=== PATIENT | male | born 1980 ===

== ENCOUNTER 2016-06-03 15:52 | Emergency (ER) | payer OTHER ==
[2016-06-03 15:52] VITALS: BMI 33.8
[2016-06-03 16:05] VITALS: BP 156/101; PULSE 103; RESP 20; TEMP 98.4; O2SAT 98
[2016-06-03] MEDS ORDERED: Sodium Chloride 0.9% 1,000 ML IV ONE (16:19)
[2016-06-03] MEDS ORDERED: Sodium Chloride 0.9% 1,000 ML ONE (16:35)
[2016-06-03 16:57] LABS: BASO % 0.5 % (0.0-2.0); HEMATOCRIT 41.3 % (35.0-51.0); LYMPH # 1.8 K/uL (1.0-4.3); LYMPH % 38.8 % (20.0-40.0); MEAN CELL VOLUME 86.9 fL (80.0-94.0); MEAN CORPUSCULAR HEMOGLOBIN 29.9 pg (27.0-31.0); MEAN CORPUSCULAR HGB CONC 34.4 g/dL (33.0-37.0); MEAN PLATELET VOLUME 7.7 fL (7.2-11.7); MONO # 0.3 K/uL (0.0-0.8); MONO % 6.4 % (0.0-10.0); NRBC % 0.2 % (0.0-2.0); RED CELL DISTRIBUTION WIDTH 15.3 % (11.5-14.5); WHITE BLOOD COUNT 4.6 K/uL (4.8-10.8)
[2016-06-03 17:02] LABS: CHLORIDE 96 mmol/L (98-107); POTASSIUM 3.9 mmol/L (3.6-5.2); SODIUM 143 mmol/L (132-148)
--- NOTE | 2016-06-03 17:03 | RAD ---
HISTORY: cough, pain COMPARISON: Chest x-ray performed 04/04/16 TECHNIQUE: Chest, one view. FINDINGS: Examination limited by habitus and hypoinflation. LUNGS: Linear atelectasis, medial right midlung zone. Please note that chest x-ray has limited sensitivity for the detection of pulmonary masses. PLEURA: No significant pleural effusion identified. No definite pneumothorax . CARDIOVASCULAR: The cardiomediastinal silhouette appears within normal limits of size. OSSEOUS STRUCTURES: No acute osseous abnormality identified. VISUALIZED UPPER ABDOMEN: Unremarkable. OTHER FINDINGS: None. IMPRESSION: Linear atelectasis, medial right midlung zone.
[2016-06-03 17:04] LABS: GFR AFRICAN-AMERICAN > 60
[2016-06-03 17:05] LABS: ALKALINE PHOSPHATASE 125 U/L (38-126); ALT/SGPT 66 U/L (21-72); AST/SGOT 116 U/L (17-59); BLOOD UREA NITROGEN 10 mg/dL (9-20); CALCIUM 7.4 mg/dl (8.6-10.4); CARBON DIOXIDE 26 mmol/L (22-30); GLUCOSE,RANDOM 102 mg/dL (75-110); MAGNESIUM 2.2 mg/dL (1.6-2.3); TOTAL PROTEIN 8.5 g/dL (6.3-8.3)
[2016-06-03 17:06] LABS: ALCOHOL SERUM 269 mg/dl (0-10)
[2016-06-03 17:09] LABS: ALB/GLOB RATIO 0.9 (1.0-2.1)
--- NOTE | 2016-06-03 17:42 | C.PDOC ---
History Of Present Illness Pt c/o multiple symptoms, including abdominal pain and vomiting. Time Seen by Provider: 06/03/16 16:11 Chief Complaint (Nursing): Medical Clearance History Per: Patient History/Exam Limitations: intoxication Onset/Duration Of Symptoms: Days (1) Current Symptoms Are (Timing): Still Present Severity: Moderate Context: Alcohol abuse Additional History Per: Prior Records Past Medical History Reviewed: Historical Data, Nursing Documentation, Vital Signs Vital Signs: Last Vital Signs Temp 98.4 F 06/03/16 16:02 Pulse 103 H 06/03/16 16:02 Resp 20 06/03/16 16:02 BP 156/101 H 06/03/16 16:02 Pulse Ox 98 06/03/16 17:41 - Medical History PMH: Gastritis, HTN Surgical History: No Surg Hx - [facility] Procedures CLOSURE SKIN & SUBCUTANEOUS NEC (11/10/14) DETOXIFICATION SERVICES FOR SUBSTANCE ABUSE TREATMENT (02/16/16) GROUP CHECKER PRODUCT DESIGN FOR SUBSTANCE ABUSE TREATMENT, PSYCHOEDUCATION (02/16/16) TETANUS TOXOID ADMINIST (11/10/14) Family History: States: Unknown Family Hx - Social History Hx Tobacco Use: No Hx Alcohol Use: Yes Hx Substance Use: No - Immunization History Hx Tetanus Toxoid Vaccination: Yes (2014) Hx Influenza Vaccination: No Hx Pneumococcal Vaccination: No Review Of Systems Except As Marked, All Systems Reviewed And Found Negative. Constitutional: Negative for: Fever ENT: Positive for: Throat Pain Respiratory: Positive for: Cough. Negative for: Hemoptysis Gastrointestinal: Positive for: Nausea, Vomiting, Abdominal Pain Musculoskeletal: Negative for: Neck Pain, Back Pain Skin: Negative for: Rash Neurological: Negative for: Weakness, Numbness, Seizures, Altered Mental Status Psych: Negative for: Suicidal ideation Physical Exam - Physical Exam Appears: No Acute Distress, Chronically Ill Skin: Normal Color, Warm, Dry, No Rash Head: Atraumatic, Normacephalic Eye(s): bilateral: PERRL, EOMI Neck: Normal ROM, Supple Cardiovascular: Rhythm Regular Respiratory: Normal Breath Sounds, No Accessory Muscle Use Gastrointestinal/Abdominal: Soft, Tenderness (nonspecific) Back: No CVA Tenderness Extremity: Normal ROM Neurological/Psych: Oriented x3, Normal Motor, Normal Sensation ED Course And Treatment - Laboratory Results Result Diagrams: 06/03/16 16:53 06/03/16 16:53 Lab Interpretation: No Changes Compared To Prior Results ECG: Interpreted By Me, Viewed By Me ECG Rhythm: Sinus Rhythm ECG Interpretation: No Acute Changes Rate From EC O2 Sat by Pulse Oximetry: 98 Pulse Ox Interpretation: Normal - Radiology CXR: Viewed By Me, Read By Radiologist CXR Interpretation: Yes: Other (Linear atelectasis, medial right midlung zone.) Progress Note: I was informed by the nurse that the pt had walked out during evaluation. Progress - Interventions Interventions:: Observation, Intravenous fluid - Medications Administered Intravenous: Antiemetic, H-2 argelia - Data Reviewed Data Reviewed: Lab, Diagnostic imaging, EKG, Old records Disposition - Disposition Disposition: ELOPEMENT - ER ONLY Disposition Time: 18:00 Condition: UNKNOWN - Clinical Impression Clinical Impression: Alcohol abuse, Abdominal pain, Patient left before treatment completed
--- NOTE | 2016-06-04 12:51 | CARD ---
APPROVED REPORT EKG Measurement Heart [id number] <Conclusion> Normal sinus rhythm Normal ECG
== END 2016-06-03 17:41 | disposition left against medical advice (07) ==
LOC: C.ER 15:52
DX: R10.9 Unspecified abdominal pain (principal); F10.10 Alcohol abuse, uncomplicated; Y90.8 Blood alcohol level of 240 mg/100 ml or more

== ENCOUNTER 2016-06-15 02:28 | Observation (INO) | payer OTHER ==
[2016-06-15 02:28] VITALS: BMI 33.8
[2016-06-15 02:36] VITALS: TEMP 98.4; O2SAT 96
[2016-06-15 02:58] LABS: BASO % 1.2 % (0.0-2.0); EOS # 0.1 K/uL (0.0-0.7); EOS % 1.6 % (0.0-4.0); LYMPH # 1.6 K/uL (1.0-4.3); LYMPH % 44.2 % (20.0-40.0); MEAN CELL VOLUME 90.5 fL (80.0-94.0); MEAN CORPUSCULAR HEMOGLOBIN 29.9 pg (27.0-31.0); MEAN PLATELET VOLUME 7.6 fL (7.2-11.7); MONO # 0.6 K/uL (0.0-0.8); MONO % 17.4 % (0.0-10.0); NRBC % 0.1 % (0.0-2.0); RED CELL DISTRIBUTION WIDTH 16.3 % (11.5-14.5); WHITE BLOOD COUNT 3.7 K/uL (4.8-10.8)
--- NOTE | 2016-06-15 02:59 | C.PDOC ---
History Of Present Illness Patient drank yesterday and now c/o mid epigstric pain, burning , non radiating. Speaking in complete sentences., No f/c/n/v Time Seen by Provider: 06/15/16 02:59 Chief Complaint (Nursing): Abdominal Pain History Per: Patient History/Exam Limitations: no limitations Onset/Duration Of Symptoms: Hrs Current Symptoms Are (Timing): Still Present Context: Other (etoh) Severity: Moderate Pain Scale Rating Of: 4 Location Of Pain/Discomfort: Epigastric Radiation Of Pain To:: None Quality Of Discomfort: Dull, Aching Associated Symptoms: Nausea. denies: Fever, Chills, Constipation Exacerbating Factors: None Alleviating Factors: None Last Bowel Movement: Yesterday Recent travel outside of the [place]: No Additional History Per: Patient Past Medical History Reviewed: Historical Data, Nursing Documentation, Vital Signs Vital Signs: Last Vital Signs Temp 98.4 F 06/15/16 06:08 Pulse 95 H 06/15/16 06:08 Resp 18 06/15/16 06:08 BP 127/84 06/15/16 06:08 Pulse Ox 96 06/15/16 06:08 - Medical History PMH: Gastritis, HTN - [facility] Procedures CLOSURE SKIN & SUBCUTANEOUS NEC (11/10/14) DETOXIFICATION SERVICES FOR SUBSTANCE ABUSE TREATMENT (02/16/16) GROUP THEATRE PROFESSOR FOR SUBSTANCE ABUSE TREATMENT, PSYCHOEDUCATION (02/16/16) TETANUS TOXOID ADMINIST (11/10/14) Family History: States: No Known Family Hx - Social History Hx Tobacco Use: No Hx Alcohol Use: Yes Hx Substance Use: No - Immunization History Hx Tetanus Toxoid Vaccination: Yes (2014) Hx Influenza Vaccination: No Hx Pneumococcal Vaccination: No Review Of Systems Constitutional: Negative for: Fever, Chills Cardiovascular: Negative for: Chest Pain, Palpitations Respiratory: Negative for: Shortness of Breath Gastrointestinal: Positive for: Nausea, Abdominal Pain. Negative for: Vomiting Musculoskeletal: Negative for: Back Pain Skin: Negative for: Rash, Lesions, Jaundice, Bruising Neurological: Negative for: Weakness Psych: Negative for: Anxiety Physical Exam - Physical Exam Appears: Non-toxic, No Acute Distress Skin: Warm, Dry Head: Normacephalic Neck: Supple Chest: Symmetrical Cardiovascular: Rhythm Regular Respiratory: No Rales, No Rhonchi, No Wheezing Gastrointestinal/Abdominal: Soft, Tenderness (midepigastric), No Distention, No Rebound Back: Normal Inspection Extremity: Normal ROM Extremity: Bilateral: Atraumatic, Normal Color And Temperature Neurological/Psych: Oriented x3, Normal Speech, Normal Cognition Gait: Steady ED Course And Treatment - Laboratory Results Result Diagrams: 06/15/16 02:55 06/15/16 02:55 O2 Sat by Pulse Oximetry: 96 Pulse Ox Interpretation: Normal Progress Note: blood work, ivf, protonix Reevaluation Time: 05:42 Reassessment Condition: Improved ED OBSERVATION Discharge: Yes Date of observation admission: 06/15/16 Time of observation admission: 03:39 - Observation admission statement Patient is being placed in observation because:: alcohol intoxication - Goals of Observation Goals of observation are:: sobriety - Progress Note Progress Note: 06/15/16 03:40 vitals stable, no complaints 06/15/16 05:43 Disposition Counseled Patient/Family Regarding: Studies Performed, Diagnosis, Need For Followup - Disposition Referrals: [facility] [Outside] Disposition: HOME/ ROUTINE Disposition Time: 02:59 Condition: FAIR Instructions: Abdominal Pain (ED), Alcohol Intoxication (DC) - Clinical Impression Clinical Impression: Alcohol abuse with intoxication, Abdominal pain
[2016-06-15] MEDS ORDERED: Sodium Chloride 0.9% 1,000 ML IV ONE (03:01)
[2016-06-15] MEDS ORDERED: Sodium Chloride 0.9% 1,000 ML ONE (03:03)
[2016-06-15 03:09] LABS: CHLORIDE 101 mmol/L (98-107); POTASSIUM 3.6 mmol/L (3.6-5.2); SODIUM 147 mmol/L (132-148)
[2016-06-15 03:11] LABS: AST/SGOT 95 U/L (17-59); BILIRUBIN,TOTAL 0.4 mg/dL (0.2-1.3); CARBON DIOXIDE 25 mmol/L (22-30); GFR AFRICAN-AMERICAN > 60; TOTAL PROTEIN 8.4 g/dL (6.3-8.3)
[2016-06-15 03:12] LABS: ALKALINE PHOSPHATASE 99 U/L (38-126); ALT/SGPT 91 U/L (21-72); BLOOD UREA NITROGEN 4 mg/dL (9-20); CALCIUM 8.1 mg/dl (8.6-10.4); GLUCOSE,RANDOM 112 mg/dL (75-110)
[2016-06-15 03:24] LABS: RBC URINE < 1 /hpf (0-3); URINE BILIRUBIN NEGATIVE (NEGATIVE); URINE BLOOD NEGATIVE (NEGATIVE); URINE COLOR Yellow (YELLOW); URINE GLUCOSE (UA) NORMAL (Normal); URINE KETONE NEGATIVE (NEGATIVE); URINE LEUKOCYTE ESTERASE NEG Leu/uL (Negative); URINE PROTEIN NEGATIVE (NEGATIVE); URINE UROBILINOGEN NORMAL mg/dL (0.2-1.0); WBC URINE 1 /hpf (0-5)
[2016-06-15 06:08] VITALS: BP 127/84; PULSE 95; RESP 18
== END 2016-06-16 12:30 | disposition home or self-care (01) ==
LOC: C.ER 02:28 → C.9OBSV 03:39
PROVIDERS: ADMIT Emergency Medicine; ATTEND Emergency Medicine
DX: F10.129 Alcohol abuse with intoxication, unspecified (principal); Y90.8 Blood alcohol level of 240 mg/100 ml or more; R10.9 Unspecified abdominal pain; I10 Essential (primary) hypertension

== ENCOUNTER 2016-06-16 03:28 | Emergency (ER) | payer OTHER ==
[2016-06-16 03:29] VITALS: BMI 33.8
[2016-06-16 03:37] VITALS: RESP 18
--- NOTE | 2016-06-16 06:00 | C.PDOC ---
History Of Present Illness Patient presents to the emergency room with complaints of epigastric abdominal pain for a few days. Patient was discharged form the ED yesterday with a prescription for Pepcid. Patient admits to drinking ETOH today. Patient says that he did not fill the prescription. Patient denies any fever, chills, nausea , vomiting, diarrhea, or any other complaints. Time Seen by Provider: 06/16/16 03:48 Chief Complaint (Nursing): Abdominal Pain History Per: Patient History/Exam Limitations: no limitations Onset/Duration Of Symptoms: Hrs Current Symptoms Are (Timing): Still Present Severity: Mild Location Of Pain/Discomfort: Epigastric Radiation Of Pain To:: None Quality Of Discomfort: "Pain" Associated Symptoms: denies: Fever, Chills, Nausea, Vomiting, Diarrhea Exacerbating Factors: None Alleviating Factors: None Recent travel outside of the [place]: No Past Medical History Reviewed: Historical Data, Nursing Documentation, Vital Signs Vital Signs: Last Vital Signs Temp 98.5 F 06/16/16 06:11 Pulse 94 H 06/16/16 06:11 Resp 18 06/16/16 06:11 BP 104/63 06/16/16 06:11 Pulse Ox 96 06/16/16 06:11 - Medical History PMH: Gastritis, HTN Surgical History: No Surg Hx - [facility] Procedures CLOSURE SKIN & SUBCUTANEOUS NEC (11/10/14) DETOXIFICATION SERVICES FOR SUBSTANCE ABUSE TREATMENT (02/16/16) GROUP ZOO KEEPER FOR SUBSTANCE ABUSE TREATMENT, PSYCHOEDUCATION (02/16/16) TETANUS TOXOID ADMINIST (11/10/14) Family History: States: Unknown Family Hx - Social History Hx Tobacco Use: No Hx Alcohol Use: Yes Hx Substance Use: No - Immunization History Hx Tetanus Toxoid Vaccination: Yes (2014) Review Of Systems Constitutional: Negative for: Fever, Chills Gastrointestinal: Positive for: Abdominal Pain. Negative for: Nausea, Vomiting , Diarrhea Physical Exam - Physical Exam Appears: Well, Non-toxic, No Acute Distress Skin: Normal Color, Warm, Dry Head: Atraumatic, Normacephalic Cardiovascular: Rhythm Regular, No Murmur Respiratory: No Rales, No Rhonchi Gastrointestinal/Abdominal: Soft, No Tenderness, No Guarding, No Rebound Extremity: Normal ROM, No Tenderness Neurological/Psych: Oriented x3, Normal Speech ED Course And Treatment O2 Sat by Pulse Oximetry: 95 Medical Decision Making Medical Decision Making: Plan: -- Pepcid & Zofran PO abd remained soft tolerated PO Plan dc Disposition Counseled Patient/Family Regarding: Need For Followup - Disposition Referrals: [facility] [Outside] Disposition: HOME/ ROUTINE Disposition Time: 00:00 Condition: FAIR Additional Instructions: Fill Rx from yesterday and taken the medicine - Clinical Impression Clinical Impression: Gastritis, Alcohol abuse with intoxication - Scribe Statement The provider has reviewed the documentation as recorded by the Scribjuanita Aguilar All medical record entries made by the Deeptiibe were at my direction and personally dictated by me. I have reviewed the chart and agree that the record accurately reflects my personal performance of the history, physical exam, medical decision making, and the department course for this patient. I have also personally directed, reviewed, and agree with the discharge instructions and disposition.
[2016-06-16 06:11] VITALS: BP 104/63; PULSE 94; TEMP 98.5
[2016-06-18 11:40] VITALS: O2SAT 95
== END 2016-06-16 06:12 | disposition home or self-care (01) ==
LOC: C.ER 03:28
DX: K29.70 Gastritis, unspecified, without bleeding (principal); F10.120 Alcohol abuse with intoxication, uncomplicated; Y90.9 Presence of alcohol in blood, level not specified

== ENCOUNTER 2016-06-16 07:38 | Inpatient (IN) | payer OTHER ==
[2016-06-16 07:38] VITALS: BMI 33.8
[2016-06-16] MEDS ORDERED: Sodium Chloride 0.9% 1,000 ML IV ONE ×2 (07:56→09:38)
--- NOTE | 2016-06-16 08:04 | C.PDOC ---
History Of Present Illness Patient is a 35 y/o male that presents to the ED for evaluation of epigastric abdominal pain associated with nausea, and vomiting for the past few days. Patient states that his abdominal pain radiates up to his chest. Patient states that he has been drinking heavily for the past few days, and notes last drink was this morning. Otherwise, denies any fever, chills, diarrhea, urinary symptoms, or any other associated symptoms at this time. Time Seen by Provider: 06/16/16 07:51 Chief Complaint (Nursing): Abdominal Pain History Per: Patient History/Exam Limitations: no limitations Onset/Duration Of Symptoms: Days Current Symptoms Are (Timing): Still Present Location Of Pain/Discomfort: Epigastric Radiation Of Pain To:: Chest Quality Of Discomfort: "Pain" Associated Symptoms: Nausea, Vomiting. denies: Fever, Chills, Diarrhea, Loss Of Appetite, Back Pain, Constipation, Urinary Symptoms Exacerbating Factors: None Alleviating Factors: None Recent travel outside of the [place]: No Additional History Per: Patient Past Medical History Reviewed: Historical Data, Nursing Documentation, Vital Signs Vital Signs: Last Vital Signs Temp 98.5 F 06/16/16 07:42 Pulse 105 H 06/16/16 07:42 Resp 18 06/16/16 07:42 BP 138/91 H 06/16/16 07:42 Pulse Ox 96 06/16/16 08:16 - Medical History PMH: Gastritis, HTN - [facility] Procedures CLOSURE SKIN & SUBCUTANEOUS NEC (11/10/14) DETOXIFICATION SERVICES FOR SUBSTANCE ABUSE TREATMENT (02/16/16) GROUP LEGISLATIVE CORRESPONDENT FOR SUBSTANCE ABUSE TREATMENT, PSYCHOEDUCATION (02/16/16) TETANUS TOXOID ADMINIST (11/10/14) Family History: States: Unknown Family Hx - Social History Hx Tobacco Use: No Hx Alcohol Use: Yes Hx Substance Use: No - Immunization History Hx Tetanus Toxoid Vaccination: Yes (2014) Hx Influenza Vaccination: No Hx Pneumococcal Vaccination: No Review Of Systems Except As Marked, All Systems Reviewed And Found Negative. Constitutional: Negative for: Fever, Chills Gastrointestinal: Positive for: Nausea, Vomiting, Abdominal Pain. Negative for : Diarrhea, Constipation, Hematemesis Genitourinary: Negative for: Dysuria, Hematuria Physical Exam - Physical Exam Appears: Non-toxic, No Acute Distress, Other (EtOH on breath) Skin: Normal Color, Warm, Dry, Diaphoretic Head: Atraumatic, Normacephalic Eye(s): bilateral: Normal Inspection, EOMI ED Course And Treatment - Laboratory Results Result Diagrams: 06/16/16 08:09 O2 Sat by Pulse Oximetry: 96 - PA / CANAL LOCK TENDER CHIEF OPERATOR / Resident Statement MD/ has reviewed & agrees with the documentation as recorded. - Scribe Statement The provider has reviewed the documentation as recorded by the Scribe Prisca Fernando All medical record entries made by the Deeptiibjuanita were at my direction and personally dictated by me. I have reviewed the chart and agree that the record accurately reflects my personal performance of the history, physical exam, medical decision making, and the department course for this patient. I have also personally directed, reviewed, and agree with the discharge instructions and disposition.
[2016-06-16 08:16] LABS: EOS % 0.4 % (0.0-4.0); HEMATOCRIT 39.7 % (35.0-51.0); LYMPH % 20.4 % (20.0-40.0); MEAN CELL VOLUME 90.1 fL (80.0-94.0); MEAN CORPUSCULAR HEMOGLOBIN 31.2 pg (27.0-31.0); MEAN CORPUSCULAR HGB CONC 34.6 g/dL (33.0-37.0); MEAN PLATELET VOLUME 7.3 fL (7.2-11.7); MONO # 0.6 K/uL (0.0-0.8); MONO % 12.9 % (0.0-10.0); NRBC % 0.1 % (0.0-2.0); RED CELL DISTRIBUTION WIDTH 16.1 % (11.5-14.5); WHITE BLOOD COUNT 4.8 K/uL (4.8-10.8)
[2016-06-16 08:23] LABS: RBC URINE 1 /hpf (0-3); URINE BILIRUBIN NEGATIVE (NEGATIVE); URINE BLOOD 1+ (NEGATIVE); URINE COLOR Yellow (YELLOW); URINE GLUCOSE (UA) NORMAL (Normal); URINE KETONE NEGATIVE (NEGATIVE); URINE LEUKOCYTE ESTERASE NEG Leu/uL (Negative); URINE PROTEIN NEGATIVE (NEGATIVE); URINE UROBILINOGEN NORMAL mg/dL (0.2-1.0); WBC URINE 1 /hpf (0-5)
[2016-06-16 08:26] LABS: CHLORIDE 103 mmol/L (98-107)
[2016-06-16 08:27] LABS: POTASSIUM 3.6 mmol/L (3.6-5.2); SODIUM 144 mmol/L (132-148)
--- NOTE | 2016-06-16 08:28 | C.PDOC ---
History Of Present Illness Patient is a 35 y/o male with history of ETOH abuse that presents to the ED for evaluation of epigastric abdominal pain associated with nausea and vomiting for the past few days. Patient states that his abdominal pain radiates up to his chest. Patient states that he has been drinking heavily for the past few days, and notes last drink was yesterday morning. Patient reports feeling tremors and not well this morning. Otherwise, denies any fever, chills, diarrhea, urinary symptoms, or any other associated symptoms at this time. Time Seen by Provider: 06/16/16 07:51 Chief Complaint (Nursing): Abdominal Pain History Per: Patient History/Exam Limitations: no limitations Onset/Duration Of Symptoms: Days (1) Current Symptoms Are (Timing): Still Present Location Of Pain/Discomfort: Epigastric Radiation Of Pain To:: Chest Quality Of Discomfort: "Pain" Associated Symptoms: Nausea, Vomiting. denies: Fever, Chills, Diarrhea, Loss Of Appetite, Back Pain, Constipation, Urinary Symptoms Exacerbating Factors: None Alleviating Factors: None Recent travel outside of the [place]: No Additional History Per: Patient Past Medical History Reviewed: Historical Data, Nursing Documentation, Vital Signs Vital Signs: Last Vital Signs Temp 98.5 F 06/16/16 07:42 Pulse 91 H 06/16/16 10:36 Resp 17 06/16/16 10:36 BP 126/87 06/16/16 10:36 Pulse Ox 96 06/16/16 11:26 - Medical History PMH: Gastritis, HTN - [facility] Procedures CLOSURE SKIN & SUBCUTANEOUS NEC (11/10/14) DETOXIFICATION SERVICES FOR SUBSTANCE ABUSE TREATMENT (02/16/16) GROUP PATTERN WEAVER FOR SUBSTANCE ABUSE TREATMENT, PSYCHOEDUCATION (02/16/16) TETANUS TOXOID ADMINIST (11/10/14) Family History: States: Unknown Family Hx - Social History Hx Tobacco Use: No Hx Alcohol Use: Yes Hx Substance Use: No - Immunization History Hx Tetanus Toxoid Vaccination: Yes (2014) Hx Influenza Vaccination: No Hx Pneumococcal Vaccination: No Review Of Systems Constitutional: Negative for: Fever, Chills Cardiovascular: Negative for: Chest Pain Respiratory: Negative for: Cough, Shortness of Breath Gastrointestinal: Positive for: Nausea, Vomiting, Abdominal Pain. Negative for : Diarrhea, Constipation, Hematemesis Genitourinary: Negative for: Dysuria, Hematuria Psych: Positive for: Withdrawal Physical Exam - Physical Exam Appears: Non-toxic, No Acute Distress, Other (alcohol on breath) Skin: Normal Color, Warm, Diaphoretic Head: Atraumatic, Normacephalic Eye(s): bilateral: Normal Inspection, EOMI Nose: Normal Throat: Normal, No Erythema, No Exudate Neck: Normal ROM, Supple Chest: Symmetrical Cardiovascular: Rhythm Regular (tachycardic) Respiratory: Normal Breath Sounds, No Rales, No Rhonchi, No Wheezing Gastrointestinal/Abdominal: Soft, Tenderness (mild epigastric), No Mass, No Distention, No Guarding, No Rebound Extremity: Bilateral: Atraumatic, Normal Color And Temperature Neurological/Psych: Oriented x3, Normal Speech, Other (mild tremors) ED Course And Treatment - Laboratory Results Result Diagrams: 06/16/16 08:09 06/16/16 08:09 Lab Interpretation: No Acute Changes ECG: Interpreted By Me, Viewed By Me ECG Rhythm: Sinus Rhythm ECG Interpretation: Normal Rate From EC (bpm) O2 Sat by Pulse Oximetry: 96 (on RA) Pulse Ox Interpretation: Normal Progress Note: Labs, EKG ordered and reviewed. Patient was treated with Librium PO, IV fluids, and Zofran inj. ED OBSERVATION Date of observation admission: 06/16/16 Time of observation admission: 07:57 - Observation admission statement Patient is being placed in observation because:: Alcohol intoxication/withdrawal - Goals of Observation Goals of observation are:: Labs and IV hydration, Librium - Progress Note Progress Note: 06/16/16 08:49 Labs reviewed and ETOH is 233. Will continue with fluids and observe 06/16/16 09:07 Patient is asking for Detox. Call machine operator hop worker who informs me there are no detox beds. 06/16/16 09:41 Patient continues to not feel well and complains of epigastric pain. Pepcid and additional IV NS ordered 06/16/16 11:25 Patient continues to complain of not feeling well and tremors and discomfort. Spoke with DR Bueno who also examined patient at bedside and recommends admission to hospitalist. Page hospitalist 06/16/16 11:56 Dr Yin comes to ED to evaluate patient and accepts patient to service obs- tele Disposition - Disposition Disposition: HOSPITALIZED Disposition Time: 11:56 Condition: FAIR - POA Present On Arrival: None - Clinical Impression Clinical Impression: Alcohol dependence with withdrawal - PA / PROFESSOR OF COMMUNICATION AND WRITING / Resident Statement MD/DO has reviewed & agrees with the documentation as recorded. - Scribe Statement The provider has reviewed the documentation as recorded by the Deeptiibjuanita Feranndo All medical record entries made by the Deeptiibjuaniat were at my direction and personally dictated by me. I have reviewed the chart and agree that the record accurately reflects my personal performance of the history, physical exam, medical decision making, and the department course for this patient. I have also personally directed, reviewed, and agree with the discharge instructions and disposition. Decision To Admit - Pt Status Changed To: Hospital Disposition Of: Observation - . Bed Request Type: Telemetry Admitting Physician: Erika Yin Patient Diagnosis: Alcohol dependence with withdrawal
[2016-06-16 08:29] LABS: ALKALINE PHOSPHATASE 84 U/L (38-126); ALT/SGPT 86 U/L (21-72); AST/SGOT 84 U/L (17-59); BILIRUBIN,TOTAL 0.4 mg/dL (0.2-1.3); BLOOD UREA NITROGEN 3 mg/dL (9-20); CARBON DIOXIDE 26 mmol/L (22-30); GFR AFRICAN-AMERICAN > 60; TOTAL PROTEIN 8.2 g/dL (6.3-8.3)
[2016-06-16 08:30] LABS: ALCOHOL SERUM 233 mg/dl (0-10); CALCIUM 7.9 mg/dl (8.6-10.4); GLUCOSE,RANDOM 121 mg/dL (75-110)
[2016-06-16] MEDS ORDERED: Sodium Chloride 0.9% 1,000 ML ONE ×2 (08:34→09:41)
[2016-06-16 11:58] LABS: MAGNESIUM 1.9 mg/dL (1.6-2.3)
--- NOTE | 2016-06-16 13:10 | CP.PCM.HP ---
<Pieter Davies - Last Filed: 06/16/16 18:13> History of Present Illness - History of Present Illness History of Present Illness: cc: "i stopped drinking" HPI: Patient is a 35 year old male with PMHx of alcohol abuse, gastritis presenting to the ED complaining of tremors and abdominal pain. He says that he has been drinking 60 ounces of beer everyday for about 10 days. He said he decided to quit 2 days ago, and since then, he has developed abdominal pain, chest pain, nausea, vomiting. He says his appetite has lessened and he has not eaten since yesterday night. He has also reported intermittent fevers and chills , as well as feeling tremorous . He denies any diarrhea, constipation, bloody/ dark stool, no blood in the vomit. Per records, patient has been admitted to the hospital numerous times for detox and alcohol withdrawal. PMD: None PMHx: as stated above PSHx: Carolyn in scalp after fall Fam hx: Noncontributory Social hx: denies smoking or drug hx. Drinking as described in HPI. Present on Admission - Present on Admission Any Indicators Present on Admission: No Review of Systems - Constitutional Constitutional: Chills, Fever. absent: Weakness - Cardiovascular Cardiovascular: Chest Pain. absent: Claudication, Irregular Heart Rhythm, Leg Edema, Palpitations, Pedal Edema - Gastrointestinal Gastrointestinal: Abdominal Pain, Nausea. absent: Constipation, Diarrhea, Melena, Temesmus - Genitourinary Genitourinary: absent: Difficulty Urinating, Dysuria - Musculoskeletal Musculoskeletal: absent: Back Pain, Myalgias, Numbness - Integumentary Integumentary: absent: Skin Ulcer, Sores, Striae, Wounds - Neurological Neurological: Tremor. absent: Abnormal Movements, Weakness - Psychiatric Psychiatric: absent: Suicidal Ideation - Endocrine Endocrine: absent: Fatigue, Palpitations Past Patient History - Infectious Disease Hx of Infectious Diseases: None - Past Medical History & Family History Past Medical History?: Yes - Past Social History Smoking Status: Never Smoked Chewing Tobacco Use: No Cigar Use: No Alcohol: > 2 Drinks/Day Drugs: Denies - CARDIAC Hx Hypertension: Yes - PULMONARY Hx Respiratory Disorders: No Hx Tuberculosis: No - NEUROLOGICAL Hx Neurological Disorder: No HX Cerebrovascular Accident: No - HEENT Hx HEENT Problems: No - ENDOCRINE/METABOLIC Hx Endocrine Disorders: No - HEMATOLOGICAL/ONCOLOGICAL Hx Blood Disorders: No Hx Cancer: No - INTEGUMENTARY Hx Dermatological Problems: No - MUSCULOSKELETAL/RHEUMATOLOGICAL Hx Musculoskeletal Disorders: No Hx Falls: No - GASTROINTESTINAL Hx Gastritis: Yes - GENITOURINARY/GYNECOLOGICAL Hx Genitourinary Disorders: No - PSYCHIATRIC Hx Substance Use: No - SURGICAL HISTORY Hx Surgeries: No - ANESTHESIA Hx Anesthesia: No Hx Anesthesia Reactions: No Meds Allergies/Adverse Reactions: Allergies Allergy/AdvReac Type Severity Reaction Status Date / Time No Known Allergies Allergy Verified 06/16/16 07:42 Physical Exam - Constitutional Appears: Non-toxic, No Acute Distress - Head Exam Head Exam: ATRAUMATIC, NORMAL INSPECTION, NORMOCEPHALIC - Eye Exam Pupil Exam: NORMAL ACCOMODATION - ENT Exam ENT Exam: Mucous Membranes Moist, Normal Oropharynx - Respiratory Exam Respiratory Exam: Clear to Auscultation Bilateral, NORMAL BREATHING PATTERN. absent: Prolonged Expiratory Phase, Rales, Rhonchi, Wheezes - Cardiovascular Exam Cardiovascular Exam: REGULAR RHYTHM, +S1, +S2 - GI/Abdominal Exam GI & Abdominal Exam: Normal Bowel Sounds, Soft, Tenderness (diffusely tender). absent: Distended, Firm - Extremities Exam Extremities exam: Positive for: normal capillary refill, pedal pulses present - Neurological Exam Neurological exam: Alert, CN II-XII Intact, Oriented x3 Additional comments: tremors present Results - Vital Signs Recent Vital Signs: Last Vital Signs Temp 98.5 F 06/16/16 07:42 Pulse 91 H 06/16/16 10:36 Resp 17 06/16/16 10:36 BP 126/87 06/16/16 10:36 Pulse Ox 96 06/16/16 11:59 - Labs Result Diagrams: 06/16/16 08:09 06/16/16 08:09 Labs: Laboratory Results - last 24 hr 06/16/16 08:09 WBC 4.8 RBC 4.41 Hgb 13.8 Hct 39.7 MCV 90.1 MCH 31.2 H MCHC 34.6 RDW 16.1 H Plt Count 192 MPV 7.3 Neut % (Auto) 65.3 Lymph % (Auto) 20.4 Republic % (Auto) 12.9 H Eos % (Auto) 0.4 Baso % (Auto) 1.0 Neut # 3.1 Lymph # 1.0 Republic # 0.6 Eos # 0.0 Baso # 0.0 Sodium 144 Potassium 3.6 Chloride 103 Carbon Dioxide 26 Anion Gap 20 BUN 3 L Creatinine 0.6 L Est GFR ( Amer) > 60 Est GFR (Non-Af Amer) > 60 Random Glucose 121 H Calcium 7.9 L Magnesium 1.9 Total Bilirubin 0.4 AST 84 H ALT 86 H Alkaline Phosphatase 84 Total Protein 8.2 Albumin 4.0 Globulin 4.1 H Albumin/Globulin Ratio 1.0 Lipase 210 Urine Color Yellow Urine Clarity Clear Urine pH 5.0 Ur Specific Chap[place] 1.016 Urine Protein Negative Urine Glucose (UA) Normal Urine Ketones Negative Urine Blood 1+ H Urine Nitrate Negative Urine Bilirubin Negative Urine Urobilinogen Normal Ur Leukocyte Esterase Neg Urine WBC (Auto) 1 Urine RBC (Auto) 1 Ur Squamous Epith Cells < 1 Urine Opiates Screen Negative Urine Methadone Screen Negative Ur Barbiturates Screen Negative Ur Phencyclidine Scrn Negative Ur Amphetamines Screen Negative U Benzodiazepines Scrn Positive U Oth Cocaine Metabols Negative U Cannabinoids Screen Negative Alcohol, Quantitative 233 H Assessment & Plan (1) Alcohol dependence with withdrawal Status: Acute Comment: Alcohol, quant: 233. consult psych: Dr. Rod. Started on Librium Taper. Started on Banana bag x1 day. Ativan 2mg IVP Q2h PRN for withdrawal. Liquid diet. AST/ALT: 84/86 (2) Microscopic hematuria Status: Acute Comment: UA: +1 blood. F/u Renal/Bladder ultrasound. f/u urine culture (3) Prophylactic measure Status: Inactive Comment: SCDs. Pepcid 20mg IVP Q12h <Erika Yin V - Last Filed: 06/16/16 23:07> Results - Vital Signs Recent Vital Signs: Last Vital Signs Temp 99.4 F 06/16/16 22:10 Pulse 78 06/16/16 22:10 Resp 18 06/16/16 22:10 BP 127/76 06/16/16 22:10 Pulse Ox 97 06/16/16 22:10 - Labs Result Diagrams: 06/16/16 08:09 06/16/16 08:09 Labs: Laboratory Results - last 24 hr 06/16/16 08:09 WBC 4.8 RBC 4.41 Hgb 13.8 Hct 39.7 MCV 90.1 MCH 31.2 H MCHC 34.6 RDW 16.1 H Plt Count 192 MPV 7.3 Neut % (Auto) 65.3 Lymph % (Auto) 20.4 Republic % (Auto) 12.9 H Eos % (Auto) 0.4 Baso % (Auto) 1.0 Neut # 3.1 Lymph # 1.0 Republic # 0.6 Eos # 0.0 Baso # 0.0 Sodium 144 Potassium 3.6 Chloride 103 Carbon Dioxide 26 Anion Gap 20 BUN 3 L Creatinine 0.6 L Est GFR ( Amer) > 60 Est GFR (Non-Af Amer) > 60 Random Glucose 121 H Calcium 7.9 L Magnesium 1.9 Total Bilirubin 0.4 AST 84 H ALT 86 H Alkaline Phosphatase 84 Total Protein 8.2 Albumin 4.0 Globulin 4.1 H Albumin/Globulin Ratio 1.0 Lipase 210 Urine Color Yellow Urine Clarity Clear Urine pH 5.0 Ur Specific [place] 1.016 Urine Protein Negative Urine Glucose (UA) Normal Urine Ketones Negative Urine Blood 1+ H Urine Nitrate Negative Urine Bilirubin Negative Urine Urobilinogen Normal Ur Leukocyte Esterase Neg Urine WBC (Auto) 1 Urine RBC (Auto) 1 Ur Squamous Epith Cells < 1 Urine Opiates Screen Negative Urine Methadone Screen Negative Ur Barbiturates Screen Negative Ur Phencyclidine Scrn Negative Ur Amphetamines Screen Negative U Benzodiazepines Scrn Positive U Oth Cocaine Metabols Negative U Cannabinoids Screen Negative Alcohol, Quantitative 233 H Assessment & Plan (1) Alcohol dependence with withdrawal Status: Acute Comment: monitor on telemetry. on Librium taper. on IV fluids supplement with multivitamin. Ativan PRN for seizure acitivity. Seizure precautions. Aspiration precautions. NPO. Liquid diet tomorrow. Lipase: within normal limits (2) Microscopic hematuria Status: Acute Comment: order for repeat UA, urine culture, and renal/bladder US r/o mass (3) Transaminitis Status: Chronic Comment: order for hepatitis serology. AB US (06/06/16): mild hepatomegaly. diffused increased echogencity in the liver may reflect hepatc steatosis however parenchymal infectious/inflammatory etiologies cannot be entirely excluded. Clinical and laboratory correlation is advised. Patient placed on libirum taper; monitor LFTs while on taper (4) Alcoholic gastritis Status: Chronic Comment: denies abdominal pain at bedside. lipase: within normal limits (5) Prophylactic measure Status: Acute Comment: pepcid 20mg Iv Q 12hours. Patient is ambulatory; seen ambulating in the ED. While lying down: placed SCDs on patient. seizure and aspiration precautions Attending/Attestation - Attestation I have personally seen and examined this patient.: Yes I have fully participated in the care of the patient.: Yes I have reviewed all pertinent clinical information: Yes Notes (Text): patient seen, examined, and case discussed with day-time resident. Patient seen in [facility] bed 8B in [facility] Emergency Room. patient comes for alcohol withdrawal symptoms with mild tremors on exam following heavy alcohol use about two days ago. Patient denies auditory/visual hallucinations. Patient given Librium 100mg PO total prior to my arrival. Patient has mild tremors on exam. Patient given prior fluid boluses per discussion with ED PA. Patient started on Librium taper for alcohol withdrawal and has Ativan PRN for seizure activity. Patient has mild transaminitis which are downtrending compared to last hospitalization with me. Patient started on IV fluids supplement with multivitamin. Patient to be started on liquid diet in the morning. patient has hx of gastritis and last hospitalization alcohol induced pancreatitis; lipase normal. patient has microscopic hematuria; ordered for repeat UA, urine culture, and renal/bladder US r/o mass. Discussed admitting orders with day time resident. Patient undergoing alcohol withdrawal, monitor for DTs. Last drink about 2 days ago.
[2016-06-16] MEDS ORDERED: Folic Acid 1 MG, Multivitamin (MVI) 10 ML, Thiamine 100 MG in Sodium Chloride 0.9% 1,00... IV SCH (13:45)
[2016-06-16] MEDS: Folic Acid 1 MG, Multivitamin (MVI) 10 ML, Thiamine 100 MG in Sodium Chloride 0.9% 1,00... IV SCH (15:58)
[2016-06-17] MEDS: Folic Acid 1 MG, Multivitamin (MVI) 10 ML, Thiamine 100 MG in Sodium Chloride 0.9% 1,00... IV SCH (01:00)
[2016-06-17] MEDS: Sodium Chloride 0.9% 1,000 ML IV SCH ×3 (01:25→21:50)
[2016-06-17 08:22] LABS: BASO % 0.7 % (0.0-2.0); EOS % 0.6 % (0.0-4.0); HEMATOCRIT 39.5 % (35.0-51.0); LYMPH # 0.9 K/uL (1.0-4.3); LYMPH % 17.2 % (20.0-40.0); MEAN CELL VOLUME 91.4 fL (80.0-94.0); MEAN CORPUSCULAR HEMOGLOBIN 30.5 pg (27.0-31.0); MEAN CORPUSCULAR HGB CONC 33.3 g/dL (33.0-37.0); MEAN PLATELET VOLUME 8.9 fL (7.2-11.7); MONO # 0.5 K/uL (0.0-0.8); NRBC % 0.5 % (0.0-2.0); RED CELL DISTRIBUTION WIDTH 15.7 % (11.5-14.5); WHITE BLOOD COUNT 5.1 K/uL (4.8-10.8)
[2016-06-17 08:25] LABS: CHLORIDE 97 mmol/L (98-107)
[2016-06-17 08:26] LABS: POTASSIUM 3.6 mmol/L (3.6-5.2); SODIUM 138 mmol/L (132-148)
[2016-06-17 08:27] LABS: GFR AFRICAN-AMERICAN > 60
[2016-06-17 08:28] LABS: AST/SGOT 68 U/L (17-59); BILIRUBIN,TOTAL 1.2 mg/dL (0.2-1.3); CARBON DIOXIDE 25 mmol/L (22-30); TOTAL PROTEIN 7.6 g/dL (6.3-8.3)
[2016-06-17 08:30] LABS: ALKALINE PHOSPHATASE 104 U/L (38-126); ALT/SGPT 65 U/L (21-72); BLOOD UREA NITROGEN 5 mg/dL (9-20); GLUCOSE,RANDOM 82 mg/dL (75-110); MAGNESIUM 1.7 mg/dL (1.6-2.3)
--- NOTE | 2016-06-17 09:33 | CP.PCM.PN ---
<Beulah Rodriguez - Last Filed: 06/17/16 12:19> Subjective - Date & Time of Evaluation Date of Evaluation: 06/17/16 Time of Evaluation: 08:40 - Subjective Subjective: Internal medicine progress note for Dr. Lira-Beulah Rodriguez, PGY-1 Pt S & E at bedside. Pt reports LLQ and RUQ abdominal pain, RUQ>LLQ. Also reports nausea, headache, diaphoresis. Reports BM's ok, sleeping ok. Objective - Vital Signs/Intake and Output Vital Signs (last 24 hours): Temp Pulse Resp BP Pulse Ox 98.5 F 78 20 121/77 95 06/17/16 07:30 06/17/16 07:30 06/17/16 07:30 06/17/16 07:30 06/17/16 07:30 Intake and Output: 06/17/16 06/17/16 06:59 18:59 Intake Total 950 Balance 950 - Medications Medications: Current Medications Chlordiazepoxide (Librium) 25 mg PO TID SOFI PRN Reason: Taper Stop: 06/19/16 13:59 Last Admin: 06/16/16 20:01 Dose: 25 mg Famotidine (Pepcid) 20 mg IVP Q12 [facility] Last Admin: 06/16/16 22:24 Dose: 20 mg Sodium Chloride (Sodium Chloride 0.9%) 1,000 mls @ 100 mls/hr IV .Q10H [facility] Last Admin: 06/17/16 01:25 Dose: 100 mls/hr Folic Acid 1 mg/ Thiamine HCl 100 mg/ Multivitamins/Vitamin C 10 ml/ Dextrose 1 ,011.2 mls @ 100 mls/hr IV .Q10H7M ONE Stop: 06/18/16 00:06 Influenza Virus Vaccine (Afluria) 45 mcg IM .ONCE ONE Stop: 06/18/16 10:01 Lorazepam (Ativan) 2 mg IVP Q2H PRN PRN Reason: Seizure activity Last Admin: 06/16/16 22:24 Dose: 2 mg - Labs Labs: 06/17/16 07:52 06/17/16 07:52 - Constitutional Appears: Non-toxic, No Acute Distress - Head Exam Head Exam: ATRAUMATIC, NORMAL INSPECTION, NORMOCEPHALIC - Eye Exam Eye Exam: EOMI, Normal appearance, PERRL Pupil Exam: NORMAL ACCOMODATION, PERRL - ENT Exam ENT Exam: Mucous Membranes Moist, Normal Exam - Neck Exam Neck Exam: Full ROM, Normal Inspection - Respiratory Exam Respiratory Exam: Clear to Ausculation Bilateral, NORMAL BREATHING PATTERN. absent: Rales, Rhonchi, Wheezes, Respiratory Distress - Cardiovascular Exam Cardiovascular Exam: REGULAR RHYTHM, +S1, +S2 - GI/Abdominal Exam GI & Abdominal Exam: Soft, Tenderness (RUQ>LLQ), Normal Bowel Sounds. absent: Distended, Firm, Guarding, Rigid, Mass - Extremities Exam Extremities Exam: Normal Inspection. absent: Pedal Edema - Neurological Exam Neurological Exam: Alert, Awake, CN II-XII Intact, Oriented x3 - Psychiatric Exam Psychiatric exam: Normal Affect, Normal Mood - Skin Skin Exam: Diaphoretic, Intact, Normal Color, Warm Assessment and Plan - Assessment and Plan (Free Text) Assessment: (1) Alcohol dependence with withdrawal Cont Librium taper Cont IVF Cont MV Cont Ativan PRN seizures Seizure precautions Aspiration precautions Will advance to clear liquid diet if CT abdomen negative Abdominal pain FU CT ab/pelvis Lipase 210 Microscopic hematuria FU repeat UA FU urine culture Renal/bladder US- No nephrolithiasis, renal masses, or hydronephrosis, small PVR Transaminitis Hep panel neg AB US (06/06/16): mild hepatomegaly. diffused increased echogencity in the liver may reflect hepatc steatosis however parenchymal infectious/inflammatory etiologies cannot be entirely excluded. Clinical and laboratory correlation is advised. Monitor LFTs while on Librium taper Alcoholic gastritis Cont pepcid Prophylactic measure Pepcid 20mg Iv Q 12hours. Ambulate SCDs when lying down Dispo Cont current mgmt seizure and aspiration precautions DW attending <Socrates Lira - Last Filed: 06/17/16 17:29> Objective - Vital Signs/Intake and Output Vital Signs (last 24 hours): Temp Pulse Resp BP Pulse Ox 98.3 F 72 20 124/82 96 06/17/16 16:17 06/17/16 16:17 06/17/16 16:17 06/17/16 16:17 06/17/16 16:17 Intake and Output: 06/17/16 06/17/16 06:59 18:59 Intake Total 950 420 Balance 950 420 - Medications Medications: Current Medications Chlordiazepoxide (Librium) 25 mg PO BID SOFI PRN Reason: Taper Stop: 06/19/16 13:59 Last Admin: 06/17/16 17:01 Dose: 25 mg Famotidine (Pepcid) 20 mg IVP Q12 SOFI Last Admin: 06/17/16 10:13 Dose: 20 mg Sodium Chloride (Sodium Chloride 0.9%) 1,000 mls @ 100 mls/hr IV .Q10H SOFI Last Admin: 06/17/16 10:30 Dose: Not Given Folic Acid 1 mg/ Thiamine HCl 100 mg/ Multivitamins/Vitamin C 10 ml/ Sodium Chloride 1,011.2 mls @ 100 mls/hr IV .Q10H7M ONE Stop: 06/18/16 00:06 Last Admin: 06/17/16 11:04 Dose: 100 mls/hr Influenza Virus Vaccine (Afluria) 45 mcg IM .ONCE ONE Stop: 06/18/16 10:01 Lorazepam (Ativan) 2 mg IVP Q2H PRN PRN Reason: Seizure activity Last Admin: 06/16/16 22:24 Dose: 2 mg - Labs Labs: 06/17/16 07:52 06/17/16 07:52 Attending/Attestation - Attestation I have personally seen and examined this patient.: Yes I have fully participated in the care of the patient.: Yes I have reviewed all pertinent clinical information, including history, physical exam and plan: Yes Notes (Text): 06/17/16 17:28 Medical Attending: Patient was seen and examined by me. Agree with the above note by the resident. The patient currently is on a Librium taper and will watch the LFTs, also because of the abdominal pain will check a CT of the abdomen and pelvis. If this is ok, then will consider advancing the patient onto a diet thank you Socrates Lira
--- NOTE | 2016-06-17 10:41 | US ---
PROCEDURE: Ultrasound of the Kidneys HISTORY: Hematuria COMPARISON: None available. TECHNIQUE: Sonogram of the kidneys. FINDINGS: RIGHT KIDNEY: Measures: 11.1 cm. Normal in size, contour and echogenicity. No stone, solid mass lesion or hydronephrosis visualized. LEFT KIDNEY: Measures: 10.7 cm. Normal in size, contour and echogenicity. No stone, solid mass lesion or hydronephrosis visualized. OTHER FINDINGS: The urinary bladder is partially distended however grossly normal in appearance without wall thickening or mass. The prevoid urinary volume is 380.0 mL. The postvoid urinary volume is 21.3 mL. Bilateral ureteral jets are visualized on color flow imaging. IMPRESSION: 1. No nephrolithiasis or hydronephrosis. 2. Small postvoid residual.
[2016-06-17] MEDS: Folic Acid 1 MG, Thiamine 100 MG, Multivitamin (MVI) 10 ML in Sodium Chloride 0.9% 1,00... IV ONE ×2 (11:04)
--- NOTE | 2016-06-17 14:09 | PCM.PSYCH ---
Initial Psychiatric Evaluation - Initial Psychiatric Evaluation Type of Admission: Voluntary Legal Status: Capacity Chief Complaint (in patient's own words): "I couldn't stop shaking all over" History of Present Illness and Precipitating Events: Pt seen, chart reviewed, case discussed with nurse. 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 Pt has an extensive history of etoh us and has been to for detox 4 months ago in 01/2016. Psychiatry was called for consult for management of etoh withdrawal and detox. The pt reports that he has not drank in the last two days in an effort to stop drinking as much and acknowledges that he has a problem with etoh. The pt reports that he was hearing voices talking to each other about him and saw snakes and ants on the ceiling immediately upon cessation of etoh use. the patient also reported that sometimes after stopping etoh he feels something is crawling on his skin as well. the pt has never had a seizure from the drinking but does experience tremors. The pt has been to detox in the past but upon discharge only went to AA meetings, pt subsequently relapsed. The pt this time agrees to try to attend [facility] or some other type of therapy to treat his problem. He currently denies suicidal ideation, auditory or visual hallucinations, tactile hallucinations, homicidal ideation, irritability. PMH: gastritis PSH: denies Hospitalizations: multiple for etoh intoxication and for detox Meds: Pepcid allergies: denies, NKDA. Social: admits to 60oz of etoh daily, denies nicotine use, denies illicit drug use. Current Medications: Active Medications Generic Name Dose Route Start Last Admin Trade Name Drake PRN Reason Stop Dose Admin Chlordiazepoxide 25 mg 06/16/16 14:00 06/17/16 10:12 Librium PO 06/19/16 13:59 25 mg BID SOFI Administration Taper Famotidine 20 mg 06/16/16 22:00 06/17/16 10:13 Pepcid IVP 20 mg Q12 SOFI Administration Sodium Chloride 1,000 mls @ 100 mls/hr 06/17/16 00:30 06/17/16 01:25 Sodium Chloride 0.9% IV 100 mls/hr .Q10H SOFI Administration Folic Acid 1 mg/ Thiamine HCl 1,011.2 mls @ 100 mls/hr 06/17/16 14:00 06/17/16 11:04 100 mg/ Multivitamins/Vitamin IV 06/18/16 00:06 100 mls/hr C 10 ml/ Sodium Chloride .Q10H7M ONE Administration Influenza Virus Vaccine 45 mcg 06/18/16 10:00 Afluria IM 06/18/16 10:01 .ONCE ONE Lorazepam 2 mg 06/16/16 13:42 06/16/16 22:24 Ativan IVP 2 mg Q2H PRN Administration Seizure activity Past Psychiatric History - Past Psychiatric History Previous Treatment History: Inpatient Pertinent Medical Hx (Current Medical&Sleep Prob, Allergies): Allergies Allergy/AdvReac Type Severity Reaction Status Date / Time No Known Allergies Allergy Verified 06/16/16 07:42 Famotidine [Pepcid] 20 mg PO BID #30 tab 06/06/16 Review of Systems - Neurological Neurological: Tremor - Psychiatric Psychiatric: Depression. absent: Auditory Hallucinations, Hallucinations, Irritability, Panic Attacks, Suicidal Ideation, Visual Hallucinations, Tactile Hallucinations Mental Status Examination - Personal Presentation Personal Presentation: Looks stated age - Affect Affect: Blunted - Motor Activity Motor Activity: Calm - Reliability in Providing Information Reliability in Providing Information: Good - Speech Speech: Organized - Mood Mood: Depressed - Formal Thought Process Formal Thought Process: No Impairment - Obsessions/Compulsions Obsessions: No Compulsions: No - Cognitive Functions Orientation: Person, Place, Situation, Time Sensorium: Alert Attention/Concentration: Attentive Abstract Thinking: [place]ou Estimate of Intelligence: Average Judgement: Intact, as evidence by: Insight regarding need for hospitalization Memory: Recent intact, as evidence by: Ability to recall events of the day, Remote intact, as evidenced by: Ability to recall historical events - Risk Risk: Seizure, Withdrawal - Strength & Assets Inventory Strength & Assets Inventory: Cooperative - Limitations Limitations: Living alone DSM 5 DX - DSM 5 DSM 5 Diagnosis: Primary: Alcohol use d/o - severe alcohol withdrawal uncomplicated depressive disorder - Recommended/Plan of Treatment Treatment Recommendations and Plan of Treatment: Alcohol use d/o - severe alcohol withdrawal uncomplicated depressive disorder Start librium taper prn meds as needed MA for abstinence supportive therapy Prognosis: good with treatment
--- NOTE | 2016-06-17 16:27 | CT ---
PROCEDURE: CT Abdomen and Pelvis dated 06/17/2016. . HISTORY: ab pain COMPARISON: . Comparison made with CT scan of the abdomen pelvis 06/06/2016 TECHNIQUE: Contiguous axial images of the abdomen and pelvis pelvis performed without oral or intravenous contrast material. . Coronal and Sagittal reformats generated. Radiation dose: Total exam DLP = 727.44 mGy-cm. FINDINGS: LOWER THORAX: Mild linear subsegmental atelectasis and or scarring changes, both lung bases right greater than left. No evidence of basilar pneumothorax. LIVER: The liver exhibits normal size. Moderate to significant diffuse fatty hepatic infiltration. No obvious hepatic mass or collection seen on this noncontrast study. GALLBLADDER AND BILE DUCTS: Gallbladder is physiologically distended. No evidence of intraluminal gallbladder calculi PANCREAS: The pancreas appears grossly unremarkable without mass collection or calcification. No significant pancreatic ductal dilatation. SPLEEN: The spleen exhibits normal size and attenuation pattern without mass collection or calcification. Re- demonstrated is a small splenule inferior to the main body of the spleen. ADRENALS: There are no adrenal lesions. KIDNEYS AND URETERS: Kidneys exhibit nephrograms relatively symmetric size. No evidence of nephrolithiasis or hydronephrosis. BLADDER: Urinary bladder is incompletely distended which may account for slight thick-walled appearance. Muscular hypertrophy may contribute. REPRODUCTIVE: Unremarkable. APPENDIX: Appendix is unremarkable BOWEL: Evaluation of the bowel is limited due to the lack of oral contrast material. Stomach is underdistended which presumably accounts for slight thick-walled appearance. Gastritis not excluded. Visualized loops of small bowel exhibit normal contour and caliber. No evidence of acute mechanical small bowel obstruction. Multiple colonic diverticula again seen along the descending and sigmoid colon. . There also appears to be mild wall thickening of the most of the transverse colon which could be in part due to underdistention, peristalsis and adherent non opacified bowel. There may also be some mild submucosal fat deposition which could be related to chronic inflammation. The possibility of an acute inflammatory process cannot be completely excluded. PERITONEUM: No gross free intraperitoneal air. There are no free or loculated fluid collections are identified. Small fat containing umbilical hernia. LYMPH NODES: No significant lymphadenopathy. VASCULATURE: Unremarkable. No aortic aneurysm. BONES: Minor multilevel degenerative spondylosis of the lower thoracic and lumbar spine. OTHER FINDINGS: None. IMPRESSION: Mild subsegmental atelectasis and or scarring changes both lung bases right greater than left. Moderate to significant diffuse fatty hepatic infiltration. Diverticulosis the bulk of which involve the descending and proximal sigmoid colon however no definitive radiographic evidence of acute diverticulitis. There is also mild wall thickening of the transverse colon which may in part be due to underdistention, peristalsis and non-opacified stool. There may also be some mild submucosal fat deposition the which could be due to chronic inflammation. The possibility of an acute inflammatory process cannot be completely excluded. Clinical correlation recommended. No evidence acute appendicitis. See above discussion for additional findings and details.
[2016-06-18 07:59] LABS: BASO % 0.3 % (0.0-2.0); EOS # 0.1 K/uL (0.0-0.7); EOS % 1.3 % (0.0-4.0); HEMATOCRIT 40.4 % (35.0-51.0); LYMPH % 20.8 % (20.0-40.0); MEAN CELL VOLUME 91.8 fL (80.0-94.0); MEAN CORPUSCULAR HEMOGLOBIN 29.6 pg (27.0-31.0); MEAN CORPUSCULAR HGB CONC 32.3 g/dL (33.0-37.0); MEAN PLATELET VOLUME 8.7 fL (7.2-11.7); MONO # 0.4 K/uL (0.0-0.8); MONO % 8.1 % (0.0-10.0); NRBC % 0.1 % (0.0-2.0); RED CELL DISTRIBUTION WIDTH 16.2 % (11.5-14.5)
[2016-06-18 08:13] LABS: CHLORIDE 99 mmol/L (98-107); SODIUM 138 mmol/L (132-148)
[2016-06-18 08:14] LABS: POTASSIUM 3.5 mmol/L (3.6-5.2)
[2016-06-18 08:16] LABS: ALKALINE PHOSPHATASE 96 U/L (38-126); AST/SGOT 59 U/L (17-59); CARBON DIOXIDE 23 mmol/L (22-30); GFR AFRICAN-AMERICAN > 60; TOTAL PROTEIN 7.6 g/dL (6.3-8.3)
[2016-06-18 08:17] LABS: ALT/SGPT 54 U/L (21-72); BLOOD UREA NITROGEN 3 mg/dL (9-20); CALCIUM 8.2 mg/dl (8.6-10.4); GLUCOSE,RANDOM 77 mg/dL (75-110); MAGNESIUM 1.9 mg/dL (1.6-2.3)
[2016-06-18] MEDS: Sodium Chloride 0.9% 1,000 ML IV SCH ×2 (09:58→19:22)
[2016-06-18] MEDS ORDERED: Influenza Virus Vaccine 45 mcg/0.5 ml Syr IM ONE (10:00)
[2016-06-18] MEDS ORDERED: Potassium Chloride 20 mEq ER Tab PO ONE (10:00)
--- NOTE | 2016-06-18 11:46 | CP.PCM.PN ---
Addendum entered and electronically signed by Beulah Rodriguez DO 06/18/16 11:53: Ok to d/c tele Original Note: <Beulah Rodriguez - Last Filed: 06/18/16 11:39> Subjective - Date & Time of Evaluation Date of Evaluation: 06/18/16 Time of Evaluation: 07:30 - Subjective Subjective: Internal medicine progress note for Dr. Lira- Beulah Rodriguez, PGY-1 Pt S & E at bedside. Pt c/o of N, KEITH, but reports abdominal pain is improved. Pt did not sleep much , had subjective fevers overnight. Denies emesis, is tolerating liquid diet, is ambulating. Objective - Vital Signs/Intake and Output Vital Signs (last 24 hours): Temp Pulse Resp BP Pulse Ox 98.1 F 68 20 126/82 95 06/18/16 07:07 06/18/16 08:00 06/18/16 07:07 06/18/16 07:07 06/18/16 07:07 Intake and Output: 06/18/16 06/18/16 06:59 18:59 Intake Total 1500 Balance 1500 - Medications Medications: Current Medications Chlordiazepoxide (Librium) 25 mg PO BID SOFI PRN Reason: Taper Stop: 06/19/16 13:59 Last Admin: 06/18/16 10:01 Dose: 25 mg Famotidine (Pepcid) 20 mg IVP Q12 SOFI Last Admin: 06/18/16 10:04 Dose: 20 mg Sodium Chloride (Sodium Chloride 0.9%) 1,000 mls @ 100 mls/hr IV .Q10H [facility] Last Admin: 06/18/16 09:58 Dose: 100 mls/hr Lorazepam (Ativan) 2 mg IVP Q2H PRN PRN Reason: Seizure activity Last Admin: 06/16/16 22:24 Dose: 2 mg - Labs Labs: 06/18/16 07:49 06/18/16 07:49 - Constitutional Appears: Non-toxic, No Acute Distress - Head Exam Head Exam: ATRAUMATIC, NORMAL INSPECTION, NORMOCEPHALIC - Eye Exam Eye Exam: EOMI, Normal appearance, PERRL Pupil Exam: NORMAL ACCOMODATION, PERRL - ENT Exam ENT Exam: Mucous Membranes Moist, Normal Exam - Neck Exam Neck Exam: Full ROM, Normal Inspection - Respiratory Exam Respiratory Exam: Clear to Ausculation Bilateral, NORMAL BREATHING PATTERN. absent: Rales, Rhonchi, Wheezes, Respiratory Distress, Stridor - Cardiovascular Exam Cardiovascular Exam: REGULAR RHYTHM, +S1, +S2 - GI/Abdominal Exam GI & Abdominal Exam: Soft, Tenderness (RUQ, LLQ, both mild), Normal Bowel Sounds - Extremities Exam Extremities Exam: Normal Inspection - Neurological Exam Neurological Exam: Alert, Awake, Oriented x3 - Psychiatric Exam Psychiatric exam: Normal Affect, Normal Mood - Skin Skin Exam: Diaphoretic, Intact, Normal Color, Warm Assessment and Plan - Assessment and Plan (Free Text) Assessment: Alcohol dependence with withdrawal Cont Librium taper Cont IVF Cont MV Cont Ativan PRN seizures Seizure precautions Aspiration precautions On CLD -tolerating Psych following Hypokalemia K 3.5 Replaced 20mEq KCL Monitor Abdominal pain CT ab/pelvis w/findings of mod-sig diffuse fatty hepatic infiltration, diverticulosis of descending/prox sigmoid colon, mild wall thickening of transverse colon, mild submucosal fat deposition - likely 2/2 chronic inflammation, no acute appendicitis. Lipase 210 Zofran PRN Cont CLD Microscopic hematuria FU repeat UA Urine cxr- neg Renal/bladder US- No nephrolithiasis, renal masses, or hydronephrosis, small PVR Headache Tylenol PRN Monitor Alcoholic gastritis Cont pepcid Transaminitis -resolved Hep panel neg AST/ALT WNL AB US (06/06/16): mild hepatomegaly. diffused increased echogencity in the liver may reflect hepatc steatosis however parenchymal infectious/inflammatory etiologies cannot be entirely excluded. Clinical and laboratory correlation is advised. Monitor LFTs while on Librium taper Prophylactic measure Pepcid 20mg Iv Q 12hours. Ambulate SCDs when lying down Dispo Cont current mgmt seizure and aspiration precautions Tele re-newed Possible d/c home 06/19 DW attending <Socrates Lira - Last Filed: 06/18/16 14:38> Objective - Vital Signs/Intake and Output Vital Signs (last 24 hours): Temp Pulse Resp BP Pulse Ox 98.1 F 68 20 126/82 95 06/18/16 07:07 06/18/16 08:00 06/18/16 07:07 06/18/16 07:07 06/18/16 07:07 - Medications Medications: Current Medications Acetaminophen (Tylenol 325mg Tab) 650 mg PO Q6 PRN PRN Reason: Headache Chlordiazepoxide (Librium) 25 mg PO DAILY [facility] PRN Reason: Taper Stop: 06/19/16 13:59 Last Admin: 06/18/16 10:01 Dose: 25 mg Clonidine HCl (Catapres) 0.1 mg PO Q4H PRN PRN Reason: Symptoms of alcohol withdrawl Famotidine (Pepcid) 20 mg IVP Q12 [facility] Last Admin: 06/18/16 10:04 Dose: 20 mg Folic Acid (Folic Acid) 1 mg PO DAILY [facility] Last Admin: 06/18/16 12:33 Dose: 1 mg Sodium Chloride (Sodium Chloride 0.9%) 1,000 mls @ 100 mls/hr IV .Q10H [facility] Last Admin: 06/18/16 09:58 Dose: 100 mls/hr Lorazepam (Ativan) 2 mg IVP Q2H PRN PRN Reason: Seizure activity Last Admin: 06/16/16 22:24 Dose: 2 mg Multivitamins (Hexavitamin) 1 tab PO DAILY [facility] Last Admin: 06/18/16 12:33 Dose: 1 tab Ondansetron HCl (Zofran Odt) 4 mg PO Q6H PRN PRN Reason: Nausea/Vomiting Thiamine HCl (Vitamin B1 Tab) 100 mg PO DAILY [facility] Last Admin: 06/18/16 12:33 Dose: 100 mg Trazodone HCl (Desyrel) 50 mg PO HS PRN PRN Reason: Insomnia Attending/Attestation - Attestation I have personally seen and examined this patient.: Yes I have fully participated in the care of the patient.: Yes I have reviewed all pertinent clinical information, including history, physical exam and plan: Yes Notes (Text): Medical Attending: Patient was seen and examined by me. Agree with the above note by the resident. The patient continues to be on Librium taper and also ativan for breath through withdrawl. He still has some minimal stomach pain however improving. I explained to the patient that very kristiley will be discharged tommorow. thank you Socrates Lira
[2016-06-18] MEDS: Multiple Vitamins Tab PO SCH (12:33)
[2016-06-18 14:12] LABS: URINE BILIRUBIN NEGATIVE (NEGATIVE); URINE BLOOD NEGATIVE (NEGATIVE); URINE COLOR Straw (YELLOW); URINE GLUCOSE (UA) NORMAL (Normal); URINE KETONE NEGATIVE (NEGATIVE); URINE LEUKOCYTE ESTERASE NEG Leu/uL (Negative); URINE PROTEIN NEGATIVE (NEGATIVE); URINE UROBILINOGEN NORMAL mg/dL (0.2-1.0); WBC URINE < 1 /hpf (0-5)
[2016-06-19 00:28] VITALS: O2SAT 97
[2016-06-19] MEDS: Sodium Chloride 0.9% 1,000 ML IV SCH ×2 (02:30→05:24)
[2016-06-19 07:38] LABS: CHLORIDE 102 mmol/L (98-107)
[2016-06-19 07:39] LABS: POTASSIUM 3.8 mmol/L (3.6-5.2); SODIUM 140 mmol/L (132-148)
[2016-06-19 07:40] VITALS: BP 111/69; PULSE 60; RESP 18; TEMP 97.7
[2016-06-19 07:41] LABS: ALKALINE PHOSPHATASE 89 U/L (38-126); ALT/SGPT 52 U/L (21-72); AST/SGOT 60 U/L (17-59); BASO % 0.5 % (0.0-2.0); BILIRUBIN,TOTAL 0.7 mg/dL (0.2-1.3); CARBON DIOXIDE 25 mmol/L (22-30); EOS # 0.1 K/uL (0.0-0.7); EOS % 2.2 % (0.0-4.0); GFR AFRICAN-AMERICAN > 60; HEMATOCRIT 40.3 % (35.0-51.0); LYMPH # 1.1 K/uL (1.0-4.3); LYMPH % 21.1 % (20.0-40.0); MEAN CELL VOLUME 92.1 fL (80.0-94.0); MEAN CORPUSCULAR HEMOGLOBIN 29.7 pg (27.0-31.0); MEAN CORPUSCULAR HGB CONC 32.2 g/dL (33.0-37.0); MEAN PLATELET VOLUME 8.9 fL (7.2-11.7); MONO # 0.4 K/uL (0.0-0.8); MONO % 7.3 % (0.0-10.0); RED CELL DISTRIBUTION WIDTH 15.5 % (11.5-14.5); TOTAL PROTEIN 7.2 g/dL (6.3-8.3); WHITE BLOOD COUNT 5.3 K/uL (4.8-10.8)
[2016-06-19 07:42] LABS: CALCIUM 8.3 mg/dl (8.6-10.4); GLUCOSE,RANDOM 87 mg/dL (75-110); MAGNESIUM 1.8 mg/dL (1.6-2.3)
[2016-06-19 07:44] LABS: BLOOD UREA NITROGEN 2 mg/dL (9-20)
--- NOTE | 2016-06-19 08:06 | CARD ---
APPROVED REPORT EKG Measurement Heart [id number] <Conclusion> Normal sinus rhythm Normal ECG
[2016-06-19] MEDS: Multiple Vitamins Tab PO SCH (09:09)
--- NOTE | 2016-06-19 13:37 | CP.PCM.DIS ---
<Beulah Rodriguez - Last Filed: 06/19/16 13:34> Provider - Provider Date of Admission: 06/18/16 10:55 Attending physician: Erika Yin DO Primary care physician: None Consults: Psych-Edgardo Time Spent in preparation of Discharge (in minutes): 60 Hospital Course - Lab Results Lab Results: Most Recent Lab Values WBC 5.3 K/uL (4.8-10.8) 06/19/16 07:09 RBC 4.37 Mil/uL (4.40-5.90) L 06/19/16 07:09 Hgb 13.0 g/dL (12.0-18.0) 06/19/16 07:09 Hct 40.3 % (35.0-51.0) 06/19/16 07:09 MCV 92.1 fL (80.0-94.0) 06/19/16 07:09 MCH 29.7 pg (27.0-31.0) 06/19/16 07:09 MCHC 32.2 g/dL (33.0-37.0) L 06/19/16 07:09 RDW 15.5 % (11.5-14.5) H 06/19/16 07:09 Plt Count 206 K/uL (130-400) 06/19/16 07:09 MPV 8.9 fL (7.2-11.7) 06/19/16 07:09 Neut % (Auto) 68.9 % (50.0-75.0) 06/19/16 07:09 Lymph % (Auto) 21.1 % (20.0-40.0) 06/19/16 07:09 Larue % (Auto) 7.3 % (0.0-10.0) 06/19/16 07:09 Eos % (Auto) 2.2 % (0.0-4.0) 06/19/16 07:09 Baso % (Auto) 0.5 % (0.0-2.0) 06/19/16 07:09 Neut # 3.7 K/uL (1.8-7.0) 06/19/16 07:09 Lymph # 1.1 K/uL (1.0-4.3) 06/19/16 07:09 Larue # 0.4 K/uL (0.0-0.8) 06/19/16 07:09 Eos # 0.1 K/uL (0.0-0.7) 06/19/16 07:09 Baso # 0.0 K/uL (0.0-0.2) 06/19/16 07:09 Sodium 140 mmol/L (132-148) 06/19/16 07:09 Potassium 3.8 mmol/L (3.6-5.2) 06/19/16 07:09 Chloride 102 mmol/L (98-107) 06/19/16 07:09 Carbon Dioxide 25 mmol/L (22-30) 06/19/16 07:09 Anion Gap 17 (10-20) 06/19/16 07:09 BUN 2 mg/dL (9-20) L 06/19/16 07:09 Creatinine 0.6 MG/DL (0.8-1.5) L 06/19/16 07:09 Est GFR ( Amer) > 60 06/19/16 07:09 Est GFR (Non-Af Amer) > 60 06/19/16 07:09 Random Glucose 87 mg/dL (75-110) 06/19/16 07:09 Calcium 8.3 mg/dl (8.6-10.4) L 06/19/16 07:09 Phosphorus 3.0 mg/dL (2.5-4.5) 06/19/16 07:09 Magnesium 1.8 mg/dL (1.6-2.3) 06/19/16 07:09 Total Bilirubin 0.7 mg/dL (0.2-1.3) 06/19/16 07:09 AST 60 U/L (17-59) H 06/19/16 07:09 ALT 52 U/L (21-72) 06/19/16 07:09 Alkaline Phosphatase 89 U/L (38-126) 06/19/16 07:09 Total Protein 7.2 g/dL (6.3-8.3) 06/19/16 07:09 Albumin 3.6 g/dL (3.5-5.0) 06/19/16 07:09 Globulin 3.6 gm/dL (2.2-3.9) 06/19/16 07:09 Albumin/Globulin Ratio 1.0 (1.0-2.1) 06/19/16 07:09 Lipase 210 U/L (23-300) 06/16/16 08:09 Urine Color Straw (YELLOW) 06/18/16 13:57 Urine Clarity Clear (Clear) 06/18/16 13:57 Urine pH 7.0 (5.0-8.0) 06/18/16 13:57 Ur Specific [place] 1.002 (1.003-1.030) L 06/18/16 13:57 Urine Protein Negative mg/dL (NEGATIVE) 06/18/16 13:57 Urine Glucose (UA) Normal mg/dL (Normal) 06/18/16 13:57 Urine Ketones Negative mg/dL (NEGATIVE) 06/18/16 13:57 Urine Blood Negative (NEGATIVE) 06/18/16 13:57 Urine Nitrate Negative (NEGATIVE) 06/18/16 13:57 Urine Bilirubin Negative (NEGATIVE) 06/18/16 13:57 Urine Urobilinogen Normal mg/dL (0.2-1.0) 06/18/16 13:57 Ur Leukocyte Esterase Neg Brent/uL (Negative) 06/18/16 13:57 Urine WBC (Auto) < 1 /hpf (0-5) 06/18/16 13:57 Urine RBC (Auto) 1 /hpf (0-3) 06/16/16 08:09 Ur Squamous Epith Cells < 1 /hpf (0-5) 06/18/16 13:57 Urine Opiates Screen Negative (NEGATIVE) 06/16/16 08:09 Urine Methadone Screen Negative (NEGATIVE) 06/16/16 08:09 Ur Barbiturates Screen Negative (NEGATIVE) 06/16/16 08:09 Ur Phencyclidine Scrn Negative (NEGATIVE) 06/16/16 08:09 Ur Amphetamines Screen Negative (NEGATIVE) 06/16/16 08:09 U Benzodiazepines Scrn Positive (NEGATIVE) 06/16/16 08:09 U Oth Cocaine Metabols Negative (NEGATIVE) 06/16/16 08:09 U Cannabinoids Screen Negative (NEGATIVE) 06/16/16 08:09 Alcohol, Quantitative 233 mg/dl (0-10) H 06/16/16 08:09 Hepatitis A IgM Ab Negative (NEGATIVE) 06/17/16 07:52 Hep Bs Antigen Negative (NEGATIVE) 06/17/16 07:52 Hep B Core IgM Ab Negative (NEGATIVE) 06/17/16 07:52 Hepatitis C Antibody Negative (NEGATIVE) 06/17/16 07:52 - Hospital Course Hospital Course: Patient is a 35 year old male with PMHx of alcohol abuse, gastritis presenting to the ED complaining of tremors and abdominal pain. He says that he has been drinking 60 ounces of beer everyday for about 10 days. He said he decided to quit 2 days ago, and since then, he has developed abdominal pain, chest pain, nausea, vomiting. He says his appetite has lessened and he has not eaten since yesterday night. He has also reported intermittent fevers and chills, as well as feeling tremorous . He denies any diarrhea, constipation, bloody/dark stool, no blood in the vomit. Per records, patient has been admitted to the hospital numerous times for detox and alcohol withdrawal. Patient admitted to hospital, placed on CIWA protocol and approporiately resuscitated, treated for ETOH withdrawal. Pt seen/evaluated by psych for alcohol abuse. Patient had RUQ abdominal pain - likely due to liver disease secondary to ETOH abuse. Pt w/transaminitis - hepatitis panel neg, likely elevated due to alcoholic liver disease. Pt had transient microhematuria- resolved over hospital course. Treated for transient hypokalemia. Patient instructed on the importance of discontinuing ETOH abuse- Patient voiced understanding. Patient stable, ready for discharge home. Diagnoses: ETOH abuse/withdrawal, Alcoholic liver disease, transaminitis, transient hypokalemia, transient micro hematuria. Please see EMR for complete details of hospital course. - Date & Time of H&P Date of H&P: 06/16/16 Time of H&P: 13:03 Discharge Exam - Head Exam Head Exam: ATRAUMATIC, NORMAL INSPECTION, NORMOCEPHALIC - Eye Exam Eye Exam: EOMI, Normal appearance, PERRL Pupil Exam: NORMAL ACCOMODATION, PERRL - ENT Exam ENT Exam: Mucous Membranes Moist, Normal Exam - Neck Exam Neck exam: Full Rom - Respiratory Exam Respiratory Exam: Clear to PA & Lateral, NORMAL BREATHING PATTERN, UNREMARKABLE. absent: Accessory Muscle Use, Chest Wall Tenderness, Rales, Rhonchi, Wheezes, Respiratory Distress, Stridor - Cardiovascular Exam Cardiovascular Exam: REGULAR RHYTHM, +S1, +S2 - GI/Abdominal Exam GI & Abdominal Exam: Normal Bowel Sounds, Soft, Tenderness (RUQ), Unremarkable. absent: Diminished Bowel Sounds, Distended, Firm, Guarding, Rebound, Rigid - Extremities Exam Extremities exam: normal inspection - Back Exam Back exam: NORMAL INSPECTION - Neurological Exam Neurological exam: Alert, CN II-XII Intact, Oriented x3 - Psychiatric Exam Psychiatric exam: Normal Affect, Normal Mood - Skin Skin Exam: Dry, Intact, Normal Color, Warm Discharge Plan - Follow Up Plan Condition: STABLE Disposition: HOME/ ROUTINE Instructions: Alcohol Intoxication (DC), Abuse of Alcohol (DC) Additional Instructions: Patient stable, ready for discharge as by Dr. Lira. Please follow up with your primary care physician within 1 week after hospitalization. If you do not have a primary care physician, please establish care with the [facility] in the basement of [facility]. If you have a recurrence of symptoms, please come back to the hospital. Referrals: [facility] [Outside] Clinical Quality Measures - Date & Time of Discharge Summary Date of Discharge Summary: 06/19/16 Time of Discharge Summary: 13:48 <Socrates Lira - Last Filed: 06/19/16 15:13> Provider - Provider Date of Admission: 06/18/16 10:55 Attending physician: Erika Yin, Hospital Course - Lab Results Lab Results: Most Recent Lab Values WBC 5.3 K/uL (4.8-10.8) 06/19/16 07:09 RBC 4.37 Mil/uL (4.40-5.90) L 06/19/16 07:09 Hgb 13.0 g/dL (12.0-18.0) 06/19/16 07:09 Hct 40.3 % (35.0-51.0) 06/19/16 07:09 MCV 92.1 fL (80.0-94.0) 06/19/16 07:09 MCH 29.7 pg (27.0-31.0) 06/19/16 07:09 MCHC 32.2 g/dL (33.0-37.0) L 06/19/16 07:09 RDW 15.5 % (11.5-14.5) H 06/19/16 07:09 Plt Count 206 K/uL (130-400) 06/19/16 07:09 MPV 8.9 fL (7.2-11.7) 06/19/16 07:09 Neut % (Auto) 68.9 % (50.0-75.0) 06/19/16 07:09 Lymph % (Auto) 21.1 % (20.0-40.0) 06/19/16 07:09 Larue % (Auto) 7.3 % (0.0-10.0) 06/19/16 07:09 Eos % (Auto) 2.2 % (0.0-4.0) 06/19/16 07:09 Baso % (Auto) 0.5 % (0.0-2.0) 06/19/16 07:09 Neut # 3.7 K/uL (1.8-7.0) 06/19/16 07:09 Lymph # 1.1 K/uL (1.0-4.3) 06/19/16 07:09 Larue # 0.4 K/uL (0.0-0.8) 06/19/16 07:09 Eos # 0.1 K/uL (0.0-0.7) 06/19/16 07:09 Baso # 0.0 K/uL (0.0-0.2) 06/19/16 07:09 Sodium 140 mmol/L (132-148) 06/19/16 07:09 Potassium 3.8 mmol/L (3.6-5.2) 06/19/16 07:09 Chloride 102 mmol/L (98-107) 06/19/16 07:09 Carbon Dioxide 25 mmol/L (22-30) 06/19/16 07:09 Anion Gap 17 (10-20) 06/19/16 07:09 BUN 2 mg/dL (9-20) L 06/19/16 07:09 Creatinine 0.6 MG/DL (0.8-1.5) L 06/19/16 07:09 Est GFR ( Amer) > 60 06/19/16 07:09 Est GFR (Non-Af Amer) > 60 06/19/16 07:09 Random Glucose 87 mg/dL (75-110) 06/19/16 07:09 Calcium 8.3 mg/dl (8.6-10.4) L 06/19/16 07:09 Phosphorus 3.0 mg/dL (2.5-4.5) 06/19/16 07:09 Magnesium 1.8 mg/dL (1.6-2.3) 06/19/16 07:09 Total Bilirubin 0.7 mg/dL (0.2-1.3) 06/19/16 07:09 AST 60 U/L (17-59) H 06/19/16 07:09 ALT 52 U/L (21-72) 06/19/16 07:09 Alkaline Phosphatase 89 U/L (38-126) 06/19/16 07:09 Total Protein 7.2 g/dL (6.3-8.3) 06/19/16 07:09 Albumin 3.6 g/dL (3.5-5.0) 06/19/16 07:09 Globulin 3.6 gm/dL (2.2-3.9) 06/19/16 07:09 Albumin/Globulin Ratio 1.0 (1.0-2.1) 06/19/16 07:09 Lipase 210 U/L (23-300) 06/16/16 08:09 Urine Color Straw (YELLOW) 06/18/16 13:57 Urine Clarity Clear (Clear) 06/18/16 13:57 Urine pH 7.0 (5.0-8.0) 06/18/16 13:57 Ur Specific [place] 1.002 (1.003-1.030) L 06/18/16 13:57 Urine Protein Negative mg/dL (NEGATIVE) 06/18/16 13:57 Urine Glucose (UA) Normal mg/dL (Normal) 06/18/16 13:57 Urine Ketones Negative mg/dL (NEGATIVE) 06/18/16 13:57 Urine Blood Negative (NEGATIVE) 06/18/16 13:57 Urine Nitrate Negative (NEGATIVE) 06/18/16 13:57 Urine Bilirubin Negative (NEGATIVE) 06/18/16 13:57 Urine Urobilinogen Normal mg/dL (0.2-1.0) 06/18/16 13:57 Ur Leukocyte Esterase Neg Brent/uL (Negative) 06/18/16 13:57 Urine WBC (Auto) < 1 /hpf (0-5) 06/18/16 13:57 Urine RBC (Auto) 1 /hpf (0-3) 06/16/16 08:09 Ur Squamous Epith Cells < 1 /hpf (0-5) 06/18/16 13:57 Urine Opiates Screen Negative (NEGATIVE) 06/16/16 08:09 Urine Methadone Screen Negative (NEGATIVE) 06/16/16 08:09 Ur Barbiturates Screen Negative (NEGATIVE) 06/16/16 08:09 Ur Phencyclidine Scrn Negative (NEGATIVE) 06/16/16 08:09 Ur Amphetamines Screen Negative (NEGATIVE) 06/16/16 08:09 U Benzodiazepines Scrn Positive (NEGATIVE) 06/16/16 08:09 U Oth Cocaine Metabols Negative (NEGATIVE) 06/16/16 08:09 U Cannabinoids Screen Negative (NEGATIVE) 06/16/16 08:09 Alcohol, Quantitative 233 mg/dl (0-10) H 06/16/16 08:09 Hepatitis A IgM Ab Negative (NEGATIVE) 06/17/16 07:52 Hep Bs Antigen Negative (NEGATIVE) 06/17/16 07:52 Hep B Core IgM Ab Negative (NEGATIVE) 06/17/16 07:52 Hepatitis C Antibody Negative (NEGATIVE) 06/17/16 07:52 Attending/Attestation - Attestation I have personally seen and examined this patient.: Yes I have fully participated in the care of the patient.: Yes I have reviewed all pertinent clinical information, including history, physical exam and plan: Yes Notes (Text): Medical attending: Patient was seen and examined by me. Agree with the above note by the resident. The patient was encouraged to avoid alcohol use, he needs life style modification changes. While here he had Librium taper and ativan for breakthrough. When we saw and examined the patient he was not in any acute distress. He appeared calm and not in tremors or anxiety thank you Socrates Lira
== END 2016-06-19 15:00 | disposition home or self-care (01) | DRG 750 ==
LOC: C.ER 07:38 → C.9OBSV 07:57 → C.9E 12:03 → C.6T 20:29 → OBSVTOIN 06-18 10:55
PROVIDERS: ADMIT Emergency Medicine; ATTEND Hospitalist
PROC: HZ2ZZZZ Detoxification Services for Substance Abuse Treatment (ICD-10-PCS; principal; 2016-06-18)
DX: F10.239 Alcohol dependence with withdrawal, unspecified (principal); E87.6 Hypokalemia; R56.9 Unspecified convulsions; K70.9 Alcoholic liver disease, unspecified; I10 Essential (primary) hypertension; K29.20 Alcoholic gastritis without bleeding; R31.29 Other microscopic hematuria; K57.30 Diverticulosis of large intestine without perforation or abscess without bleeding; F32.9 Major depressive disorder, single episode, unspecified; Z82.49 Family history of ischemic heart disease and other diseases of the circulatory system; R74.0 Nonspecific elevation of levels of transaminase and lactic acid dehydrogenase [LDH]

== ENCOUNTER 2016-10-31 16:19 | Observation (INO) | payer OTHER ==
[2016-10-31 16:19] VITALS: BMI 33.8
--- NOTE | 2016-10-31 17:09 | C.PDOC ---
History Of Present Illness A 36 y/o M presents to the ER c/o abdominal pain that began today. Pain onset began with ETOH use. Patient admits to ETOH use. Denies fever, chills, nausea, vomiting, chest pain, SOB, suicidal ideation, or any other complaints. Time Seen by Provider: 10/31/16 16:36 Chief Complaint (Nursing): Substance Abuse History Per: Patient History/Exam Limitations: no limitations Onset/Duration Of Symptoms: Hrs Current Symptoms Are (Timing): Still Present Suicide/Self Injury Attempted (Context): None Modifying Factor(s): Alcohol Severity: Mild Associated Symptoms: denies: Suicidal Thoughts, Suicidal Plan Involuntary Hold By: None Recent travel outside of the [place]: No Additional History Per: Patient Past Medical History Reviewed: Historical Data, Nursing Documentation, Vital Signs Vital Signs: Last Vital Signs Temp 98 F 10/31/16 16:34 Pulse 80 10/31/16 16:34 Resp 15 10/31/16 16:34 BP 122/87 10/31/16 16:34 Pulse Ox 95 10/31/16 18:31 - Medical History PMH: Gastritis, HTN - [facility] Procedures CLOSURE SKIN & SUBCUTANEOUS NEC (11/10/14) DETOXIFICATION SERVICES FOR SUBSTANCE ABUSE TREATMENT (06/18/16) GROUP TATTOOER FOR SUBSTANCE ABUSE TREATMENT, PSYCHOEDUCATION (02/16/16) TETANUS TOXOID ADMINIST (11/10/14) Family History: States: Unknown Family Hx - Social History Hx Tobacco Use: No Hx Alcohol Use: Yes Hx Substance Use: No - Immunization History Hx Tetanus Toxoid Vaccination: Yes (2014) Hx Influenza Vaccination: No Hx Pneumococcal Vaccination: No Review Of Systems Except As Marked, All Systems Reviewed And Found Negative. Constitutional: Negative for: Fever, Chills Cardiovascular: Negative for: Chest Pain, Palpitations, Orthopnea, Edema, Light Headedness Respiratory: Negative for: Cough, Shortness of Breath, SOB with Excertion, Wheezing Gastrointestinal: Positive for: Abdominal Pain. Negative for: Nausea, Vomiting , Diarrhea, Constipation Genitourinary: Negative for: Dysuria Psych: Negative for: Suicidal ideation Physical Exam - Physical Exam Appears: Non-toxic, No Acute Distress, Other (Smell of ETOH, no signs of trauma) Skin: Warm, Dry Head: Atraumatic, Normacephalic Eye(s): bilateral: Normal Inspection, PERRL, EOMI Neck: Supple Cardiovascular: Rhythm Regular Respiratory: Normal Breath Sounds, No Accessory Muscle Use, No Rales, No Rhonchi , No Wheezing Gastrointestinal/Abdominal: Soft, No Tenderness, No Distention Back: Normal Inspection, No CVA Tenderness Extremity: Normal ROM (x4) Neurological/Psych: Oriented x3 (lethargic, but arousable), Other (No focal deficit) ED Course And Treatment - Laboratory Results Result Diagrams: 10/31/16 17:32 10/31/16 17:32 O2 Sat by Pulse Oximetry: 95 (RA) Pulse Ox Interpretation: Normal Medical Decision Making Medical Decision Making: Impression: A 36 y/o M c/o abdominal pain that began today. Plans: * Blood work up * Pepcid, toradol, IVF * ED obs * UA * Reassess Patient will be monitored for sobriety 7:00PM Patient's alcohol is elevated to 355. Lipase elevated. LFTs elevated. Abdominal ultrasound ordered to further evaluate. Will sign out to Aj Baez to follow-up ultrasound and reevaluate when sober. ED OBSERVATION Date of observation admission: 10/31/16 Time of observation admission: 17:13 - Observation admission statement Patient is being placed in observation because:: Acute alcohol intoxication - Goals of Observation Goals of observation are:: Sobriety Disposition - Disposition Disposition Time: 19:00 Condition: FAIR Forms: [facility] (Faroese) - Clinical Impression Clinical Impression: Alcohol abuse, Abdominal pain - Scribe Statement The provider has reviewed the documentation as recorded by the Scribjuanita tripathi All medical record entries made by the Deeptiibjuanita were at my direction and personally dictated by me. I have reviewed the chart and agree that the record accurately reflects my personal performance of the history, physical exam, medical decision making, and the department course for this patient. I have also personally directed, reviewed, and agree with the discharge instructions and disposition.
[2016-10-31 17:36] LABS: BASO % 0.5 % (0.0-2.0); HEMATOCRIT 46.7 % (35.0-51.0); LYMPH # 1.4 K/uL (1.0-4.3); LYMPH % 25.4 % (20.0-40.0); MEAN CELL VOLUME 85.5 fL (80.0-94.0); MEAN CORPUSCULAR HEMOGLOBIN 28.8 pg (27.0-31.0); MEAN CORPUSCULAR HGB CONC 33.7 g/dL (33.0-37.0); MEAN PLATELET VOLUME 8.5 fL (7.2-11.7); MONO # 0.3 K/uL (0.0-0.8); MONO % 5.4 % (0.0-10.0); NRBC % 0.1 % (0.0-2.0); RED CELL DISTRIBUTION WIDTH 14.5 % (11.5-14.5); WHITE BLOOD COUNT 5.3 K/uL (4.8-10.8)
[2016-10-31 17:40] LABS: URINE BILIRUBIN NEGATIVE (NEGATIVE); URINE BLOOD NEGATIVE (NEGATIVE); URINE COLOR Straw (YELLOW); URINE GLUCOSE (UA) NORMAL (Normal); URINE KETONE NEGATIVE (NEGATIVE); URINE LEUKOCYTE ESTERASE NEG Leu/uL (Negative); URINE PROTEIN NEGATIVE (NEGATIVE); URINE UROBILINOGEN NORMAL mg/dL (0.2-1.0); WBC URINE < 1 /hpf (0-5)
[2016-10-31 17:45] LABS: CHLORIDE 94 mmol/L (98-107)
[2016-10-31 17:46] LABS: SODIUM 137 mmol/L (132-148)
[2016-10-31 17:48] LABS: ALKALINE PHOSPHATASE 130 U/L (38-126); ALT/SGPT 179 U/L (21-72); AST/SGOT 278 U/L (17-59); BLOOD UREA NITROGEN 14 mg/dL (9-20); CARBON DIOXIDE 22 mmol/L (22-30); GFR AFRICAN-AMERICAN > 60; GLUCOSE,RANDOM 107 mg/dL (75-110); TOTAL PROTEIN 8.3 g/dL (6.3-8.3)
[2016-10-31 17:49] LABS: CALCIUM 7.7 mg/dl (8.6-10.4)
[2016-10-31 18:01] LABS: ALCOHOL SERUM 355 mg/dl (0-10)
[2016-10-31] MEDS ORDERED: Sodium Chloride 0.9% 1,000 ML IV ONE (18:08)
[2016-10-31] MEDS ORDERED: Sodium Chloride 0.9% 1,000 ML ONE (18:51)
[2016-11-01 00:01] VITALS: BP 120/78; PULSE 97; RESP 16; TEMP 98.5; O2SAT 97
--- NOTE | 2016-11-01 08:11 | US ---
HISTORY: abdominal pain, elevated lfts COMPARISON: CT abdomen and pelvis without contrast performed 06/17/16 TECHNIQUE: Sonographic evaluation of the abdomen. FINDINGS: Examination limited by habitus and bowel gas. LIVER: Measures 15.7 cm in sagittal dimension. Echogenic liver may be seen in setting of hepatic parenchymal disease or fatty infiltration. No focal hepatic mass identified. The main portal vein appears patent with normal directional flow. No intrahepatic bile duct dilatation. GALLBLADDER: No gallstones. No gallbladder wall thickening. Negative sonographic Ocampo's sign as assessed by the toolmaker helper. COMMON BILE DUCT: Measures 5 mm. PANCREAS: Not well visualized. RIGHT KIDNEY: Measures 9.8 x 4.7 x 4.6 cm. No obstructing calculus or hydronephrosis identified. LEFT KIDNEY: Measures 11.0 x 5.4 x 4.9 cm. No obstructing calculus or hydronephrosis identified. SPLEEN: Measures approximately 9.2 cm. AORTA: Limited views appear unremarkable. IVC: Not well-visualized. OTHER FINDINGS: None. IMPRESSION: Limited study. Echogenic liver may be seen in setting of hepatic parenchymal disease or fatty infiltration. Preliminary impression was provided by virtual radiologic.
== END 2016-10-31 23:47 | disposition home or self-care (01) ==
LOC: C.ER 16:19 → C.9OBSV 21:20
PROVIDERS: ADMIT Emergency Medicine; ATTEND Emergency Medicine
DX: F10.120 Alcohol abuse with intoxication, uncomplicated (principal); I10 Essential (primary) hypertension; Y90.8 Blood alcohol level of 240 mg/100 ml or more
CPT/HCPCS: 76700; 80053; 80320; 81001; 83690; 85025; 96360; 96374; J1885; J7040

== ENCOUNTER 2016-11-01 14:48 | Inpatient (IN) | payer OTHER ==
[2016-11-01 14:49] VITALS: BMI 33.8
[2016-11-01] MEDS ORDERED: Sodium Chloride 0.9% 1,000 ML IV ONE ×2 (15:46→16:55)
[2016-11-01 16:04] LABS: BASO % 0.4 % (0.0-2.0); EOS % 0.2 % (0.0-4.0); LYMPH # 1.5 K/uL (1.0-4.3); LYMPH % 40.9 % (20.0-40.0); MEAN CELL VOLUME 84.8 fL (80.0-94.0); MEAN CORPUSCULAR HEMOGLOBIN 28.7 pg (27.0-31.0); MEAN CORPUSCULAR HGB CONC 33.8 g/dL (33.0-37.0); MEAN PLATELET VOLUME 8.2 fL (7.2-11.7); MONO # 0.3 K/uL (0.0-0.8); MONO % 7.8 % (0.0-10.0); NEUT # 1.9 K/uL (1.8-7.0); NEUT % 50.7 % (50.0-75.0); NRBC % 0.1 % (0.0-2.0); RBC 4.77 Mil/uL (4.40-5.90); WHITE BLOOD COUNT 3.7 K/uL (4.8-10.8)
[2016-11-01 16:13] LABS: ALBUMIN 3.7 g/dL (3.5-5.0)
[2016-11-01 16:16] LABS: ALT/SGPT 144 U/L (21-72); AST/SGOT 199 U/L (17-59); BLOOD UREA NITROGEN 10 mg/dL (9-20); CALCIUM 7.6 mg/dl (8.6-10.4); GFR AFRICAN-AMERICAN > 60; GFR NON-AFRICAN AMERICAN > 60; HEMOGLOBIN 13.7 g/dL (12.0-18.0)
[2016-11-01] MEDS ORDERED: Morphine 4 MG/ML VIAL ONE ×2 (16:16→17:03)
[2016-11-01 16:17] LABS: LIPASE 382 U/L (23-300)
[2016-11-01] MEDS ORDERED: Sodium Chloride 0.9% 1,000 ML ONE ×2 (16:17→17:03)
[2016-11-01 16:22] LABS: OPIATES, UR NEGATIVE (NEGATIVE)
[2016-11-01 16:23] LABS: PHENCYCLIDINE, UR NEGATIVE (NEGATIVE)
[2016-11-01 16:27] LABS: BARBITURATES, UR NEGATIVE (NEGATIVE)
[2016-11-01 16:28] LABS: BENZODIAZEPINES, UR NEGATIVE (NEGATIVE)
--- NOTE | 2016-11-01 16:28 | C.PDOC ---
History Of Present Illness 36 y/o male presents to the ED with complaints of upper abdominal pain associated with nausea/vomiting since yesterday. Patient states that he drinks alcohol daily, last drink was yesterday. Pt was seen in ED yesterday, blood work and US were done. Patient had mildly elevated lipase. He states his abdominal pain worsened since yesterday, which prompted him to visit ED again. Patient denies chest pain, shortness of breath, cough, headache, fever/chills, diarrhea, dysuria/hematuria, flank pain. Time Seen by Provider: 11/01/16 15:40 Chief Complaint (Nursing): Abdominal Pain History Per: Patient History/Exam Limitations: no limitations Onset/Duration Of Symptoms: Days (1) Current Symptoms Are (Timing): Still Present Severity: Moderate Location Of Pain/Discomfort: Epigastric, Periumbilical Radiation Of Pain To:: None Quality Of Discomfort: "Pain" Associated Symptoms: Nausea, Vomiting. 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 Constitutional: Negative for: Fever, Chills Cardiovascular: Negative for: Chest Pain, Palpitations Respiratory: Negative for: Cough, Shortness of Breath Gastrointestinal: Positive for: Nausea, Vomiting, Abdominal Pain. Negative for : Diarrhea, Constipation, Hematemesis Genitourinary: Negative for: Dysuria, Frequency, Hematuria, Penile Discharge Musculoskeletal: Negative for: Back Pain Skin: Negative for: Rash Physical Exam - Physical Exam Appears: Well, Non-toxic, Other (In mild to moderate pain) Skin: Normal Color, Warm, Dry, No Rash Head: Normacephalic Eye(s): bilateral: Normal Inspection Oral Mucosa: Moist Neck: Supple Cardiovascular: Rhythm Regular Respiratory: Normal Breath Sounds, No Rales, No Rhonchi, No Wheezing Gastrointestinal/Abdominal: Bowel Sounds, Soft, Tenderness (periumbilical/ epigastric TTP), No Guarding, No Rebound, Other ((-) Ocampo's) Back: Normal Inspection, No CVA Tenderness Neurological/Psych: Oriented x3 ED Course And Treatment - Laboratory Results Result Diagrams: 11/01/16 16:00 11/01/16 16:00 O2 Sat by Pulse Oximetry: 98 (RA) Pulse Ox Interpretation: Normal - CT Scan/US CT ABD/PELVIS Other Rad Studies (CT/US): Read By Radiologist, Radiology Report Reviewed CT/US Interpretation: Accession No. : [id number]. Patient Name / ID : PRISCILA CROWLEY / [id number]. Exam Date : 11/01/2016 17:14:27 ( Approved ). Study Comment : Sex / Age : M / 36Y. Creator : Socrates Verdin MD. Dictator : Socrates Verdin MD. Director Of Parks And Recreation : Access Control Officer : Socrates Verdin MD. Approver2 : Report Date : 11/01/2016 17:47:24. My Comment : . PROCEDURE : CT Abdomen and Pelvis with contrast. HISTORY: ELEVATED LIPASE, R/O PSEUDOCYST. COMPARISON: 06/17/2016. TECHNIQUE: Contrast dose: 100 mL Omnipaque 350. Radiation dose: Total exam DLP = 500.48 mGy-cm. This CT exam was performed using one or more of the following dose reduction techniques: Automated exposure control, adjustment of the mA and/or kV according to patient size, and/or use of iterative reconstruction technique. FINDINGS: LOWER THORAX : Unremarkable. LIVER: Diffusely diminished attenuation consistent with fatty infiltration. No mass. Smooth contour. No biliary ductal dilatation. GALLBLADDER AND BILE DUCTS: Unremarkable. PANCREAS: No mass. No pancreatic ductal dilatation. No peripancreatic fluid/ inflammatory change. SPLEEN: Unremarkable. ADRENALS: Unremarkable. No mass. KIDNEYS AND URETERS: Unremarkable. No hydronephrosis. No solid mass. VASCULATURE: Unremarkable. No aortic aneurysm. BOWEL: Diverticulosis of the transverse colon and colonic flexures. No evidence diverticulitis. No bowel obstruction. APPENDIX: Normal appendix. PERITONEUM: Unremarkable. No free fluid. No free air. LYMPH NODES: Unremarkable. No enlarged lymph nodes. BLADDER: Unremarkable. REPRODUCTIVE : Normal prostate. BONES: No acute fracture. OTHER FINDINGS: None. IMPRESSION: No evidence of acute pancreatitis. No evidence of pancreatic pseudocyst. Fatty infiltration of the liver. Diverticulosis of the transverse colon and colonic flexures without evidence of diverticulitis. No other significant abnormality. Progress Note: Blood work, urinalysis, CT abd/pelvis ordered and reviewed. Patient given IV Zofran, IV morphine, IV NS bolus. 6:20pm- Patient medically cleared. Pending crisis. Reevaluation Time: 18:20 Reassessment Condition: Improved (Patient reassessed, is currently resting comfortably, states his pain has improved. CT scan abd/pelvis (-) for acute pancreatitis. Epigastric abd pain likely due to alcolic gastritis/liver disease. Patient does not need medical admission, but is requesting detox. Will discuss with crisis.) Disposition - Disposition Disposition Time: 19:00 Condition: STABLE Forms: [facility] (Cameroonian) - Clinical Impression Clinical Impression: Alcohol dependence - Scribe Statement The provider has reviewed the documentation as recorded by the Scribe Prisca Fernando All medical record entries made by the Scribe were at my direction and personally dictated by me. I have reviewed the chart and agree that the record accurately reflects my personal performance of the history, physical exam, medical decision making, and the department course for this patient. I have also personally directed, reviewed, and agree with the discharge instructions and disposition. Physician Patient Turnover Patient Signed Over To: Yani Baez Handoff Comments: pending crisis, dispo
[2016-11-01] MEDS ORDERED: Iohexol 350mg/ml 100 ML ONE (17:12)
--- NOTE | 2016-11-01 17:49 | CT ---
PROCEDURE: CT Abdomen and Pelvis with contrast HISTORY: ELEVATED LIPASE, R/O PSEUDOCYST COMPARISON: 06/17/2016 TECHNIQUE: Contrast dose: 100 mL Omnipaque 350 Radiation dose: Total exam DLP = 500.48 mGy-cm. This CT exam was performed using one or more of the following dose reduction techniques: Automated exposure control, adjustment of the mA and/or kV according to patient size, and/or use of iterative reconstruction technique. FINDINGS: LOWER THORAX: Unremarkable. LIVER: Diffusely diminished attenuation consistent with fatty infiltration. No mass. Smooth contour. No biliary ductal dilatation. GALLBLADDER AND BILE DUCTS: Unremarkable. PANCREAS: No mass. No pancreatic ductal dilatation. No peripancreatic fluid/ inflammatory change. SPLEEN: Unremarkable. ADRENALS: Unremarkable. No mass. KIDNEYS AND URETERS: Unremarkable. No hydronephrosis. No solid mass. VASCULATURE: Unremarkable. No aortic aneurysm. BOWEL: Diverticulosis of the transverse colon and colonic flexures. No evidence diverticulitis. No bowel obstruction. APPENDIX: Normal appendix. PERITONEUM: Unremarkable. No free fluid. No free air. LYMPH NODES: Unremarkable. No enlarged lymph nodes. BLADDER: Unremarkable. REPRODUCTIVE: Normal prostate BONES: No acute fracture. OTHER FINDINGS: None. IMPRESSION: No evidence of acute pancreatitis. No evidence of pancreatic pseudocyst. Fatty infiltration of the liver. Diverticulosis of the transverse colon and colonic flexures without evidence of diverticulitis. No other significant abnormality.
[2016-11-01 20:23] LABS: URINE BILIRUBIN NEGATIVE (NEGATIVE); URINE CLARITY Clear (Clear); URINE COLOR Yellow (YELLOW); URINE GLUCOSE (UA) NORMAL (Normal); URINE LEUKOCYTE ESTERASE NEG Leu/uL (Negative); URINE NITRATE NEGATIVE (NEGATIVE); URINE PROTEIN NEGATIVE (NEGATIVE); URINE UROBILINOGEN NORMAL mg/dL (0.2-1.0)
[2016-11-01 20:25] LABS: URINE BACTERIA RARE (<OCC)
[2016-11-01 20:26] LABS: URINE BLOOD TRACE (NEGATIVE)
--- NOTE | 2016-11-01 22:46 | PCM.BM ---
<Jaki Alvarado - Last Filed: 11/01/16 22:44> Treatment Plan Problems - Problems identified on initial assessmt Potential for Alcohol Withdrawal Date Initiated: 11/01/16 Time Initiated: 22:44 Assessment reference: NA Status: Active Priority: 1 Ineffective Individual Coping Date Initiated: 11/01/16 Time Initiated: 22:45 Assessment reference: NA Status: Active Priority: 2 Treatment assets and liabiliti Patient Assests: cooperative, ADL independent, cognitively intact Patient Liabilities: poor support system (Alcoholic), substance abuse - Milieu Protocol Maintain good personal hygiene: daily Encourage regular showers, daily Remind patient to perform daily oral care Conduct patient checks and document Observation sheet: Q15 minutes Maintain personal safety: every shift Educate patient to report safety concerns to staff, every shift Monitor environment for contraband/sharps Medication safety: Monitor for expected outcome, potential side effects: every shift, Assess barriers to learning: every shift, Assess readiness for medication education: every shift <Cas Rod - Last Filed: 11/04/16 13:17> - Diagnosis (1) Alcohol dependence Status: Acute Interventions: 11/04/16 13:17 * Assess 7x/week regarding severity of withdrawal * Educate regarding risks, benefits, side effects and alternatives of medications * Use Motivational Interviewing for abstinence * Use CBT for relapse prevention * Medication management for withdrawal symptoms * Encourage medication assisted treatment *
--- NOTE | 2016-11-02 10:18 | PCM.PSYCH ---
Initial Psychiatric Evaluation - Initial Psychiatric Evaluation Type of Admission: Voluntary Legal Status: Capacity Chief Complaint (in patient's own words): "Alcohol, too much" History of Present Illness and Precipitating Events: The patient is interviewed, chart reviewed and case discussed. He is known to me from a previous admissions and consultations. 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 He is undocumented. He again admits to drinking 60 oz of beer every day for the past 10 years. He had short periods of sobriety but not more than 1-2 months and had several detoxes in the past. He admits he just cannot stand sober. He has had many medical issues due to alcohol too, ie his pancrease enzymes are still high. He has wdw sxs today. He denies drug use and cigarette smoking. Past psych history: Denies Family psych history: Father was an alcoholic. Medical history: History of gastritis and pancreatitis. Current Medications: Active Medications Generic Name Dose Route Start Last Admin Trade Name Freq PRN Reason Stop Dose Admin Clonidine HCl 0.1 mg 11/01/16 22:24 11/01/16 22:40 Catapres PO 0.1 mg Q4H PRN Administration Symptoms of alcohol withdrawl Folic Acid 1 mg 11/02/16 10:00 Folic Acid PO DAILY SOFI Hydroxyzine HCl 25 mg 11/01/16 22:26 Atarax PO Q4H PRN Anxiety Ibuprofen 400 mg 11/01/16 22:26 Motrin Tab PO Q6H PRN Pain, moderate (4-7) Lorazepam 1 mg 11/01/16 22:24 11/01/16 22:40 Ativan PO 1 mg Q4H PRN Administration Symptoms of alcohol withdrawl Lorazepam 2 mg 11/01/16 23:55 11/02/16 06:58 Ativan PO 11/05/16 23:54 2 mg Q6H SOFI Administration Taper Multivitamins 1 tab 11/02/16 10:00 Hexavitamin PO DAILY SOFI Pantoprazole Sodium 20 mg 11/02/16 10:00 Protonix Ec Tab PO DAILY SOFI Thiamine HCl 100 mg 11/02/16 10:00 Vitamin B1 Tab PO DAILY SOFI Trazodone HCl 50 mg 11/01/16 22:24 Desyrel PO HS PRN Insomnia Past Psychiatric History - Past Psychiatric History Previous Treatment History: None Pertinent Medical Hx (Current Medical&Sleep Prob, Allergies): Allergies Allergy/AdvReac Type Severity Reaction Status Date / Time No Known Allergies Allergy Verified 11/01/16 15:18 No Known Home Med 10/31/16 Review of Systems - Neurological Neurological: Tremor - Psychiatric Psychiatric: Abnormal Sleep Pattern, Anxiety, Difficulty Concentrating, Irritability. absent: Hallucinations, Homicidal Ideation, Suicidal Ideation Mental Status Examination - Personal Presentation Personal Presentation: Looks older than stated age - Affect Affect: Constricted - Motor Activity Motor Activity: Calm - Reliability in Providing Information Reliability in Providing Information: Fair - Speech Speech: Organized - Mood Mood: Anxious - Formal Thought Process Formal Thought Process: No Impairment - Cognitive Functions Orientation: Person, Place, Situation, Time Sensorium: Alert Attention/Concentration: Easily distracted Abstract Thinking: [place] Estimate of Intelligence: Below average Judgement: Intact, as evidence by: Insight regarding need for hospitalization Memory: Recent intact, as evidence by: Ability to recall events of the day, Remote intact, as evidenced by: Abilit to recall sig. life events - Risk Risk: Seizure, Withdrawal, Diminished functioning - Strength & Assets Inventory Strength & Assets Inventory: Cooperative - Limitations Limitations: Living alone DSM 5 DX - DSM 5 DSM 5 Diagnosis: Alcohol withdrawal Alcohol use d/o - severe - Recommended/Plan of Treatment Treatment Recommendations and Plan of Treatment: Ativan detox Gabapentin for augmentation As needed meds and vitamins Attend groups and activities CA for abstinence and CBT for relapse prevention Support and psychoeducation Consider and encourage MAT Refer to after care 33 min Projected ELOS: 4 days Prognosis: fair Discharge Plan and Discharge Criteria: No wdw sxs refer to rehab
[2016-11-02] MEDS: Multiple Vitamins Tab PO SCH (10:53)
[2016-11-02] MEDS: Pantoprazole 20 mg EC Tab PO SCH (10:53)
[2016-11-02] MEDS: Calcium Carbonate 500 mg Chewable Antacid Tab PO SCH ×2 (12:56→17:57)
[2016-11-02 17:09] LABS: ALBUMIN 3.5 g/dL (3.5-5.0)
[2016-11-02 17:12] LABS: ALB/GLOB RATIO 0.9 (1.0-2.1); AMYLASE 100 U/L (30-110); GFR AFRICAN-AMERICAN > 60; GFR NON-AFRICAN AMERICAN > 60
[2016-11-02 17:13] LABS: ALT/SGPT 109 U/L (21-72); AST/SGOT 136 U/L (17-59); BLOOD UREA NITROGEN 11 mg/dL (9-20); CALCIUM 8.1 mg/dl (8.6-10.4); LIPASE 320 U/L (23-300)
[2016-11-03] MEDS: Multiple Vitamins Tab PO SCH (09:34)
[2016-11-03] MEDS: Pantoprazole 20 mg EC Tab PO SCH (09:34)
[2016-11-03] MEDS: Calcium Carbonate 500 mg Chewable Antacid Tab PO SCH ×2 (09:35→17:57)
--- NOTE | 2016-11-03 09:47 | PCM.PYCHPN ---
Psychiatric Progress Note - Psychiatric Progress Note Patient seen today, length of contact: 15 min Patient Chief Complaint: "OK" Problems Identified/Issues Discussed: The pt is seen, chart reviewed, case discussed with staff. The pt is compliant with medications and reports no side-effects. Symptoms are improving but needs more time to stabilize. After care discussed, support and psychoeducation given. Medication Change: Yes (detox changes daily) Medical Record Reviewed: Yes Mental Status Examination - Cognitive Function Orientation: Person, Place, Situation, Time Memory: Impaired Attention: Poor Concentration: Poor Association: WNL Fund of Knowledge: Poor - Mood Mood: Anxious - Affect Affect: Constricted - Speech Speech: Appropriate - Formal Thought Process Formal Thought Process: No Impairment - Suicidal Ideation Suicidal Ideation: No - Homicidal Ideation Homicidal Ideation: No Goal/Treatment Plan - Goal/Treatment Plan Need for Continued Stay: Discharge may exacerbated symptoms, Severe functional impairment Progress Toward Problem(s) and Goals/Treatment Plan: Ativan detox Gabapentin for augmentation As needed meds and vitamins Attend groups and activities OK for abstinence and CBT for relapse prevention Support and psychoeducation Consider and encourage MAT Refer to after care Estimated Date of D/C: 11/05/16 - Smoking Cessation Smoking Cessation Initiated: Yes
[2016-11-03 15:26] VITALS: RESP 18
[2016-11-04] MEDS: Multiple Vitamins Tab PO SCH (09:44)
[2016-11-04] MEDS: Pantoprazole 20 mg EC Tab PO SCH (09:44)
[2016-11-04] MEDS: Calcium Carbonate 500 mg Chewable Antacid Tab PO SCH ×2 (09:53→17:06)
[2016-11-04] MEDS ORDERED: guaiFENesin 100 mg/5 ml Syrup UD PO PRN (13:14)
--- NOTE | 2016-11-04 13:17 | PCM.PYCHPN ---
Psychiatric Progress Note - Psychiatric Progress Note Patient seen today, length of contact: 16 min Patient Chief Complaint: "Poor sleep" Problems Identified/Issues Discussed: The pt is seen, chart reviewed, case discussed with staff. Support given, CBT and MA used briefly No new symptoms reported, improving slowly and needs more time Some cough - robitussin and CXR ordered No SEs from medications, risks discussed. After care discussed Medication Change: Yes (detox adjusted) Medical Record Reviewed: Yes Mental Status Examination - Cognitive Function Orientation: Person, Place, Situation, Time Memory: Impaired Attention: Poor Concentration: Poor Association: WNL Fund of Knowledge: Poor - Mood Mood: Anxious - Affect Affect: Constricted - Speech Speech: Appropriate - Formal Thought Process Formal Thought Process: No Impairment - Suicidal Ideation Suicidal Ideation: No - Homicidal Ideation Homicidal Ideation: No Goal/Treatment Plan - Goal/Treatment Plan Need for Continued Stay: Discharge may exacerbated symptoms, Severe functional impairment Progress Toward Problem(s) and Goals/Treatment Plan: Ativan detox Gabapentin for augmentation As needed meds and vitamins Attend groups and activities MA for abstinence and CBT for relapse prevention Support and psychoeducation Consider and encourage MAT Refer to after care but he never follows up - MA used about this Estimated Date of D/C: 11/05/16 - Smoking Cessation Smoking Cessation Initiated: Yes
[2016-11-05 08:58] VITALS: BP 121/77; PULSE 71; TEMP 98.5; O2SAT 100
--- NOTE | 2016-11-05 09:05 | RAD ---
Chest x-ray two views History: Cough. Alcoholic. Comparison: 06/03/2016 Findings: Mild venous congestion. Right hilar prominence. Heart size within normal limits. Impression: Mild venous congestion.
[2016-11-05] MEDS: Multiple Vitamins Tab PO SCH (09:40)
[2016-11-05] MEDS: Calcium Carbonate 500 mg Chewable Antacid Tab PO SCH (09:41)
[2016-11-05] MEDS: Pantoprazole 20 mg EC Tab PO SCH (09:41)
--- NOTE | 2016-11-05 10:16 | PCM.PYCHDC ---
Mental Status Examination - Mental Status Examination Orientation: Person, Place, Situation, Time Memory: Impaired Mood: Anxious Affect: Constricted Speech: Appropriate Attention: WNL Concentration: Poor Association: WNL Fund of Knowledge: WNL Formal Thought Process: No Impairment Suicidal Ideation: No Current Homicidal Ideation?: No Discharge Summary - Discharge Note Reason for Hospitalization: Alcohol detox Psychiatric History (includes Medical, Family, Personal Hx): Numerous admissions , DTs, hallucinations (in almost every admission) Laboratory Data: LFTs elevated again. Lip too but no acute pancreatitis. Consultations:: List each consultation separately and include: 1. Reason for request. 2. Findings. 3. Follow-up Summary of Hospital Course include:: 1. Description of specific treatment plan utilized for patients during their course of treatmen. 2. Summarize the time- course for resolution of acute symptoms and/or regressed behaviors. 3. Describe issues identified and worked on during hospitalization. 4. Describe medication utilized. 5. Describe medical problems identified and treated. 6. Reassessment of suicide risk Summary of Hospital Course: On admission: The patient is interviewed, chart reviewed and case discussed. He is known to me from a previous admissions and consultations. 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 He again admits to drinking 60 oz of beer every day for the past 10 years. He had short periods of sobriety but not more than 1-2 months and had several detoxes in the past. He admits he just cannot stand sober. He has had many medical issues due to alcohol too, ie his pancrease enzymes are still high. He has wdw sxs today. He denies drug use and cigarette smoking. Past psych history: Denies Family psych history: Father was an alcoholic. Medical history: History of gastritis and pancreatitis. Hospital course: The pt was admitted and started on treatment with psychotherapy, support, psychoeducation and medications. OR and CBT used. The pt attended groups and activities, as well as milieu therapy. All the risks and benefits of medications are discussed and the patient understood and agreed. After care discussed with the patient. He only wants to go to as she will try to find a job The patient improved with the treatment provided and discharged as planned. 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 Follow after care plan as discussed above. Use relapse prevention skills. Return to ER or call 911 if suicidal, homicidal or symptoms relapse. Stay away from stress, alcohol and drugs. Use relaxation techniques. See primary doctor once a year and get labs. Consider MAT Prescriptions/Medication Reconciliation: Pantoprazole [Protonix EC Tab] 20 mg PO DAILY #30 ect traZODone [Desyrel] 100 mg PO HS PRN #30 tab PRN Reason: Insomnia - Smoking Cessation Smoking Cessation Medication prescribed: No - Antipsychotic Medications Pt discharged on 2 or more routine antipsychotic medications: No
== END 2016-11-05 10:30 | disposition home or self-care (01) | DRG 751 ==
LOC: C.ER 14:48 → C.7D 21:44
PROVIDERS: ADMIT Psychiatry & Neurology Psychiatry; ATTEND Psychiatry & Neurology Psychiatry
PROC: HZ2ZZZZ Detoxification Services for Substance Abuse Treatment (ICD-10-PCS; principal; 2016-11-01)
PROC: HZ52ZZZ Individual Psychotherapy for Substance Abuse Treatment, Cognitive-Behavioral (ICD-10-PCS; 2016-11-01)
PROC: HZ59ZZZ Individual Psychotherapy for Substance Abuse Treatment, Supportive (ICD-10-PCS; 2016-11-01)
PROC: HZ56ZZZ Individual Psychotherapy for Substance Abuse Treatment, Psychoeducation (ICD-10-PCS; 2016-11-01)
DX: F10.239 Alcohol dependence with withdrawal, unspecified (principal); K70.9 Alcoholic liver disease, unspecified; F10.251 Alcohol dependence with alcohol-induced psychotic disorder with hallucinations; I10 Essential (primary) hypertension; K29.70 Gastritis, unspecified, without bleeding; Z81.1 Family history of alcohol abuse and dependence; T51.0X1A Toxic effect of ethanol, accidental (unintentional), initial encounter

== ENCOUNTER 2016-11-13 14:16 | Observation (INO) | payer OTHER ==
[2016-11-13 14:16] VITALS: BMI 33.8
[2016-11-13] MEDS ORDERED: Sodium Chloride 0.9% 2,500 ML IV ONE (14:46)
--- NOTE | 2016-11-13 14:46 | C.PDOC ---
History Of Present Illness <Natalia Sanders - Last Filed: 11/13/16 18:42> <Yani Baez - Last Filed: 11/13/16 23:22> VIA TRANS ABD PAIN, VOMITING, HEMETEMESIS SINCE YEST. EDSON ETOH ABUSE. LAST DRINK >24 HRS. DENIES LOWER GI BLEED, OTHER ASSOC SX EXAM MILD DIST NONTOXIC HEENT ANICTERIC ABD NEG RECTAL BROWN STOOL NO BRB PSYCH CALM COOPERATIVE NO ACUTE INTOX OR WITHDRAWAL REMAINDER NEG (Natalia Sanders) History Per: Patient History/Exam Limitations: no limitations Onset/Duration Of Symptoms: Days Quality Of Discomfort: "Pain" Associated Symptoms: Vomiting, Hematemesis. denies: Nausea, Diarrhea Recent travel outside of the [place]: No <Natalia Sanders - Last Filed: 11/13/16 18:42> <Yani Baez - Last Filed: 11/13/16 23:22> Time Seen by Provider: 11/13/16 14:32 Chief Complaint (Nursing): Abdominal Pain Past Medical History Reviewed: Historical Data, Nursing Documentation, Vital Signs - Medical History PMH: Gastritis, HTN, Seizures (pt reports having a seizure on 10/30/16) Family History: States: Unknown Family Hx - Social History Hx Tobacco Use: No Hx Alcohol Use: Yes Hx Substance Use: No - Immunization History Hx Tetanus Toxoid Vaccination: Yes (2014) Hx Influenza Vaccination: No Hx Pneumococcal Vaccination: No <Natalia Sanders - Last Filed: 11/13/16 18:42> Review Of Systems Except As Marked, All Systems Reviewed And Found Negative. Constitutional: Negative for: Fever, Chills Cardiovascular: Negative for: Chest Pain Respiratory: Negative for: Shortness of Breath, Wheezing Gastrointestinal: Positive for: Vomiting, Abdominal Pain, Hematemesis. Negative for: Diarrhea, Hematochezia Skin: Negative for: Rash Neurological: Negative for: Headache, Dizziness <Natalia Sanders - Last Filed: 11/13/16 18:42> Physical Exam - Physical Exam Appears: Non-toxic, Other (MILD DISTRESS) Skin: Warm, Dry Head: Atraumatic, Normacephalic Eye(s): bilateral: PERRL, EOMI, Other (ANICTERIC) Oral Mucosa: Moist Chest: Symmetrical Cardiovascular: Rhythm Regular Respiratory: Normal Breath Sounds, No Rales, No Rhonchi, No Wheezing Gastrointestinal/Abdominal: Soft, No Tenderness, No Distention, No Guarding, No Rebound Rectal: Other (BROWN STOOL NO BRB) Extremity: Normal ROM Neurological/Psych: Oriented x3, Other (PSYCH: CALM COOPERATIVE NO ACUTE INTOX OR WITHDRAWAL) <Natalia Sanders - Last Filed: 11/13/16 18:42> ED Course And Treatment - Laboratory Results Result Diagrams: 11/13/16 14:58 11/13/16 14:58 ECG: Interpreted By Me ECG Rhythm: Sinus Rhythm Rate From EC O2 Sat by Pulse Oximetry: 95 (RA) Pulse Ox Interpretation: Normal - Radiology CXR: Viewed By Me, Read By Radiologist CXR Interpretation: Yes: No Acute Disease <Natalia Sanders - Last Filed: 11/13/16 18:42> - Laboratory Results Result Diagrams: 11/13/16 14:58 11/13/16 14:58 Pulse Ox Interpretation: Normal - CT Scan/US CT Abd/Pel w/ contrast Other Rad Studies (CT/US): Interpreted By Me, Read By Radiologist CT/US Interpretation: EXAM: CT Abdomen and Pelvis With Intravenous Contrast. EXAM DATE/TIME: Exam ordered 11/13/2016 6:23 PM. CLINICAL HISTORY: 36 years old, male; Pain; Abdominal pain; Generalized; Additional info: Abd pain ho ETOH abuse. TECHNIQUE: Axial computed tomography images of the abdomen and pelvis with intravenous contrast. All CT. scans at this facility use one or more dose reduction techniques, viz.: automated exposure control;. ma/kV adjustment per patient size (including targeted exams where dose is matched to indication; i.e. head); or iterative reconstruction technique. Coronal and sagittal reformatted images were created and reviewed. CONTRAST: 100 mL of visipaque 320 administered intravenously. COMPARISON: CT - ABD PELVIS PO IV CONTRAST 05/29 12:41:03 PM. FINDINGS: Lower thorax: No acute findings. ABDOMEN: Liver : The liver is low in density. The liver measures 16 cm in craniocaudal span in midclavicular. line. The prostate measures 2.8 x 4 x 3.7 cm. Gallbladder and bile ducts: Unremarkable. No calcified stones. No ductal dilation. Pancreas: Unremarkable. No mass. No ductal dilation. Spleen: There is a 9 mm accessory spleen inferior to the spleen. Adrenals: Unremarkable. No mass. Kidneys and ureters: Unremarkable. No solid mass. No hydronephrosis. Stomach and bowel: Unremarkable. No obstruction. No mucosal thickening. Appendix: No findings to suggest acute appendicitis. PELVIS: Bladder: Unremarkable. No mass. Reproductive: The prostate measures 2.8 x 4 x 3.7 cm. ABDOMEN and PELVIS: Intraperitoneal space: Unremarkable. No free air. No significant fluid collection. Bones/joints: No acute fracture. No dislocation. Soft tissues: Unremarkable. Vasculature: Unremarkable. No abdominal aortic aneurysm. Lymph nodes: Unremarkable. No enlarged lymph nodes. IMPRESSION: 1. No acute findings. 2. Hepatic steatosis. pt had some tremors. 1 ativan given Reevaluation Time: 23:22 Reassessment Condition: Improved <Yani Baez - Last Filed: 11/13/16 23:22> Progress - Data Reviewed Data Reviewed: Lab, Old records - Critical Care Citical Care: Excluding Proc Time Critical Care Time: 120 minutes <Natalia Sanders - Last Filed: 11/13/16 18:42> <Yani Baez - Last Filed: 11/13/16 23:22> - Re-Evaluation Re-evaluation Note: 11/13/16 14:47 PEPCID, ATIVAN, PROTONIX, MORPHINE, IV FLUIDS. BLOOD WORK, EKG, CXR, OCCULT BLOOD ORDERED. (Natalia Sanders) Critical Care Time - Critical Care Note Total Time (in mins): 30 Documented critical care: time excludes all time spent performing seperately billable procedures. <Yani Baez - Last Filed: 11/13/16 23:22> ED OBSERVATION Date of observation admission: 11/13/16 Time of observation admission: 14:45 <Natalia Sanders - Last Filed: 11/13/16 18:42> Discharge: Yes <Yani Baez - Last Filed: 11/13/16 23:22> - Observation admission statement Patient is being placed in observation because:: ABD PAIN, GI BLEED; ETOH WITHDRAWAL (Natalia Sanders) - Goals of Observation Goals of observation are:: CLIN IMPROVE, NO SEVERE GI BLEED (Natalia Sanders) - Progress Note Progress Note: 11/13/16 17:44 APPEARS COMFORTABLE NAD. VSS. NO VOMITING SINCE INITIAL EVAL 11/13/16 18:22 CO RECUR ABD PAIN. +EPIG TEND NO R/G. WILL CT 11/13/16 19:[address]O J[address] CT, DISPO (Natalia Sanders) Disposition <Natalia Sanders - Last Filed: 11/13/16 18:42> Counseled Patient/Family Regarding: Studies Performed, Diagnosis, Smoking Cessation - Disposition Disposition Time: 23:22 <Yani Baez - Last Filed: 11/13/16 23:22> - Disposition Disposition: HOME/ ROUTINE Condition: FAIR - Clinical Impression Clinical Impression: Alcohol abuse with intoxication, Abdominal pain - Scribe Statement The provider has reviewed the documentation as recorded by the Scribe <EdsonNatalia - Last Filed: 11/13/16 18:42> <Yani Baez - Last Filed: 11/13/16 23:22> - Scribe Statement SM All medical record entries made by the Scribe were at my direction and personally dictated by me. I have reviewed the chart and agree that the record accurately reflects my personal performance of the history, physical exam, medical decision making, and the department course for this patient. I have also personally directed, reviewed, and agree with the discharge instructions and disposition. (Natalia Sanders)
[2016-11-13 15:05] LABS: BASO # 0.1 K/uL (0.0-0.2); BASO % 1.2 % (0.0-2.0); EOS % 0.4 % (0.0-4.0); HEMATOCRIT 43.3 % (35.0-51.0); LYMPH # 2.4 K/uL (1.0-4.3); LYMPH % 55.1 % (20.0-40.0); MEAN CORPUSCULAR HEMOGLOBIN 28.6 pg (27.0-31.0); MEAN CORPUSCULAR HGB CONC 32.4 g/dL (33.0-37.0); MEAN PLATELET VOLUME 7.6 fL (7.2-11.7); MONO # 0.3 K/uL (0.0-0.8); MONO % 7.4 % (0.0-10.0); NRBC % 0.2 % (0.0-2.0); RED CELL DISTRIBUTION WIDTH 15.9 % (11.5-14.5); WHITE BLOOD COUNT 4.4 K/uL (4.8-10.8)
[2016-11-13 15:12] LABS: MEAN CELL VOLUME 88.3 fL (80.0-94.0)
[2016-11-13 15:18] LABS: RBC URINE 3 /hpf (0-3); URINE BILIRUBIN NEGATIVE (NEGATIVE); URINE COLOR Yellow (YELLOW); URINE GLUCOSE (UA) NORMAL (Normal); URINE KETONE NEGATIVE (NEGATIVE); URINE LEUKOCYTE ESTERASE NEG Leu/uL (Negative); URINE PROTEIN NEGATIVE (NEGATIVE); URINE UROBILINOGEN NORMAL mg/dL (0.2-1.0); WBC URINE < 1 /hpf (0-5)
[2016-11-13 15:20] LABS: URINE BLOOD TRACE (NEGATIVE)
[2016-11-13 15:20] LABS: INR 1.1
--- NOTE | 2016-11-13 15:21 | RAD ---
HISTORY: GI Bleeding VOMITING RO FREE AIR COMPARISON: Chest x-ray performed 11/04/16 TECHNIQUE: Chest, one view. FINDINGS: Examination limited by habitus. LUNGS: No focal consolidation. Please note that chest x-ray has limited sensitivity for the detection of pulmonary masses. PLEURA: No significant pleural effusion identified. No definite pneumothorax . CARDIOVASCULAR: The cardiomediastinal silhouette appears within normal limits of size. OSSEOUS STRUCTURES: No acute osseous abnormality identified. VISUALIZED UPPER ABDOMEN: Unremarkable. OTHER FINDINGS: None. IMPRESSION: No acute findings.
[2016-11-13 15:22] LABS: CHLORIDE 97 mmol/L (98-107); POTASSIUM 3.6 mmol/L (3.6-5.2); SODIUM 141 mmol/L (132-148)
[2016-11-13 15:24] LABS: GFR AFRICAN-AMERICAN > 60
[2016-11-13 15:25] LABS: ALKALINE PHOSPHATASE 95 U/L (38-126); ALT/SGPT 47 U/L (21-72); AST/SGOT 50 U/L (17-59); BILIRUBIN,TOTAL 0.6 mg/dL (0.2-1.3); BLOOD UREA NITROGEN 6 mg/dL (9-20); CALCIUM 8.2 mg/dl (8.6-10.4); CARBON DIOXIDE 26 mmol/L (22-30); GLUCOSE,RANDOM 100 mg/dL (75-110); TOTAL PROTEIN 8.2 g/dL (6.3-8.3)
[2016-11-13] MEDS ORDERED: Sodium Chloride 0.9% 1,000 ML ONE (15:29)
[2016-11-13] MEDS ORDERED: Iodixanol 320 MG/ML 100 ML BOTTLE IV ONE (18:30)
[2016-11-13] MEDS ORDERED: Morphine 4 MG/ML VIAL ONE (18:43)
--- NOTE | 2016-11-13 19:52 | CT ---
EXAM: CT Abdomen and Pelvis With Intravenous Contrast EXAM DATE/TIME: Exam ordered 11/13/2016 6:23 PM CLINICAL HISTORY: 36 years old, male; Pain; Abdominal pain; Generalized; Additional info: Abd pain ho ETOH abuse TECHNIQUE: Axial computed tomography images of the abdomen and pelvis with intravenous contrast. All CT scans at this facility use one or more dose reduction techniques, viz.: automated exposure control; ma/kV adjustment per patient size (including targeted exams where dose is matched to indication; i.e. head); or iterative reconstruction technique. Coronal and sagittal reformatted images were created and reviewed. CONTRAST: 100 mL of visipaque 320 administered intravenously. COMPARISON: CT - ABD PELVIS PO IV CONTRAST 05/30/2015 12:41:03 PM FINDINGS: Lower thorax: No acute findings. ABDOMEN: Liver: The liver is low in density. The liver measures 16 cm in craniocaudal span in midclavicular line. The prostate measures 2.8 x 4 x 3.7 cm. Gallbladder and bile ducts: Unremarkable. No calcified stones. No ductal dilation. Pancreas: Unremarkable. No mass. No ductal dilation. Spleen: There is a 9 mm accessory spleen inferior to the spleen. Adrenals: Unremarkable. No mass. Kidneys and ureters: Unremarkable. No solid mass. No hydronephrosis. Stomach and bowel: Unremarkable. No obstruction. No mucosal thickening. Appendix: No findings to suggest acute appendicitis. PELVIS: Bladder: Unremarkable. No mass. Reproductive: The prostate measures 2.8 x 4 x 3.7 cm. ABDOMEN and PELVIS: Intraperitoneal space: Unremarkable. No free air. No significant fluid collection. Bones/joints: No acute fracture. No dislocation. Soft tissues: Unremarkable. Vasculature: Unremarkable. No abdominal aortic aneurysm. Lymph nodes: Unremarkable. No enlarged lymph nodes. IMPRESSION: 1. No acute findings. 2. Hepatic steatosis.
[2016-11-13 23:32] VITALS: BP 121/68; PULSE 82; RESP 16; TEMP 98; O2SAT 98
--- NOTE | 2016-11-16 18:10 | CARD ---
APPROVED REPORT EKG Measurement Heart [id number] <Conclusion> Normal sinus rhythm Normal ECG
== END 2016-11-13 23:22 | disposition home or self-care (01) ==
LOC: C.ER 14:16 → C.9OBSV 14:45
PROVIDERS: ADMIT Emergency Medicine; ATTEND Emergency Medicine
DX: F10.120 Alcohol abuse with intoxication, uncomplicated (principal); Y90.8 Blood alcohol level of 240 mg/100 ml or more; R10.9 Unspecified abdominal pain
CPT/HCPCS: 71010; 74177; 80053; 80320; 81001; 82948; 83690; 85025; 85610; 85730; 86850; 86900; 96360; 96374; C9113; G0328; J2060; J2270; J7040; Q9967

== ENCOUNTER 2016-11-13 23:57 | Emergency (ER) | payer OTHER ==
[2016-11-13 23:57] VITALS: BMI 33.8
--- NOTE | 2016-11-14 00:18 | C.PDOC ---
History Of Present Illness 36 y/o male presents to the ER for acute alcohol intoxication. Patient was just discharged from this ed for acute alcohol intoxication. Pt left and went drinking. Time Seen by Provider: 11/14/16 00:15 Chief Complaint (Nursing): Substance Abuse History Per: Patient History/Exam Limitations: no limitations Onset/Duration Of Symptoms: Hrs Current Symptoms Are (Timing): Still Present Suicide/Self Injury Attempted (Context): None Modifying Factor(s): Alcohol Severity: Mild Associated Symptoms: denies: Suicidal Thoughts, Suicidal Plan Involuntary Hold By: None Recent travel outside of the [place]: No Additional History Per: Patient Past Medical History Reviewed: Historical Data, Nursing Documentation, Vital Signs Vital Signs: Last Vital Signs Temp 99 F 11/14/16 03:11 Pulse 74 11/14/16 03:11 Resp 16 11/14/16 03:11 BP 128/81 11/14/16 03:11 Pulse Ox 96 11/14/16 03:11 - Medical History PMH: Gastritis, HTN, Seizures (pt reports having a seizure on 10/30/16) Denies: Diabetes, Hepatitis, HIV, Sexually Transmitted Disease - [facility] CLOSURE SKIN & SUBCUTANEOUS NEC (11/10/14) DETOXIFICATION SERVICES FOR SUBSTANCE ABUSE TREATMENT (11/01/16) GROUP SOFTWARE ARCHITECT FOR SUBSTANCE ABUSE TREATMENT, PSYCHOEDUCATION (02/16/16) INDIV PSYCHOTHERAPY FOR SUBSTANCE ABUSE TREATMENT, SUPPORT (11/01/16) INDIV PSYCHOTHERAPY FOR SUBSTANCE ABUSE, COGNITIV BEHAVIORAL (11/01/16) INDIV PSYCHOTHERAPY FOR SUBSTANCE ABUSE, PSYCHOEDUCATION (11/01/16) TETANUS TOXOID ADMINIST (11/10/14) Family History: States: Unknown Family Hx - Social History Hx Tobacco Use: No Hx Alcohol Use: Yes Hx Substance Use: No - Immunization History Hx Tetanus Toxoid Vaccination: Yes (2014) Hx Influenza Vaccination: Yes Hx Pneumococcal Vaccination: No Review Of Systems Constitutional: Positive for: Other (Alcohol intoxicated). Negative for: Fever , Chills Eyes: Negative for: Vision Change ENT: Negative for: Throat Pain Cardiovascular: Negative for: Chest Pain, Palpitations Respiratory: Negative for: Cough, Shortness of Breath Gastrointestinal: Negative for: Abdominal Pain Genitourinary: Negative for: Dysuria Musculoskeletal: Negative for: Other (Trauma) Skin: Negative for: Rash Neurological: Negative for: Headache, Dizziness Psych: Negative for: Suicidal ideation, Other (Homicidal ideation) Physical Exam - Physical Exam Appears: Non-toxic, No Acute Distress, Other (Alcohol intoxicated, (+) AOB) Skin: Warm, Dry Head: Normacephalic Neck: Supple Cardiovascular: Rhythm Regular Respiratory: No Rales, No Rhonchi, No Wheezing Gastrointestinal/Abdominal: Soft, No Tenderness Back: No CVA Tenderness Neurological/Psych: Oriented x3, No Normal Speech (Slurred speech), Other (No focal deficit) Gait: Unsteady ED Course And Treatment - Laboratory Results Result Diagrams: 11/14/16 01:51 11/14/16 01:51 O2 Sat by Pulse Oximetry: 98 (RA) Pulse Ox Interpretation: Normal Reevaluation Time: 05:04 Reassessment Condition: Improved ED OBSERVATION Discharge: Yes Date of observation admission: 11/14/16 Time of observation admission: 00:17 - Observation admission statement Patient is being placed in observation because:: acute alcohol intoxication - Goals of Observation Goals of observation are:: sobriety - Progress Note Progress Note: 11/14/16 00:17 vitals mando 11/14/16 02:04 no complaints Disposition Counseled Patient/Family Regarding: Studies Performed, Diagnosis - Disposition Referrals: [facility] [Outside] Disposition: HOME/ ROUTINE Disposition Time: 00:15 Condition: FAIR Instructions: Alcohol Intoxication (DC) Forms: [facility] (Monegasque) - Clinical Impression Clinical Impression: Alcohol abuse, Alcohol intoxication - Scribe Statement The provider has reviewed the documentation as recorded by the Scribe Talat tripathi All medical record entries made by the Scribe were at my direction and personally dictated by me. I have reviewed the chart and agree that the record accurately reflects my personal performance of the history, physical exam, medical decision making, and the department course for this patient. I have also personally directed, reviewed, and agree with the discharge instructions and disposition.
[2016-11-14 01:55] LABS: BASO # 0.1 K/uL (0.0-0.2); BASO % 0.7 % (0.0-2.0); EOS % 0.1 % (0.0-4.0); LYMPH # 0.6 K/uL (1.0-4.3); LYMPH % 7.7 % (20.0-40.0); MEAN CELL VOLUME 88.7 fL (80.0-94.0); MEAN CORPUSCULAR HEMOGLOBIN 28.7 pg (27.0-31.0); MEAN CORPUSCULAR HGB CONC 32.4 g/dL (33.0-37.0); MEAN PLATELET VOLUME 7.8 fL (7.2-11.7); MONO # 0.4 K/uL (0.0-0.8); MONO % 4.9 % (0.0-10.0); PLATELET COUNT 209 K/uL (130-400); WHITE BLOOD COUNT 8.2 K/uL (4.8-10.8)
[2016-11-14 02:04] LABS: CHLORIDE 100 mmol/L (98-107)
[2016-11-14 02:05] LABS: POTASSIUM 4.3 mmol/L (3.6-5.2); SODIUM 141 mmol/L (132-148)
[2016-11-14 02:07] LABS: ALKALINE PHOSPHATASE 109 U/L (38-126); ALT/SGPT 54 U/L (21-72); AST/SGOT 47 U/L (17-59); BILIRUBIN,TOTAL 0.9 mg/dL (0.2-1.3); BLOOD UREA NITROGEN 7 mg/dL (9-20); CALCIUM 9.1 mg/dl (8.6-10.4); CARBON DIOXIDE 24 mmol/L (22-30); GFR AFRICAN-AMERICAN > 60; GLUCOSE,RANDOM 138 mg/dL (75-110); TOTAL PROTEIN 8.6 g/dL (6.3-8.3)
[2016-11-14 02:08] LABS: ALCOHOL SERUM < 10 mg/dl (0-10)
[2016-11-14 02:32] LABS: NEUTROPHIL 85 % (50-75); TOTAL CELLS COUNTED 100
[2016-11-14 03:12] VITALS: RESP 16
[2016-11-14 03:36] LABS: RBC URINE 3 /hpf (0-3); URINE BILIRUBIN NEGATIVE (NEGATIVE); URINE BLOOD NEGATIVE (NEGATIVE); URINE COLOR Yellow (YELLOW); URINE GLUCOSE (UA) NORMAL (Normal); URINE KETONE TRACE mg/dL (NEGATIVE); URINE LEUKOCYTE ESTERASE NEG Leu/uL (Negative); URINE PROTEIN 1+ mg/dL (NEGATIVE); URINE UROBILINOGEN NORMAL mg/dL (0.2-1.0); WBC URINE < 1 /hpf (0-5)
[2016-11-14 05:50] VITALS: BP 146/85; PULSE 84; TEMP 99.3; O2SAT 97
== END 2016-11-14 06:36 | disposition home or self-care (01) ==
LOC: C.ER 23:57
DX: F10.129 Alcohol abuse with intoxication, unspecified (principal); Y90.9 Presence of alcohol in blood, level not specified
CPT/HCPCS: 80053; 80320; 80324; 80345; 80346; 80349; 80353; 80358; 80361; 81001; 83992; 85025; 96374; 96375; 99284; J2060; J2405

== ENCOUNTER 2016-11-14 17:03 | Emergency (ER) | payer OTHER ==
[2016-11-14 17:04] VITALS: BMI 33.8
[2016-11-14] MEDS ORDERED: Sodium Chloride 0.9% 1,000 ML IV ONE (17:38)
[2016-11-14] MEDS ORDERED: Sodium Chloride 0.9% 1,000 ML ONE (17:52)
[2016-11-14 18:06] LABS: BASO % 0.4 % (0.0-2.0); EOS % 0.5 % (0.0-4.0); HEMATOCRIT 38.7 % (35.0-51.0); LYMPH % 21.2 % (20.0-40.0); MEAN CELL VOLUME 88.5 fL (80.0-94.0); MEAN CORPUSCULAR HEMOGLOBIN 28.8 pg (27.0-31.0); MEAN CORPUSCULAR HGB CONC 32.6 g/dL (33.0-37.0); MEAN PLATELET VOLUME 7.8 fL (7.2-11.7); MONO # 0.3 K/uL (0.0-0.8); MONO % 7.3 % (0.0-10.0); RED CELL DISTRIBUTION WIDTH 16.1 % (11.5-14.5); WHITE BLOOD COUNT 4.5 K/uL (4.8-10.8)
[2016-11-14 18:15] LABS: CHLORIDE 96 mmol/L (98-107); POTASSIUM 3.2 mmol/L (3.6-5.2); RBC URINE 9 /hpf (0-3); SODIUM 135 mmol/L (132-148); URINE BACTERIA RARE (<OCC); URINE BILIRUBIN NEGATIVE (NEGATIVE); URINE BLOOD 1+ (NEGATIVE); URINE COLOR Yellow (YELLOW); URINE GLUCOSE (UA) NORMAL (Normal); URINE KETONE NEGATIVE (NEGATIVE); URINE LEUKOCYTE ESTERASE NEG Leu/uL (Negative); URINE PROTEIN 1+ mg/dL (NEGATIVE); URINE UROBILINOGEN NORMAL mg/dL (0.2-1.0); WBC URINE 1 /hpf (0-5)
[2016-11-14 18:18] LABS: ALKALINE PHOSPHATASE 82 U/L (38-126); ALT/SGPT 41 U/L (21-72); AST/SGOT 45 U/L (17-59); BILIRUBIN,TOTAL 0.9 mg/dL (0.2-1.3); BLOOD UREA NITROGEN 12 mg/dL (9-20); CALCIUM 8.6 mg/dl (8.6-10.4); CARBON DIOXIDE 26 mmol/L (22-30); GFR AFRICAN-AMERICAN > 60; GLUCOSE,RANDOM 119 mg/dL (75-110); TOTAL PROTEIN 7.5 g/dL (6.3-8.3)
[2016-11-14 18:19] LABS: ALCOHOL SERUM < 10 mg/dl (0-10)
--- NOTE | 2016-11-14 18:45 | C.PDOC ---
History Of Present Illness 36 yr old male presents to the ER with complaints of epigastric pain, nausea and vomiting with bloody streaks for the past 4 days. Patient states the symptoms started after he was drinking alcohol. Patient reports he is a daily drinker, currently feels mildly tremulous. He denies fever, chest pain, palpitations, SOB, diarrhea, rectal bleeding, dysuria. Time Seen by Provider: 11/14/16 17:37 Chief Complaint (Nursing): GI Problem History Per: Patient History/Exam Limitations: no limitations Onset/Duration Of Symptoms: Days (4) Severity: Mild Associated Symptoms: Nausea, Vomiting. denies: Fever, Diarrhea Past Medical History Reviewed: Historical Data, Nursing Documentation, Vital Signs Vital Signs: Last Vital Signs Temp 98.1 F 11/14/16 19:25 Pulse 82 11/14/16 19:25 Resp 16 11/14/16 19:25 BP 123/72 11/14/16 19:25 Pulse Ox 99 11/14/16 19:25 - Medical History PMH: Gastritis, HTN, Seizures (pt reports having a seizure on 10/30/16) - [facility] Procedures CLOSURE SKIN & SUBCUTANEOUS NEC (11/10/14) DETOXIFICATION SERVICES FOR SUBSTANCE ABUSE TREATMENT (11/01/16) GROUP MANAGER PULMONARY FOR SUBSTANCE ABUSE TREATMENT, PSYCHOEDUCATION (02/16/16) INDIV PSYCHOTHERAPY FOR SUBSTANCE ABUSE TREATMENT, SUPPORT (11/01/16) INDIV PSYCHOTHERAPY FOR SUBSTANCE ABUSE, COGNITIV BEHAVIORAL (11/01/16) INDIV PSYCHOTHERAPY FOR SUBSTANCE ABUSE, PSYCHOEDUCATION (11/01/16) TETANUS TOXOID ADMINIST (11/10/14) Family History: States: No Known Family Hx - Social History Hx Tobacco Use: No Hx Alcohol Use: Yes Hx Substance Use: No - Immunization History Hx Tetanus Toxoid Vaccination: Yes (2014) Hx Influenza Vaccination: Yes Hx Pneumococcal Vaccination: No Review Of Systems Except As Marked, All Systems Reviewed And Found Negative. Constitutional: Negative for: Fever Cardiovascular: Negative for: Chest Pain, Palpitations Respiratory: Negative for: Shortness of Breath Gastrointestinal: Positive for: Nausea, Vomiting (With blood streaks ), Abdominal Pain (Epigastric pain ). Negative for: Diarrhea, Hematochezia Genitourinary: Negative for: Dysuria Neurological: Positive for: Other (tremors). Negative for: Weakness, Numbness Physical Exam - Physical Exam Appears: Well, Non-toxic, In Acute Distress (appears mildly uncomfortable) Skin: Normal Color, Warm, Dry, No Rash Head: Normacephalic Oral Mucosa: Moist Cardiovascular: Rhythm Regular Respiratory: Normal Breath Sounds, No Rales, No Rhonchi, No Wheezing Gastrointestinal/Abdominal: Bowel Sounds, Soft, Tenderness (Epigastric tenderness to palpation, (-) Ocampo's), No Guarding, No Rebound Back: No CVA Tenderness Extremity: Other ((+) Mild tremors of upper extremities. ) Neurological/Psych: Oriented x3 ED Course And Treatment - Laboratory Results Result Diagrams: 11/14/16 18:03 11/14/16 18:03 O2 Sat by Pulse Oximetry: 98 (RA ) Pulse Ox Interpretation: Normal Progress Note: PLAN: Blood work, UDS, UA ordered and reviewed. Patient given IV NS bolus, IV zofran, IV protonix, IV atvan. Reevaluation Time: 19:10 Reassessment Condition: Improved (Patient reassessed, is currently resting comfortably, states he is feeling much better. Blood work is unremarkable, and patient has no current tremors/pain. Patient is well appearing, with normal vitals - will discharge. Rxs for zofran and protonix given, and patient instructed to follow up with PMD/clinic in 1-2 days. He understands he should return to ED if symptoms worsen.) Disposition Counseled Patient/Family Regarding: Studies Performed, Diagnosis, Need For Followup, Rx Given - Disposition Referrals: [facility] [Outside] Disposition: HOME/ ROUTINE Disposition Time: 19:10 Condition: STABLE Additional Instructions: FOLLOW UP WITH YOUR DOCTOR/CLINIC IN 1-2 DAYS USE MEDICATIONS NEEDED RETURN TO ER IF SYMPTOMS WORSEN Prescriptions: Ondansetron [Zofran Odt] 4 mg PO Q8 PRN #12 odt PRN Reason: Nausea/Vomiting Pantoprazole [Protonix EC Tab] 20 mg PO DAILY #30 ect Instructions: Gastritis (ED), Abuse of Alcohol (ED), Epigastric Pain (ED) Forms: [facility] (Uzbek) Print Language: HUNGARIAN - POA Present On Arrival: None - Clinical Impression Clinical Impression: Epigastric abdominal pain, Alcoholic gastritis - Scribe Statement The provider has reviewed the documentation as recorded by the Favio Regalado Provider Attestation: All medical record entries made by the Scribe were at my direction and personally dictated by me. I have reviewed the chart and agree that the record accurately reflects my personal performance of the history, physical exam, medical decision making, and the department course for this patient. I have also personally directed, reviewed, and agree with the discharge instructions and disposition.
[2016-11-14] MEDS ORDERED: Potassium Chloride 20 mEq ER Tab PO STA (19:04)
[2016-11-14] MEDS ORDERED: Potassium Chloride 20 mEq ER Tab PO ONE (19:18)
[2016-11-14 19:26] VITALS: BP 123/72; PULSE 82; RESP 16; TEMP 98.1
[2016-11-21 15:03] VITALS: O2SAT 98
== END 2016-11-14 19:26 | disposition home or self-care (01) ==
LOC: C.ER 17:03
DX: K29.20 Alcoholic gastritis without bleeding (principal); F10.20 Alcohol dependence, uncomplicated; Y90.0 Blood alcohol level of less than 20 mg/100 ml
CPT/HCPCS: 80053; 80320; 80324; 80345; 80346; 80349; 80353; 80358; 80361; 81001; 82948; 83992; 85025; 96361; 96374; 96375; 99285; C9113; J2060; J2405; J7040

== ENCOUNTER 2016-11-16 05:11 | Emergency (ER) | payer OTHER ==
[2016-11-16 05:11] VITALS: BMI 33.8
[2016-11-16] MEDS ORDERED: Sodium Chloride 0.9% 500 ML IV ONE (05:21)
[2016-11-16] MEDS ORDERED: Sodium Chloride 0.9% 1,000 ML IV ONE (05:21)
[2016-11-16] MEDS ORDERED: Sucralfate 1 gm/10 ml Oral Susp UD PO STA (05:22)
[2016-11-16] MEDS ORDERED: Iohexol 240 (50 ml) PO ONE (05:24)
--- NOTE | 2016-11-16 05:27 | C.PDOC ---
History Of Present Illness <Joe Jorge - Last Filed: 11/16/16 07:01> <Meir Bush - Last Filed: 11/16/16 09:22> 36 year old male with a Hx of chronic alcoholism who presents to the ER with a complaint of with a complaint of upper abdominal pain for the past 3 days, associated with mild diarrhea. Denies dysuria, hematuria, or vomiting. (Joe Jorge) History Per: Patient History/Exam Limitations: no limitations Onset/Duration Of Symptoms: Days Current Symptoms Are (Timing): Still Present Location Of Pain/Discomfort: RUQ, Epigastric, LUQ Radiation Of Pain To:: None Quality Of Discomfort: Unable To Describe Associated Symptoms: Diarrhea. denies: Fever, Chills, Nausea, Vomiting, Chest Pain, Urinary Symptoms Exacerbating Factors: None Alleviating Factors: None Recent travel outside of the [place]: No <Joe Jorge - Last Filed: 11/16/16 07:01> <Meir Bush - Last Filed: 11/16/16 09:22> Chief Complaint (Nursing): Abdominal Pain Past Medical History Reviewed: Historical Data, Nursing Documentation, Vital Signs - Medical History PMH: Gastritis, HTN, Seizures (pt reports having a seizure on 10/30/16) Surgical History: No Surg Hx Family History: States: Unknown Family Hx - Social History Hx Tobacco Use: No Hx Alcohol Use: Yes Hx Substance Use: No (DENIED) - Immunization History Hx Tetanus Toxoid Vaccination: Yes (2014) Hx Influenza Vaccination: Yes Hx Pneumococcal Vaccination: No <Joe Jorge - Last Filed: 11/16/16 07:01> <Meir Bush - Last Filed: 11/16/16 09:22> Vital Signs: Last Vital Signs Temp 99.0 F 11/16/16 07:15 Pulse 68 11/16/16 07:15 Resp 18 11/16/16 07:15 BP 132/89 11/16/16 07:15 Pulse Ox 98 11/16/16 07:15 - [facility] Procedures CLOSURE SKIN & SUBCUTANEOUS NEC (11/10/14) DETOXIFICATION SERVICES FOR SUBSTANCE ABUSE TREATMENT (11/01/16) GROUP FILTER SCREEN CLEANER FOR SUBSTANCE ABUSE TREATMENT, PSYCHOEDUCATION (02/16/16) INDIV PSYCHOTHERAPY FOR SUBSTANCE ABUSE TREATMENT, SUPPORT (11/01/16) INDIV PSYCHOTHERAPY FOR SUBSTANCE ABUSE, COGNITIV BEHAVIORAL (11/01/16) INDIV PSYCHOTHERAPY FOR SUBSTANCE ABUSE, PSYCHOEDUCATION (11/01/16) TETANUS TOXOID ADMINIST (11/10/14) Review Of Systems Constitutional: Negative for: Fever, Chills Cardiovascular: Negative for: Chest Pain, Palpitations Respiratory: Negative for: Shortness of Breath Gastrointestinal: Positive for: Abdominal Pain, Diarrhea. Negative for: Nausea , Vomiting Neurological: Negative for: Weakness, Numbness <Sadiq Jorgeel R - Last Filed: 11/16/16 07:01> Physical Exam - Physical Exam Appears: Non-toxic, No Acute Distress Skin: Normal Color, Warm, Dry Head: Atraumatic, Normacephalic Oral Mucosa: Moist Chest: Symmetrical, No Tenderness Cardiovascular: Rhythm Regular, No Murmur Respiratory: Normal Breath Sounds, No Rales, No Rhonchi, No Wheezing Gastrointestinal/Abdominal: Soft, Tenderness (Bilateral upper quadrants and epigastric), No Guarding, No Rebound Neurological/Psych: Oriented x3, Normal Speech, Normal Cognition <LuisitoJoe R - Last Filed: 11/16/16 07:01> ED Course And Treatment - Laboratory Results Result Diagrams: 11/16/16 05:30 11/16/16 05:30 O2 Sat by Pulse Oximetry: 97 (Room air) Pulse Ox Interpretation: Normal Progress Note: CT abd/pel, blood work, and urinalysis ordered. Pepcid, toradol, carafate, and IV fluids administered. <Sadiq Jorgeel R - Last Filed: 11/16/16 07:01> - Laboratory Results Result Diagrams: 11/16/16 05:30 11/16/16 05:30 <Meir Bush - Last Filed: 11/16/16 09:22> Medical Decision Making <Sadiq Jorgeel R - Last Filed: 11/16/16 07:01> <Meir Bush - Last Filed: 11/16/16 09:22> Medical Decision Making: Signed out to me pending CT. Patient in no distress, normal vital signs, unremarkable labs. CT report provided to patient to follow up on intestinal finding. Otherwise, no acute findings indicating further treatment or admission at this time. (Meir Bush) Disposition - Disposition Disposition Time: 07:01 <LuisitoJoe R - Last Filed: 11/16/16 07:01> <Meir Bush - Last Filed: 11/16/16 09:22> - Disposition Referrals: [facility] at [facility] [Outside] Disposition: HOME/ ROUTINE Condition: STABLE Additional Instructions: PROCEDURE: CT Abdomen and Pelvis with oral and IV contrast. HISTORY: upper abd pain COMPARISON: CT abdomen pelvis with contrast performed 11/13/16 TECHNIQUE: Contiguous axial images of the abdomen and pelvis. Oral and IV contrast was administered. Coronal and Sagittal reformats generated and reviewed. Contrast dose: 100 mL Visipaque Radiation dose: Total exam DLP = 593.41 MGy-cm. This CT exam was performed using one or more of the following dose reduction techniques: Automated exposure control, adjustment of the mA and/or kV according to patient size, and/or use of iterative reconstruction technique. FINDINGS: LOWER THORAX: Mild bibasilar atelectasis. No visible pleural effusion or pneumothorax. LIVER: Hypoattenuation of the liver compatible with hepatic steatosis. GALLBLADDER AND BILE DUCTS: Unremarkable. PANCREAS: Unremarkable. SPLEEN: 14 mm probable splenule. Otherwise unremarkable. ADRENALS: Unremarkable. KIDNEYS AND URETERS: The kidneys enhance symmetrically. No hydronephrosis or obstructing renal calculus. BLADDER: The urinary bladder appears unremarkable. REPRODUCTIVE: Unremarkable. APPENDIX: The appendix appears within normal limits of caliber. No secondary signs of acute appendicitis. BOWEL: The stomach is nondistended. The bowel loops appear within normal limits of caliber without evidence of intestinal obstruction. In the left upper quadrant in a loop of jejunum, there is a 17 mm hypodense focus (axial and coronal image 66); this may reflect focal fluid however neoplasm cannot be excluded. Please note this is not present on noncontrast CT performed 11/13/16. PERITONEUM: No significant free fluid. No definite free air. LYMPH NODES: No bulky lymphadenopathy identified. VASCULATURE: No aortic aneurysm. BONES: No acute osseous abnormality is detected. OTHER FINDINGS: None. IMPRESSION: Hepatic steatosis. In the left upper quadrant in a loop of jejunum, there is a 17 mm hypodense focus ; this may reflect focal fluid however neoplasm cannot be excluded. Please note this is not present on noncontrast CT performed 11/13/16. Instructions: Abdominal Pain (ED) Forms: [employer] (Bhutanese) - Clinical Impression Clinical Impression: Abdominal pain - Scribe Statement The provider has reviewed the documentation as recorded by the Scribe <Joe Jorge - Last Filed: 11/16/16 07:01> <Meir Bush - Last Filed: 11/16/16 09:22> - Scribe Statement Lobito Krause All medical record entries made by the Scribe were at my direction and personally dictated by me. I have reviewed the chart and agree that the record accurately reflects my personal performance of the history, physical exam, medical decision making, and the department course for this patient. I have also personally directed, reviewed, and agree with the discharge instructions and disposition. (Joe Jorge)
[2016-11-16] MEDS ORDERED: Sucralfate 1 gm/10 ml Oral Susp UD ONE (05:33)
[2016-11-16] MEDS ORDERED: Sodium Chloride 0.9% 1,000 ML ONE ×2 (05:33→06:57)
[2016-11-16] MEDS ORDERED: Iohexol 240 (50 ml) ONE (05:33)
[2016-11-16 05:38] LABS: BASO % 0.3 % (0.0-2.0); EOS # 0.1 K/uL (0.0-0.7); EOS % 0.9 % (0.0-4.0); HEMATOCRIT 38.3 % (35.0-51.0); LYMPH # 1.6 K/uL (1.0-4.3); LYMPH % 22.8 % (20.0-40.0); MEAN CELL VOLUME 88.3 fL (80.0-94.0); MEAN CORPUSCULAR HEMOGLOBIN 29.4 pg (27.0-31.0); MEAN CORPUSCULAR HGB CONC 33.3 g/dL (33.0-37.0); MEAN PLATELET VOLUME 7.9 fL (7.2-11.7); MONO # 0.4 K/uL (0.0-0.8); MONO % 5.4 % (0.0-10.0); RED CELL DISTRIBUTION WIDTH 15.7 % (11.5-14.5); WHITE BLOOD COUNT 6.9 K/uL (4.8-10.8)
[2016-11-16] MEDS ORDERED: Iodixanol 320 MG/ML 100 ML BOTTLE IV ONE (05:46)
[2016-11-16 06:10] LABS: CHLORIDE 103 mmol/L (98-107); POTASSIUM 3.4 mmol/L (3.6-5.2); SODIUM 137 mmol/L (132-148)
[2016-11-16 06:12] LABS: GFR AFRICAN-AMERICAN > 60
[2016-11-16 06:13] LABS: ALKALINE PHOSPHATASE 93 U/L (38-126); ALT/SGPT 42 U/L (21-72); AST/SGOT 51 U/L (17-59); BILIRUBIN,TOTAL 0.8 mg/dL (0.2-1.3); BLOOD UREA NITROGEN 12 mg/dL (9-20); CARBON DIOXIDE 23 mmol/L (22-30); GLUCOSE,RANDOM 94 mg/dL (75-110); TOTAL PROTEIN 7.5 g/dL (6.3-8.3)
[2016-11-16 06:14] LABS: CALCIUM 8.7 mg/dl (8.6-10.4)
[2016-11-16 07:05] LABS: URINE BILIRUBIN NEGATIVE (NEGATIVE); URINE BLOOD NEGATIVE (NEGATIVE); URINE COLOR Colorless (YELLOW); URINE GLUCOSE (UA) NORMAL (Normal); URINE KETONE NEGATIVE (NEGATIVE); URINE LEUKOCYTE ESTERASE NEG Leu/uL (Negative); URINE PROTEIN NEGATIVE (NEGATIVE); URINE UROBILINOGEN NORMAL mg/dL (0.2-1.0); WBC URINE < 1 /hpf (0-5)
--- NOTE | 2016-11-16 09:02 | CT ---
PROCEDURE: CT Abdomen and Pelvis with oral and IV contrast. HISTORY: upper abd pain COMPARISON: CT abdomen pelvis with contrast performed 11/13/16 TECHNIQUE: Contiguous axial images of the abdomen and pelvis. Oral and IV contrast was administered. Coronal and Sagittal reformats generated and reviewed. Contrast dose: 100 mL Visipaque Radiation dose: Total exam DLP = 593.41 MGy-cm. This CT exam was performed using one or more of the following dose reduction techniques: Automated exposure control, adjustment of the mA and/or kV according to patient size, and/or use of iterative reconstruction technique. FINDINGS: LOWER THORAX: Mild bibasilar atelectasis. No visible pleural effusion or pneumothorax. LIVER: Hypoattenuation of the liver compatible with hepatic steatosis. GALLBLADDER AND BILE DUCTS: Unremarkable. PANCREAS: Unremarkable. SPLEEN: 14 mm probable splenule. Otherwise unremarkable. ADRENALS: Unremarkable. KIDNEYS AND URETERS: The kidneys enhance symmetrically. No hydronephrosis or obstructing renal calculus. BLADDER: The urinary bladder appears unremarkable. REPRODUCTIVE: Unremarkable. APPENDIX: The appendix appears within normal limits of caliber. No secondary signs of acute appendicitis. BOWEL: The stomach is nondistended. The bowel loops appear within normal limits of caliber without evidence of intestinal obstruction. In the left upper quadrant in a loop of jejunum, there is a 17 mm hypodense focus (axial and coronal image 66); this may reflect focal fluid however neoplasm cannot be excluded. Please note this is not present on noncontrast CT performed 11/13/16. PERITONEUM: No significant free fluid. No definite free air. LYMPH NODES: No bulky lymphadenopathy identified. VASCULATURE: No aortic aneurysm. BONES: No acute osseous abnormality is detected. OTHER FINDINGS: None. IMPRESSION: Hepatic steatosis. In the left upper quadrant in a loop of jejunum, there is a 17 mm hypodense focus ; this may reflect focal fluid however neoplasm cannot be excluded. Please note this is not present on noncontrast CT performed 11/13/16.
[2016-11-16 09:35] VITALS: BP 120/89; PULSE 60; RESP 20; TEMP 99.3; O2SAT 100
== END 2016-11-16 09:35 | disposition home or self-care (01) ==
LOC: C.ER 05:11
DX: R10.9 Unspecified abdominal pain (principal)
CPT/HCPCS: 74177; 80053; 81001; 83690; 85025; 96374; 96375; 99285; J1885; J7040; Q9966; Q9967

== ENCOUNTER 2016-11-16 16:13 | Emergency (ER) | payer OTHER ==
[2016-11-16 16:13] VITALS: BMI 33.8
[2016-11-16 16:22] VITALS: TEMP 99
[2016-11-16] MEDS ORDERED: HYDROmorphone 0.5 mg/0.5 ml ISec IM STA (16:40)
[2016-11-16] MEDS ORDERED: Alum-Mag Hydrox-Simethicone Susp (30 mL) PO STA (16:40)
--- NOTE | 2016-11-16 16:41 | C.PDOC ---
History Of Present Illness 36 year old male presents to the ED with complaints of persistent epigastric abdominal pain, nausea, and vomiting. Patient was discharged this morning from this ED for the same complaints. Labs and CT were performed that were unchanged from prior exams. He notes one episode of loose bowel movement this morning. Admits last alcoholic drink was six days ago. Patient has multiple ER visits for similar complaints and current symptoms are the same as past complaints. He denies fever, chills, or chest pain. Time Seen by Provider: 11/16/16 16:33 Chief Complaint (Nursing): Abdominal Pain History Per: Patient History/Exam Limitations: no limitations Onset/Duration Of Symptoms: Persistent Current Symptoms Are (Timing): Still Present Location Of Pain/Discomfort: Epigastric Radiation Of Pain To:: None Quality Of Discomfort: "Pain" Associated Symptoms: Nausea, Vomiting, Diarrhea (1 episode of loos bowel movement ). denies: Fever, Chills Exacerbating Factors: None Last Bowel Movement: Today Recent travel outside of the [place]: No Additional History Per: Prior Records Past Medical History Reviewed: Historical Data, Nursing Documentation, Vital Signs Vital Signs: Last Vital Signs Temp 99.0 F 11/16/16 16:20 Pulse 75 11/16/16 16:20 Resp 18 11/16/16 16:20 BP 136/87 11/16/16 16:20 Pulse Ox 99 11/16/16 17:08 - Medical History PMH: Gastritis, HTN, Seizures (pt reports having a seizure on 10/30/16) - [facility] Procedures CLOSURE SKIN & SUBCUTANEOUS NEC (11/10/14) DETOXIFICATION SERVICES FOR SUBSTANCE ABUSE TREATMENT (11/01/16) GROUP AUTOMOBILE TECHNICIAN FOR SUBSTANCE ABUSE TREATMENT, PSYCHOEDUCATION (02/16/16) INDIV PSYCHOTHERAPY FOR SUBSTANCE ABUSE TREATMENT, SUPPORT (11/01/16) INDIV PSYCHOTHERAPY FOR SUBSTANCE ABUSE, COGNITIV BEHAVIORAL (11/01/16) INDIV PSYCHOTHERAPY FOR SUBSTANCE ABUSE, PSYCHOEDUCATION (11/01/16) TETANUS TOXOID ADMINIST (11/10/14) Family History: States: Unknown Family Hx - Social History Hx Tobacco Use: No Hx Alcohol Use: Yes Hx Substance Use: No (DENIED) - Immunization History Hx Tetanus Toxoid Vaccination: Yes (2015) Hx Influenza Vaccination: Yes Hx Pneumococcal Vaccination: No Review Of Systems Constitutional: Negative for: Fever, Chills Cardiovascular: Negative for: Chest Pain Respiratory: Negative for: Shortness of Breath Gastrointestinal: Positive for: Nausea, Vomiting, Abdominal Pain, Diarrhea Genitourinary: Negative for: Dysuria, Hematuria Physical Exam - Physical Exam Appears: Non-toxic, No Acute Distress, Other (No tongue fasciculations tremors) Skin: Warm, Dry Head: Atraumatic Eye(s): bilateral: Normal Inspection, EOMI Oral Mucosa: Moist Neck: Supple Chest: Symmetrical, No Deformity Cardiovascular: Rhythm Regular Respiratory: Normal Breath Sounds, No Rhonchi, No Wheezing Gastrointestinal/Abdominal: Soft, Tenderness (mild epigastric tenderness), No Distention, No Guarding, No Rebound Extremity: Normal ROM, No Tenderness Neurological/Psych: Oriented x3, Normal Speech, Normal Cognition ED Course And Treatment O2 Sat by Pulse Oximetry: 99 (room air ) Progress Note: Patient was given lidocaine 2%, Carafate tab, Phenergan inj, dilaudid, and Maalox. Progress - Re-Evaluation Re-evaluation Note: 11/16/16 18:52 FEELS BETTER. ABD NEG. VSS - Data Reviewed Data Reviewed: Old records Disposition Counseled Patient/Family Regarding: Diagnosis, Need For Followup, Rx Given - Disposition Referrals: [facility] [Outside] [facility] [Outside] Disposition: HOME/ ROUTINE Disposition Time: 18:56 Condition: IMPROVED Prescriptions: oxyCODONE/Acetaminophen [Percocet 5/325 mg Tab] 1 ea PO QID #8 tab Sucralfate [Carafate] 1 gm PO TID #20 tab Instructions: Abdominal Pain (ED) Forms: [facility] (Sinhala), Work Excuse Print Language: AMERICAN - Clinical Impression Clinical Impression: Abdominal pain, Alcohol abuse - Scribe Statement The provider has reviewed the documentation as recorded by the Scribe Merle Jenkins All medical record entries made by the Deeptiibjuanita were at my direction and personally dictated by me. I have reviewed the chart and agree that the record accurately reflects my personal performance of the history, physical exam, medical decision making, and the department course for this patient. I have also personally directed, reviewed, and agree with the discharge instructions and disposition.
[2016-11-16] MEDS ORDERED: Aluminum Hydroxide/Magnesium Hydroxide Susp (30 mL) ONE (16:56)
[2016-11-16 19:12] VITALS: BP 135/78; PULSE 88; RESP 16; O2SAT 96
== END 2016-11-16 19:11 | disposition home or self-care (01) ==
LOC: C.ER 16:13
DX: F10.10 Alcohol abuse, uncomplicated (principal); R10.9 Unspecified abdominal pain
CPT/HCPCS: 96372; 99283; J1170; J2550

== ENCOUNTER 2017-02-08 10:40 | Emergency (ER) | payer OTHER ==
[2017-02-08 10:40] VITALS: BMI 33.8
[2017-02-08 10:49] VITALS: TEMP 98.5
[2017-02-08] MEDS ORDERED: Aluminum Hydroxide/Magnesium Hydroxide Susp (30 mL) PO STA (12:04)
[2017-02-08] MEDS ORDERED: Lactated Ringer's 1,000 ML IV STA (12:04)
--- NOTE | 2017-02-08 12:05 | C.PDOC ---
History Of Present Illness 36 year old male presents to the ED for evaluation of epigastric/sternal pain associated with nausea which began around 3 days ago. Patient also reports intermittent left-sided chest pain for 3 days. Patient has history of alcohol abuse. Patient states his last drink was 2 days ago and he is interested in alcohol detox. Patient denies fever, chills, shortness of breath and vomiting at this time. Time Seen by Provider: 02/08/17 11:46 Chief Complaint (Nursing): Psychiatric Evaluation History Per: Patient History/Exam Limitations: no limitations Onset/Duration Of Symptoms: Hrs, Intermittent Episodes Current Symptoms Are (Timing): Still Present Location Of Pain/Discomfort: Epigastric Radiation Of Pain To:: Chest (left-sided ), Other (sternal) Quality Of Discomfort: "Pain" Associated Symptoms: Nausea. denies: Fever, Chills, Vomiting, Back Pain Additional History Per: Patient Past Medical History Reviewed: Historical Data, Nursing Documentation, Vital Signs Vital Signs: Last Vital Signs Temp 98.5 F 02/08/17 10:44 Pulse 89 02/08/17 10:44 Resp 16 02/08/17 10:44 BP 136/88 02/08/17 10:44 Pulse Ox 95 02/08/17 15:39 - Medical History PMH: Gastritis, HTN, Seizures Denies: Sexually Transmitted Disease Surgical History: No Surg Hx - [facility] Procedures CLOSURE SKIN & SUBCUTANEOUS NEC (11/10/14) DETOXIFICATION SERVICES FOR SUBSTANCE ABUSE TREATMENT (11/01/16) GROUP PLANT OPERATOR/SHIFT SUPERVISOR FOR SUBSTANCE ABUSE TREATMENT, PSYCHOEDUCATION (02/16/16) INDIV PSYCHOTHERAPY FOR SUBSTANCE ABUSE TREATMENT, SUPPORT (11/01/16) INDIV PSYCHOTHERAPY FOR SUBSTANCE ABUSE, COGNITIV BEHAVIORAL (11/01/16) INDIV PSYCHOTHERAPY FOR SUBSTANCE ABUSE, PSYCHOEDUCATION (11/01/16) TETANUS TOXOID ADMINIST (11/10/14) Family History: States: Unknown Family Hx - Social History Hx Tobacco Use: No Hx Alcohol Use: Yes Hx Substance Use: No - Immunization History Hx Tetanus Toxoid Vaccination: Yes (2014) Hx Influenza Vaccination: Yes Hx Pneumococcal Vaccination: No Review Of Systems Constitutional: Negative for: Fever, Chills Cardiovascular: Positive for: Chest Pain (left-sided ) Respiratory: Negative for: Shortness of Breath Gastrointestinal: Positive for: Nausea, Abdominal Pain (epigastric). Negative for: Vomiting Musculoskeletal: Positive for: Other (sternal pain ) Physical Exam - Physical Exam Appears: Non-toxic, No Acute Distress Skin: Normal Color, Warm, Dry Head: Atraumatic, Normacephalic Eye(s): bilateral: Normal Inspection Oral Mucosa: Moist Neck: Supple Chest: Symmetrical, No Deformity, Tenderness (reproducible, to left chest wall on palpation ) Cardiovascular: Rhythm Regular, No Murmur Respiratory: Normal Breath Sounds, No Rales, No Rhonchi, No Wheezing Gastrointestinal/Abdominal: Soft, Tenderness (epigastric ), No Guarding, No Rebound Extremity: Normal ROM, Capillary Refill (less than 2 seconds ) Neurological/Psych: Oriented x3, Normal Speech, Normal Cognition Gait: Steady ED Course And Treatment - Laboratory Results Result Diagrams: 02/08/17 12:38 02/08/17 12:38 ECG: Interpreted By Me ECG Rhythm: Sinus Rhythm ECG Interpretation: Normal Rate From EC O2 Sat by Pulse Oximetry: 95 (on RA) Pulse Ox Interpretation: Normal - Other Rad CXR X-Ray: Interpreted by Me, Viewed By Me, Read By Radiologist Interpretation: HISTORY: sternal pain. COMPARISON: 11/13/2016. FINDINGS: LUNGS: The lungs are clear. PLEURA: No significant pleural effusion identified, no pneumothorax apparent. CARDIOVASCULAR: Normal. OSSEOUS STRUCTURES: No significant abnormalities. VISUALIZED UPPER ABDOMEN: Normal. OTHER FINDINGS: None. IMPRESSION: No active pulmonary disease. Progress Note: Bloodwork, UA, CXR, EKG ordered and reviewed. Maalox PO, Protonix IVP, Zofran IVP administered. Case discussed with early childhood worker, who provided patient with a list of local detox facilities. Disposition Counseled Patient/Family Regarding: Studies Performed, Diagnosis - Disposition Referrals: [facility] [Outside] [facility] [Outside] Disposition: HOME/ ROUTINE Disposition Time: 14:45 Condition: STABLE Additional Instructions: FOLLOW UP WITH PMD /CLINIC IN 1-2 DAYS FOR RE-EVALUATION. LOCAL DETOX FACILITIES PROVIDED TO YOU. IF SYMPTOMS GET WORSE OR ANY NEW CONCERNING SYMPTOMS DEVELOP RETURN TO ED. Prescriptions: Famotidine [Pepcid] 20 mg PO BID #20 tab Instructions: Gastritis (ED), Abuse of Alcohol (ED) Forms: [employer] (Anguillan) Print Language: CITIZEN OF [place] - Clinical Impression Clinical Impression: Alcohol abuse, Thrombocythemia, Elevated LFTs, Gastritis, Hypokalemia - PA / CURING BIN OPERATOR / Resident Statement MD/DO has reviewed & agrees with the documentation as recorded. - Scribe Statement The provider has reviewed the documentation as recorded by the Scribe (Franny Fernando) All medical record entries made by the Scribe were at my direction and personally dictated by me. I have reviewed the chart and agree that the record accurately reflects my personal performance of the history, physical exam, medical decision making, and the department course for this patient. I have also personally directed, reviewed, and agree with the discharge instructions and disposition.
[2017-02-08] MEDS ORDERED: Sodium Chloride 0.9% 0 ML ONE (12:40)
[2017-02-08] MEDS ORDERED: Alum-Mag Hydrox-Simethicone Susp (30 mL) ONE (12:40)
[2017-02-08] MEDS ORDERED: Lactated Ringer's 1,000 ML ONE (12:41)
[2017-02-08 12:46] LABS: BASO % 0.2 % (0.0-2.0); EOS % 0.1 % (0.0-4.0); MEAN CELL VOLUME 86.8 fL (80.0-94.0); MEAN PLATELET VOLUME 8.7 fL (7.2-11.7); URINE BILIRUBIN NEGATIVE (NEGATIVE); URINE BLOOD NEGATIVE (NEGATIVE); URINE COLOR Straw (YELLOW); URINE GLUCOSE (UA) NORMAL (Normal); URINE KETONE NEGATIVE (NEGATIVE); URINE LEUKOCYTE ESTERASE NEG Leu/uL (Negative); URINE PROTEIN NEGATIVE (NEGATIVE); URINE UROBILINOGEN NORMAL mg/dL (0.2-1.0); WBC URINE < 1 /hpf (0-5)
[2017-02-08] MEDS ORDERED: Aluminum Hydroxide/Magnesium Hydroxide Susp (30 mL) ONE (12:46)
[2017-02-08 12:53] LABS: CHLORIDE 99 mmol/L (98-107); SODIUM 132 mmol/L (132-148)
[2017-02-08 12:54] LABS: POTASSIUM 3.3 mmol/L (3.6-5.2)
[2017-02-08 12:55] LABS: HEMATOCRIT 34.6 % (35.0-51.0); LYMPH % 22.5 % (20.0-40.0); MEAN CORPUSCULAR HEMOGLOBIN 29.8 pg (27.0-31.0); MEAN CORPUSCULAR HGB CONC 34.4 g/dL (33.0-37.0); MONO # 0.3 K/uL (0.0-0.8); MONO % 7.3 % (0.0-10.0); NRBC % 0.1 % (0.0-2.0); RED CELL DISTRIBUTION WIDTH 15.1 % (11.5-14.5); WHITE BLOOD COUNT 4.4 K/uL (4.8-10.8)
[2017-02-08 12:56] LABS: ALB/GLOB RATIO 1.3 (1.0-2.1); ALKALINE PHOSPHATASE 91 U/L (38-126); ALT/SGPT 48 U/L (21-72); AST/SGOT 74 U/L (17-59); BLOOD UREA NITROGEN 10 mg/dL (9-20); CARBON DIOXIDE 25 mmol/L (22-30); GFR AFRICAN-AMERICAN > 60; GLUCOSE,RANDOM 104 mg/dL (75-110); TOTAL PROTEIN 6.8 g/dL (6.3-8.3)
[2017-02-08 12:57] LABS: CALCIUM 7.7 mg/dl (8.6-10.4)
--- NOTE | 2017-02-08 12:58 | RAD ---
HISTORY: sternal pain COMPARISON: 11/13/2016. FINDINGS: LUNGS: The lungs are clear. PLEURA: No significant pleural effusion identified, no pneumothorax apparent. CARDIOVASCULAR: Normal. OSSEOUS STRUCTURES: No significant abnormalities. VISUALIZED UPPER ABDOMEN: Normal. OTHER FINDINGS: None. IMPRESSION: No active pulmonary disease.
[2017-02-08] MEDS ORDERED: Potassium Chloride 20 mEq ER Tab PO STA (15:38)
[2017-02-08 15:48] VITALS: BP 131/76; PULSE 73; RESP 18; O2SAT 99
[2017-02-08] MEDS ORDERED: Potassium Chloride 20 mEq ER Tab PO ONE (15:49)
--- NOTE | 2017-02-10 13:57 | CARD ---
APPROVED REPORT EKG Measurement Heart [id number] WA 126P-4 [id number] <Conclusion> Normal sinus rhythm Normal ECG
== END 2017-02-08 15:48 | disposition home or self-care (01) ==
LOC: C.ER 10:40
DX: K29.70 Gastritis, unspecified, without bleeding (principal); D47.3 Essential (hemorrhagic) thrombocythemia; F10.10 Alcohol abuse, uncomplicated; Y90.9 Presence of alcohol in blood, level not specified; R79.89 Other specified abnormal findings of blood chemistry; E87.6 Hypokalemia
CPT/HCPCS: 71010; 80053; 81001; 83690; 84484; 85025; 93005; 96361; 96374; 96375; 99284; C9113; J2405; J7120

== ENCOUNTER 2017-02-21 16:23 | Emergency (ER) | payer SELFPAY ==
[2017-02-21 16:35] VITALS: BMI 32.9
--- NOTE | 2017-02-21 19:39 | C.PDOC ---
History Of Present Illness 36 year old male presents to the ER with a complaint of lower abdominal pain after heavy ETOH consumption. Denies dysuria or diarrhea. Chief Complaint (Nursing): Substance Abuse History Per: Patient History/Exam Limitations: no limitations Onset/Duration Of Symptoms: Days Current Symptoms Are (Timing): Still Present Suicide/Self Injury Attempted (Context): None Modifying Factor(s): Alcohol Associated Symptoms: denies: Depression, Suicidal Thoughts, Suicidal Plan Involuntary Hold By: None Recent travel outside of the [place]: No Past Medical History Reviewed: Historical Data, Nursing Documentation, Vital Signs Vital Signs: Last Vital Signs Temp 98.3 F 02/22/17 02:54 Pulse 89 02/22/17 02:54 Resp 18 02/22/17 02:54 BP 120/73 02/22/17 02:54 Pulse Ox 96 02/22/17 02:54 - Medical History PMH: Gastritis, HTN, Seizures Surgical History: No Surg Hx - [facility] Procedures CLOSURE SKIN & SUBCUTANEOUS NEC (11/10/14) DETOXIFICATION SERVICES FOR SUBSTANCE ABUSE TREATMENT (11/01/16) GROUP POULTRY FARM MANAGER FOR SUBSTANCE ABUSE TREATMENT, PSYCHOEDUCATION (02/16/16) INDIV PSYCHOTHERAPY FOR SUBSTANCE ABUSE TREATMENT, SUPPORT (11/01/16) INDIV PSYCHOTHERAPY FOR SUBSTANCE ABUSE, COGNITIV BEHAVIORAL (11/01/16) INDIV PSYCHOTHERAPY FOR SUBSTANCE ABUSE, PSYCHOEDUCATION (11/01/16) TETANUS TOXOID ADMINIST (11/10/14) Family History: States: Unknown Family Hx - Social History Hx Tobacco Use: No Hx Alcohol Use: Yes Hx Substance Use: No - Immunization History Hx Tetanus Toxoid Vaccination: Yes (2014) Hx Influenza Vaccination: Yes Hx Pneumococcal Vaccination: No Review Of Systems Constitutional: Negative for: Fever, Chills Gastrointestinal: Positive for: Abdominal Pain. Negative for: Nausea, Vomiting , Diarrhea Genitourinary: Negative for: Dysuria Physical Exam - Physical Exam Appears: Non-toxic, No Acute Distress, Other (ETOH on breath, Alert, Conscious) Skin: Normal Color, Warm, Dry Head: Atraumatic, Normacephalic Eye(s): bilateral: Normal Inspection Oral Mucosa: Moist Neck: Normal, Supple Chest: Symmetrical, No Tenderness Cardiovascular: Rhythm Regular Respiratory: Normal Breath Sounds, No Rales, No Rhonchi, No Wheezing Gastrointestinal/Abdominal: Soft, No Tenderness Neurological/Psych: Oriented x3, Normal Speech ED Course And Treatment - Laboratory Results Result Diagrams: 02/21/17 19:52 02/21/17 19:52 O2 Sat by Pulse Oximetry: 99 (Room air) Progress Note: Blood work and urinalysis ordered. Disposition Counseled Patient/Family Regarding: Diagnosis - Disposition Referrals: [facility] [Outside] Disposition: HOME/ ROUTINE Disposition Time: 05:06 Condition: STABLE Instructions: Abuse of Alcohol (ED) Forms: [employer] (Yakut) - POA Present On Arrival: None - Clinical Impression Clinical Impression: Alcohol abuse with intoxication - Scribe Statement The provider has reviewed the documentation as recorded by the Scribe Lobito Krause All medical record entries made by the Scribe were at my direction and personally dictated by me. I have reviewed the chart and agree that the record accurately reflects my personal performance of the history, physical exam, medical decision making, and the department course for this patient. I have also personally directed, reviewed, and agree with the discharge instructions and disposition.
[2017-02-21 19:54] LABS: BASO % 0.5 % (0.0-2.0); EOS % 0.1 % (0.0-4.0); HEMATOCRIT 43.7 % (35.0-51.0); LYMPH # 2.6 K/uL (1.0-4.3); LYMPH % 40.7 % (20.0-40.0); MEAN CELL VOLUME 90.4 fL (80.0-94.0); MEAN CORPUSCULAR HEMOGLOBIN 28.7 pg (27.0-31.0); MEAN CORPUSCULAR HGB CONC 31.8 g/dL (33.0-37.0); MONO # 0.2 K/uL (0.0-0.8); RED CELL DISTRIBUTION WIDTH 16.7 % (11.5-14.5); WHITE BLOOD COUNT 6.3 K/uL (4.8-10.8)
[2017-02-21 20:07] LABS: ALKALINE PHOSPHATASE 91 U/L (38-126); ALT/SGPT 60 U/L (21-72); AST/SGOT 47 U/L (17-59); BILIRUBIN,TOTAL 0.6 mg/dL (0.2-1.3); BLOOD UREA NITROGEN 6 mg/dL (9-20); CALCIUM 7.9 mg/dl (8.6-10.4); CARBON DIOXIDE 21 mmol/L (22-30); CHLORIDE 106 mmol/L (98-107); GFR AFRICAN-AMERICAN > 60; GLUCOSE,RANDOM 92 mg/dL (75-110); SODIUM 144 mmol/L (132-148); TOTAL PROTEIN 8.6 g/dL (6.3-8.3)
[2017-02-21 20:08] LABS: ALB/GLOB RATIO 1.1 (1.0-2.1)
[2017-02-21 20:25] LABS: ALCOHOL SERUM 415 mg/dl (0-10)
[2017-02-22 05:20] VITALS: BP 125/70; PULSE 85; RESP 16; TEMP 98; O2SAT 98
== END 2017-02-22 05:19 | disposition home or self-care (01) ==
LOC: C.ER 16:23
DX: F10.129 Alcohol abuse with intoxication, unspecified (principal); Y90.8 Blood alcohol level of 240 mg/100 ml or more
CPT/HCPCS: 80053; 82948; 85025; 99284; G0480

== ENCOUNTER 2017-03-05 20:49 | Emergency (ER) | payer SELFPAY ==
[2017-03-05 20:49] VITALS: BMI 32.9
[2017-03-05 20:59] VITALS: O2SAT 98
[2017-03-05] MEDS ORDERED: Sodium Chloride 0.9% 1,000 ML IV ONE (22:15)
[2017-03-05] MEDS ORDERED: Sodium Chloride 0.9% 1,000 ML ONE (22:17)
--- NOTE | 2017-03-05 22:18 | C.PDOC ---
History Of Present Illness 36 year old male, with history of alcohol abuse, presents to the ED for evaluation of generalized abdominal pain which began this afternoon. Patient admits he drinks daily and states he stopped drinking at around 0230 today. Patient also reports nausea and states he had one episode of vomiting. Patient is familiar to this ED and had had many prior visits concerning similar complaints. He denies fever, chills, headache at this time. Time Seen by Provider: 03/05/17 21:50 Chief Complaint (Nursing): Abdominal Pain History Per: Patient History/Exam Limitations: no limitations Onset/Duration Of Symptoms: Hrs Current Symptoms Are (Timing): Still Present Location Of Pain/Discomfort: Diffuse Radiation Of Pain To:: None Quality Of Discomfort: "Pain" Associated Symptoms: Nausea, Vomiting. denies: Fever, Chills Alleviating Factors: None Additional History Per: Patient Past Medical History Reviewed: Historical Data, Nursing Documentation, Vital Signs Vital Signs: Last Vital Signs Temp 98.7 F 03/05/17 20:56 Pulse 115 H 03/05/17 20:56 Resp 16 03/05/17 20:56 BP 138/96 H 03/05/17 20:56 Pulse Ox 98 03/06/17 00:07 - Medical History PMH: Gastritis, HTN, Seizures Denies: Sexually Transmitted Disease Surgical History: No Surg Hx - [facility] Procedures CLOSURE SKIN & SUBCUTANEOUS NEC (11/10/14) DETOXIFICATION SERVICES FOR SUBSTANCE ABUSE TREATMENT (11/01/16) GROUP CARPENTERS SUPERVISOR FOR SUBSTANCE ABUSE TREATMENT, PSYCHOEDUCATION (02/16/16) INDIV PSYCHOTHERAPY FOR SUBSTANCE ABUSE TREATMENT, SUPPORT (11/01/16) INDIV PSYCHOTHERAPY FOR SUBSTANCE ABUSE, COGNITIV BEHAVIORAL (11/01/16) INDIV PSYCHOTHERAPY FOR SUBSTANCE ABUSE, PSYCHOEDUCATION (11/01/16) TETANUS TOXOID ADMINIST (11/10/14) Family History: States: Unknown Family Hx - Social History Hx Tobacco Use: No Hx Alcohol Use: Yes Hx Substance Use: No - Immunization History Hx Tetanus Toxoid Vaccination: Yes (2014) Hx Influenza Vaccination: Yes Hx Pneumococcal Vaccination: No Review Of Systems Constitutional: Negative for: Fever, Chills Gastrointestinal: Positive for: Nausea, Vomiting, Abdominal Pain Neurological: Negative for: Headache Psych: Positive for: Withdrawal (alcohol ) Physical Exam - Physical Exam Appears: No Acute Distress, Other (visibly intoxicated ) Skin: Normal Color, Warm, Dry Head: Atraumatic, Normacephalic Eye(s): bilateral: Normal Inspection Oral Mucosa: Moist, Other (alcohol on breath ) Neck: Supple Chest: Symmetrical, No Deformity, No Tenderness Cardiovascular: Rhythm Regular, No Murmur Respiratory: Normal Breath Sounds, No Rales, No Rhonchi, No Wheezing Gastrointestinal/Abdominal: Bowel Sounds (normal ), Soft, Tenderness (diffuse, to epigastrium ), No Guarding, No Rebound Extremity: Normal ROM, Capillary Refill (less than 2 seconds ) Neurological/Psych: Other (arousable to touch and verbal stimuli ) Gait: Unsteady ED Course And Treatment - Laboratory Results Result Diagrams: 03/05/17 22:28 03/05/17 22:28 Lab Interpretation: No Changes Compared To Prior Results O2 Sat by Pulse Oximetry: 98 (on RA) Pulse Ox Interpretation: Normal Progress Note: Bloodwork and urinalysis ordered and reviewed. Pepcid IVP, Protonix IVP, and IV Fluids administered. Patient continued to c/o pain and was given Donnatol, Maalox and Tylenol. Reevaluation Time: 00:27 Reassessment Condition: Improved (Patient continues to rest quietly on stretcher. No abdominal tenderness, nausea or vomiting. No evidence of withdrawal symptoms.) Disposition Counseled Patient/Family Regarding: Studies Performed, Diagnosis, Need For Followup - Disposition Referrals: [facility] [Outside] Disposition: HOME/ ROUTINE Disposition Time: 00:28 Condition: IMPROVED Instructions: Gastritis (ED) Forms: [employer] (Bolivian) Print Language: FRISIAN - Clinical Impression Clinical Impression: Alcoholic gastritis - Scribe Statement The provider has reviewed the documentation as recorded by the Scribe (Franny Fernando) Provider Attestation: All medical record entries made by the Scribe were at my direction and personally dictated by me. I have reviewed the chart and agree that the record accurately reflects my personal performance of the history, physical exam, medical decision making, and the department course for this patient. I have also personally directed, reviewed, and agree with the discharge instructions and disposition.
[2017-03-05 22:31] LABS: BASO % 0.4 % (0.0-2.0); EOS % 0.1 % (0.0-4.0); HEMATOCRIT 45.2 % (35.0-51.0); LYMPH % 46.2 % (20.0-40.0); MEAN CELL VOLUME 87.9 fL (80.0-94.0); MEAN CORPUSCULAR HEMOGLOBIN 29.3 pg (27.0-31.0); MEAN CORPUSCULAR HGB CONC 33.3 g/dL (33.0-37.0); MEAN PLATELET VOLUME 8.4 fL (7.2-11.7); MONO # 0.4 K/uL (0.0-0.8); MONO % 9.3 % (0.0-10.0); NRBC % 0.4 % (0.0-2.0); RED CELL DISTRIBUTION WIDTH 16.6 % (11.5-14.5); WHITE BLOOD COUNT 4.3 K/uL (4.8-10.8)
[2017-03-05 22:45] LABS: ALB/GLOB RATIO 1.1 (1.0-2.1); ALKALINE PHOSPHATASE 102 U/L (38-126); ALT/SGPT 55 U/L (21-72); AST/SGOT 64 U/L (17-59); BILIRUBIN,TOTAL 0.7 mg/dL (0.2-1.3); BLOOD UREA NITROGEN 9 mg/dL (9-20); CALCIUM 7.7 mg/dl (8.6-10.4); CARBON DIOXIDE 25 mmol/L (22-30); CHLORIDE 97 mmol/L (98-107); GFR AFRICAN-AMERICAN > 60; GLUCOSE,RANDOM 105 mg/dL (75-110); POTASSIUM 3.8 mmol/L (3.6-5.2); SODIUM 139 mmol/L (132-148); TOTAL PROTEIN 8.4 g/dL (6.3-8.3)
[2017-03-05] MEDS ORDERED: Belladonna-Phenobarbital PO STA (23:02)
[2017-03-05] MEDS ORDERED: Aluminum Hydroxide/Magnesium Hydroxide Susp (30 mL) PO STA (23:03)
[2017-03-05] MEDS ORDERED: Aluminum Hydroxide/Magnesium Hydroxide Susp (30 mL) ONE (23:50)
[2017-03-05] MEDS ORDERED: Belladonna-Phenobarbital ONE (23:50)
[2017-03-06 00:49] VITALS: BP 120/73; PULSE 81; RESP 18; TEMP 97.9
== END 2017-03-06 00:50 | disposition home or self-care (01) ==
LOC: C.ER 20:49
DX: K29.20 Alcoholic gastritis without bleeding (principal)
CPT/HCPCS: 80053; 83690; 85025; 96361; 96374; 96375; 99284; C9113; J7040

== ENCOUNTER 2017-03-06 06:20 | Emergency (ER) | payer SELFPAY ==
[2017-03-06 06:20] VITALS: BMI 32.9
[2017-03-06] MEDS ORDERED: Sodium Chloride 0.9% 1,000 ML IV ONE (07:13)
[2017-03-06] MEDS ORDERED: Sodium Chloride 0.9% 1,000 ML ONE (07:24)
[2017-03-06 07:27] LABS: BASO % 0.2 % (0.0-2.0); EOS % 0.1 % (0.0-4.0); HEMATOCRIT 42.9 % (35.0-51.0); LYMPH # 1.5 K/uL (1.0-4.3); MEAN CELL VOLUME 89.8 fL (80.0-94.0); MEAN CORPUSCULAR HEMOGLOBIN 30.2 pg (27.0-31.0); MEAN CORPUSCULAR HGB CONC 33.7 g/dL (33.0-37.0); MEAN PLATELET VOLUME 9.1 fL (7.2-11.7); MONO # 0.5 K/uL (0.0-0.8); MONO % 6.4 % (0.0-10.0); NRBC % 0.2 % (0.0-2.0); RED CELL DISTRIBUTION WIDTH 16.5 % (11.5-14.5)
[2017-03-06 07:30] LABS: WHITE BLOOD COUNT 7.1 K/uL (4.8-10.8)
[2017-03-06 07:48] LABS: CALCIUM 7.8 mg/dl (8.6-10.4); GFR AFRICAN-AMERICAN > 60; GLUCOSE,RANDOM 102 mg/dL (75-110); TOTAL PROTEIN 9.2 g/dL (6.3-8.3)
[2017-03-06 08:18] LABS: ALB/GLOB RATIO 0.9 (1.0-2.1); ALKALINE PHOSPHATASE 102 U/L (38-126); ALT/SGPT 46 U/L (21-72); AST/SGOT 73 U/L (17-59); BLOOD UREA NITROGEN 10 mg/dL (9-20); CARBON DIOXIDE 20 mmol/L (22-30); CHLORIDE 101 mmol/L (98-107); POTASSIUM 4.4 mmol/L (3.6-5.2); SODIUM 138 mmol/L (132-148)
[2017-03-06 10:14] VITALS: BP 133/79; PULSE 94; RESP 18; TEMP 98; O2SAT 99
--- NOTE | 2017-03-06 10:28 | C.PDOC ---
History Of Present Illness 36 year old male with Hx of chronic ETOH use presents to the ED c/o epigastric abdominal pain with nausea, vomiting, and mild tremors. Patient admits to drinking alcohol, states his last drink was yesterday. Patient denies CP, SOB, diarrhea, back pain, dysuria/hematuria. Time Seen by Provider: 03/06/17 07:03 Chief Complaint (Nursing): Abdominal Pain History Per: Patient History/Exam Limitations: no limitations Onset/Duration Of Symptoms: Hrs Current Symptoms Are (Timing): Still Present Severity: Moderate Location Of Pain/Discomfort: Epigastric Radiation Of Pain To:: None Quality Of Discomfort: "Pain" Associated Symptoms: Nausea, Vomiting Additional History Per: Patient Past Medical History Reviewed: Historical Data, Nursing Documentation, Vital Signs Vital Signs: Last Vital Signs Temp 98.0 F 03/06/17 10:13 Pulse 94 H 03/06/17 10:13 Resp 18 03/06/17 10:13 BP 133/79 03/06/17 10:13 Pulse Ox 99 03/06/17 10:59 - Medical History PMH: Gastritis, HTN, Seizures Surgical History: No Surg Hx - [facility] Procedures CLOSURE SKIN & SUBCUTANEOUS NEC (11/10/14) DETOXIFICATION SERVICES FOR SUBSTANCE ABUSE TREATMENT (11/01/16) GROUP INHALATION THERAPY TEACHER FOR SUBSTANCE ABUSE TREATMENT, PSYCHOEDUCATION (02/16/16) INDIV PSYCHOTHERAPY FOR SUBSTANCE ABUSE TREATMENT, SUPPORT (11/01/16) INDIV PSYCHOTHERAPY FOR SUBSTANCE ABUSE, COGNITIV BEHAVIORAL (11/01/16) INDIV PSYCHOTHERAPY FOR SUBSTANCE ABUSE, PSYCHOEDUCATION (11/01/16) TETANUS TOXOID ADMINIST (11/10/14) Family History: States: No Known Family Hx - Social History Hx Tobacco Use: No Hx Alcohol Use: Yes Hx Substance Use: No - Immunization History Hx Tetanus Toxoid Vaccination: Yes (2014) Hx Influenza Vaccination: Yes Hx Pneumococcal Vaccination: No Review Of Systems Except As Marked, All Systems Reviewed And Found Negative. Constitutional: Negative for: Fever, Chills Cardiovascular: Negative for: Chest Pain Respiratory: Negative for: Shortness of Breath Gastrointestinal: Positive for: Nausea, Vomiting, Abdominal Pain. Negative for : Diarrhea Genitourinary: Negative for: Dysuria, Hematuria Musculoskeletal: Negative for: Back Pain Skin: Negative for: Rash Neurological: Positive for: Other (Tremors). Negative for: Weakness, Numbness Physical Exam - Physical Exam Appears: Well, Non-toxic, Other (Mildly uncomfortable ) Skin: Normal Color, Warm, Dry, No Rash Head: Atraumatic, Normacephalic Eye(s): bilateral: Normal Inspection Nose: No Discharge Oral Mucosa: Moist Neck: Supple Chest: Symmetrical Cardiovascular: Rhythm Regular (Tachycardic), No Murmur Respiratory: Normal Breath Sounds, No Rales, No Rhonchi, No Wheezing Gastrointestinal/Abdominal: Bowel Sounds, Soft, Tenderness (Mild epigastric TTP) , Other ((-) McBurney's, (-) Ocampo's) Extremity: Normal ROM, No Tenderness, No Calf Tenderness, No Deformity, Other ( Mild tremors upper extremities) Neurological/Psych: Oriented x3 Gait: Steady ED Course And Treatment - Laboratory Results Result Diagrams: 03/06/17 07:22 12 07:22 O2 Sat by Pulse Oximetry: 99 (On RA) Pulse Ox Interpretation: Normal Progress Note: Plan: Blood work ordered and reviewed. Patient given IV NS bolus , IV protonix, IV protonix. Reevaluation Time: 10:35 Reassessment Condition: Improved (Patient reassessed, is resting comfortably and states he feels better. On exam, abdomen is soft and nontender. Blood work unremarkable except for mild elevation of liver enzymes. Patient given Rxs for pepcid and zofran, and he was instructed to follow up with PMD/clinic in 1-2 days. He understands he should return to ED if symptoms worsen.) Disposition Counseled Patient/Family Regarding: Studies Performed, Diagnosis, Need For Followup, Rx Given - Disposition Referrals: [facility] at [facility] [Outside] Disposition: HOME/ ROUTINE Disposition Time: 10:35 Condition: STABLE Prescriptions: Famotidine [Pepcid] 20 mg PO BID PRN #15 tab PRN Reason: abdominal Ondansetron [Zofran Odt] 4 mg PO Q8 PRN #10 odt PRN Reason: Nausea/Vomiting Instructions: Epigastric Pain (ED), Alcohol Dependence (ED) Forms: [facility] (Romansh) Print Language: GABONESE - Clinical Impression Clinical Impression: Nausea, Alcohol abuse, Alcoholic gastritis - Scribe Statement The provider has reviewed the documentation as recorded by the Scribe Danial Ruano All medical record entries made by the Scribe were at my direction and personally dictated by me. I have reviewed the chart and agree that the record accurately reflects my personal performance of the history, physical exam, medical decision making, and the department course for this patient. I have also personally directed, reviewed, and agree with the discharge instructions and disposition.
== END 2017-03-06 11:05 | disposition home or self-care (01) ==
LOC: C.ER 06:20
DX: K29.20 Alcoholic gastritis without bleeding (principal); F10.10 Alcohol abuse, uncomplicated; Y90.9 Presence of alcohol in blood, level not specified; R11.0 Nausea
CPT/HCPCS: 80053; 83690; 85025; 96361; 96374; 96375; 99284; C9113; J2060; J7040

== ENCOUNTER 2017-05-08 13:57 | Emergency (ER) | payer OTHER ==
[2017-05-08 13:57] VITALS: BMI 32.9
[2017-05-08] MEDS ORDERED: Sodium Chloride 0.9% 1,000 ML IV ONE (14:27)
[2017-05-08 14:46] LABS: BASO % 0.4 % (0.0-2.0); EOS % 0.1 % (0.0-4.0); HEMOGLOBIN 14.3 g/dL (12.0-18.0); LYMPH # 1.2 K/uL (1.0-4.3); LYMPH % 27.2 % (20.0-40.0); MEAN CELL VOLUME 85.4 fL (80.0-94.0); MEAN CORPUSCULAR HEMOGLOBIN 29.6 pg (27.0-31.0); MEAN CORPUSCULAR HGB CONC 34.7 g/dL (33.0-37.0); MONO # 0.2 K/uL (0.0-0.8); MONO % 5.1 % (0.0-10.0); NEUT # 2.8 K/uL (1.8-7.0); NEUT % 67.2 % (50.0-75.0); NRBC % 0.1 % (0.0-2.0); RBC 4.81 Mil/uL (4.40-5.90); RED CELL DISTRIBUTION WIDTH 14.6 % (11.5-14.5); WHITE BLOOD COUNT 4.2 K/uL (4.8-10.8)
--- NOTE | 2017-05-08 14:52 | RAD ---
PROCEDURE: Radiographs of the chest and abdomen (obstructive series) HISTORY: abd pain COMPARISON: Chest x-ray performed 02/08/17, CT of the abdomen and pelvis with oral and IV contrast performed 11/16/16 TECHNIQUE: AP radiograph of the chest, with upright and supine radiographs of the abdomen. FINDINGS: CHEST: Heart size appears within normal limits. No focal consolidation, significant pleural effusion, or definite pneumothorax identified. Please note that chest x-ray has limited sensitivity for the detection of pulmonary masses. ABDOMEN AND PELVIS: Nonobstructive bowel gas pattern. No definite free air. Mild constipation. Mild elevation of the right hemidiaphragm. No acute osseous abnormality is detected. IMPRESSION: Mild constipation.
[2017-05-08 14:54] LABS: SQUAMOUS EPITHIAL 1 /hpf (0-5); URINE BILIRUBIN NEGATIVE (NEGATIVE); URINE BLOOD 1+ (NEGATIVE); URINE CLARITY Hazy (Clear); URINE COLOR Yellow (YELLOW); URINE GLUCOSE (UA) NORMAL (Normal); URINE LEUKOCYTE ESTERASE NEG Leu/uL (Negative); URINE NITRATE NEGATIVE (NEGATIVE); URINE PROTEIN 1+ mg/dL (NEGATIVE)
[2017-05-08 15:16] LABS: ALBUMIN 4.1 g/dL (3.5-5.0); ALT/SGPT 49 U/L (21-72); AST/SGOT 88 U/L (17-59); BLOOD UREA NITROGEN 15 mg/dL (9-20); CALCIUM 7.6 mg/dl (8.6-10.4); GFR AFRICAN-AMERICAN > 60; GFR NON-AFRICAN AMERICAN > 60; LIPASE 258 U/L (23-300)
[2017-05-08 15:24] LABS: BARBITURATES, UR NEGATIVE (NEGATIVE); BENZODIAZEPINES, UR NEGATIVE (NEGATIVE); OPIATES, UR NEGATIVE (NEGATIVE); PHENCYCLIDINE, UR NEGATIVE (NEGATIVE)
--- NOTE | 2017-05-08 15:49 | C.PDOC ---
History Of Present Illness 36 year old male presents to the ED for evaluation of crampy abdominal pain which began 3 days ago. Patient had been unable to eat/drink since the onset of symptoms. Patient has had multiple prior evaluations concerning alcohol abuse. He states he has not had any alcohol intake since yesterday. He denies fever, chills, dysuria, hematuria and has no other complaints at this time. Time Seen by Provider: 05/08/17 14:20 Chief Complaint (Nursing): Abdominal Pain History Per: Patient History/Exam Limitations: no limitations Onset/Duration Of Symptoms: Days (3) Current Symptoms Are (Timing): Still Present Location Of Pain/Discomfort: Diffuse Radiation Of Pain To:: None Quality Of Discomfort: Cramping, "Pain" Associated Symptoms: denies: Fever, Chills, Urinary Symptoms Additional History Per: Patient Past Medical History Reviewed: Historical Data, Nursing Documentation, Vital Signs Vital Signs: Last Vital Signs Temp 98 F 05/08/17 16:10 Pulse 101 H 05/08/17 16:10 Resp 16 05/08/17 16:10 BP 131/87 05/08/17 16:10 Pulse Ox 98 05/08/17 16:10 - Medical History PMH: Gastritis, HTN, Seizures Denies: Sexually Transmitted Disease Surgical History: No Surg Hx - [facility] Procedures CLOSURE SKIN & SUBCUTANEOUS NEC (11/10/14) DETOXIFICATION SERVICES FOR SUBSTANCE ABUSE TREATMENT (11/01/16) GROUP PARKS AND RECREATION WORKER FOR SUBSTANCE ABUSE TREATMENT, PSYCHOEDUCATION (02/16/16) INDIV PSYCHOTHERAPY FOR SUBSTANCE ABUSE TREATMENT, SUPPORT (11/01/16) INDIV PSYCHOTHERAPY FOR SUBSTANCE ABUSE, COGNITIV BEHAVIORAL (11/01/16) INDIV PSYCHOTHERAPY FOR SUBSTANCE ABUSE, PSYCHOEDUCATION (11/01/16) TETANUS TOXOID ADMINIST (11/10/14) Family History: States: Unknown Family Hx - Social History Hx Tobacco Use: No Hx Alcohol Use: Yes Hx Substance Use: No - Immunization History Hx Tetanus Toxoid Vaccination: Yes (2014) Hx Influenza Vaccination: Yes Hx Pneumococcal Vaccination: No Review Of Systems Constitutional: Negative for: Fever, Chills Gastrointestinal: Positive for: Abdominal Pain Genitourinary: Negative for: Dysuria, Hematuria Physical Exam - Physical Exam Appears: Non-toxic, No Acute Distress, Other (obese) Skin: Normal Color, Warm, Dry Head: Atraumatic, Normacephalic Eye(s): bilateral: Normal Inspection Oral Mucosa: Moist, Other (alcohol on breath ) Neck: Supple Chest: Symmetrical, No Deformity, No Tenderness Cardiovascular: Rhythm Regular, No Murmur Respiratory: Normal Breath Sounds, No Rales, No Rhonchi, No Wheezing Gastrointestinal/Abdominal: Soft, No Tenderness, No Guarding, No Rebound, Other (obese, dull to percussion. no fluid wave or shifting dullness ) Extremity: Normal ROM, Capillary Refill (less than 2 seconds ) Neurological/Psych: Oriented x3, Normal Speech, Normal Cognition Gait: Steady ED Course And Treatment - Laboratory Results Result Diagrams: 05/08/17 14:37 05/08/17 14:37 Lab Interpretation: Abnormal (lipase neg, UA neg, LFT's wnl, ETOH 217 H) O2 Sat by Pulse Oximetry: 97 (on RA) Pulse Ox Interpretation: Normal - Radiology CXR: Interpreted by Me - Other Rad abd x2 X-Ray: Interpreted by Me (+FOS) Progress Note: Bloodwork, urinalysis, obstructive series ordered and reviewed. Librium PO, Pepcid IVP, Zofran IVP, and IV Fluids administered. Reevaluation Time: 15:49 Reassessment Condition: Improved (belly discomfort relieved, + tremulous/anxious ) Medical Decision Making Medical Decision Making: persistent alcoholism, no pancreatitis, + constipation Though pt claims he has not had alcohol in 2-3 days, he obviously is drinking beer today no s/s of withdrawal at this time. No detox beds available pt ok to f/u as opt Pepcid and Maalox educated. Disposition Doctor Will See Patient In The: Office Counseled Patient/Family Regarding: Studies Performed, Diagnosis - Disposition Referrals: Alcoholics Anonymous [Outside] [facility] [Outside] [facility] [[facility] Disposition: HOME/ ROUTINE Disposition Time: 15:51 Condition: GOOD Additional Instructions: Estrenemiento: Anh un purgante ahora- ajay botella de Citrato de Magnesio- y re-evalua dillon molestia del abdomen despues de usar el tip 2-3 veces Sigue dieta saludable gastritis: Provocado por dillon alcoholismo Sigue pepcid 20 mg dos veces al brandt para bajar el acides del estomago (9AM y 9PM ) Maalox 30 cc (ajay cucharada) 4-5 veces al brandt para dillon molestia del abdomen Alcoholismo: Sigue con AA Sigue con [facility] para buscar ajay programa de Det[facility] para la availabilidad de Detox en nuest[facility] Hospital. Sigue en la [facility]- para los demas de calos cuidados medicales. Instructions: Constipation (ED), Abuse of Alcohol (ED) Forms: [employer] (Greenlandic) Print Language: POLISH - Clinical Impression Clinical Impression: Alcohol dependence, Abdominal colic - Scribe Statement The provider has reviewed the documentation as recorded by the Scribe (Franny Fernando) Provider Attestation: All medical record entries made by the Scribe were at my direction and personally dictated by me. I have reviewed the chart and agree that the record accurately reflects my personal performance of the history, physical exam, medical decision making, and the department course for this patient. I have also personally directed, reviewed, and agree with the discharge instructions and disposition.
[2017-05-08 16:50] VITALS: BP 131/87; PULSE 101; RESP 16; TEMP 98
[2017-05-08 19:31] VITALS: O2SAT 97
== END 2017-05-08 17:14 | disposition home or self-care (01) ==
LOC: C.ER 13:57
DX: R10.84 Generalized abdominal pain (principal); F10.20 Alcohol dependence, uncomplicated; Y90.7 Blood alcohol level of 200-239 mg/100 ml
CPT/HCPCS: 74022; 80053; 80320; 80324; 80345; 80346; 80349; 80353; 80358; 80361; 81001; 82140; 83690; 83992; 85025; 96361; 96374; 96375; 99284; J2405; J7040

== ENCOUNTER 2017-05-10 16:06 | Emergency (ER) | payer OTHER ==
[2017-05-10 16:07] VITALS: BMI 32.9
[2017-05-10 16:11] VITALS: RESP 20; TEMP 97.9
[2017-05-10] MEDS ORDERED: Sodium Chloride 0.9% 1,000 ML IV ONE (17:23)
[2017-05-10] MEDS ORDERED: Sodium Chloride 0.9% 1,000 ML ONE (17:33)
--- NOTE | 2017-05-10 18:03 | C.PDOC ---
History Of Present Illness <JanicenatalyaAngelica - Last Filed: 05/10/17 18:35> <Yani Baez - Last Filed: 05/10/17 21:19> 36 year old male with Hx of chronic ETOH use presents to the ED c/o epigastric abdominal pain with nausea, vomiting, diarrhea since yesterday. Patient admits to drinking alcohol, states his last drink was yesterday. Patient denies fever , chills, drooling, CP, SOB, palpitation, hematemesis, melena, hematoschezia, diarrhea, back pain, dysuria/hematuria. At present time, awake, alert, not in any apparent distress. (Angelica Singh) History Per: Patient <Angelica Singh - Last Filed: 05/10/17 18:35> <Yani Baez - Last Filed: 05/10/17 21:19> Time Seen by Provider: 05/10/17 16:38 Chief Complaint (Nursing): Abdominal Pain Past Medical History Reviewed: Historical Data, Nursing Documentation, Vital Signs - Medical History PMH: Gastritis, HTN, Seizures Denies: Sexually Transmitted Disease Family History: States: Unknown Family Hx - Social History Hx Tobacco Use: No Hx Alcohol Use: Yes Hx Substance Use: No - Immunization History Hx Tetanus Toxoid Vaccination: Yes (2014) Hx Influenza Vaccination: Yes Hx Pneumococcal Vaccination: No <JanicenatalyaAngelica - Last Filed: 05/10/17 18:35> Vital Signs: Last Vital Signs Temp 97.9 F 05/10/17 21:13 Pulse 86 05/10/17 21:13 Resp 20 05/10/17 21:13 BP 125/75 05/10/17 21:13 Pulse Ox 100 05/10/17 21:13 - [facility] Procedures CLOSURE SKIN & SUBCUTANEOUS NEC (11/10/14) DETOXIFICATION SERVICES FOR SUBSTANCE ABUSE TREATMENT (11/01/16) GROUP PRODUCE ASSISTANT FOR SUBSTANCE ABUSE TREATMENT, PSYCHOEDUCATION (02/16/16) INDIV PSYCHOTHERAPY FOR SUBSTANCE ABUSE TREATMENT, SUPPORT (11/01/16) INDIV PSYCHOTHERAPY FOR SUBSTANCE ABUSE, COGNITIV BEHAVIORAL (11/01/16) INDIV PSYCHOTHERAPY FOR SUBSTANCE ABUSE, PSYCHOEDUCATION (11/01/16) TETANUS TOXOID ADMINIST (08/13/15) Review Of Systems Except As Marked, All Systems Reviewed And Found Negative. Constitutional: Negative for: Fever, Chills Eyes: Negative for: Vision Change Cardiovascular: Negative for: Chest Pain, Palpitations, Edema, Light Headedness Respiratory: Negative for: Cough, Shortness of Breath Gastrointestinal: Positive for: Vomiting, Abdominal Pain, Diarrhea. Negative for: Melena, Hematochezia, Hematemesis Genitourinary: Negative for: Dysuria, Incontinence Musculoskeletal: Negative for: Neck Pain, Back Pain Neurological: Negative for: Seizures, Altered Mental Status <Angelica Singh - Last Filed: 05/10/17 18:35> Physical Exam - Physical Exam Appears: Well, Non-toxic, No Acute Distress Skin: Normal Color, Warm, Dry, No Rash Head: Normacephalic Eye(s): bilateral: PERRL Nose: No Discharge Oral Mucosa: Moist, No Drooling, Other (strong alcohol odor) Throat: No Erythema Neck: Supple Cardiovascular: Rhythm Regular, No Murmur, No JVD Respiratory: No Decreased Breath Sounds, No Accessory Muscle Use, No Stridor, No Wheezing Gastrointestinal/Abdominal: Soft, Tenderness (diffuse tenderness), No Distention , No Guarding, No Rebound Back: No CVA Tenderness Extremity: Normal ROM, No Pedal Edema, No Deformity Neurological/Psych: Oriented x3, Normal Speech <Angelica Singh - Last Filed: 05/10/17 18:35> ED Course And Treatment - Laboratory Results Result Diagrams: 05/10/17 18:02 05/10/17 18:02 O2 Sat by Pulse Oximetry: 98 Pulse Ox Interpretation: Normal Progress Note: Pt was OBS in ED for 3 hours and remained stable during the Ed evaluation. case discussed with , sign out: sobriety, re-eval pending. <Angelica Singh - Last Filed: 05/10/17 18:35> - Laboratory Results Result Diagrams: 05/10/17 18:02 05/10/17 18:02 <Yani Baez - Last Filed: 05/10/17 21:19> Disposition - Disposition Disposition Time: 19:01 <Angelica Singh - Last Filed: 05/10/17 18:35> Counseled Patient/Family Regarding: Studies Performed, Diagnosis <Yain Baez Filed: 05/10/17 21:19> - Disposition Referrals: [facility] at [facility] [Outside] [facility] [Outside] Disposition: HOME/ ROUTINE Condition: FAIR Prescriptions: Ondansetron ODT [Zofran ODT] 1 odt PO BID PRN #6 odt PRN Reason: Nausea/Vomiting Instructions: Alcohol Intoxication (DC) Forms: [employer] (Swazi) - Clinical Impression Clinical Impression: Nausea, Vomiting, Abdominal discomfort, Alcohol abuse with intoxication Physician Patient Turnover Patient Signed Over To: Yani Baez Handoff Comments: Sobriety, re-eval, dispo <Angelica Singh - Last Filed: 05/10/17 18:35>
[2017-05-10 18:05] LABS: BASO % 0.5 % (0.0-2.0); LYMPH # 1.6 K/uL (1.0-4.3); LYMPH % 17.1 % (20.0-40.0); MEAN CELL VOLUME 85.7 fL (80.0-94.0); MEAN CORPUSCULAR HEMOGLOBIN 29.3 pg (27.0-31.0); MEAN CORPUSCULAR HGB CONC 34.2 g/dL (33.0-37.0); MEAN PLATELET VOLUME 8.7 fL (7.2-11.7); MONO # 0.4 K/uL (0.0-0.8); MONO % 4.2 % (0.0-10.0); NEUT # 7.1 K/uL (1.8-7.0); NEUT % 78.2 % (50.0-75.0); NRBC % 0.1 % (0.0-2.0); RBC 4.78 Mil/uL (4.40-5.90); RED CELL DISTRIBUTION WIDTH 14.4 % (11.5-14.5); WHITE BLOOD COUNT 9.1 K/uL (4.8-10.8)
[2017-05-10 18:21] LABS: SQUAMOUS EPITHIAL < 1 /hpf (0-5); URINE BILIRUBIN NEGATIVE (NEGATIVE); URINE BLOOD 1+ (NEGATIVE); URINE CLARITY Clear (Clear); URINE COLOR Yellow (YELLOW); URINE GLUCOSE (UA) NORMAL (Normal); URINE LEUKOCYTE ESTERASE NEG Leu/uL (Negative); URINE NITRATE NEGATIVE (NEGATIVE); URINE PROTEIN NEGATIVE (NEGATIVE)
[2017-05-10 18:22] LABS: ALT/SGPT 68 U/L (21-72); AST/SGOT 105 U/L (17-59); BLOOD UREA NITROGEN 11 mg/dL (9-20); CALCIUM 7.3 mg/dl (8.6-10.4); GFR AFRICAN-AMERICAN > 60; GFR NON-AFRICAN AMERICAN > 60; LIPASE 281 U/L (23-300)
[2017-05-10 18:31] LABS: BARBITURATES, UR NEGATIVE (NEGATIVE); OPIATES, UR NEGATIVE (NEGATIVE); PHENCYCLIDINE, UR NEGATIVE (NEGATIVE)
[2017-05-10 18:34] LABS: BENZODIAZEPINES, UR POSITIVE (NEGATIVE)
[2017-05-10 21:17] VITALS: BP 125/75; PULSE 86; O2SAT 100
== END 2017-05-10 21:25 | disposition home or self-care (01) ==
LOC: C.ER 16:06
DX: R10.13 Epigastric pain (principal); R11.2 Nausea with vomiting, unspecified; F10.129 Alcohol abuse with intoxication, unspecified; Y90.8 Blood alcohol level of 240 mg/100 ml or more
CPT/HCPCS: 80053; 80320; 80324; 80345; 80346; 80349; 80353; 80358; 80361; 81001; 83690; 83992; 85025; 96361; 96374; 96375; 99285; C9113; J2405; J7040

== ENCOUNTER 2017-05-11 21:10 | Emergency (ER) | payer OTHER ==
[2017-05-11 21:11] VITALS: BMI 32.9
[2017-05-12] MEDS ORDERED: Alum-Mag Hydrox-Simethicone Susp (30 mL) PO STA (00:03)
--- NOTE | 2017-05-12 00:04 | C.PDOC ---
History Of Present Illness 36yo male, presents to ER for evaluation of epigastric burning abdominal pain. Patient admits to drinking alcohol today. No other complaints. Chief Complaint (Nursing): Substance Abuse History Per: Patient History/Exam Limitations: intoxication Current Symptoms Are (Timing): Still Present Modifying Factor(s): Alcohol Past Medical History Reviewed: Historical Data, Nursing Documentation, Vital Signs Vital Signs: Last Vital Signs Temp 98.4 F 05/12/17 03:54 Pulse 73 05/12/17 03:54 Resp 20 05/12/17 03:54 BP 130/89 05/12/17 03:54 Pulse Ox 96 05/12/17 05:35 - Medical History PMH: Gastritis, HTN, Seizures Denies: Sexually Transmitted Disease Surgical History: No Surg Hx - [facility] Procedures CLOSURE SKIN & SUBCUTANEOUS NEC (11/10/14) DETOXIFICATION SERVICES FOR SUBSTANCE ABUSE TREATMENT (11/01/16) GROUP LACQUER SHADER FOR SUBSTANCE ABUSE TREATMENT, PSYCHOEDUCATION (02/16/16) INDIV PSYCHOTHERAPY FOR SUBSTANCE ABUSE TREATMENT, SUPPORT (11/01/16) INDIV PSYCHOTHERAPY FOR SUBSTANCE ABUSE, COGNITIV BEHAVIORAL (11/01/16) INDIV PSYCHOTHERAPY FOR SUBSTANCE ABUSE, PSYCHOEDUCATION (11/01/16) TETANUS TOXOID ADMINIST (11/10/14) Family History: States: No Known Family Hx, Unknown Family Hx - Social History Hx Tobacco Use: No Hx Alcohol Use: Yes Hx Substance Use: No - Immunization History Hx Tetanus Toxoid Vaccination: Yes (2014) Hx Influenza Vaccination: Yes Hx Pneumococcal Vaccination: No Review Of Systems Except As Marked, All Systems Reviewed And Found Negative. Gastrointestinal: Positive for: Abdominal Pain Physical Exam - Physical Exam Appears: No Acute Distress Skin: Normal Color, Warm Head: Normacephalic, Other (mild soft tissue swelling of right eyebrow forehead area) Eye(s): bilateral: Normal Inspection Oral Mucosa: Moist, Other (alcohol on breath) Neck: Normal ROM, Supple Chest: Symmetrical Cardiovascular: Rhythm Regular Respiratory: Normal Breath Sounds Gastrointestinal/Abdominal: Soft, Tenderness (epigastric, mild), No Guarding, No Rebound Back: Normal Inspection Extremity: Normal ROM Gait: Unsteady ED Course And Treatment O2 Sat by Pulse Oximetry: 96 (RA) Pulse Ox Interpretation: Normal Medical Decision Making Medical Decision Making: Impression: Alcohol intoxication, abdominal pain Plan: -- Maalox 30 ml PO -- Pepcid 20mg PO Disposition Counseled Patient/Family Regarding: Diagnosis - Disposition Referrals: [facility] [Outside] Disposition: HOME/ ROUTINE Disposition Time: 05:45 Condition: STABLE Instructions: Abuse of Alcohol (ED) Forms: [facility] (Jamaican), Gen Discharge Inst Costa Rican Print Language: ROMANIAN - POA Present On Arrival: None - Clinical Impression Clinical Impression: Alcohol intoxication - Scribe Statement The provider has reviewed the documentation as recorded by the Scribe (Latoya Roberts) Provider Attestation: All medical record entries made by the Scribe were at my direction and personally dictated by me. I have reviewed the chart and agree that the record accurately reflects my personal performance of the history, physical exam, medical decision making, and the department course for this patient. I have also personally directed, reviewed, and agree with the discharge instructions and disposition.
[2017-05-12] MEDS ORDERED: Aluminum Hydroxide/Magnesium Hydroxide Susp (30 mL) ONE (00:31)
--- NOTE | 2017-05-12 02:35 | CT ---
EXAM: CT Head Without Intravenous Contrast CLINICAL HISTORY: 36 years old, male; Pain; Headache; Patient HX: 06-08-16; Additional info: Injury to right forehead/ alc intoxication TECHNIQUE: Axial computed tomography images of the head/brain without intravenous contrast. All CT scans at this facility use one or more dose reduction techniques, viz.: automated exposure control; ma/kV adjustment per patient size (including targeted exams where dose is matched to indication; i.e. head); or iterative reconstruction technique. COMPARISON: CT - HEAD W/O CONTRAST 2016-06-08 11:49 FINDINGS: Brain: Minimal atrophy. No intracranial hemorrhage. No mass. No edema. Ventricles: No hydrocephalus. Bones/joints: No acute fracture. Soft tissues: Unremarkable. Sinuses: Scattered minimal mucosal thickening. Mastoid air cells: No mastoid effusion. Orbits: Unremarkable as visualized. IMPRESSION: 1. No intracranial hemorrhage. 2. Incidental/non-acute findings are described above.
[2017-05-12 06:03] VITALS: BP 124/71; PULSE 75; RESP 18; TEMP 98.2; O2SAT 95
== END 2017-05-12 06:03 | disposition home or self-care (01) ==
LOC: C.ER 21:10
DX: F10.129 Alcohol abuse with intoxication, unspecified (principal); I10 Essential (primary) hypertension

== ENCOUNTER 2017-05-12 14:59 | Inpatient (IN) | payer MEDICAID, OTHER ==
[2017-05-12 15:00] VITALS: BMI 32.0
[2017-05-12] MEDS ORDERED: Multivitamin (MVI) 10 ML, Thiamine 100 MG, Folic Acid 1 MG in Sodium Chloride 0.9% 1,00... IV STA (18:41)
[2017-05-12 19:12] LABS: BASO % 0.1 % (0.0-2.0); HEMOGLOBIN 12.3 g/dL (12.0-18.0); LYMPH # 0.6 K/uL (1.0-4.3); LYMPH % 11.4 % (20.0-40.0); MEAN CELL VOLUME 86.2 fL (80.0-94.0); MEAN CORPUSCULAR HEMOGLOBIN 29.6 pg (27.0-31.0); MEAN CORPUSCULAR HGB CONC 34.4 g/dL (33.0-37.0); MEAN PLATELET VOLUME 8.3 fL (7.2-11.7); MONO # 0.3 K/uL (0.0-0.8); MONO % 5.5 % (0.0-10.0); NEUT # 4.3 K/uL (1.8-7.0); RBC 4.17 Mil/uL (4.40-5.90); RED CELL DISTRIBUTION WIDTH 14.6 % (11.5-14.5); WHITE BLOOD COUNT 5.2 K/uL (4.8-10.8)
[2017-05-12 19:19] LABS: SQUAMOUS EPITHIAL < 1 /hpf (0-5); URINE BACTERIA OCC (<OCC); URINE BILIRUBIN NEGATIVE (NEGATIVE); URINE BLOOD 1+ (NEGATIVE); URINE CLARITY Hazy (Clear); URINE COLOR Yellow (YELLOW); URINE GLUCOSE (UA) NORMAL (Normal); URINE LEUKOCYTE ESTERASE NEG Leu/uL (Negative); URINE NITRATE NEGATIVE (NEGATIVE); URINE PROTEIN 1+ mg/dL (NEGATIVE)
[2017-05-12 19:27] LABS: ALBUMIN 3.8 g/dL (3.5-5.0); ALT/SGPT 105 U/L (21-72); AST/SGOT 190 U/L (17-59); BLOOD UREA NITROGEN 10 mg/dL (9-20); CALCIUM 8.2 mg/dl (8.6-10.4); GFR AFRICAN-AMERICAN > 60; GFR NON-AFRICAN AMERICAN > 60; LIPASE 330 U/L (23-300); MAGNESIUM 1.5 mg/dL (1.6-2.3)
[2017-05-12 19:29] LABS: BARBITURATES, UR NEGATIVE (NEGATIVE); OPIATES, UR NEGATIVE (NEGATIVE); PHENCYCLIDINE, UR NEGATIVE (NEGATIVE)
[2017-05-12 19:47] LABS: BENZODIAZEPINES, UR POSITIVE (NEGATIVE)
[2017-05-12] MEDS ORDERED: Magnesium Sulfate 1 gm in D5W 1 GM/100 ML BAG IVPB STA (22:07)
--- NOTE | 2017-05-12 22:46 | C.PDOC ---
History Of Present Illness Pt is here requesting detox from alcohol. Time Seen by Provider: 05/12/17 18:08 Chief Complaint (Nursing): Substance Abuse History Per: Patient Onset/Duration Of Symptoms: Days Current Symptoms Are (Timing): Still Present Suicide/Self Injury Attempted (Context): None Modifying Factor(s): Alcohol Severity: Moderate Associated Symptoms: denies: Suicidal Thoughts, Suicidal Plan Additional History Per: Prior Records Past Medical History Reviewed: Historical Data, Nursing Documentation, Vital Signs Vital Signs: Last Vital Signs Temp 99 F 05/12/17 16:38 Pulse 78 05/12/17 16:38 Resp 20 05/12/17 16:38 BP 149/92 H 05/12/17 16:38 Pulse Ox 98 05/12/17 16:38 - Medical History PMH: Gastritis, HTN, Seizures Other PMH: Alcohol abuse Surgical History: No Surg Hx - [facility] Procedures CLOSURE SKIN & SUBCUTANEOUS NEC (11/10/14) DETOXIFICATION SERVICES FOR SUBSTANCE ABUSE TREATMENT (11/01/16) GROUP CONVENTIONAL MACHINIST FOR SUBSTANCE ABUSE TREATMENT, PSYCHOEDUCATION (02/16/16) INDIV PSYCHOTHERAPY FOR SUBSTANCE ABUSE TREATMENT, SUPPORT (11/01/16) INDIV PSYCHOTHERAPY FOR SUBSTANCE ABUSE, COGNITIV BEHAVIORAL (11/01/16) INDIV PSYCHOTHERAPY FOR SUBSTANCE ABUSE, PSYCHOEDUCATION (11/01/16) TETANUS TOXOID ADMINIST (11/10/14) Family History: States: Unknown Family Hx - Social History Hx Tobacco Use: No Hx Alcohol Use: Yes Hx Substance Use: No - Immunization History Hx Tetanus Toxoid Vaccination: Yes (2014) Hx Influenza Vaccination: Yes Hx Pneumococcal Vaccination: No Review Of Systems Except As Marked, All Systems Reviewed And Found Negative. Constitutional: Negative for: Fever Cardiovascular: Negative for: Chest Pain Respiratory: Negative for: Shortness of Breath Gastrointestinal: Positive for: Nausea, Vomiting, Abdominal Pain Musculoskeletal: Negative for: Neck Pain Skin: Negative for: Rash Neurological: Negative for: Weakness, Numbness Physical Exam - Physical Exam Appears: Non-toxic, No Acute Distress Skin: Normal Color, Warm, Dry, No Rash Head: Atraumatic, Normacephalic Eye(s): bilateral: PERRL, EOMI Neck: Normal ROM, Supple Cardiovascular: Rhythm Regular Respiratory: Normal Breath Sounds, No Accessory Muscle Use Gastrointestinal/Abdominal: Soft, Tenderness (mild nonspecific), No Guarding, No Rebound Back: No CVA Tenderness Extremity: Normal ROM Neurological/Psych: Oriented x3, Normal Motor, Normal Sensation, Other (mildly tremulous) ED Course And Treatment - Laboratory Results Result Diagrams: 05/12/17 19:05 05/12/17 19:05 Lab Interpretation: No Changes Compared To Prior Results O2 Sat by Pulse Oximetry: 98 Pulse Ox Interpretation: Normal Progress Note: Pt's abdominal pain resolved. Pt is medically stable for detox admission. Reassessment Condition: Improved Progress - Interventions Interventions:: Observation, Intravenous fluid - Medications Administered Intravenous: Antiemetic, Other (Protonix, Mg.) - Data Reviewed Data Reviewed: Lab, Old records - Patient Status Patient status: Mostly improved - Continuity of Care Discussed patient case with:: Patient, ED Nurse Discussed pt. case with [employer] consultant/specialty: Psychiatry - Patient Plan Patient Plan: Admission, Other (Detox) Disposition Counseled Patient/Family Regarding: Studies Performed, Diagnosis - Disposition Disposition: HOSPITALIZED Disposition Time: 22:47 Condition: STABLE - Clinical Impression Clinical Impression: Alcohol dependence, Alcoholic liver disease Decision To Admit - Pt Status Changed To: Hospital Disposition Of: Inpatient - Admit Certification Admit to Inpatient:: After my assessment, the patient will require hospitalization for at least two midnights. This is because of the severity of symptoms shown, intensity of services needed, and/or the medical risk in this patient being treated as an outpatient. - InPatient: Physician Admission Certification: I certify that this patient requires 2 or more midnights of care for the following reason:: Detox. - . Bed Request Type: Detox Admitting Physician: Nida Graham Patient Diagnosis: Alcohol dependence, Alcoholic liver disease
[2017-05-12] MEDS ORDERED: Magnesium Sulfate 1 gm in D5W 1 GM/100 ML BAG IVPB ONE (22:49)
--- NOTE | 2017-05-13 04:51 | PCM.BM ---
<Fermin Burk - Last Filed: 05/13/17 04:51> Treatment Plan Problems - Problems identified on initial assessmt Alcohol Abuse Date Initiated: 05/13/17 Time Initiated: 00:00 Assessment reference: NA Treatment assets and liabiliti Patient Assests: cooperative, ADL independent, cognitively intact Patient Liabilities: poor support system, substance abuse (Alcohol ), medical problems (Hypertension) - Milieu Protocol Maintain good personal hygiene: daily Encourage regular showers, daily Remind patient to perform daily oral care Conduct patient checks and document Observation sheet: Q15 minutes Maintain personal safety: every shift Educate patient to report safety concerns to staff, every shift Monitor environment for contraband/sharps Medication safety: Monitor for expected outcome, potential side effects: every shift, Assess barriers to learning: every shift, Assess readiness for medication education: every shift <Cas Rod - Last Filed: 05/13/17 16:34> - Diagnosis (1) Alcohol dependence Status: Acute Interventions: 05/13/17 16:34 * Assess 7x/week regarding severity of withdrawal * Educate regarding risks, benefits, side effects and alternatives of medications * Use Motivational Interviewing for abstinence * Use CBT for relapse prevention * Medication management for withdrawal symptoms * Encourage medication assisted treatment * <Concha Bruner - Last Filed: 05/15/17 11:27> Family Contact Family involvement: Patient does not wish Family/SO involvement - Goals for Treatment Patient goals for treatment: Complete detox and resume AA meetings. Discharge/Continuing Care - Education Needs Education Needs: Patient Medication, Patient Diagnosis/Disease Process, Patient Coping Skills, Patient Anger Management skills, Patient Placement options, Patient Community resources - Discharge Discharge Criteria: No longer exhibiting s/s of withdrawal, Reduction of target symptoms Discharge to:: Home, With Family - Treatment Team Participation Patient/Family/SO Statement: 05/15/17 11:26 "I know what I need to do. I just gotta get back to meetings..." Discussed with Family/SO: No Was Patient/Family/SO present at Treatment Team Meeting: Yes
[2017-05-13] MEDS: Multiple Vitamins Tab PO SCH (10:25)
[2017-05-13] MEDS: Pantoprazole 40 mg EC Tab PO SCH (11:10)
--- NOTE | 2017-05-13 13:45 | PCM.PSYCH ---
Initial Psychiatric Evaluation - Initial Psychiatric Evaluation Type of Admission: Voluntary Legal Status: Capacity Chief Complaint (in patient's own words): "I drink alcohol" History of Present Illness and Precipitating Events: He is seen, chart reviewed and case discussed. He is known from a previous admission. Patient is a 25 year old Estonian speaking male who is single and lives with his brother and cousin. The patient reports he has two children, one is 18 years old and one is 14. The patient reports he wants to detox from alcohol. He reports that he has been drinking 60 oz of beer a day for the past two months but he has been a heavy drinker for 12 years. He reports that the longest time he has been sober was for 8 months. Pt reports that he is having tremors, had a seizure a week ago and has had auditory and visual hallucinations in the past but is not actively hallucinating now. The patient reports that he has gone to and would like to go back. Past psych hx: Denied Medical hx: One seizure Family psych hx: Denied Current Medications: Active Medications Generic Name Dose Route Start Last Admin Trade Name Freq PRN Reason Stop Dose Admin Clonidine HCl 0.1 mg 05/12/17 23:48 Catapres PO Q4H PRN Symptoms of alcohol withdrawl Folic Acid 1 mg 05/13/17 10:00 05/13/17 10:25 Folic Acid PO 1 mg DAILY SOFI Administration Hydroxyzine HCl 25 mg 05/13/17 00:06 Atarax PO TID PRN Anxiety Lorazepam 2 mg 05/13/17 10:00 05/13/17 12:42 Ativan PO 05/18/17 09:59 2 mg Q6 SOFI Administration Taper Multivitamins 1 tab 05/13/17 10:00 05/13/17 10:25 Hexavitamin PO 1 tab DAILY SOFI Administration Pantoprazole Sodium 40 mg 05/13/17 10:30 05/13/17 11:10 Protonix Ec Tab PO 40 mg DAILY SOFI Administration Thiamine HCl 100 mg 05/13/17 10:00 05/13/17 10:25 Vitamin B1 Tab PO 100 mg DAILY SOFI Administration Trazodone HCl 100 mg 05/13/17 22:00 Desyrel PO HS PRN Insomnia Past Psychiatric History - Past Psychiatric History Previous Treatment History: None Pertinent Medical Hx (Current Medical&Sleep Prob, Allergies): Allergies Allergy/AdvReac Type Severity Reaction Status Date / Time No Known Allergies Allergy Verified 05/11/17 23:36 Famotidine [Pepcid] 20 mg PO BID PRN #15 tab 03/06/17 Ondansetron ODT [Zofran ODT] 1 odt PO BID PRN #6 odt 05/10/17 Review of Systems - Gastrointestinal Gastrointestinal: Abdominal Pain, Cramping - Neurological Neurological: Tremor - Psychiatric Psychiatric: Abnormal Sleep Pattern, Anxiety. absent: Auditory Hallucinations, Homicidal Ideation, Suicidal Ideation, Visual Hallucinations Mental Status Examination - Personal Presentation Personal Presentation: Looks stated age - Affect Affect: Constricted - Motor Activity Motor Activity: Calm - Reliability in Providing Information Reliability in Providing Information: Good - Speech Speech: Organized - Mood Mood: Depressed - Formal Thought Process Formal Thought Process: No Impairment - Obsessions/Compulsions Obsessions: None Compulsions: None - Cognitive Functions Orientation: Person, Place, Situation, Time Sensorium: Alert Attention/Concentration: Attentive Abstract Thinking: [address] Estimate of Intelligence: Average Judgement: Intact, as evidence by: Insight regarding need for hospitalization Memory: Recent intact, as evidence by: Ability to recall events of the day, Remote intact, as evidenced by: Abilit to recall sig. life events - Risk Risk: Seizure, Withdrawal, Diminished functioning - Strength & Assets Inventory Strength & Assets Inventory: Cooperative DSM 5 DX - DSM 5 DSM 5 Diagnosis: Alcohol Withdrawal Alcohol Use d/o - severe - Recommended/Plan of Treatment Treatment Recommendations and Plan of Treatment: Alcohol detox with ativan due to elevated LFTs As needed medications All risks, benefits and alternatives of the meds discussed, and the pt agreed and understood. Attend groups and activities Supportive therapy and psychoeducation [place] for abstinence CBT for relapse prevention Encourage MAT after he gets insurance Refer to rehab or IOP, and self-help groups 32 min Projected ELOS: 4-5 days Prognosis: good with treatment Discharge Plan and Discharge Criteria: rehab and MAT
[2017-05-14] MEDS: Multiple Vitamins Tab PO SCH (09:41)
[2017-05-14] MEDS: Pantoprazole 40 mg EC Tab PO SCH (09:41)
[2017-05-14 14:05] LABS: BASO % 0.3 % (0.0-2.0); EOS # 0.1 K/uL (0.0-0.7); HEMOGLOBIN 11.3 g/dL (12.0-18.0); LYMPH % 37.3 % (20.0-40.0); MEAN CELL VOLUME 87.9 fL (80.0-94.0); MEAN CORPUSCULAR HEMOGLOBIN 29.9 pg (27.0-31.0); MEAN PLATELET VOLUME 8.8 fL (7.2-11.7); MONO # 0.5 K/uL (0.0-0.8); MONO % 9.2 % (0.0-10.0); NEUT # 2.7 K/uL (1.8-7.0); NEUT % 51.2 % (50.0-75.0); NRBC % 0.1 % (0.0-2.0); RBC 3.78 Mil/uL (4.40-5.90); RED CELL DISTRIBUTION WIDTH 14.7 % (11.5-14.5); WHITE BLOOD COUNT 5.3 K/uL (4.8-10.8)
[2017-05-14 14:15] LABS: INR 1.1; PROTHROMBIN TIME 12.5 SECONDS (9.7-12.2)
--- NOTE | 2017-05-14 14:29 | PCM.PYCHPN ---
Psychiatric Progress Note - Psychiatric Progress Note Patient seen today, length of contact: 15 min Patient Chief Complaint: "I am in a little pain" Problems Identified/Issues Discussed: The pt is seen, chart reviewed, case discussed with staff. The pt is compliant with medications and reports no side-effects. Symptoms improving and patient needs more time to stabilize. After care discussed, support and psychoeducation given. The patient reports that the left side of his chest hurts and that he has nasal congestion. The patient reports that he slept okay and is eating well. The pt denies stomach pain a this time. When asked about the discoloration around his eye he said he fell on Friday while he was drunk and has a bruise on his right hip/flank. Medication Change: Yes (Detox changes daily ) Medical Record Reviewed: Yes Mental Status Examination - Cognitive Function Orientation: Person, Place, Situation, Time Memory: Intact Attention: WNL Concentration: WNL Association: WNL Fund of Knowledge: WNL - Mood Mood: Neutral - Affect Affect: Constricted - Speech Speech: Appropriate - Language Language: Word Retrieval - Formal Thought Process Formal Thought Process: No Impairment - Suicidal Ideation Suicidal Ideation: No - Homicidal Ideation Homicidal Ideation: No Goal/Treatment Plan - Goal/Treatment Plan Need for Continued Stay: Remain at risks for inpatient hospitalization, Discharge may exacerbated symptoms Progress Toward Problem(s) and Goals/Treatment Plan: Alcohol detox with ativan due to elevated LFTs As needed medications All risks, benefits and alternatives of the meds discussed, and the pt agreed and understood. Attend groups and activities Supportive therapy and psychoeducation [place] for abstinence CBT for relapse prevention Encourage MAT after he gets insurance Refer to rehab or IOP, and self-help groups Estimated Date of D/C: 05/17/17 - Smoking Cessation Smoking Cessation Initiated: No Reason for not providing: Patient does not smoke
[2017-05-14 14:48] LABS: ALBUMIN 3.6 g/dL (3.5-5.0); ALT/SGPT 67 U/L (21-72); AMYLASE 104 U/L (30-110); AST/SGOT 84 U/L (17-59); BLOOD UREA NITROGEN 11 mg/dL (9-20); CALCIUM 8.5 mg/dl (8.6-10.4); GFR AFRICAN-AMERICAN > 60; GFR NON-AFRICAN AMERICAN > 60; LIPASE 376 U/L (23-300); MAGNESIUM 1.7 mg/dL (1.6-2.3)
[2017-05-15] MEDS ORDERED: Ergocalciferol 50,000 Intl Units Cap PO SCH (09:00)
[2017-05-15] MEDS: Multiple Vitamins Tab PO SCH (09:29)
[2017-05-15] MEDS: Pantoprazole 40 mg EC Tab PO SCH (09:29)
[2017-05-15] MEDS ORDERED: Influenza Vaccine 60 mcg/0.5 mL SYR (4YR UP) IM ONE (10:00)
[2017-05-15] MEDS ORDERED: Benzocaine/Menthol (Cepacol) Lozenge MT PRN (11:21)
[2017-05-15] MEDS ORDERED: guaiFENesin 100 mg/5 ml Syrup UD PO PRN (11:21)
--- NOTE | 2017-05-15 13:36 | PCM.PYCHPN ---
Psychiatric Progress Note - Psychiatric Progress Note Patient seen today, length of contact: 15 min Patient Chief Complaint: "I cannot sleep" Problems Identified/Issues Discussed: The pt is seen, chart reviewed, case discussed with staff. The pt is compliant with medications and reports no side-effects. Symptoms improving and patient needs more time to stabilize. After care discussed, support and psychoeducation given. The patient reports that the left side of his chest still hurts and that he has nasal congestion and his developed a cough. The patient reports that he slept poorly at night. Medication Change: Yes (Detox changes daily ) Medical Record Reviewed: Yes Mental Status Examination - Cognitive Function Orientation: Person, Place, Situation, Time Memory: Intact Attention: WNL Concentration: WNL Association: WNL Fund of Knowledge: WNL - Mood Mood: Neutral - Affect Affect: Broad - Speech Speech: Appropriate - Language Language: Word Retrieval - Formal Thought Process Formal Thought Process: No Impairment - Suicidal Ideation Suicidal Ideation: No - Homicidal Ideation Homicidal Ideation: No Goal/Treatment Plan - Goal/Treatment Plan Need for Continued Stay: Remain at risks for inpatient hospitalization, Discharge may exacerbated symptoms Progress Toward Problem(s) and Goals/Treatment Plan: Alcohol detox with ativan due to elevated LFTs As needed medications All risks, benefits and alternatives of the meds discussed, and the pt agreed and understood. Attend groups and activities Supportive therapy and psychoeducation [place] for abstinence CBT for relapse prevention Encourage MAT after he gets insurance Refer to rehab or IOP, and self-help groups Estimated Date of D/C: 05/17/17 - Smoking Cessation Smoking Cessation Initiated: No Reason for not providing: patient does not smoke
[2017-05-16] MEDS: Pantoprazole 40 mg EC Tab PO SCH (09:11)
[2017-05-16] MEDS: Multiple Vitamins Tab PO SCH (09:11)
--- NOTE | 2017-05-16 14:12 | PCM.PYCHPN ---
Psychiatric Progress Note - Psychiatric Progress Note Patient seen today, length of contact: 15 min Patient Chief Complaint: "I am not sleeping well" Problems Identified/Issues Discussed: The pt is seen, chart reviewed, case discussed with staff. The pt is compliant with medications and reports no side-effects. Symptoms improving and patient needs more time to stabilize. After care discussed, support and psychoeducation given. The patient reports that he did not sleep well last night. The patient reports that he still has some pain in his chest and that his cough is still persistent. Medication Change: Yes (Detox changes daily ) Medical Record Reviewed: Yes Mental Status Examination - Cognitive Function Orientation: Person, Place, Situation, Time Memory: Intact Attention: WNL Concentration: WNL Association: WNL Fund of Knowledge: WNL - Mood Mood: Neutral - Affect Affect: Broad - Speech Speech: Appropriate - Language Language: Word Retrieval - Formal Thought Process Formal Thought Process: No Impairment - Suicidal Ideation Suicidal Ideation: No - Homicidal Ideation Homicidal Ideation: No Goal/Treatment Plan - Goal/Treatment Plan Need for Continued Stay: Remain at risks for inpatient hospitalization, Discharge may exacerbated symptoms Progress Toward Problem(s) and Goals/Treatment Plan: Alcohol detox with ativan due to elevated LFTs As needed medications All risks, benefits and alternatives of the meds discussed, and the pt agreed and understood. Attend groups and activities Supportive therapy and psychoeducation [place] for abstinence CBT for relapse prevention Encourage MAT after he gets insurance Refer to rehab or IOP, and self-help groups Estimated Date of D/C: 05/17/17 - Smoking Cessation Smoking Cessation Initiated: No Reason for not providing: Patient does not smoke
--- NOTE | 2017-05-16 14:51 | RAD ---
HISTORY: fever - cough COMPARISON: Chest x-ray performed 02/08/17 TECHNIQUE: Chest PA and lateral FINDINGS: Examination limited by habitus and hypoinflation. LUNGS: No focal consolidation. Please note that chest x-ray has limited sensitivity for the detection of pulmonary masses. PLEURA: No significant pleural effusion identified. No definite pneumothorax . CARDIOVASCULAR: Heart size appears within normal limits. OSSEOUS STRUCTURES: No acute osseous abnormality identified. VISUALIZED UPPER ABDOMEN: Unremarkable. OTHER FINDINGS: None. IMPRESSION: Hypoinflation.
[2017-05-17 09:26] VITALS: BP 105/72; PULSE 90; RESP 18; TEMP 99.6; O2SAT 97
[2017-05-17] MEDS: Pantoprazole 40 mg EC Tab PO SCH (09:56)
[2017-05-17] MEDS: Multiple Vitamins Tab PO SCH (09:56)
--- NOTE | 2017-05-17 10:43 | PCM.PYCHDC ---
Mental Status Examination - Mental Status Examination Orientation: Person, Place, Situation, Time Memory: Intact Mood: Neutral Affect: Broad Speech: Appropriate Attention: WNL Concentration: WNL Association: WNL Fund of Knowledge: WNL Formal Thought Process: No Impairment Description of patient's judgement and insight: PT IS CALM AND COOPERATIVE I/J: GOOD/GOOD Psychotic Thoughts and Behaviors: DENIED Suicidal Ideation: No Current Homicidal Ideation?: No Plan: DENIED Discharge Summary - Discharge Note Reason for Hospitalization: Patient is a 25 year old Belarusian speaking male who is single and lives with his brother and cousin. The patient reports he has two children, one is 18 years old and one is 14. The patient reports he wants to detox from alcohol. He reports that he has been drinking 60 oz of beer a day for the past two months but he has been a heavy drinker for 12 years. He reports that the longest time he has been sober was for 8 months. Pt reports that he is having tremors, had a seizure a week ago and has had auditory and visual hallucinations in the past but is not actively hallucinating now. The patient reports that he has gone to AA and would like to go back. Past psych hx: Denied Medical hx: One seizure Family psych hx: Denied Laboratory Data: please see HPI Consultations:: List each consultation separately and include: 1. Reason for request. 2. Findings. 3. Follow-up Summary of Hospital Course include:: 1. Description of specific treatment plan utilized for patients during their course of treatmen. 2. Summarize the time- course for resolution of acute symptoms and/or regressed behaviors. 3. Describe issues identified and worked on during hospitalization. 4. Describe medication utilized. 5. Describe medical problems identified and treated. 6. Reassessment of suicide risk Summary of Hospital Course: The pt was admitted and started on detox treatment with psychotherapy, support, psychoeducation and medications. SD and CBT techniques were used. The pt was compliant with the treatment. The pt attended groups and activities, as well as milieu therapy. All the risks and benefits of medications were discussed and the patient understood and agreed. The pt improved with the treatment. Pt appreciate the treatment and care which was provided to him. At the time of d/c pt denied any depresive symptoms, manic symptoms. He denied any SI, HI, intent or plan. Pt denied any perceptual disturbances. He had behavioral issues. Psychoeducation was provided to the pt to be compliant with the medication, treatment plan and f/u plan after the discharge. After care discussed with the patient. Time spend 25 minutes - Final Diagnosis (DSM 5) Condition upon Discharge: STABLE DSM 5: Alcohol Withdrawal Alcohol Use d/o - severe Disposition: HOME/ ROUTINE Prescriptions/Medication Reconciliation: Ergocalciferol [Drisdol 50,000 Intl Units Cap] 1 cap PO Q7D #3 cap Pantoprazole [Protonix EC Tab] 40 mg PO DAILY #30 ect traZODone [Desyrel] 100 mg PO HS PRN #30 tab PRN Reason: Insomnia - Smoking Cessation Smoking Cessation Medication prescribed: Yes - Antipsychotic Medications Pt discharged on 2 or more routine antipsychotic medications: No
== END 2017-05-17 14:10 | disposition home or self-care (01) | DRG 897 ==
LOC: C.ER 14:59 → C.7D 22:48
PROVIDERS: ADMIT Psychiatry & Neurology Psychiatry; ATTEND Psychiatry & Neurology Psychiatry
DX: F10.239 Alcohol dependence with withdrawal, unspecified (principal); F19.10 Other psychoactive substance abuse, uncomplicated; W19.XXXA Unspecified fall, initial encounter; F91.9 Conduct disorder, unspecified; S70.01XA Contusion of right hip, initial encounter

== ENCOUNTER 2017-07-15 17:34 | Emergency (ER) | payer MEDICAID, OTHER ==
[2017-07-15 17:34] VITALS: BMI 32.0
[2017-07-15 17:39] VITALS: BP 148/95; PULSE 117; RESP 18; TEMP 98.8; O2SAT 98
[2017-07-15] MEDS ORDERED: Alum-Mag Hydrox-Simethicone Susp (30 mL) PO STA (18:30)
--- NOTE | 2017-07-15 18:32 | C.PDOC ---
History Of Present Illness 37 y/o male with PMHx of persistent alcohol use, presents to the ED for evaluation after vomiting this morning, associated with abdominal pain. Vomitus described as non-bilious and non-bloody. Patient has had many presentations for the same and had extensive work-up in May, which was negative. Patient denies any fever, chills, tremors, or diarrhea. Time Seen by Provider: 07/15/17 18:24 Chief Complaint (Nursing): Abdominal Pain History Per: Patient History/Exam Limitations: no limitations Onset/Duration Of Symptoms: Hrs Current Symptoms Are (Timing): Still Present Past Medical History Reviewed: Historical Data, Nursing Documentation, Vital Signs Vital Signs: Last Vital Signs Temp 98.8 F 07/15/17 17:37 Pulse 117 H 07/15/17 17:37 Resp 18 07/15/17 17:37 BP 148/95 H 07/15/17 17:37 Pulse Ox 98 07/15/17 19:58 - Medical History PMH: Gastritis, HTN, Seizures Denies: Diabetes, Hepatitis, HIV, Sexually Transmitted Disease Surgical History: No Surg Hx - [facility] Procedures CLOSURE SKIN & SUBCUTANEOUS NEC (11/10/14) DETOXIFICATION SERVICES FOR SUBSTANCE ABUSE TREATMENT (11/01/16) GROUP BANQUET PILOT FOR SUBSTANCE ABUSE TREATMENT, PSYCHOEDUCATION (02/16/16) INDIV PSYCHOTHERAPY FOR SUBSTANCE ABUSE TREATMENT, SUPPORT (11/01/16) INDIV PSYCHOTHERAPY FOR SUBSTANCE ABUSE, COGNITIV BEHAVIORAL (11/01/16) INDIV PSYCHOTHERAPY FOR SUBSTANCE ABUSE, PSYCHOEDUCATION (11/01/16) TETANUS TOXOID ADMINIST (11/10/14) Family History: States: Unknown Family Hx - Social History Hx Tobacco Use: No Hx Alcohol Use: Yes Hx Substance Use: Yes - Immunization History Hx Tetanus Toxoid Vaccination: Yes (2014) Hx Influenza Vaccination: Yes Hx Pneumococcal Vaccination: No Review Of Systems Except As Marked, All Systems Reviewed And Found Negative. Constitutional: Negative for: Fever, Chills, Sweats Gastrointestinal: Positive for: Nausea, Vomiting, Abdominal Pain. Negative for : Diarrhea, Hematemesis Physical Exam - Physical Exam Appears: No Acute Distress, Other (AOB, intoxicated) Skin: Normal Color, Warm, Dry Head: Atraumatic, Normacephalic Eye(s): bilateral: Normal Inspection, PERRL, EOMI Nose: Normal Oral Mucosa: Moist Neck: Supple, Other (parotid enlargement) Chest: Symmetrical Cardiovascular: Rhythm Regular, No Murmur Respiratory: Normal Breath Sounds, No Accessory Muscle Use Gastrointestinal/Abdominal: Bowel Sounds (positive), Soft (and obese), No Tenderness, No Guarding Extremity: Normal ROM, No Calf Tenderness, No Deformity, No Swelling Pulses: Left Dorsalis Pedis: Normal, Right Dorsalis Pedis: Normal Neurological/Psych: Oriented x3, Other (Slurred speech, responds appropriately to questions) ED Course And Treatment O2 Sat by Pulse Oximetry: 98 (RA) Pulse Ox Interpretation: Normal Medical Decision Making Medical Decision Making: Initial Plan: Pt given Maalox Plus and Pepcid in the ED Impression: persistent alcoholism, no hematemasis + h/o gastritis, prob alcoholic gastritis- intermittent c/w PPI's Case discussed w/ glueline worker, no etoh detox available today Abd CT and US sig only for hepatosteatosis 04/18/17 as no acute issues, pt defers work-up with informed consent. On reevaluation, pt remains awake, alert, resting comfortably in the ED. No further vomiting throughout ED stay. Will d/c home with Pepcid and Protonix. Pt provided with resources for AA and advised to follow up in the clinic. Disposition Doctor Will See Patient In The: Office Counseled Patient/Family Regarding: Studies Performed, Diagnosis - Disposition Referrals: Alcoholics Anonymous [Outside] [facility] [Outside] [facility] [Outside] [facility] [Outside] Disposition: HOME/ ROUTINE Disposition Time: 18:32 Condition: GOOD Additional Instructions: Gastritis provocado por alcohol: sigue Pepcid 20 mg DOS veces al brandt: 9AM y 9PM Maalox/Mylanta 30 cc (ajay cucharada) 5 veces al brandt graciela necessario Sigue en Alcoholicos Anonymous 2 veces al semana: No importa si sigues tomando! Debes ir!! Sigue con Detox para desponibilidad de programma de Detox Instructions: Gastritis (DC), Alcohol Abuse and Alcoholism (DC) Forms: [facility] (Khmer) Print Language: EAST TIMORESE - POA Present On Arrival: None - Clinical Impression Clinical Impression: Alcohol abuse, Alcoholic gastritis - Scribe Statement The provider has reviewed the documentation as recorded by the Scribe (Betty Robledo) Provider Attestation: All medical record entries made by the Scribe were at my direction and personally dictated by me. I have reviewed the chart and agree that the record accurately reflects my personal performance of the history, physical exam, medical decision making, and the department course for this patient. I have also personally directed, reviewed, and agree with the discharge instructions and disposition.
[2017-07-15] MEDS ORDERED: Alum-Mag Hydrox-Simethicone Susp (30 mL) ONE (18:35)
== END 2017-07-15 18:45 | disposition home or self-care (01) ==
LOC: C.ER 17:34
DX: K29.20 Alcoholic gastritis without bleeding (principal); F10.10 Alcohol abuse, uncomplicated

== ENCOUNTER 2017-07-20 03:52 | Emergency (ER) | payer OTHER ==
[2017-07-20 03:52] VITALS: BMI 32.0
[2017-07-20 04:09] VITALS: BP 129/84; PULSE 86; RESP 20; TEMP 99.3; O2SAT 95
[2017-07-20] MEDS ORDERED: Alum-Mag Hydrox-Simethicone Susp (30 mL) PO STA (04:27)
--- NOTE | 2017-07-20 04:29 | C.PDOC ---
History Of Present Illness 37 year old male presents to the ED with complaints of constant epigastric to substernal chest pain, onset 3 days. Patient reports pain worsens by eating drinking, deep breaths, and touching his chest wall. Patient admits to drinking lots of beer this morning but does not quantify. Chief Complaint (Nursing): Chest Pain History Per: Patient History/Exam Limitations: no limitations Onset/Duration Of Symptoms: Days (x3) Current Symptoms Are (Timing): Still Present Location Of Pain/Discomfort: Epigastric (to substernal ) Radiation Of Pain To:: None Exacerbating Factors: Food, Deep Breaths Past Medical History Reviewed: Historical Data, Nursing Documentation, Vital Signs Vital Signs: Last Vital Signs Temp 99.3 F 07/20/17 04:05 Pulse 86 07/20/17 04:05 Resp 20 07/20/17 04:05 BP 129/84 07/20/17 04:05 Pulse Ox 95 07/20/17 04:42 - Medical History PMH: Gastritis, HTN, Seizures Denies: Diabetes, Hepatitis, HIV, Sexually Transmitted Disease Surgical History: No Surg Hx - [facility] Procedures CLOSURE SKIN & SUBCUTANEOUS NEC (11/10/14) DETOXIFICATION SERVICES FOR SUBSTANCE ABUSE TREATMENT (11/01/16) GROUP ASSEMBLER WET WASH FOR SUBSTANCE ABUSE TREATMENT, PSYCHOEDUCATION (02/16/16) INDIV PSYCHOTHERAPY FOR SUBSTANCE ABUSE TREATMENT, SUPPORT (11/01/16) INDIV PSYCHOTHERAPY FOR SUBSTANCE ABUSE, COGNITIV BEHAVIORAL (11/01/16) INDIV PSYCHOTHERAPY FOR SUBSTANCE ABUSE, PSYCHOEDUCATION (11/01/16) TETANUS TOXOID ADMINIST (11/10/14) Family History: States: Unknown Family Hx - Social History Hx Tobacco Use: No Hx Alcohol Use: Yes Hx Substance Use: Yes - Immunization History Hx Tetanus Toxoid Vaccination: Yes (2014) Hx Influenza Vaccination: Yes Hx Pneumococcal Vaccination: No Review Of Systems Except As Marked, All Systems Reviewed And Found Negative. Cardiovascular: Positive for: Chest Pain (epigastric to substernal ) Physical Exam - Physical Exam Appears: No Acute Distress Chest: Other (palpation of epigastric patient moans in pain and states that the action "reproduces my symptoms". Chest wall palpation does not reproduce symptoms. otherwise nontender in the abdomen. ) Cardiovascular: Rhythm Regular Respiratory: Normal Breath Sounds, No Rales, No Wheezing Pulses: Left Dorsalis Pedis: Normal (2+ distal pulses), Right Dorsalis Pedis: Normal (2+ distal pulses) Neurological/Psych: Oriented x3, Normal Speech, Normal Cognition, Normal Cranial Nerves, Normal Motor, Normal Sensation, Normal Reflexes ED Course And Treatment - Laboratory Results Result Diagrams: 07/20/17 04:36 07/20/17 04:36 O2 Sat by Pulse Oximetry: 95 (RA) Pulse Ox Interpretation: Normal Medical Decision Making Medical Decision Making: Impression: Non-cardiac chest pain, likely GI in origin. Time: 426 Plan: -- CMP Troponin -- CBC with differentials -- CXR -- Lidocaine 2% 15ml PO -- Maalox 30 ml PO -- EKG Results: normal sinus rhythms at 81 beats per minutes. Intervals within normal limits. No ST/T waves change. No Ectopy. Normal EKG Disposition - Disposition Referrals: [facility] [Outside] Disposition: HOME/ ROUTINE Disposition Time: 06:13 Condition: GOOD Prescriptions: Pantoprazole Sodium [Protonix] 40 mg PO DAILY #14 ect Instructions: Chest Pain That Is Not Caused by the Heart (DC), Gastritis (DC) Forms: [employer] (Romanian) Print Language: SLOVENIAN - Clinical Impression Clinical Impression: Alcoholic gastritis - Scribe Statement The provider has reviewed the documentation as recorded by the Favio Zaragoza Provider Attestation: All medical record entries made by the Favio were at my direction and personally dictated by me. I have reviewed the chart and agree that the record accurately reflects my personal performance of the history, physical exam, medical decision making, and the department course for this patient. I have also personally directed, reviewed, and agree with the discharge instructions and disposition.
[2017-07-20 04:46] LABS: BASO % 0.6 % (0.0-2.0); EOS % 0.2 % (0.0-4.0); LYMPH # 1.7 K/uL (1.0-4.3); LYMPH % 40.6 % (20.0-40.0); MEAN CORPUSCULAR HGB CONC 34.5 g/dL (33.0-37.0); MEAN PLATELET VOLUME 8.4 fL (7.2-11.7); MONO # 0.3 K/uL (0.0-0.8); NEUT # 2.1 K/uL (1.8-7.0); NEUT % 51.6 % (50.0-75.0); RBC 4.67 Mil/uL (4.40-5.90); RED CELL DISTRIBUTION WIDTH 14.7 % (11.5-14.5); WHITE BLOOD COUNT 4.1 K/uL (4.8-10.8)
[2017-07-20 04:53] LABS: ALBUMIN 3.9 g/dL (3.5-5.0); ALT/SGPT 34 U/L (21-72); AST/SGOT 50 U/L (17-59); BLOOD UREA NITROGEN 9 mg/dL (9-20); CALCIUM 7.6 mg/dl (8.6-10.4); GFR AFRICAN-AMERICAN > 60; GFR NON-AFRICAN AMERICAN > 60
[2017-07-20 05:01] LABS: HEMOGLOBIN 13.5 g/dL (12.0-18.0)
--- NOTE | 2017-07-20 07:58 | RAD ---
HISTORY: Sepsis Patient COMPARISON: Chest radiographs 05/16/2017. FINDINGS: LUNGS: Limited right infrahilar atelectasis or infiltrate is in question though this pattern of increased density may be secondary to increased vascular overlap from further rotation of the patient toward the left. No left-sided infiltrate. PLEURA: No significant pleural effusion identified, no pneumothorax apparent. CARDIOVASCULAR: Stable cardiac silhouette. OSSEOUS STRUCTURES: No significant abnormalities. VISUALIZED UPPER ABDOMEN: Normal. OTHER FINDINGS: None. IMPRESSION: Borderline right infrahilar infiltrate versus vascular overlap caused by further rotation of the patient toward the left. The remainder the examination is stable and unremarkable.
--- NOTE | 2017-07-21 18:24 | CARD ---
APPROVED REPORT EKG Measurement Heart [id number] <Conclusion> Normal sinus rhythm Nonspecific T wave abnormality Abnormal ECG
== END 2017-07-20 05:17 | disposition home or self-care (01) ==
LOC: C.ER 03:52
DX: K29.20 Alcoholic gastritis without bleeding (principal)

== ENCOUNTER 2017-07-20 14:07 | Emergency (ER) | payer OTHER ==
[2017-07-20 14:07] VITALS: BMI 32.0
[2017-07-20 14:12] VITALS: BP 146/95; PULSE 120; RESP 20; TEMP 99.4; O2SAT 96
--- NOTE | 2017-07-20 14:35 | C.PDOC ---
History Of Present Illness 37 year old male presents to the emergency department with complaints of abdominal pain, nausea, and vomiting. Patient has been seen at the [facility] emergency department twice already today for the same symptoms. Patient has approximately 50 evaluations in local EDs for the same symptoms. Patient is alone and is an alcoholic, and has declined detox on multiple occasions and continues to drink despite medical advice. Patient states that he received prescriptions for Pepcid and Zofran while at [place], but has not filled them yet despite having Medicaid. While at [place] today, patient's Lipase, CT Scan, and Abdomen/Pelvis results were normal, and he was prescribed Zofran and Pepcid. Patient states he does have a home to go. As discussed with crisis, detox is not available today. Time Seen by Provider: 07/20/17 14:23 Chief Complaint (Nursing): Abdominal Pain History Per: Patient History/Exam Limitations: no limitations Onset/Duration Of Symptoms: Unknown Current Symptoms Are (Timing): Still Present Location Of Pain/Discomfort: Other (abdominal pain) Quality Of Discomfort: "Pain" Associated Symptoms: Nausea, Vomiting Past Medical History Reviewed: Historical Data, Nursing Documentation, Vital Signs Vital Signs: Last Vital Signs Temp 99.4 F 07/20/17 14:11 Pulse 120 H 07/20/17 14:11 Resp 20 07/20/17 14:54 BP 146/95 H 07/20/17 14:11 Pulse Ox 96 07/20/17 14:36 - Medical History PMH: Gastritis, HTN, Seizures Denies: Diabetes, Hepatitis, HIV, Sexually Transmitted Disease Surgical History: No Surg Hx - [facility] Procedures CLOSURE SKIN & SUBCUTANEOUS NEC (11/10/14) DETOXIFICATION SERVICES FOR SUBSTANCE ABUSE TREATMENT (11/01/16) GROUP BALANCE SHEET ANALYST FOR SUBSTANCE ABUSE TREATMENT, PSYCHOEDUCATION (02/16/16) INDIV PSYCHOTHERAPY FOR SUBSTANCE ABUSE TREATMENT, SUPPORT (11/01/16) INDIV PSYCHOTHERAPY FOR SUBSTANCE ABUSE, COGNITIV BEHAVIORAL (11/01/16) INDIV PSYCHOTHERAPY FOR SUBSTANCE ABUSE, PSYCHOEDUCATION (11/01/16) TETANUS TOXOID ADMINIST (11/10/14) Family History: States: No Known Family Hx - Social History Hx Tobacco Use: No Hx Alcohol Use: Yes (Patient is an alcoholic.) Hx Substance Use: No - Immunization History Hx Tetanus Toxoid Vaccination: Yes (2014) Hx Influenza Vaccination: Yes Hx Pneumococcal Vaccination: No Review Of Systems Except As Marked, All Systems Reviewed And Found Negative. Gastrointestinal: Positive for: Nausea, Vomiting, Abdominal Pain Physical Exam - Physical Exam Appears: Other (Obese) Neck: Other (Bilateral parotid enlargement, nontender) Gastrointestinal/Abdominal: No Tenderness, Other (obese) ED Course And Treatment O2 Sat by Pulse Oximetry: 96 Medical Decision Making Medical Decision Makinrd ED visit in 12 hours- seen @ [place] ED twice for same, normal labs and CT Abd/pelvis pt seeking detox now (has refused in past) for well known alcohol abuse and about 50 ED visits and detox admissions for same. d/w Crisis- No detox available today pt stable but mild tremulous, continues to abuse alcohol Librium PO given, and outpatient f/u encouraged. pt already has zofran and Pepcid available/prescribed to him earlier today, and Medicaid to purchase, but pt has not done that yet. ? malingering Plan: Librium 50mg PO Zofran 4mg PO Disposition Doctor Will See Patient In The: Office Counseled Patient/Family Regarding: Studies Performed, Diagnosis - Disposition Referrals: Alcoholics Anonymous [Outside] [facility] [Outside] [facility] [Outside] [facility] [Outside] [facility] [Outside] Disposition: HOME/ ROUTINE Disposition Time: 14:35 Condition: GOOD Additional Instructions: sigue pepcid 2 veces al brandt (9 AM y 9PM para la gastritis de alcohol) Sigue Zofran 4 mg ODT: 1 tableta cada 8 horas, gillian la nausea/vomitos Sigue con nuestros servicios de psychiatria para buscar programa de detox de alcohol: llama para katarina. Forms: [employer] (Croatian) Print Language: SINHALA - Clinical Impression Clinical Impression: Vomiting, Alcohol abuse - Scribe Statement The provider has reviewed the documentation as recorded by the Scribe (Chong eRdding) Provider Attestation: All medical record entries made by the Scribe were at my direction and personally dictated by me. I have reviewed the chart and agree that the record accurately reflects my personal performance of the history, physical exam, medical decision making, and the department course for this patient. I have also personally directed, reviewed, and agree with the discharge instructions and disposition.
== END 2017-07-20 14:54 | disposition home or self-care (01) ==
LOC: C.ER 14:07
DX: R11.10 Vomiting, unspecified (principal); F10.10 Alcohol abuse, uncomplicated; Y90.9 Presence of alcohol in blood, level not specified

== ENCOUNTER 2017-07-22 19:30 | Emergency (ER) | payer OTHER ==
[2017-07-22 19:30] VITALS: BMI 32.0
[2017-07-22 19:47] VITALS: BP 124/80; PULSE 88; RESP 16; TEMP 97.8; O2SAT 98
--- NOTE | 2017-07-22 19:50 | C.PDOC ---
History Of Present Illness 37 year old male with PMHx of alcohol abuse presents to the ED requesting detox. Patient has been seen in the ED prior for same presentation, has not followed as an outpatient with detox resources. Patient denies SI/HI, hallucinations, CP, SOB, weakness, numbness. Chief Complaint (Nursing): Abdominal Pain History Per: Patient History/Exam Limitations: intoxication Onset/Duration Of Symptoms: Days Current Symptoms Are (Timing): Still Present Severity: None Location Of Pain/Discomfort: Diffuse Radiation Of Pain To:: None Quality Of Discomfort: "Pain" Exacerbating Factors: None Alleviating Factors: None Recent travel outside of the [place]: No Additional History Per: Patient Past Medical History Reviewed: Historical Data, Nursing Documentation, Vital Signs Vital Signs: Last Vital Signs Temp 97.8 F 07/22/17 19:44 Pulse 88 07/22/17 19:44 Resp 16 07/22/17 19:44 BP 124/80 07/22/17 19:44 Pulse Ox 98 07/22/17 19:50 - Medical History PMH: Gastritis, HTN, Seizures Denies: Diabetes, Hepatitis, HIV, Sexually Transmitted Disease Surgical History: No Surg Hx - [facility] Procedures CLOSURE SKIN & SUBCUTANEOUS NEC (11/10/14) DETOXIFICATION SERVICES FOR SUBSTANCE ABUSE TREATMENT (11/01/16) GROUP PRINCIPAL BIOINFORMATICS SPECIALIST FOR SUBSTANCE ABUSE TREATMENT, PSYCHOEDUCATION (02/16/16) INDIV PSYCHOTHERAPY FOR SUBSTANCE ABUSE TREATMENT, SUPPORT (11/01/16) INDIV PSYCHOTHERAPY FOR SUBSTANCE ABUSE, COGNITIV BEHAVIORAL (11/01/16) INDIV PSYCHOTHERAPY FOR SUBSTANCE ABUSE, PSYCHOEDUCATION (11/01/16) TETANUS TOXOID ADMINIST (11/10/14) Family History: States: Unknown Family Hx - Social History Hx Tobacco Use: No Hx Alcohol Use: Yes (Patient is an alcoholic.) Hx Substance Use: No - Immunization History Hx Tetanus Toxoid Vaccination: Yes (2014) Hx Influenza Vaccination: Yes Hx Pneumococcal Vaccination: No Review Of Systems Constitutional: Negative for: Fever, Chills Cardiovascular: Negative for: Chest Pain Respiratory: Negative for: Shortness of Breath Gastrointestinal: Positive for: Abdominal Pain. Negative for: Nausea, Vomiting Skin: Negative for: Rash Psych: Negative for: Depression, Suicidal ideation Physical Exam - Physical Exam Appears: Non-toxic, No Acute Distress, Unkempt, Other (AOB) Skin: Normal Color, Warm, Dry Head: Atraumatic, Normacephalic Eye(s): bilateral: Normal Inspection Nose: No Discharge Oral Mucosa: Moist Neck: Normal ROM, Supple Chest: Symmetrical Cardiovascular: Rhythm Regular, No Murmur Respiratory: Normal Breath Sounds, No Rales, No Rhonchi, No Wheezing Gastrointestinal/Abdominal: Soft, No Tenderness, No Guarding, No Rebound Extremity: Normal ROM, No Tenderness, No Swelling Neurological/Psych: Oriented x3, Normal Motor, Normal Sensation Gait: Steady ED Course And Treatment ECG: Interpreted By Me, Viewed By Me ECG Rhythm: Sinus Rhythm Rate From EC (BPM) O2 Sat by Pulse Oximetry: 98 (ON RA) Pulse Ox Interpretation: Normal Medical Decision Making Medical Decision Making: persistent alcoholism no detox avail today per Crisis no sever intox now not in withdrawal AGAIN instructed to f/u as opt. Disposition Doctor Will See Patient In The: Office Counseled Patient/Family Regarding: Studies Performed, Diagnosis - Disposition Disposition: HOME/ ROUTINE Disposition Time: 19:50 Condition: GOOD Forms: [facility] (Arabic) - Clinical Impression Clinical Impression: Alcohol abuse - Scribe Statement The provider has reviewed the documentation as recorded by the Scribe Danial Ruano All medical record entries made by the Scribe were at my direction and personally dictated by me. I have reviewed the chart and agree that the record accurately reflects my personal performance of the history, physical exam, medical decision making, and the department course for this patient. I have also personally directed, reviewed, and agree with the discharge instructions and disposition.
--- NOTE | 2017-07-23 23:54 | CARD ---
APPROVED REPORT EKG Measurement Heart [id number] CO [id number] <Conclusion> Normal sinus rhythm Normal ECG
== END 2017-07-22 20:07 | disposition home or self-care (01) ==
LOC: C.ER 19:30
DX: F10.10 Alcohol abuse, uncomplicated (principal); I10 Essential (primary) hypertension

== ENCOUNTER 2017-07-27 06:35 | Observation (INO) | payer MEDICAID, OTHER ==
[2017-07-27 06:36] VITALS: BMI 32.0
--- NOTE | 2017-07-27 07:30 | C.PDOC ---
History Of Present Illness 37yo male with history of alcoholism, presents to ED with complaints of abdominal pain since yesterday. Patient states his last alcoholic drink was yesterday as well. He denies any fever, chills, nausea, vomiting, and offers no other medical complaints. Time Seen by Provider: 07/27/17 07:18 Chief Complaint (Nursing): Abdominal Pain History Per: Patient History/Exam Limitations: no limitations Onset/Duration Of Symptoms: Days (1) Current Symptoms Are (Timing): Still Present Location Of Pain/Discomfort: Diffuse Quality Of Discomfort: "Pain" Associated Symptoms: denies: Fever, Chills Past Medical History Reviewed: Historical Data, Nursing Documentation, Vital Signs Vital Signs: Last Vital Signs Temp 98.6 F 07/27/17 14:13 Pulse 89 07/27/17 14:13 Resp 18 07/27/17 14:13 BP 123/79 07/27/17 14:13 Pulse Ox 97 07/27/17 14:13 - Medical History PMH: Gastritis, HTN, Seizures Denies: Diabetes, Hepatitis, HIV, Sexually Transmitted Disease Surgical History: No Surg Hx - [facility] Procedures CLOSURE SKIN & SUBCUTANEOUS NEC (11/10/14) DETOXIFICATION SERVICES FOR SUBSTANCE ABUSE TREATMENT (11/01/16) GROUP ADDICTION TREATMENT COUNSELOR FOR SUBSTANCE ABUSE TREATMENT, PSYCHOEDUCATION (02/16/16) INDIV PSYCHOTHERAPY FOR SUBSTANCE ABUSE TREATMENT, SUPPORT (11/01/16) INDIV PSYCHOTHERAPY FOR SUBSTANCE ABUSE, COGNITIV BEHAVIORAL (11/01/16) INDIV PSYCHOTHERAPY FOR SUBSTANCE ABUSE, PSYCHOEDUCATION (11/01/16) TETANUS TOXOID ADMINIST (11/10/14) Family History: States: Unknown Family Hx - Social History Hx Tobacco Use: No Hx Alcohol Use: Yes (Patient is an alcoholic.) Hx Substance Use: No - Immunization History Hx Tetanus Toxoid Vaccination: Yes (2014) Hx Influenza Vaccination: Yes Hx Pneumococcal Vaccination: No Review Of Systems Except As Marked, All Systems Reviewed And Found Negative. Constitutional: Negative for: Fever, Chills Cardiovascular: Negative for: Chest Pain Respiratory: Negative for: Shortness of Breath Gastrointestinal: Positive for: Abdominal Pain. Negative for: Vomiting, Diarrhea Physical Exam - Physical Exam Appears: No Acute Distress Skin: Warm, Dry Head: Normacephalic Eye(s): bilateral: Normal Inspection, PERRL Oral Mucosa: Moist, Other (alcohol on breath) Neck: Supple Chest: Symmetrical Cardiovascular: Rhythm Regular Respiratory: Normal Breath Sounds, No Wheezing Gastrointestinal/Abdominal: Soft, Tenderness (epigastric), No Mass, No Guarding , No Rebound Back: Normal Inspection Extremity: Normal ROM, No Deformity Neurological/Psych: Oriented x3 Gait: Unsteady ED Course And Treatment - Laboratory Results Result Diagrams: 07/27/17 08:19 07/27/17 08:19 O2 Sat by Pulse Oximetry: 100 (RA) Pulse Ox Interpretation: Normal Progress Note: Labs ordered. Patient given Morphine, protonix, IV fluids and Zofran. 10:50 Labs reviewed and within normal limits. Patient reports improvement in pain and now is requesting detox. Patient to be evaluated by crisis team. 12:30 Patient in active withdrawal, Ativan 1mg IM and PO Librium given. Patient is stable and medically cleared for Detox. Patient was accepted to detox by . Disposition - Disposition Disposition: HOSPITALIZED Disposition Time: 13:50 Condition: STABLE - Clinical Impression Clinical Impression: Alcohol dependence with withdrawal - PA / COLLATERAL SPECIALIST / Resident Statement MD/DO has reviewed & agrees with the documentation as recorded. - Scribe Statement The provider has reviewed the documentation as recorded by the Scribe (Latoya Roberts) Provider Attestation: All medical record entries made by the Scribe were at my direction and personally dictated by me. I have reviewed the chart and agree that the record accurately reflects my personal performance of the history, physical exam, medical decision making, and the department course for this patient. I have also personally directed, reviewed, and agree with the discharge instructions and disposition. Decision To Admit - Pt Status Changed To: Hospital Disposition Of: Inpatient - Admit Certification Admit to Inpatient:: After my assessment, the patient will require hospitalization for at least two midnights. This is because of the severity of symptoms shown, intensity of services needed, and/or the medical risk in this patient being treated as an outpatient. - InPatient: Physician Admission Certification:: Patient needs more than 2 days of hospitalization - . Bed Request Type: Detox Admitting Physician: Lydia Moore Patient Diagnosis: Alcohol dependence with withdrawal
[2017-07-27] MEDS ORDERED: Sodium Chloride 0.9% 1,000 ML IV STA (07:34)
[2017-07-27] MEDS ORDERED: Sodium Chloride 0.9% 1,000 ML ONE (07:55)
[2017-07-27] MEDS ORDERED: Morphine 4 MG/ML VIAL ONE (07:55)
[2017-07-27 08:31] LABS: BASO % 0.6 % (0.0-2.0); EOS % 0.3 % (0.0-4.0); HEMOGLOBIN 14.1 g/dL (12.0-18.0); LYMPH # 1.4 K/uL (1.0-4.3); LYMPH % 46.5 % (20.0-40.0); MEAN CORPUSCULAR HEMOGLOBIN 29.5 pg (27.0-31.0); MEAN CORPUSCULAR HGB CONC 34.2 g/dL (33.0-37.0); MEAN PLATELET VOLUME 7.6 fL (7.2-11.7); MONO # 0.3 K/uL (0.0-0.8); MONO % 8.8 % (0.0-10.0); NEUT # 1.3 K/uL (1.8-7.0); NEUT % 43.8 % (50.0-75.0); NRBC % 0.2 % (0.0-2.0); RBC 4.78 Mil/uL (4.40-5.90); RED CELL DISTRIBUTION WIDTH 15.1 % (11.5-14.5); WHITE BLOOD COUNT 3.1 K/uL (4.8-10.8)
[2017-07-27 08:33] LABS: MEAN CELL VOLUME 86.1 fL (80.0-94.0)
[2017-07-27 08:38] LABS: ALB/GLOB RATIO 0.9 (1.0-2.1); ALT/SGPT 55 U/L (21-72); AST/SGOT 180 U/L (17-59); BLOOD UREA NITROGEN 11 mg/dL (9-20); CALCIUM 8.2 mg/dl (8.6-10.4); GFR AFRICAN-AMERICAN > 60; GFR NON-AFRICAN AMERICAN > 60; LIPASE 263 U/L (23-300)
[2017-07-27 08:46] LABS: BARBITURATES, UR NEGATIVE (NEGATIVE); BENZODIAZEPINES, UR NEGATIVE (NEGATIVE); OPIATES, UR NEGATIVE (NEGATIVE); PHENCYCLIDINE, UR NEGATIVE (NEGATIVE)
[2017-07-27 08:52] LABS: SQUAMOUS EPITHIAL < 1 /hpf (0-5); URINE BILIRUBIN NEGATIVE (NEGATIVE); URINE CLARITY Clear (Clear); URINE COLOR Yellow (YELLOW); URINE GLUCOSE (UA) NORMAL (Normal); URINE LEUKOCYTE ESTERASE NEG Leu/uL (Negative); URINE PROTEIN NEGATIVE (NEGATIVE)
[2017-07-27 08:54] LABS: INR 1.1; PROTHROMBIN TIME 13.1 SECONDS (9.7-12.2)
[2017-07-27 08:55] LABS: URINE BLOOD 1+ (NEGATIVE)
--- NOTE | 2017-07-27 14:30 | PCM.BM ---
<Ingris De La O - Last Filed: 07/27/17 14:29> Treatment Plan Problems - Problems identified on initial assessmt potential for alcohol withdrawals Date Initiated: 07/27/17 Assessment reference: NA Status: Active Treatment assets and liabiliti Patient Assests: cooperative, ADL independent, cognitively intact Patient Liabilities: financial problems, substance abuse - Milieu Protocol Maintain good personal hygiene: daily Encourage regular showers, daily Remind patient to perform daily oral care, daily Assist patient to perform ADL's Conduct patient checks and document Observation sheet: Q15 minutes Maintain personal safety: every shift Educate patient to report safety concerns to staff, every shift Monitor environment for contraband/sharps Medication safety: Monitor for expected outcome, potential side effects: every shift, Assess barriers to learning: every shift, Assess readiness for medication education: every shift <Cas Rod - Last Filed: 07/29/17 23:28> - Diagnosis (1) Alcohol dependence with withdrawal Status: Acute Interventions: 07/29/17 23:28 * Assess 7x/week regarding severity of withdrawal * Educate regarding risks, benefits, side effects and alternatives of medications * Use Motivational Interviewing for abstinence * Use CBT for relapse prevention * Medication management for withdrawal symptoms * Encourage medication assisted treatment *
[2017-07-27] MEDS: Multiple Vitamins Tab PO SCH (17:20)
[2017-07-28] MEDS: Multiple Vitamins Tab PO SCH (09:53)
[2017-07-28] MEDS: Pantoprazole 40 mg EC Tab PO SCH (13:21)
--- NOTE | 2017-07-28 15:14 | PCM.PSYCH ---
Initial Psychiatric Evaluation - Initial Psychiatric Evaluation Type of Admission: Voluntary Legal Status: Capacity Chief Complaint (in patient's own words): "Alcohol" History of Present Illness and Precipitating Events: Patient is seen, chart reviewed and case discussed. He is known from a previous admission. Patient is a 37 y.o. [place]i-speaking male, who works as a cook, and is single and lives with a friend. The patient states that he does not have a or children. The patient reports he wants to detox from alcohol. He reports that he has been drinking ten 12oz cans of beer/day since he last left Detox, but that he has been drinking heavily for 13 years. Patient denies drug or tobacco use. The patient has been to Detox two times before, but has never been to rehab. Patient states he would be interested in attending a program after finishing Detox this time. Past Psych Hx: Denied Medical Hx: Gastritis, HTN Family Psych Hx: Denied Family Medical Hx: Father had alcohol use disorder Current Medications: Active Medications Generic Name Dose Route Start Last Admin Trade Name Freq PRN Reason Stop Dose Admin Clonidine HCl 0.1 mg 07/28/17 10:17 Catapres PO Q4H PRN Symptoms of alcohol withdrawl Folic Acid 1 mg 07/27/17 15:00 07/28/17 09:53 Folic Acid PO 1 mg DAILY SOFI Administration Lorazepam 1 mg 07/28/17 10:17 07/28/17 10:49 Ativan PO 1 mg Q4H PRN Administration Symptoms of alcohol withdrawl Lorazepam 2 mg 07/28/17 10:30 07/28/17 14:56 Ativan PO 08/02/17 10:29 2 mg Q4H SOFI Administration Taper Multivitamins 1 tab 07/27/17 15:00 07/28/17 09:53 Hexavitamin PO 1 tab DAILY SOFI Administration Pantoprazole Sodium 40 mg 07/28/17 12:45 07/28/17 13:21 Protonix Ec Tab PO 40 mg DAILY SOFI Administration Thiamine HCl 100 mg 07/27/17 15:00 07/28/17 09:53 Vitamin B1 Tab PO 100 mg DAILY SOFI Administration Trazodone HCl 50 mg 07/28/17 10:17 Desyrel PO HS PRN Insomnia Past Psychiatric History - Past Psychiatric History Pertinent Medical Hx (Current Medical&Sleep Prob, Allergies): Allergies Allergy/AdvReac Type Severity Reaction Status Date / Time No Known Allergies Allergy Verified 07/27/17 06:50 Famotidine [Pepcid] 20 mg PO BID #20 tab 07/20/17 Review of Systems - Gastrointestinal Gastrointestinal: Abdominal Pain - Psychiatric Psychiatric: absent: Hallucinations, Homicidal Ideation, Suicidal Ideation Additional comments: Patient has had hallucinations while in Detox in the past, but is not having hallucinations at this time Mental Status Examination - Personal Presentation Personal Presentation: Looks stated age - Affect Affect: Constricted - Motor Activity Motor Activity: Calm - Reliability in Providing Information Reliability in Providing Information: Fair - Speech Speech: Organized - Mood Mood: Depressed, Anxious - Formal Thought Process Formal Thought Process: No Impairment - Cognitive Functions Orientation: Person, Place, Situation, Time Sensorium: Alert Attention/Concentration: Attentive Estimate of Intelligence: Average Judgement: Intact, as evidence by: Insight regarding need for hospitalization Memory: Recent intact, as evidence by: Ability to recall events of the day, Remote intact, as evidenced by: Abilit to recall sig. life events - Risk Risk: Seizure, Withdrawal, Diminished functioning - Strength & Assets Inventory Strength & Assets Inventory: Cooperative DSM 5 DX - DSM 5 DSM 5 Diagnosis: Alcohol withdrawal w complication Alcohol Use Disorder - Recommended/Plan of Treatment Treatment Recommendations and Plan of Treatment: Ativan Taper Watch for developing DT or alcoholic hallucinosis Address chronic non-compliance As needed medications All risks, benefits and alternatives of the meds discussed, and the pt agreed and understood. Attend groups and activities Supportive therapy and psychoeducation [place] for abstinence CBT for relapse prevention Encourage MAT Refer to rehab mostly, or IOP, and self-help groups 34 min Projected ELOS: 4-5 days Prognosis: Good with treatment - Smoking Cessation Smoking Cessation Initiated: No
[2017-07-29] MEDS: Multiple Vitamins Tab PO SCH (09:14)
[2017-07-29] MEDS: Pantoprazole 40 mg EC Tab PO SCH (09:15)
--- NOTE | 2017-07-29 13:54 | PCM.PYCHPN ---
Psychiatric Progress Note - Psychiatric Progress Note Patient seen today, length of contact: 15 min Patient Chief Complaint: "I am doing a little better" Problems Identified/Issues Discussed: The pt is seen, chart reviewed, case discussed with staff. The pt is compliant with medications and reports no side-effects. Symptoms are improving but needs more time to stabilize. After care discussed, support and psychoeducation given. Pt states he is doing better this morning, however, he complained of a headache Pt stated that he did not sleep last night, and that he had hallucinations involving snakes Medication Change: Yes (Detox changes daily) Medical Record Reviewed: Yes Mental Status Examination - Cognitive Function Orientation: Person, Place, Situation, Time Memory: Impaired Attention: Poor Concentration: Poor Association: WNL Fund of Knowledge: Poor - Mood Mood: Depressed, Anxious - Affect Affect: Constricted - Speech Speech: Appropriate - Formal Thought Process Formal Thought Process: No Impairment - Suicidal Ideation Suicidal Ideation: No - Homicidal Ideation Homicidal Ideation: No Goal/Treatment Plan - Goal/Treatment Plan Need for Continued Stay: Discharge may exacerbated symptoms, Severe functional impairment Progress Toward Problem(s) and Goals/Treatment Plan: Ativan Taper Watch for developing DT or alcoholic hallucinosis Address chronic non-compliance As needed medications All risks, benefits and alternatives of the meds discussed, and the pt agreed and understood. Attend groups and activities Supportive therapy and psychoeducation [place] for abstinence CBT for relapse prevention Encourage MAT Refer to rehab (but has no ID), or IOP, and self-help groups Watch for delirium Seroquel for AVH and insomnia
--- NOTE | 2017-07-30 03:54 | CP.PCM.CON ---
History of Present Illness - History of Present Illness History of Present Illness: was paged at 3:50am for hallucinations despite extra ativan for withdrawal from EtOH Past Patient History - Infectious Disease Hx of Infectious Diseases: None - Past Medical History & Family History Past Medical History?: Yes - Past Social History Smoking Status: Never Smoked - CARDIAC Hx Hypertension: Yes - PULMONARY Hx Tuberculosis: No - NEUROLOGICAL Hx Seizures: Yes - HEENT Hx HEENT Problems: No - ENDOCRINE/METABOLIC Hx Endocrine Disorders: No - HEMATOLOGICAL/ONCOLOGICAL Hx Human Immunodeficiency Virus (HIV): No - INTEGUMENTARY Hx Dermatological Problems: No - MUSCULOSKELETAL/RHEUMATOLOGICAL Hx Falls: No - GASTROINTESTINAL Hx Gastritis: Yes - GENITOURINARY/GYNECOLOGICAL Hx Sexually Transmitted Disorders: No - PSYCHIATRIC Hx Substance Use: No - SURGICAL HISTORY Hx Surgeries: No - ANESTHESIA Hx Anesthesia: No Hx Anesthesia Reactions: No Hx Malignant Hyperthermia: No Meds Allergies/Adverse Reactions: Allergies Allergy/AdvReac Type Severity Reaction Status Date / Time No Known Allergies Allergy Verified 07/27/17 06:50 - Medications Medications: Current Medications Clonidine HCl (Catapres) 0.1 mg PO Q4H PRN PRN Reason: Symptoms of alcohol withdrawl Folic Acid (Folic Acid) 1 mg PO DAILY [facility] Last Admin: 07/29/17 09:14 Dose: 1 mg Lorazepam (Ativan) 1 mg PO Q4H PRN PRN Reason: Symptoms of alcohol withdrawl Last Admin: 07/30/17 01:41 Dose: 1 mg Lorazepam (Ativan) 2 mg PO Q6H SOFI PRN Reason: Taper Stop: 08/02/17 10:29 Last Admin: 07/30/17 03:31 Dose: Not Given Lorazepam (Ativan) 2 mg IM ONCE STA Stop: 07/30/17 03:54 Multivitamins (Hexavitamin) 1 tab PO DAILY [facility] Last Admin: 07/29/17 09:14 Dose: 1 tab Pantoprazole Sodium (Protonix Ec Tab) 40 mg PO DAILY [facility] Last Admin: 07/29/17 09:15 Dose: 40 mg Quetiapine Fumarate (Seroquel) 100 mg PO HS [facility] Last Admin: 07/29/17 21:36 Dose: 100 mg Thiamine HCl (Vitamin B1 Tab) 100 mg PO DAILY [facility] Last Admin: 07/29/17 09:14 Dose: 100 mg Trazodone HCl (Desyrel) 50 mg PO HS PRN PRN Reason: Insomnia Last Admin: 07/29/17 23:17 Dose: 50 mg Results - Vital Signs Recent Vital Signs: Last Vital Signs Temp 97.7 F 07/30/17 03:34 Pulse 96 H 07/30/17 03:34 Resp 18 07/30/17 03:34 BP 126/87 07/30/17 03:34 Pulse Ox 99 07/30/17 03:34 - Labs Result Diagrams: 07/27/17 08:19 07/27/17 08:19
[2017-07-30] MEDS ORDERED: Sodium Chloride 0.9% 1,000 ML IV ONE (05:23)
--- NOTE | 2017-07-30 05:55 | CP.PCM.HP ---
<PolinaJonathan mireles - Last Filed: 07/30/17 05:52> History of Present Illness - History of Present Illness History of Present Illness: CC: paged by detox for hallucinations This patient is a 37yo M w/ a PMhx of EtOH abuse/dependence who was in detox who started to develop hallucinations as per nursing staff. They state he was not making any sense, and requesting his shoes to go home as he needed to go to work. However, when the patient was interviewed he was ANOx3, with intact fund of knowledge. He had mild tachycardia. He denies any audio/visual hallucinations , feelings to hurt himself or others, and understands why he is in detox from a situation that he created and is here to help himself. He denies any current fevers/chills, KEITH, CP, SOB, abdominal pain, N/V/D, dysuria/freq/urg or lower extremity pain/swelling. He states that he feels slightly anxious and mildly tremulous. PMhx: GERD Meds: Pepcid 20mg Allergies: Denies Surgeries: Denies FamHx: Denies Social: drinks 10-12 beers per day, has never had DT's when he withdraws, never had a seizure withdrawing, works produce wrapper, lives in [place] with two roommates. Denies smoking or other illicit drug use. Present on Admission - Present on Admission Any Indicators Present on Admission: No History of DVT/PE: No History of Uncontrolled Diabetes: No Urinary Catheter: No Decubitus Ulcer Present: No Past Patient History - Infectious Disease Hx of Infectious Diseases: None - Past Medical History & Family History Past Medical History?: Yes - Past Social History Smoking Status: Never Smoked - CARDIAC Hx Hypertension: Yes - PULMONARY Hx Tuberculosis: No - NEUROLOGICAL Hx Seizures: Yes - HEENT Hx HEENT Problems: No - ENDOCRINE/METABOLIC Hx Endocrine Disorders: No - HEMATOLOGICAL/ONCOLOGICAL Hx Human Immunodeficiency Virus (HIV): No - INTEGUMENTARY Hx Dermatological Problems: No - MUSCULOSKELETAL/RHEUMATOLOGICAL Hx Falls: No - GASTROINTESTINAL Hx Gastritis: Yes - GENITOURINARY/GYNECOLOGICAL Hx Sexually Transmitted Disorders: No - PSYCHIATRIC Hx Substance Use: No - SURGICAL HISTORY Hx Surgeries: No - ANESTHESIA Hx Anesthesia: No Hx Anesthesia Reactions: No Hx Malignant Hyperthermia: No Meds Allergies/Adverse Reactions: Allergies Allergy/AdvReac Type Severity Reaction Status Date / Time No Known Allergies Allergy Verified 07/27/17 06:50 Physical Exam - Constitutional Appears: Non-toxic, Chronically Ill (anxious, sitting comfortably in bed ) - Head Exam Head Exam: ATRAUMATIC, NORMAL INSPECTION - Eye Exam Eye Exam: EOMI, Normal appearance (injected ) - ENT Exam ENT Exam: Mucous Membranes Dry - Neck Exam Neck exam: Positive for: Full Rom. Negative for: Lymphadenopathy - Respiratory Exam Respiratory Exam: Clear to Auscultation Bilateral, NORMAL BREATHING PATTERN. absent: Rales, Rhonchi, Wheezes - Cardiovascular Exam Cardiovascular Exam: Tachycardia, REGULAR RHYTHM, +S1, +S2 - GI/Abdominal Exam GI & Abdominal Exam: Normal Bowel Sounds, Soft. absent: Organomegaly, Pulsatile Mass, Rebound, Tenderness - Extremities Exam Extremities exam: Positive for: full ROM, normal inspection. Negative for: calf tenderness, pedal edema - Back Exam Back exam: NORMAL INSPECTION. absent: CVA tenderness (L), CVA tenderness (R) - Neurological Exam Neurological exam: Alert, Oriented x3 - Psychiatric Exam Psychiatric exam: Normal Affect - Skin Skin Exam: Warm Results - Vital Signs Recent Vital Signs: Last Vital Signs Temp 97.7 F 07/30/17 03:34 Pulse 96 H 07/30/17 03:34 Resp 18 07/30/17 03:34 BP 126/87 07/30/17 03:34 Pulse Ox 99 07/30/17 03:34 - Labs Result Diagrams: 07/27/17 08:19 07/27/17 08:19 Assessment & Plan - Assessment and Plan (Free Text) Assessment: 37yo M transferred from detox for worsening EtOH withdrawal EtOH withdrawal -transfer to tele; place on tele -continue 1:1 until examined in AM -tachycardia present on exam; no AV hallucinations, no elevated BP, mild tremor -[facility] protocol -thiamine/folate daily -will recheck CBC, CMP, mag/phosph and replete as necessary once results come back -looks dry on exam; will give 1L bolus NS -other psychotropics as per psychiatry; thank you for your help -will increase PRN ativan to 2mg PRN; c/w with other doses as written Prophylaxis -SCD; not high risk -GI prophylaxis not indicated but takes pepcid at home Case discussed and seen with Dr. Maura Bliss PGY2 Decision To Admit - Pt Status Changed To: Hospital Disposition Of: Observation - . Bed Request Type: Telemetry Admitting Physician: Tomy Lorenzo <Tomy Lorenzo - Last Filed: 07/30/17 07:28> Results - Vital Signs Recent Vital Signs: Last Vital Signs Temp 98.4 F 07/30/17 06:15 Pulse 105 H 07/30/17 06:15 Resp 20 07/30/17 06:15 BP 128/88 07/30/17 06:15 Pulse Ox 98 07/30/17 06:15 - Labs Result Diagrams: 07/30/17 05:55 07/30/17 05:55 Labs: Laboratory Results - last 24 hr 07/30/17 07/30/17 07/30/17 05:55 05:55 05:55 WBC 4.0 L RBC 4.15 L Hgb 12.4 Hct 36.7 MCV 88.4 D MCH 29.8 MCHC 33.7 RDW 16.0 H Plt Count 53 L D MPV 8.5 Neut % (Auto) 48.1 L Lymph % (Auto) 39.1 [place] % (Auto) 11.3 H Eos % (Auto) 1.2 Baso % (Auto) 0.3 Neut # (Auto) 1.9 Lymph # (Auto) 1.6 [place] # (Auto) 0.5 Eos # (Auto) 0.0 Baso # (Auto) 0.0 Sodium 141 Potassium 4.2 Chloride 106 Carbon Dioxide 26 Anion Gap 14 BUN 11 Creatinine 0.7 L Est GFR ( Amer) > 60 Est GFR (Non-Af Amer) > 60 Random Glucose 92 Calcium 8.8 Phosphorus 3.0 Magnesium 2.1 Total Bilirubin 0.6 AST 88 H D ALT 55 Alkaline Phosphatase 138 H Ammonia 10 D Total Protein 7.8 Albumin 3.8 Globulin 4.0 H Albumin/Globulin Ratio 1.0 Attending/Attestation - Attestation I have personally seen and examined this patient.: Yes I have fully participated in the care of the patient.: Yes I have reviewed all pertinent clinical information: Yes Notes (Text): Assessment * Episodes of confusion, with disorientation, needing frequent ativan, tachycardia suggestive of early dt, * Clinically dry. * Admitted for alcohol detox drinks 12 large beer daily. Plan * Labs * IVF * Continue vitamins * scheduled bzd without taper, add prn bzd, till disorientation, tachycardia, tremors improve. * Gi/DVT prophylaxis.
[2017-07-30 06:00] LABS: BASO % 0.3 % (0.0-2.0); EOS % 1.2 % (0.0-4.0); HEMOGLOBIN 12.4 g/dL (12.0-18.0); LYMPH # 1.6 K/uL (1.0-4.3); LYMPH % 39.1 % (20.0-40.0); MEAN CELL VOLUME 88.4 fL (80.0-94.0); MEAN CORPUSCULAR HEMOGLOBIN 29.8 pg (27.0-31.0); MEAN CORPUSCULAR HGB CONC 33.7 g/dL (33.0-37.0); MEAN PLATELET VOLUME 8.5 fL (7.2-11.7); MONO # 0.5 K/uL (0.0-0.8); MONO % 11.3 % (0.0-10.0); NEUT # 1.9 K/uL (1.8-7.0); NEUT % 48.1 % (50.0-75.0); NRBC % 0.1 % (0.0-2.0); RBC 4.15 Mil/uL (4.40-5.90)
[2017-07-30 06:16] VITALS: RESP 20
[2017-07-30 07:17] LABS: ALBUMIN 3.8 g/dL (3.5-5.0); ALT/SGPT 55 U/L (21-72); AST/SGOT 88 U/L (17-59); BLOOD UREA NITROGEN 11 mg/dL (9-20); CALCIUM 8.8 mg/dl (8.6-10.4); GFR AFRICAN-AMERICAN > 60; GFR NON-AFRICAN AMERICAN > 60
--- NOTE | 2017-07-30 08:49 | CARD ---
APPROVED REPORT EKG Measurement Heart [id number] <Conclusion> Normal sinus rhythm Normal ECG
[2017-07-30] MEDS: Multiple Vitamins Tab PO SCH (09:32)
[2017-07-30] MEDS: Pantoprazole 40 mg EC Tab PO SCH (09:33)
[2017-07-30] MEDS ORDERED: Petrolatum Oint Foilpak (5 gm) TOP PRN (10:48)
--- NOTE | 2017-07-30 10:52 | CP.PCM.PN ---
Subjective - Date & Time of Evaluation Date of Evaluation: 07/30/17 Time of Evaluation: 07:00 - Subjective Subjective: PGY1- Medicine Note Patient seen and examined at bedside and in no acute distress. Patient says he is slightly anxious and shaky. Patient is confused and says it is July 09, 2017 --Mother's day. Patient knows he is in [place]. Patient is unsure where he is, but finally is able to say he is in the hospital. Patient admits to some generalized abdominal pain. Patient denies any nausea, vomiting, constipation, or diarrhea. Patient ate breakfast with no problems. Objective - Vital Signs/Intake and Output Vital Signs (last 24 hours): Temp Pulse Resp BP Pulse Ox 98.1 F 93 H 20 128/86 98 07/30/17 07:05 07/30/17 08:14 07/30/17 07:05 07/30/17 07:05 07/30/17 07:05 - Medications Medications: Current Medications Clonidine HCl (Catapres) 0.1 mg PO Q4H PRN PRN Reason: Symptoms of alcohol withdrawl Emollient Ointment (Vaseline Oint) 5 gm TOP BID PRN PRN Reason: Dry skin Folic Acid (Folic Acid) 1 mg PO DAILY [facility] Last Admin: 07/30/17 09:32 Dose: 1 mg Lorazepam (Ativan) 2 mg PO Q8H [facility] PRN Reason: Taper Stop: 08/02/17 10:29 Last Admin: 07/30/17 09:32 Dose: 2 mg Lorazepam (Ativan) 2 mg PO Q4H PRN PRN Reason: Symptoms of alcohol withdrawl Multivitamins (Hexavitamin) 1 tab PO DAILY [facility] Last Admin: 07/30/17 09:32 Dose: 1 tab Pantoprazole Sodium (Protonix Ec Tab) 40 mg PO DAILY [facility] Last Admin: 07/30/17 09:33 Dose: 40 mg Quetiapine Fumarate (Seroquel) 100 mg PO HS [facility] Last Admin: 07/29/17 21:36 Dose: 100 mg Thiamine HCl (Vitamin B1 Tab) 100 mg PO DAILY [facility] Last Admin: 07/30/17 09:33 Dose: 100 mg Trazodone HCl (Desyrel) 50 mg PO HS PRN PRN Reason: Insomnia Last Admin: 07/29/17 23:17 Dose: 50 mg - Labs Labs: 07/30/17 05:55 07/30/17 05:55 PT 13.1 SECONDS (9.7-12.2) H 07/27/17 08:19 INR 1.1 07/27/17 08:19 APTT 30 SECONDS (21-34) 07/27/17 08:19 - Constitutional Appears: Non-toxic, No Acute Distress, Confused - Head Exam Head Exam: ATRAUMATIC, NORMAL INSPECTION, NORMOCEPHALIC - Eye Exam Eye Exam: EOMI, Normal appearance Pupil Exam: NORMAL ACCOMODATION - ENT Exam ENT Exam: Mucous Membranes Moist - Neck Exam Neck Exam: Full ROM. absent: Lymphadenopathy, Tenderness - Respiratory Exam Respiratory Exam: Clear to Ausculation Bilateral, NORMAL BREATHING PATTERN. absent: Rales, Rhonchi, Wheezes, Respiratory Distress, Stridor - Cardiovascular Exam Cardiovascular Exam: Tachycardia, REGULAR RHYTHM, +S1, +S2 - GI/Abdominal Exam GI & Abdominal Exam: Soft, Tenderness, Normal Bowel Sounds. absent: Firm, Guarding - Extremities Exam Extremities Exam: Normal Inspection. absent: Pedal Edema, Tenderness - Neurological Exam Neurological Exam: Alert, Awake. absent: Oriented x3 Additional comments: tremulous - Psychiatric Exam Psychiatric exam: Anxious, Normal Affect - Skin Skin Exam: Intact, Normal Color, Warm Assessment and Plan - Assessment and Plan (Free Text) Assessment: EtOH withdrawal -transfered to tele -continue 1:1 -tachycardia present on exam; no AV hallucinations, no elevated BP, mild tremor -[facility] protocol -thiamine/folate/ multivitamins daily -Clonidine .1mg po q4h prn -Ativan taper -Ativan 2mg po q4h prn -Seroquel 100mg po HS -Trazodone 50mg po HS -Gabapentin 100mg po TID (started on 07/30/17) Thrombocytopenia Platelets: 53 2/2 alcohol abuse continue to monitor Prophylaxis -SCD; VTE prophylaxis contraindicated 2/2 thrombocytopenia -GI prophylaxis not indicated
--- NOTE | 2017-07-30 11:31 | PCM.PYCHPN ---
Psychiatric Progress Note - Psychiatric Progress Note Patient seen today, length of contact: 20 min Patient Chief Complaint: "I'm fine" Problems Identified/Issues Discussed: The pt is seen, chart reviewed, case discussed with staff. Support given, CBT and [place] used briefly No new symptoms reported, improving slowly and needs more time No SEs from medications, risks discussed. After care discussed Pt was transferred to medical floor over night Pt was very confused today, over night pt was hallucinating, and touching his roommate's feet Medication Change: Yes (Detox changes daily) Medical Record Reviewed: Yes Mental Status Examination - Cognitive Function Orientation: Person, Place, Situation, Time Memory: Impaired Attention: Poor Concentration: Poor Association: WNL Fund of Knowledge: Poor - Mood Mood: Depressed, Anxious - Affect Affect: Constricted - Speech Speech: Appropriate - Formal Thought Process Formal Thought Process: No Impairment - Suicidal Ideation Suicidal Ideation: No - Homicidal Ideation Homicidal Ideation: No Goal/Treatment Plan - Goal/Treatment Plan Need for Continued Stay: Discharge may exacerbated symptoms, Severe functional impairment Progress Toward Problem(s) and Goals/Treatment Plan: Ativan Taper Watch for developing DT or alcoholic hallucinosis Address chronic non-compliance As needed medications All risks, benefits and alternatives of the meds discussed, and the pt agreed and understood. Attend groups and activities Supportive therapy and psychoeducation [place] for abstinence CBT for relapse prevention Encourage MAT Refer to rehab (but has no ID), or IOP, and self-help groups Watch for delirium Seroquel for AVH and insomnia
[2017-07-31 08:19] LABS: BASO % 0.4 % (0.0-2.0); EOS # 0.1 K/uL (0.0-0.7); EOS % 1.5 % (0.0-4.0); HEMOGLOBIN 12.9 g/dL (12.0-18.0); LYMPH # 1.2 K/uL (1.0-4.3); MEAN CELL VOLUME 89.1 fL (80.0-94.0); MEAN CORPUSCULAR HEMOGLOBIN 29.9 pg (27.0-31.0); MEAN CORPUSCULAR HGB CONC 33.6 g/dL (33.0-37.0); MEAN PLATELET VOLUME 8.8 fL (7.2-11.7); MONO # 0.5 K/uL (0.0-0.8); MONO % 9.7 % (0.0-10.0); NEUT # 3.4 K/uL (1.8-7.0); NEUT % 65.4 % (50.0-75.0); NRBC % 0.1 % (0.0-2.0); RBC 4.31 Mil/uL (4.40-5.90); RED CELL DISTRIBUTION WIDTH 16.1 % (11.5-14.5); WHITE BLOOD COUNT 5.3 K/uL (4.8-10.8)
[2017-07-31 08:43] LABS: ALB/GLOB RATIO 0.9 (1.0-2.1); ALBUMIN 3.8 g/dL (3.5-5.0); ALT/SGPT 64 U/L (21-72); AST/SGOT 78 U/L (17-59); BLOOD UREA NITROGEN 11 mg/dL (9-20); CALCIUM 8.9 mg/dl (8.6-10.4); GFR AFRICAN-AMERICAN > 60; GFR NON-AFRICAN AMERICAN > 60
[2017-07-31] MEDS: Multiple Vitamins Tab PO SCH (10:32)
--- NOTE | 2017-07-31 11:42 | CP.PCM.PN ---
<Frances Latham - Last Filed: 07/31/17 19:25> Subjective - Date & Time of Evaluation Date of Evaluation: 07/31/17 Time of Evaluation: 07:00 - Subjective Subjective: PGY1 - Progress Note Patient seen and examined at bedside. Patient says he is feeling less shaky today. Patient says it is August 08, 2017. He immediately is able to tell me he is in a hospital. Patient is less confused than yesterday. He denies have any hallucinations since the night before last. Patient admits to mild abdominal pain. Patient denies any nausea, vomiting, constipation, or diarrhea. Objective - Vital Signs/Intake and Output Vital Signs (last 24 hours): Temp Pulse Resp BP Pulse Ox 98.1 F 100 H 20 125/86 97 07/31/17 08:00 07/31/17 08:00 07/31/17 08:00 07/31/17 08:00 07/31/17 08:00 - Medications Medications: Current Medications Clonidine HCl (Catapres) 0.1 mg PO Q4H PRN PRN Reason: Symptoms of alcohol withdrawl Emollient Ointment (Vaseline Oint) 0 gm TOP BID PRN PRN Reason: Dry skin Folic Acid (Folic Acid) 1 mg PO DAILY [facility] Last Admin: 07/31/17 10:32 Dose: 1 mg Gabapentin (Neurontin) 100 mg PO TID [facility] Last Admin: 07/31/17 10:32 Dose: 100 mg Lorazepam (Ativan) 2 mg PO Q12H [facility] PRN Reason: Taper Stop: 08/02/17 10:29 Last Admin: 07/31/17 10:32 Dose: 2 mg Lorazepam (Ativan) 2 mg PO Q4H PRN PRN Reason: Symptoms of alcohol withdrawl Last Admin: 07/30/17 23:35 Dose: 2 mg Multivitamins (Hexavitamin) 1 tab PO DAILY [facility] Last Admin: 07/31/17 10:32 Dose: 1 tab Quetiapine Fumarate (Seroquel) 100 mg PO HS [facility] Last Admin: 07/30/17 21:48 Dose: 100 mg Thiamine HCl (Vitamin B1 Tab) 100 mg PO DAILY [facility] Last Admin: 07/31/17 10:32 Dose: 100 mg Trazodone HCl (Desyrel) 50 mg PO HS PRN PRN Reason: Insomnia Last Admin: 07/29/17 23:17 Dose: 50 mg - Labs Labs: 07/31/17 08:12 07/31/17 08:12 PT 13.1 SECONDS (9.7-12.2) H 07/27/17 08:19 INR 1.1 07/27/17 08:19 APTT 30 SECONDS (21-34) 07/27/17 08:19 - Additional Findings Additional findings: - Constitutional Appears: Non-toxic, No Acute Distress, Confused - Head Exam Head Exam: ATRAUMATIC, NORMAL INSPECTION, NORMOCEPHALIC - Eye Exam Eye Exam: EOMI, Normal appearance Pupil Exam: NORMAL ACCOMODATION - ENT Exam ENT Exam: Mucous Membranes Moist - Neck Exam Neck Exam: Full ROM. absent: Lymphadenopathy, Tenderness - Respiratory Exam Respiratory Exam: Clear to Ausculation Bilateral, NORMAL BREATHING PATTERN. absent: Rales, Rhonchi, Wheezes, Respiratory Distress, Stridor - Cardiovascular Exam Cardiovascular Exam: Tachycardia, REGULAR RHYTHM, +S1, +S2 - GI/Abdominal Exam GI & Abdominal Exam: Soft, Tenderness, Normal Bowel Sounds. absent: Firm, Guarding - Extremities Exam Extremities Exam: Normal Inspection. absent: Pedal Edema, Tenderness - Neurological Exam Neurological Exam: Alert, Awake. absent: Oriented x3 Additional comments: tremulous - Psychiatric Exam Psychiatric exam: Anxious, Normal Affect - Skin Skin Exam: Intact, Normal Color, Warm Assessment and Plan - Assessment and Plan (Free Text) Assessment: EtOH withdrawal -transfered to [facility] 1:1 -tachycardia present on exam; no AV hallucinations, no elevated BP, mild tremor -[facility] protocol -thiamine/folate/ multivitamins daily -Clonidine .1mg po q4h prn -Ativan taper -Ativan 2mg po q4h prn -Seroquel 100mg po HS -Trazodone 50mg po HS -Gabapentin 100mg po TID (started on 07/30/17) Thrombocytopenia Platelets slightly improved to 81 from 53 2/2 alcohol abuse continue to monitor Prophylaxis -SCD; VTE prophylaxis contraindicated 2/2 thrombocytopenia -GI prophylaxis not indicated <Robbie Fernando - Last Filed: 07/31/17 19:51> Objective - Vital Signs/Intake and Output Vital Signs (last 24 hours): Temp Pulse Resp BP Pulse Ox 98.8 F 93 H 20 121/76 96 07/31/17 15:35 07/31/17 17:59 07/31/17 15:35 07/31/17 15:35 07/31/17 15:35 - Medications Medications: Current Medications Clonidine HCl (Catapres) 0.1 mg PO Q4H PRN PRN Reason: Symptoms of alcohol withdrawl Emollient Ointment (Vaseline Oint) 0 gm TOP BID PRN PRN Reason: Dry skin Folic Acid (Folic Acid) 1 mg PO DAILY [facility] Last Admin: 07/31/17 10:32 Dose: 1 mg Gabapentin (Neurontin) 100 mg PO TID [facility] Last Admin: 07/31/17 17:23 Dose: 100 mg Lorazepam (Ativan) 2 mg PO Q12H [facility] PRN Reason: Taper Stop: 08/02/17 10:29 Last Admin: 07/31/17 10:32 Dose: 2 mg Lorazepam (Ativan) 2 mg PO Q4H PRN PRN Reason: Symptoms of alcohol withdrawl Last Admin: 07/30/17 23:35 Dose: 2 mg Multivitamins (Hexavitamin) 1 tab PO DAILY [facility] Last Admin: 07/31/17 10:32 Dose: 1 tab Quetiapine Fumarate (Seroquel) 100 mg PO HS [facility] Last Admin: 07/30/17 21:48 Dose: 100 mg Thiamine HCl (Vitamin B1 Tab) 100 mg PO DAILY [facility] Last Admin: 07/31/17 10:32 Dose: 100 mg Trazodone HCl (Desyrel) 50 mg PO HS PRN PRN Reason: Insomnia Last Admin: 07/29/17 23:17 Dose: 50 mg - Labs Labs: 07/31/17 08:12 07/31/17 08:12 PT 13.1 SECONDS (9.7-12.2) H 07/27/17 08:19 INR 1.1 07/27/17 08:19 APTT 30 SECONDS (21-34) 07/27/17 08:19 Attending/Attestation - Attestation I have personally seen and examined this patient.: Yes I have fully participated in the care of the patient.: Yes I have reviewed all pertinent clinical information, including history, physical exam and plan: Yes
--- NOTE | 2017-07-31 14:53 | PCM.PYCHPN ---
Psychiatric Progress Note - Psychiatric Progress Note Patient seen today, length of contact: 18 min Patient Chief Complaint: "I'm feeling better" Problems Identified/Issues Discussed: The pt is seen, chart reviewed, case discussed with staff. The pt is compliant with medications and reports no side-effects. Symptoms are improving but needs more time to stabilize. After care discussed, support and psychoeducation given. Pt seemed less confused today, he appeared to be better Pt reported that he was having hallucinations of flies flying around him Medication Change: Yes (Detox changes daily) Medical Record Reviewed: Yes Mental Status Examination - Cognitive Function Orientation: Person, Place, Situation, Time Memory: Impaired Attention: Poor Concentration: Poor Association: WNL Fund of Knowledge: Poor - Mood Mood: Depressed, Anxious - Affect Affect: Constricted - Speech Speech: Appropriate - Formal Thought Process Formal Thought Process: No Impairment - Suicidal Ideation Suicidal Ideation: No - Homicidal Ideation Homicidal Ideation: No Goal/Treatment Plan - Goal/Treatment Plan Need for Continued Stay: Discharge may exacerbated symptoms, Severe functional impairment Progress Toward Problem(s) and Goals/Treatment Plan: Ativan Taper Watch for developing DT or alcoholic hallucinosis Address chronic non-compliance As needed medications All risks, benefits and alternatives of the meds discussed, and the pt agreed and understood. Attend groups and activities Supportive therapy and psychoeducation MO for abstinence CBT for relapse prevention Encourage MAT Refer to rehab (but has no ID), or IOP, and self-help groups Watch for delirium Seroquel for AVH and insomnia
[2017-07-31 16:39] VITALS: O2SAT 96
[2017-08-01 07:39] LABS: BASO % 0.4 % (0.0-2.0); EOS # 0.1 K/uL (0.0-0.7); EOS % 1.4 % (0.0-4.0); HEMOGLOBIN 12.7 g/dL (12.0-18.0); LYMPH # 1.7 K/uL (1.0-4.3); LYMPH % 33.7 % (20.0-40.0); MEAN CELL VOLUME 89.5 fL (80.0-94.0); MEAN CORPUSCULAR HEMOGLOBIN 30.3 pg (27.0-31.0); MEAN CORPUSCULAR HGB CONC 33.9 g/dL (33.0-37.0); MEAN PLATELET VOLUME 8.8 fL (7.2-11.7); MONO # 0.7 K/uL (0.0-0.8); MONO % 13.7 % (0.0-10.0); NEUT # 2.6 K/uL (1.8-7.0); NEUT % 50.8 % (50.0-75.0); NRBC % 0.1 % (0.0-2.0); RBC 4.17 Mil/uL (4.40-5.90); RED CELL DISTRIBUTION WIDTH 15.8 % (11.5-14.5); WHITE BLOOD COUNT 5.1 K/uL (4.8-10.8)
[2017-08-01 07:54] LABS: ALBUMIN 3.7 g/dL (3.5-5.0); ALT/SGPT 68 U/L (21-72); AST/SGOT 75 U/L (17-59); BLOOD UREA NITROGEN 13 mg/dL (9-20); CALCIUM 8.7 mg/dl (8.6-10.4); GFR AFRICAN-AMERICAN > 60; GFR NON-AFRICAN AMERICAN > 60
[2017-08-01 08:01] VITALS: BP 110/73; PULSE 73; TEMP 98.4
[2017-08-01] MEDS: Multiple Vitamins Tab PO SCH (09:46)
--- NOTE | 2017-08-01 10:17 | CP.PCM.PN ---
Subjective - Date & Time of Evaluation Date of Evaluation: 08/01/17 Time of Evaluation: 10:00 - Subjective Subjective: Patient was seen and examined at 10:00 AM 08/01/17 564 [address] Upon FULL ROS NO dysphagia/odynopahgia NO soreness in throat NO cough NO sinus/nasal congestion NO fever/chills NO muscle aches/pains NO joint pain NO chest pain/palpations NO SOB NO n/v/d/c: tolerating diet and moving bowels normally NO burning pain with urination NO KEITH NO lightheadedness/dizziness NO paresthesias NO new changes in vision NO new changes in hearing: he is also not hearing things that are not there NO more visual hallucination: he is no longer seeing flies Exam: General: AAOX3, NAD HEENT: NCA, EOMI, PERRLA, NO cervical/supraclavicular/submandibular lymphadenopathy, NO pharyngeal erythema/exudate, Nasal Turbinates are nonerythematous/nonedematous, Oral Mucosa is moist Cardio: NS1 and NS2, NO M/R/G Resp: CTA B/L, NO R/R/W GI: BSx4, Soft, NT, NO HSM, NO guarding/rebound tenderness Ext: Pulses are strong and equal, Capillary Refill is 2 seconds, NO edema, NO tremor noted Neuro: CN II through XII are grossly intact, NO issues with gait as I walked with him on the medical floor Assessments: 1). Alcohol Withdrawl: finishes Ativan Taper today. NO longer with visual hallucinations 2). Thrombocytopenia: likely secondary to the alcohol abuse Spoke with Psychiatry Dr. Rod and he recommends Seroquel to help patient sleep at night and his team will provide patient with information for [place] AA meetings. Patient is medically stable for discharge. The following instructions need to be provided to patient in [place]: 1). You stated that you do not have a primary care physician. Therefore schedule follow up with with the [facility] located at [facility] [address] in [place], [place] ) or with the [facility] located at [address] [place] [address] in [place], [place] ([phone]). They will help you coordinate your health care. 2). You were provided with information for Alcohol Anonymous in [place] by the Psychiatry Team. Please attend these meetings as this will increase your chances of staying away from alcohol and saving your life. 3). You were provided with the following prescription to help you sleep at night. Please have this filled at your pharmacy on your way from the hospital: Seroquel 100 mg, 1 tablet by mouth 1x/day at bedtime, Dispense #30, NO refills 4). Please take care of yourself and be well. Robbie Fernando D.O. Objective - Vital Signs/Intake and Output Vital Signs (last 24 hours): Temp Pulse Resp BP Pulse Ox 98.4 F 73 20 110/73 96 08/01/17 07:59 08/01/17 07:59 08/01/17 07:59 08/01/17 07:59 08/01/17 07:59 - Medications Medications: Current Medications Clonidine HCl (Catapres) 0.1 mg PO Q4H PRN PRN Reason: Symptoms of alcohol withdrawl Emollient Ointment (Vaseline Oint) 0 gm TOP BID PRN PRN Reason: Dry skin Folic Acid (Folic Acid) 1 mg PO DAILY [facility] Last Admin: 08/01/17 09:46 Dose: 1 mg Gabapentin (Neurontin) 100 mg PO TID [facility] Last Admin: 08/01/17 09:47 Dose: 100 mg Lorazepam (Ativan) 2 mg PO Q12H [facility] PRN Reason: Taper Stop: 08/02/17 10:29 Last Admin: 08/01/17 09:47 Dose: 2 mg Lorazepam (Ativan) 2 mg PO Q4H PRN PRN Reason: Symptoms of alcohol withdrawl Last Admin: 07/30/17 23:35 Dose: 2 mg Multivitamins (Hexavitamin) 1 tab PO DAILY [facility] Last Admin: 08/01/17 09:46 Dose: 1 tab Quetiapine Fumarate (Seroquel) 100 mg PO HS [facility] Last Admin: 07/31/17 21:44 Dose: 100 mg Thiamine HCl (Vitamin B1 Tab) 100 mg PO DAILY [facility] Last Admin: 08/01/17 09:46 Dose: 100 mg Trazodone HCl (Desyrel) 50 mg PO HS PRN PRN Reason: Insomnia Last Admin: 07/29/17 23:17 Dose: 50 mg - Labs Labs: 08/01/17 07:25 08/01/17 07:25 PT 13.1 SECONDS (9.7-12.2) H 07/27/17 08:19 INR 1.1 07/27/17 08:19 APTT 30 SECONDS (21-34) 07/27/17 08:19
--- NOTE | 2017-08-01 13:07 | CP.PCM.DIS ---
<Frances Latham - Last Filed: 08/01/17 12:41> Provider - Provider Date of Admission: 07/27/17 13:48 Attending physician: Robbie Fernando MD Consults: Psych (Dr. Rod) Time Spent in preparation of Discharge (in minutes): 40 Diagnosis - Discharge Diagnosis (1) Alcohol dependence with withdrawal Status: Acute (2) Thrombocytopenia Status: Acute Hospital Course - Lab Results Lab Results: Most Recent Lab Values WBC 5.1 K/uL (4.8-10.8) 08/01/17 07:25 RBC 4.17 Mil/uL (4.40-5.90) L 08/01/17 07:25 Hgb 12.7 g/dL (12.0-18.0) 08/01/17 07:25 Hct 37.4 % (35.0-51.0) 08/01/17 07:25 MCV 89.5 fL (80.0-94.0) 08/01/17 07:25 MCH 30.3 pg (27.0-31.0) 08/01/17 07:25 MCHC 33.9 g/dL (33.0-37.0) 08/01/17 07:25 RDW 15.8 % (11.5-14.5) H 08/01/17 07:25 Plt Count 99 K/uL (130-400) L 08/01/17 07:25 MPV 8.8 fL (7.2-11.7) 08/01/17 07:25 Neut % (Auto) 50.8 % (50.0-75.0) 08/01/17 07:25 Lymph % (Auto) 33.7 % (20.0-40.0) 08/01/17 07:25 [place] % (Auto) 13.7 % (0.0-10.0) H 08/01/17 07:25 Eos % (Auto) 1.4 % (0.0-4.0) 08/01/17 07:25 Baso % (Auto) 0.4 % (0.0-2.0) 08/01/17 07:25 Neut # (Auto) 2.6 K/uL (1.8-7.0) 08/01/17 07:25 Lymph # (Auto) 1.7 K/uL (1.0-4.3) 08/01/17 07:25 [place] # (Auto) 0.7 K/uL (0.0-0.8) 08/01/17 07:25 Eos # (Auto) 0.1 K/uL (0.0-0.7) 08/01/17 07:25 Baso # (Auto) 0.0 K/uL (0.0-0.2) 08/01/17 07:25 Differential Comment 07/27/17 08:19 PT 13.1 SECONDS (9.7-12.2) H 07/27/17 08:19 INR 1.1 07/27/17 08:19 APTT 30 SECONDS (21-34) 07/27/17 08:19 Sodium 142 mmol/L (132-148) 08/01/17 07:25 Potassium 3.8 mmol/L (3.6-5.2) 08/01/17 07:25 Chloride 106 mmol/L (98-107) 08/01/17 07:25 Carbon Dioxide 25 mmol/L (22-30) 08/01/17 07:25 Anion Gap 15 (10-20) 08/01/17 07:25 BUN 13 mg/dL (9-20) 08/01/17 07:25 Creatinine 0.7 mg/dL (0.8-1.5) L 08/01/17 07:25 Est GFR ( Amer) > 60 08/01/17 07:25 Est GFR (Non-Af Amer) > 60 08/01/17 07:25 Random Glucose 86 mg/dL (75-110) 08/01/17 07:25 Calcium 8.7 mg/dl (8.6-10.4) 08/01/17 07:25 Phosphorus 3.8 mg/dL (2.5-4.5) 08/01/17 07:25 Magnesium 2.0 mg/dL (1.6-2.3) 08/01/17 07:25 Total Bilirubin 0.6 mg/dL (0.2-1.3) 08/01/17 07:25 AST 75 U/L (17-59) H 08/01/17 07:25 ALT 68 U/L (21-72) 08/01/17 07:25 Alkaline Phosphatase 92 U/L (38-126) 08/01/17 07:25 Ammonia 10 umol/L (9-33) D 07/30/17 05:55 Troponin I < 0.0120 ng/mL (0.00-0.120) 07/27/17 08:19 Total Protein 7.5 g/dL (6.3-8.3) 08/01/17 07:25 Albumin 3.7 g/dL (3.5-5.0) 08/01/17 07:25 Globulin 3.8 gm/dL (2.2-3.9) 08/01/17 07:25 Albumin/Globulin Ratio 1.0 (1.0-2.1) 08/01/17 07:25 Lipase 263 U/L (23-300) 07/27/17 08:19 Urine Color Yellow (YELLOW) 07/27/17 08:19 Urine Clarity Clear (Clear) 07/27/17 08:19 Urine pH 5.0 (5.0-8.0) 07/27/17 08:19 Ur Specific [place] 1.021 (1.003-1.030) 07/27/17 08:19 Urine Protein Negative mg/dL (NEGATIVE) 07/27/17 08:19 Urine Glucose (UA) Normal mg/dL (Normal) 07/27/17 08:19 Urine Ketones Trace mg/dL (NEGATIVE) 07/27/17 08:19 Urine Blood 1+ (NEGATIVE) H 07/27/17 08:19 Urine Nitrate Negative (NEGATIVE) 07/27/17 08:19 Urine Bilirubin Negative (NEGATIVE) 07/27/17 08:19 Urine Urobilinogen 2.0 mg/dL (0.2-1.0) 07/27/17 08:19 Ur Leukocyte Esterase Neg Brent/uL (Negative) 07/27/17 08:19 Urine WBC (Auto) 1 /hpf (0-5) 07/27/17 08:19 Urine RBC (Auto) 5 /hpf (0-3) H 07/27/17 08:19 Ur Squamous Epith Cells < 1 /hpf (0-5) 07/27/17 08:19 Urine Opiates Screen Negative (NEGATIVE) 07/27/17 08:19 Urine Methadone Screen Negative (NEGATIVE) 07/27/17 08:19 Ur Barbiturates Screen Negative (NEGATIVE) 07/27/17 08:19 Ur Phencyclidine Scrn Negative (NEGATIVE) 07/27/17 08:19 Ur Amphetamines Screen Negative (NEGATIVE) 07/27/17 08:19 U Benzodiazepines Scrn Negative (NEGATIVE) 07/27/17 08:19 U Oth Cocaine Metabols Negative (NEGATIVE) 07/27/17 08:19 U Cannabinoids Screen Negative (NEGATIVE) 07/27/17 08:19 Alcohol, Quantitative 237 mg/dl (0-10) H 07/27/17 08:19 - Hospital Course Hospital Course: HPI: "This patient is a 37yo M w/ a PMhx of EtOH abuse/dependence who was in detox who started to develop hallucinations as per nursing staff. They state he was not making any sense, and requesting his shoes to go home as he needed to go to work. However, when the patient was interviewed he was ANOx3, with intact fund of knowledge. He had mild tachycardia. He denies any audio/visual hallucinations, feelings to hurt himself or others, and understands why he is in detox from a situation that he created and is here to help himself. He denies any current fevers/chills, KEITH, CP, SOB, abdominal pain, N/V/D, dysuria/ freq/urg or lower extremity pain/swelling. He states that he feels slightly anxious and mildly tremulous." Patient was transferred from detox to telemetry and placed on 1:1. Patient was given Ativan, Clonidine, Thiamine, Folate, multivitamins, Seroquel, and Trazodone if needed for sleep. Patient was originally confused about the date and where he was, but each day became more oriented. Upon discharge patient knew the date, where he was, the city and the state. Patient had not had any hallucinations in over 24 hours. Patient was no longer feeling agitated or anxious and was no longer tremulous. Patient was explained importance of alcohol cessation and provided with information for alcohol anonymous. Patient was also found to have thrombocytopenia most likely secondary to alcohol abuse, which was slightly improved upon discharge. This is a summary of the patient's hospital course, please see chart for full details. Discharge Exam - Additional Findings Additional findings: - Constitutional Appears: Non-toxic, No Acute Distress, Confused - Head Exam Head Exam: ATRAUMATIC, NORMAL INSPECTION, NORMOCEPHALIC - Eye Exam Eye Exam: EOMI, Normal appearance Pupil Exam: NORMAL ACCOMODATION - ENT Exam ENT Exam: Mucous Membranes Moist - Neck Exam Neck Exam: Full ROM. absent: Lymphadenopathy, Tenderness - Respiratory Exam Respiratory Exam: Clear to Ausculation Bilateral, NORMAL BREATHING PATTERN. absent: Rales, Rhonchi, Wheezes, Respiratory Distress, Stridor - Cardiovascular Exam Cardiovascular Exam: Tachycardia, REGULAR RHYTHM, +S1, +S2 - GI/Abdominal Exam GI & Abdominal Exam: Soft, Tenderness, Normal Bowel Sounds. absent: Firm, Guarding - Extremities Exam Extremities Exam: Normal Inspection. absent: Pedal Edema, Tenderness - Neurological Exam Neurological Exam: Alert, Awake, Oriented x3 - Psychiatric Exam Psychiatric exam: Anxious, Normal Affect - Skin Skin Exam: Intact, Normal Color, Warm Discharge Plan - Discharge Medications Prescriptions: QUEtiapine [Seroquel] 100 mg PO HS #30 tab - Follow Up Plan Condition: STABLE Disposition: HOME/ ROUTINE Instructions: Alcohol Withdrawal (DC), Alcohol Abuse and Alcoholism (DC), Quetiapine, Effects of Alcohol on Your Health Additional Instructions: The following instructions need to be provided to patient in [place]: 1). You stated that you do not have a primary care physician. Therefore schedule follow up with with the [facility] located at [facility] [address] in [place], [place] ([phone]) or with the [facility] located at [address] [place] [address] in [place], [place] ([phone]). They will help you coordinate your health care. 2). You were provided with information for Alcohol Anonymous in [place] by the Psychiatry Team. Please attend these meetings as this will increase your chances of staying away from alcohol and saving your life. 3). You were provided with the following prescription to help you sleep at night. Please have this filled at your pharmacy on your way from the hospital: Seroquel 100 mg, 1 tablet by mouth 1x/day at bedtime, Dispense #30, NO refills 4). Please take care of yourself and be well. Programar el seguimiento con [facility] ubicado en [facility] [address] en [place], [place] ([phone] ) o con [facility] ubicado en [address] [facility] [facility] en [place], [place] ( [phone]). Lo ayudarn a coordinar dillon atencin mdica. El equipo de psiquiatra le proporcion informacin sobre Alcohol annimo en espaol. Asista a estas reuniones ya que esto aumentar calos posibilidades de mantenerse alejado del alcohol y salvarle la artemio. Se le proporcion la siguiente receta para ayudarlo a dormir por la noche. Por favor, llnelo en dillon farmacia en el bimal desde el hospital: Seroquel 100 mg, 1 tableta por va oral 1x / da a la hora de acostarse, Suministro # 30, NO recambios Por favor cudate y mantente bayron. <Robbie Fernando - Last Filed: 08/01/17 19:21> Provider - Provider Date of Admission: 07/27/17 13:48 Attending physician: Robbie Fernando MD Hospital Course - Lab Results Lab Results: Most Recent Lab Values WBC 5.1 K/uL (4.8-10.8) 08/01/17 07:25 RBC 4.17 Mil/uL (4.40-5.90) L 08/01/17 07:25 Hgb 12.7 g/dL (12.0-18.0) 08/01/17 07:25 Hct 37.4 % (35.0-51.0) 08/01/17 07:25 MCV 89.5 fL (80.0-94.0) 08/01/17 07:25 MCH 30.3 pg (27.0-31.0) 08/01/17 07:25 MCHC 33.9 g/dL (33.0-37.0) 08/01/17 07:25 RDW 15.8 % (11.5-14.5) H 08/01/17 07:25 Plt Count 99 K/uL (130-400) L 08/01/17 07:25 MPV 8.8 fL (7.2-11.7) 08/01/17 07:25 Neut % (Auto) 50.8 % (50.0-75.0) 08/01/17 07:25 Lymph % (Auto) 33.7 % (20.0-40.0) 08/01/17 07:25 [place] % (Auto) 13.7 % (0.0-10.0) H 08/01/17 07:25 Eos % (Auto) 1.4 % (0.0-4.0) 08/01/17 07:25 Baso % (Auto) 0.4 % (0.0-2.0) 08/01/17 07:25 Neut # (Auto) 2.6 K/uL (1.8-7.0) 08/01/17 07:25 Lymph # (Auto) 1.7 K/uL (1.0-4.3) 08/01/17 07:25 [place] # (Auto) 0.7 K/uL (0.0-0.8) 08/01/17 07:25 Eos # (Auto) 0.1 K/uL (0.0-0.7) 08/01/17 07:25 Baso # (Auto) 0.0 K/uL (0.0-0.2) 08/01/17 07:25 Differential Comment 07/27/17 08:19 PT 13.1 SECONDS (9.7-12.2) H 07/27/17 08:19 INR 1.1 07/27/17 08:19 APTT 30 SECONDS (21-34) 07/27/17 08:19 Sodium 142 mmol/L (132-148) 08/01/17 07:25 Potassium 3.8 mmol/L (3.6-5.2) 08/01/17 07:25 Chloride 106 mmol/L (98-107) 08/01/17 07:25 Carbon Dioxide 25 mmol/L (22-30) 08/01/17 07:25 Anion Gap 15 (10-20) 08/01/17 07:25 BUN 13 mg/dL (9-20) 08/01/17 07:25 Creatinine 0.7 mg/dL (0.8-1.5) L 08/01/17 07:25 Est GFR ( Amer) > 60 08/01/17 07:25 Est GFR (Non-Af Amer) > 60 08/01/17 07:25 Random Glucose 86 mg/dL (75-110) 08/01/17 07:25 Calcium 8.7 mg/dl (8.6-10.4) 08/01/17 07:25 Phosphorus 3.8 mg/dL (2.5-4.5) 08/01/17 07:25 Magnesium 2.0 mg/dL (1.6-2.3) 08/01/17 07:25 Total Bilirubin 0.6 mg/dL (0.2-1.3) 08/01/17 07:25 AST 75 U/L (17-59) H 08/01/17 07:25 ALT 68 U/L (21-72) 08/01/17 07:25 Alkaline Phosphatase 92 U/L (38-126) 08/01/17 07:25 Ammonia 10 umol/L (9-33) D 07/30/17 05:55 Troponin I < 0.0120 ng/mL (0.00-0.120) 07/27/17 08:19 Total Protein 7.5 g/dL (6.3-8.3) 08/01/17 07:25 Albumin 3.7 g/dL (3.5-5.0) 08/01/17 07:25 Globulin 3.8 gm/dL (2.2-3.9) 08/01/17 07:25 Albumin/Globulin Ratio 1.0 (1.0-2.1) 08/01/17 07:25 Lipase 263 U/L (23-300) 07/27/17 08:19 Urine Color Yellow (YELLOW) 07/27/17 08:19 Urine Clarity Clear (Clear) 07/27/17 08:19 Urine pH 5.0 (5.0-8.0) 07/27/17 08:19 Ur Specific [place] 1.021 (1.003-1.030) 07/27/17 08:19 Urine Protein Negative mg/dL (NEGATIVE) 07/27/17 08:19 Urine Glucose (UA) Normal mg/dL (Normal) 07/27/17 08:19 Urine Ketones Trace mg/dL (NEGATIVE) 07/27/17 08:19 Urine Blood 1+ (NEGATIVE) H 07/27/17 08:19 Urine Nitrate Negative (NEGATIVE) 07/27/17 08:19 Urine Bilirubin Negative (NEGATIVE) 07/27/17 08:19 Urine Urobilinogen 2.0 mg/dL (0.2-1.0) 07/27/17 08:19 Ur Leukocyte Esterase Neg Brent/uL (Negative) 07/27/17 08:19 Urine WBC (Auto) 1 /hpf (0-5) 07/27/17 08:19 Urine RBC (Auto) 5 /hpf (0-3) H 07/27/17 08:19 Ur Squamous Epith Cells < 1 /hpf (0-5) 07/27/17 08:19 Urine Opiates Screen Negative (NEGATIVE) 07/27/17 08:19 Urine Methadone Screen Negative (NEGATIVE) 07/27/17 08:19 Ur Barbiturates Screen Negative (NEGATIVE) 07/27/17 08:19 Ur Phencyclidine Scrn Negative (NEGATIVE) 07/27/17 08:19 Ur Amphetamines Screen Negative (NEGATIVE) 07/27/17 08:19 U Benzodiazepines Scrn Negative (NEGATIVE) 07/27/17 08:19 U Oth Cocaine Metabols Negative (NEGATIVE) 07/27/17 08:19 U Cannabinoids Screen Negative (NEGATIVE) 07/27/17 08:19 Alcohol, Quantitative 237 mg/dl (0-10) H 07/27/17 08:19 Attending/Attestation - Attestation I have personally seen and examined this patient.: Yes I have fully participated in the care of the patient.: Yes I have reviewed all pertinent clinical information, including history, physical exam and plan: Yes Notes (Text): 08/01/17 19:21 Please also see my progress note 08/01/17. Robbie Fernando D.O.
== END 2017-08-01 13:45 | disposition home or self-care (01) ==
LOC: C.ER 06:35 → C.7D 13:48 → INTOOBSV 13:48 → C.7D 07-29 19:36 → C.5S 07-30 06:37
PROVIDERS: ADMIT Family Medicine; ATTEND Family Medicine
DX: F10.251 Alcohol dependence with alcohol-induced psychotic disorder with hallucinations (principal); D69.6 Thrombocytopenia, unspecified; F10.239 Alcohol dependence with withdrawal, unspecified; G47.00 Insomnia, unspecified; I10 Essential (primary) hypertension; K21.9 Gastro-esophageal reflux disease without esophagitis; Z91.19 Patient's noncompliance with other medical treatment and regimen; Y90.7 Blood alcohol level of 200-239 mg/100 ml
CPT/HCPCS: 36415; 80053; 81001; 82140; 83690; 83735; 84100; 84484; 85025; 85610; 85730; 93005; 96361; 96374; 96375; 99285; C9113; G0378; G0480; J2060; J2270; J2405; J7040

== ENCOUNTER 2017-10-24 12:57 | Emergency (ER) | payer MEDICAID, OTHER ==
[2017-10-24 12:58] VITALS: BMI 32.0
[2017-10-24] MEDS ORDERED: Sodium Chloride 0.9% 1,000 ML IV ONE (13:15)
[2017-10-24] MEDS ORDERED: Sodium Chloride 0.9% 1,000 ML ONE (13:37)
[2017-10-24 13:42] LABS: BASO % 0.9 % (0.0-2.0); EOS % 0.1 % (0.0-4.0); HEMOGLOBIN 14.2 g/dL (12.0-18.0); LYMPH # 2.1 K/uL (1.0-4.3); LYMPH % 53.8 % (20.0-40.0); MEAN CORPUSCULAR HEMOGLOBIN 29.5 pg (27.0-31.0); MEAN CORPUSCULAR HGB CONC 34.4 g/dL (33.0-37.0); MEAN PLATELET VOLUME 8.1 fL (7.2-11.7); MONO # 0.3 K/uL (0.0-0.8); MONO % 6.5 % (0.0-10.0); NEUT # 1.5 K/uL (1.8-7.0); NEUT % 38.7 % (50.0-75.0); NRBC % 0.3 % (0.0-2.0); RBC 4.81 Mil/uL (4.40-5.90); RED CELL DISTRIBUTION WIDTH 16.2 % (11.5-14.5); WHITE BLOOD COUNT 3.8 K/uL (4.8-10.8)
[2017-10-24 13:45] LABS: MEAN CELL VOLUME 85.6 fL (80.0-94.0)
[2017-10-24 13:55] LABS: ALB/GLOB RATIO 1.2 (1.0-2.1); ALBUMIN 4.3 g/dL (3.5-5.0); ALT/SGPT 35 U/L (21-72); AST/SGOT 71 U/L (17-59); BLOOD UREA NITROGEN 12 mg/dL (9-20); CALCIUM 7.8 mg/dl (8.6-10.4); GFR AFRICAN-AMERICAN > 60; GFR NON-AFRICAN AMERICAN > 60; LIPASE 227 U/L (23-300)
[2017-10-24 14:00] LABS: URINE BILIRUBIN NEGATIVE (NEGATIVE); URINE BLOOD 1+ (NEGATIVE); URINE CLARITY Clear (Clear); URINE COLOR Yellow (YELLOW); URINE GLUCOSE (UA) NORMAL (Normal); URINE LEUKOCYTE ESTERASE NEG Leu/uL (Negative); URINE PROTEIN NEGATIVE (NEGATIVE)
[2017-10-24 14:25] LABS: BARBITURATES, UR NEGATIVE (NEGATIVE); BENZODIAZEPINES, UR NEGATIVE (NEGATIVE); OPIATES, UR NEGATIVE (NEGATIVE); PHENCYCLIDINE, UR NEGATIVE (NEGATIVE)
[2017-10-24 15:24] VITALS: BP 135/86; PULSE 92; RESP 16; TEMP 98.2; O2SAT 96
--- NOTE | 2017-10-24 15:29 | C.PDOC ---
Time Seen by Provider: 10/24/17 13:08 Chief Complaint (Nursing): Abdominal Pain History Per: Patient Onset/Duration Of Symptoms: Days (1) Current Symptoms Are (Timing): Still Present Context: Other (Alcohol abuse) Severity: Moderate Quality Of Discomfort: Unable To Describe Associated Symptoms: Nausea, Vomiting Additional History Per: Prior Records Past Medical History Reviewed: Historical Data, Nursing Documentation, Vital Signs Vital Signs: Last Vital Signs Temp 98.2 F 10/24/17 15:24 Pulse 92 H 10/24/17 15:24 Resp 16 10/24/17 15:24 BP 135/86 10/24/17 15:24 Pulse Ox 96 10/24/17 15:24 - Medical History PMH: Gastritis, HTN, Seizures Surgical History: No Surg Hx - [facility] Procedures CLOSURE SKIN & SUBCUTANEOUS NEC (11/10/14) DETOXIFICATION SERVICES FOR SUBSTANCE ABUSE TREATMENT (11/01/16) GROUP REFINISHER FOR SUBSTANCE ABUSE TREATMENT, PSYCHOEDUCATION (02/16/16) INDIV PSYCHOTHERAPY FOR SUBSTANCE ABUSE TREATMENT, SUPPORT (11/01/16) INDIV PSYCHOTHERAPY FOR SUBSTANCE ABUSE, COGNITIV BEHAVIORAL (11/01/16) INDIV PSYCHOTHERAPY FOR SUBSTANCE ABUSE, PSYCHOEDUCATION (11/01/16) TETANUS TOXOID ADMINIST (11/10/14) Family History: States: Unknown Family Hx - Social History Hx Tobacco Use: No Hx Alcohol Use: Yes Hx Substance Use: No - Immunization History Hx Tetanus Toxoid Vaccination: Yes (2014) Hx Influenza Vaccination: Yes Hx Pneumococcal Vaccination: No Review Of Systems Constitutional: Negative for: Fever Cardiovascular: Negative for: Chest Pain Respiratory: Negative for: Shortness of Breath Gastrointestinal: Positive for: Nausea, Vomiting, Abdominal Pain. Negative for : Diarrhea, Constipation, Melena, Hematochezia, Hematemesis Genitourinary: Negative for: Dysuria Musculoskeletal: Negative for: Neck Pain, Back Pain Skin: Negative for: Rash Neurological: Negative for: Weakness, Numbness, Seizures, Headache Psych: Negative for: Psychosis, Suicidal ideation Physical Exam - Physical Exam Appears: Non-toxic, No Acute Distress Skin: Normal Color, Warm, Dry, No Rash Head: Atraumatic, Normacephalic Eye(s): bilateral: PERRL, EOMI Oral Mucosa: Moist Neck: Normal ROM, Supple Cardiovascular: Rhythm Regular Respiratory: Normal Breath Sounds, No Accessory Muscle Use Gastrointestinal/Abdominal: Soft, Tenderness (mild, nonspecific), No Distention , No Guarding, No Rebound Back: No CVA Tenderness Extremity: Normal ROM, No Pedal Edema, No Calf Tenderness Neurological/Psych: Oriented x3, Normal Motor, Normal Sensation, Other (No tremors) Gait: Steady ED Course And Treatment - Laboratory Results Result Diagrams: 10/24/17 13:36 10/24/17 13:36 O2 Sat by Pulse Oximetry: 96 Pulse Ox Interpretation: Normal Progress Note: Pt was requesting detox from alcohol. Pt was evaluated by the roll scale worker who d/w Dr. Rod. They states that pt does not require inpatient detox and recommend outpatient follow up. Pt feels better after meds. AAOx3. Clinically sober. Ambulating with a steady gait. Reassessment Condition: Improved Progress - Interventions Interventions:: Observation, Intravenous fluid - Medications Administered Intravenous: Antiemetic - Data Reviewed Data Reviewed: Lab, Old records - Patient Status Patient status: Mostly improved - Continuity of Care Discussed patient case with:: Patient, ED Nurse - Patient Plan Patient Plan: Discharge, F/U with PCP, Continue present meds Disposition Counseled Patient/Family Regarding: Studies Performed, Diagnosis, Need For Followup, Rx Given - Disposition Referrals: at [facility] [Outside] Disposition: HOME/ ROUTINE Disposition Time: 15:31 Condition: IMPROVED Additional Instructions: Cut down on alcohol consumption gradually. Follow up in the clinic for further evaluation and treatment. Return to the ER if you develop bleeding, seizure, shaking, confusion, worsening of symptoms or if you have any other concerns. Prescriptions: Metoclopramide [Reglan] 1 tab PO TID PRN #15 tab PRN Reason: Nausea/Vomiting Pantoprazole Sodium [Protonix] 40 mg PO DAILY #14 ect Instructions: Alcohol Abuse and Alcoholism (DC) Print Language: POLISH - Clinical Impression Clinical Impression: Alcohol abuse, Gastritis
== END 2017-10-24 15:41 | disposition home or self-care (01) ==
LOC: C.ER 12:57
DX: K29.70 Gastritis, unspecified, without bleeding (principal); F10.10 Alcohol abuse, uncomplicated; Y90.8 Blood alcohol level of 240 mg/100 ml or more
CPT/HCPCS: 80053; 80320; 80324; 80345; 80346; 80349; 80353; 80358; 80361; 81001; 83690; 83992; 85025; 96361; 96374; 96375; 99285; C9113; J2765; J7030

== ENCOUNTER 2017-10-28 18:15 | Emergency (ER) | payer MEDICAID, OTHER ==
[2017-10-28 18:15] VITALS: BMI 32.0
[2017-10-28 18:52] VITALS: RESP 18
--- NOTE | 2017-10-28 19:04 | C.PDOC ---
History Of Present Illness 37 year old male presents to the ED requesting alcohol detox. Patient states he drinks daily. Patient denies SI/HI, hallucinations, fever, CP, SOB. Time Seen by Provider: 10/28/17 19:03 Chief Complaint (Nursing): Abdominal Pain History Per: Patient History/Exam Limitations: intoxication Onset/Duration Of Symptoms: Hrs Current Symptoms Are (Timing): Still Present Context: Other (Alcohol) Location Of Pain/Discomfort: Diffuse Radiation Of Pain To:: None Quality Of Discomfort: "Pain" Associated Symptoms: denies: Fever, Nausea, Vomiting, Diarrhea Exacerbating Factors: Other (alcohol) Alleviating Factors: None Recent travel outside of the [place]: No Past Medical History Reviewed: Historical Data, Nursing Documentation, Vital Signs Vital Signs: Last Vital Signs Temp 98.9 F 10/28/17 20:14 Pulse 74 10/28/17 20:14 Resp 18 10/28/17 20:14 BP 121/70 10/28/17 20:14 Pulse Ox 99 10/28/17 20:14 - Medical History PMH: Gastritis, HTN, Seizures Denies: Diabetes, Hepatitis, HIV, Sexually Transmitted Disease Surgical History: No Surg Hx - [facility] Procedures CLOSURE SKIN & SUBCUTANEOUS NEC (11/10/14) DETOXIFICATION SERVICES FOR SUBSTANCE ABUSE TREATMENT (11/01/16) GROUP PAINTER INTERIOR FINISH FOR SUBSTANCE ABUSE TREATMENT, PSYCHOEDUCATION (02/16/16) INDIV PSYCHOTHERAPY FOR SUBSTANCE ABUSE TREATMENT, SUPPORT (11/01/16) INDIV PSYCHOTHERAPY FOR SUBSTANCE ABUSE, COGNITIV BEHAVIORAL (11/01/16) INDIV PSYCHOTHERAPY FOR SUBSTANCE ABUSE, PSYCHOEDUCATION (11/01/16) TETANUS TOXOID ADMINIST (11/10/14) Family History: States: Unknown Family Hx - Social History Hx Tobacco Use: No Hx Alcohol Use: Yes Hx Substance Use: No - Immunization History Hx Tetanus Toxoid Vaccination: Yes (2014) Hx Influenza Vaccination: Yes Hx Pneumococcal Vaccination: No Review Of Systems Constitutional: Negative for: Fever, Chills Cardiovascular: Negative for: Chest Pain, Palpitations Respiratory: Negative for: Shortness of Breath Gastrointestinal: Negative for: Nausea, Vomiting Skin: Negative for: Rash Neurological: Negative for: Weakness, Numbness Psych: Negative for: Depression, Suicidal ideation Physical Exam - Physical Exam Appears: Non-toxic, No Acute Distress Skin: Warm, Dry Head: Normacephalic Eye(s): bilateral: Normal Inspection Oral Mucosa: Moist Neck: Supple Chest: Symmetrical Cardiovascular: Rhythm Regular Respiratory: No Rales, No Rhonchi, No Wheezing Gastrointestinal/Abdominal: Soft, No Tenderness, No Guarding, No Rebound Extremity: No Tenderness, No Swelling Extremity: Bilateral: Atraumatic, Normal Color And Temperature, Normal ROM Neurological/Psych: Oriented x3, Normal Speech Gait: Steady ED Course And Treatment O2 Sat by Pulse Oximetry: 98 (ON RA) Pulse Ox Interpretation: Normal Progress Note: Patient was told that no detox beds were available. Spoke with finish repair worker who saw the patient and gave him a list of phone numbers and directions for detox centers in the area. Patient was encouraged to call before. Disposition Counseled Patient/Family Regarding: Studies Performed, Diagnosis, Need For Followup - Disposition Referrals: [facility] [Outside] [facility] [Outside] Disposition: HOME/ ROUTINE Disposition Time: 19:04 Condition: FAIR Additional Instructions: Please call the detox centers for possible placement Instructions: Alcohol Abuse and Alcoholism (DC) Forms: [employer] [facility] (Sri Lankan) - Clinical Impression Clinical Impression: Alcohol dependence - Scribe Statement The provider has reviewed the documentation as recorded by the Scribe Danial Ruano All medical record entries made by the Scribe were at my direction and personally dictated by me. I have reviewed the chart and agree that the record accurately reflects my personal performance of the history, physical exam, medical decision making, and the department course for this patient. I have also personally directed, reviewed, and agree with the discharge instructions and disposition.
[2017-10-28] MEDS ORDERED: Pantoprazole 40 mg EC Tab PO ONE (20:11)
[2017-10-28] MEDS ORDERED: Pantoprazole 40 mg EC Tab PO STA (20:14)
[2017-10-28 20:15] VITALS: BP 121/70; PULSE 74; TEMP 98.9
[2017-10-28 20:21] VITALS: O2SAT 98
== END 2017-10-28 20:20 | disposition home or self-care (01) ==
LOC: C.ER 18:15
DX: F10.20 Alcohol dependence, uncomplicated (principal); Y90.9 Presence of alcohol in blood, level not specified

== ENCOUNTER 2017-10-29 05:55 | Emergency (ER) | payer MEDICAID, OTHER ==
[2017-10-29 05:56] VITALS: BMI 32.0
[2017-10-29 06:05] VITALS: TEMP 98
--- NOTE | 2017-10-29 06:31 | C.PDOC ---
History Of Present Illness <Yani Baez - Last Filed: 10/29/17 06:28> <Alison Bergeron - Last Filed: 10/29/17 07:22> 37 year old male presents to the ED wanting detox. Patient was seen at ED on at 19:00 wanting detox, patient stated his last drink was earlier today in the morning patient was D/C with information for detox centers. Patient later presented at [facility] ED at 22:00 stating he had abdominal pain, feeling shaky patient stated his last drink was yesterday. Patient had blood work, EKG and was D/C again with an initial alcohol level of 232. Patent presents to the ED again requesting detox stating his last drink was 3 days ago. Patient denies SI/HI,hallucinations, SOB, CP. (Yani Baez) History Per: Patient History/Exam Limitations: intoxication Onset/Duration Of Symptoms: Hrs Current Symptoms Are (Timing): Still Present Reports Recently: Seen In ED (at [facility] 19:00 and at [facility] ED at 22:00 both on 10/28/17) Recent travel outside of the [place]: No Additional History Per: Patient <Yani Baez - Last Filed: 10/29/17 06:28> <Alison Bergeron - Last Filed: 10/29/17 07:22> Time Seen by Provider: 10/29/17 06:20 Chief Complaint (Nursing): Medical Clearance Past Medical History Reviewed: Historical Data, Nursing Documentation, Vital Signs - Medical History PMH: Gastritis, HTN, Seizures Denies: Diabetes, Hepatitis, HIV, Sexually Transmitted Disease Surgical History: No Surg Hx Family History: States: Unknown Family Hx - Social History Hx Tobacco Use: No Hx Alcohol Use: Yes Hx Substance Use: No - Immunization History Hx Tetanus Toxoid Vaccination: Yes (2014) Hx Influenza Vaccination: Yes Hx Pneumococcal Vaccination: No <Yani Baez - Last Filed: 10/29/17 06:28> Vital Signs: Last Vital Signs Temp 98 F 10/29/17 06:01 Pulse 86 10/29/17 07:17 Resp 20 10/29/17 07:17 BP 132/84 10/29/17 07:17 Pulse Ox 100 10/29/17 07:17 - [facility] Procedures CLOSURE SKIN & SUBCUTANEOUS NEC (11/10/14) DETOXIFICATION SERVICES FOR SUBSTANCE ABUSE TREATMENT (11/01/16) GROUP CUT OFF MAN FOR SUBSTANCE ABUSE TREATMENT, PSYCHOEDUCATION (02/16/16) INDIV PSYCHOTHERAPY FOR SUBSTANCE ABUSE TREATMENT, SUPPORT (11/01/16) INDIV PSYCHOTHERAPY FOR SUBSTANCE ABUSE, COGNITIV BEHAVIORAL (11/01/16) INDIV PSYCHOTHERAPY FOR SUBSTANCE ABUSE, PSYCHOEDUCATION (11/01/16) TETANUS TOXOID ADMINIST (11/10/14) Review Of Systems Constitutional: Negative for: Fever, Chills Cardiovascular: Negative for: Chest Pain, Palpitations Respiratory: Negative for: Cough Gastrointestinal: Negative for: Nausea, Vomiting Skin: Negative for: Rash Psych: Negative for: Depression, Suicidal ideation <Sapira,Valdi - Last Filed: 10/29/17 06:28> Physical Exam - Physical Exam Appears: Non-toxic, No Acute Distress Skin: Warm, Dry Head: Normacephalic Eye(s): bilateral: Normal Inspection Neck: Supple Chest: Symmetrical Cardiovascular: Rhythm Regular Respiratory: No Rales, No Rhonchi, No Wheezing Gastrointestinal/Abdominal: Soft, No Tenderness, No Guarding, No Rebound Extremity: No Tenderness, No Swelling Extremity: Bilateral: Atraumatic, Normal Color And Temperature, Normal ROM Neurological/Psych: Oriented x3, Normal Speech, Other (minimal tremors noted consistent with previous visits) Gait: Steady <Sapira,Valdi - Last Filed: 10/29/17 06:28> ED Course And Treatment O2 Sat by Pulse Oximetry: 98 (ON RA) Pulse Ox Interpretation: Normal Progress Note: Plan: - Librium 100 mg PO <Sapira,Valdi - Last Filed: 10/29/17 06:28> Disposition <Sapira,Valdi - Last Filed: 10/29/17 06:28> - Disposition Disposition Time: 19:20 - POA Present On Arrival: None <Rubio,Alison A - Last Filed: 10/29/17 07:22> - Disposition Referrals: Non [facility] Provider, [Primary Care Provider] - Disposition: HOME/ ROUTINE Condition: STABLE Additional Instructions: FOLLOW UP IN THE MEDICAL CLINIC IN 1-2 DAYS RETURN TO EMERGENCY ROOM IF YOU HAVE ANY CONCERNING SYMPTOMS SEGUIMIENTO EN LA CLNICA MDICA EN 1-2 CARCAMO REGRESE AL YONY DE EMERGENCIA SI TIENE ALGUNOS SNTOMAS RELACIONADOS Instructions: Alcohol Abuse and Alcoholism (DC) Forms: [facility] (East Timorese) Print Language: MOLDOVAN - Clinical Impression Clinical Impression: Alcohol abuse - Scribe Statement The provider has reviewed the documentation as recorded by the Scribe <Yani Baez - Last Filed: 10/29/17 06:28> <Alison Bergeron - Last Filed: 10/29/17 07:22> - Scribe Statement Danial Ruano All medical record entries made by the Scribe were at my direction and personally dictated by me. I have reviewed the chart and agree that the record accurately reflects my personal performance of the history, physical exam, medical decision making, and the department course for this patient. I have also personally directed, reviewed, and agree with the discharge instructions and disposition. (Yani Baez) Addendum <Yani Baez - Last Filed: 10/29/17 06:28> <Alison Bergeron - Last Filed: 10/29/17 07:22> Addendum: 10/29/17 07:15 Patient resting comfortably, in no pain/distress. He is AAOx3, ambulating normally, without tremors. Vitals WNL. No detox bed available, patient discharged home and instructed to follow up in medical clinic in 1-2 days. (Alison Bergeron)
[2017-10-29 07:18] VITALS: BP 132/84; PULSE 86; RESP 20; O2SAT 100
== END 2017-10-29 07:31 | disposition home or self-care (01) ==
LOC: C.ER 05:55 → SUPCPDRO 05:55 → C.ER 07:31
DX: F10.10 Alcohol abuse, uncomplicated (principal); Y90.9 Presence of alcohol in blood, level not specified

== ENCOUNTER 2018-02-19 11:34 | Emergency (ER) | payer OTHER ==
[2018-02-19 11:35] VITALS: BMI 32.0
[2018-02-19] MEDS ORDERED: Sodium Chloride 0.9% 1,000 ML IV ONE ×2 (12:10→13:12)
[2018-02-19 12:21] LABS: BASO % 0.2 % (0.0-2.0); HEMOGLOBIN 14.3 g/dL (12.0-18.0); LYMPH # 1.3 K/uL (1.0-4.3); LYMPH % 21.2 % (20.0-40.0); MEAN CELL VOLUME 85.5 fL (80.0-94.0); MEAN CORPUSCULAR HGB CONC 33.9 g/dL (33.0-37.0); MEAN PLATELET VOLUME 7.7 fL (7.2-11.7); MONO # 0.3 K/uL (0.0-0.8); MONO % 4.5 % (0.0-10.0); NEUT # 4.4 K/uL (1.8-7.0); NEUT % 74.1 % (50.0-75.0); RBC 4.92 Mil/uL (4.40-5.90); RED CELL DISTRIBUTION WIDTH 14.6 % (11.5-14.5)
[2018-02-19] MEDS ORDERED: Sodium Chloride 0.9% 1,000 ML ONE ×2 (12:24→13:18)
[2018-02-19 12:29] LABS: INR 1.3; PROTHROMBIN TIME 13.8 SECONDS (9.7-12.2)
[2018-02-19 12:36] LABS: ALB/GLOB RATIO 1.2 (1.0-2.1); ALBUMIN 4.3 g/dL (3.5-5.0); ALT/SGPT 40 U/L (21-72); AST/SGOT 65 U/L (17-59); BLOOD UREA NITROGEN 12 mg/dL (9-20); CALCIUM 7.8 mg/dl (8.6-10.4); GFR NON-AFRICAN AMERICAN > 60; LIPASE 218 U/L (23-300)
--- NOTE | 2018-02-19 13:08 | C.PDOC ---
History Of Present Illness 37 year old male presents to the emergency department with complaints of epigastric abdominal pain, nausea, and vomiting since yesterday after binge drinking alcohol. Patient also reports one episode of epistaxis today which is now resolved. Patient denies diarrhea, chest pain, shortness of breath, fever, dysuria, and hematuria. Time Seen by Provider: 02/19/18 12:04 Chief Complaint (Nursing): Abdominal Pain History Per: Patient History/Exam Limitations: no limitations Onset/Duration Of Symptoms: Days (1) Current Symptoms Are (Timing): Still Present Location Of Pain/Discomfort: Epigastric Quality Of Discomfort: "Pain" Associated Symptoms: Nausea, Vomiting, Other (abdominal pain). denies: Diarrhea, Urinary Symptoms Past Medical History Reviewed: Historical Data, Nursing Documentation, Vital Signs Vital Signs: Last Vital Signs Temp 97.7 F 02/19/18 11:38 Pulse 112 H 02/19/18 11:38 Resp 19 02/19/18 11:38 BP 167/99 H 02/19/18 11:38 Pulse Ox 96 02/19/18 11:38 - Medical History PMH: Gastritis, HTN, Seizures Denies: Diabetes, Hepatitis, HIV, Sexually Transmitted Disease Surgical History: No Surg Hx - [facility] Procedures CLOSURE SKIN & SUBCUTANEOUS NEC (11/10/14) DETOXIFICATION SERVICES FOR SUBSTANCE ABUSE TREATMENT (11/01/16) GROUP CATERING ADMINISTRATIVE ASSISTANT FOR SUBSTANCE ABUSE TREATMENT, PSYCHOEDUCATION (02/16/16) INDIV PSYCHOTHERAPY FOR SUBSTANCE ABUSE TREATMENT, SUPPORT (11/01/16) INDIV PSYCHOTHERAPY FOR SUBSTANCE ABUSE, COGNITIV BEHAVIORAL (11/01/16) INDIV PSYCHOTHERAPY FOR SUBSTANCE ABUSE, PSYCHOEDUCATION (11/01/16) TETANUS TOXOID ADMINIST (11/10/14) Family History: States: Unknown Family Hx - Social History Hx Tobacco Use: No Hx Alcohol Use: Yes Hx Substance Use: No - Immunization History Hx Tetanus Toxoid Vaccination: Yes (2014) Hx Influenza Vaccination: No Hx Pneumococcal Vaccination: No Review Of Systems Except As Marked, All Systems Reviewed And Found Negative. Constitutional: Negative for: Fever, Chills Cardiovascular: Negative for: Chest Pain Respiratory: Negative for: Shortness of Breath Gastrointestinal: Positive for: Nausea, Vomiting, Abdominal Pain. Negative for: Diarrhea Genitourinary: Negative for: Dysuria, Hematuria Physical Exam - Physical Exam Appears: Non-toxic, In Acute Distress (mildly uncomfortable) Skin: Warm, Dry Head: Atraumatic, Normacephalic Eye(s): bilateral: Normal Inspection, PERRL, EOMI Nose: No Epistaxis, Other (dried blood in nares bilaterally) Neck: Normal, Supple Chest: Symmetrical, No Deformity Cardiovascular: Rhythm Regular, No Murmur, Other (tachycardic) Respiratory: Normal Breath Sounds, No Rales, No Rhonchi, No Wheezing Gastrointestinal/Abdominal: Soft, Tenderness (epigastric tenderness, no Ocampo's), No Guarding, No Rebound Extremity: Normal ROM Neurological/Psych: Oriented x3, Normal Speech, Normal Cognition ED Course And Treatment - Laboratory Results Result Diagrams: 02/19/18 12:19 02/19/18 12:19 O2 Sat by Pulse Oximetry: 96 (RA) Pulse Ox Interpretation: Normal Progress Note: Plan: CMP. Lipase. Bloodwork. Protonix 40mg IVP. NaCl IV Fluids Disposition Counseled Patient/Family Regarding: Studies Performed, Diagnosis, Need For Fol lowup, Rx Given - Disposition Referrals: FAMILY PROVIDER,RADHA [Primary Care Provider] - [facility] [Outside] Disposition: HOME/ ROUTINE Disposition Time: 15:25 Condition: STABLE Additional Instructions: FOLLOW UP WITH YOUR DOCTOR/CLINIC IN 1-2 DAYS USE MEDICATIONS NEEDED RETURN TO EMERGENCY ROOM IF YOUR SYMPTOMS BECOME WORSE SEGUIR CON [place] MDICO / CLNICA EN 1-2 CARCAMO UTILICE MEDICAMENTOS COOPER SE NECESITE VUELVA A LA YONY DE EMERGENCIA SI IRMA SNTOMAS SE HACEN PEOR Prescriptions: Famotidine [Pepcid] 20 mg PO BID PRN #15 tab PRN Reason: abdominal Ondansetron [Zofran Odt] 4 mg PO Q8 PRN #15 odt PRN Reason: Nausea/Vomiting Instructions: Nausea and Vomiting, Adult (DC), Alcohol Abuse and Alcoholism (DC) Forms: [facility] (Malaysian) Print Language: SWEDISH - Clinical Impression Clinical Impression: Alcohol dependence, Nausea, Vomiting, Alcoholic gastritis - Scribe Statement The provider has reviewed the documentation as recorded by the Scribe (Chong Redding) Provider Attestation: All medical record entries made by the Scribe were at my direction and personally dictated by me. I have reviewed the chart and agree that the record accurately reflects my personal performance of the history, physical exam, medical decision making, and the department course for this patient. I have also personally directed, reviewed, and agree with the discharge instructions and disposition.
[2018-02-19 15:32] VITALS: BP 125/72; PULSE 91; RESP 20; TEMP 98.7; O2SAT 97
--- NOTE | 2018-02-21 14:16 | CARD ---
APPROVED REPORT Date of service: 02/19/2018 EKG Measurement Heart [id number] <Conclusion> Normal sinus rhythm with sinus arrhythmia Normal ECG
== END 2018-02-19 15:48 | disposition home or self-care (01) ==
LOC: C.ER 11:34
DX: K29.20 Alcoholic gastritis without bleeding (principal); F10.20 Alcohol dependence, uncomplicated; Y90.9 Presence of alcohol in blood, level not specified; R11.2 Nausea with vomiting, unspecified
CPT/HCPCS: 80053; 82948; 83690; 85025; 85610; 85730; 93005; 96361; 96374; 96375; 99284; C9113; J2060; J2405; J2765; J7030

== ENCOUNTER 2018-04-10 05:27 | Emergency (ER) | payer OTHER ==
[2018-04-10 05:29] VITALS: BMI 32.0
[2018-04-10 05:41] VITALS: O2SAT 96
[2018-04-10] MEDS ORDERED: Sodium Chloride 0.9% 1,000 ML IV ONE (06:10)
[2018-04-10] MEDS ORDERED: Sodium Chloride 0.9% 1,000 ML ONE (06:19)
[2018-04-10 06:32] LABS: BASO % 0.7 % (0.0-2.0); EOS % 0.2 % (0.0-4.0); HEMOGLOBIN 15.3 g/dL (12.0-18.0); LYMPH # 2.6 K/uL (1.0-4.3); LYMPH % 46.9 % (20.0-40.0); MEAN CELL VOLUME 87.2 fL (80.0-94.0); MEAN CORPUSCULAR HEMOGLOBIN 29.6 pg (27.0-31.0); MEAN CORPUSCULAR HGB CONC 33.9 g/dL (33.0-37.0); MONO # 0.4 K/uL (0.0-0.8); MONO % 7.9 % (0.0-10.0); NEUT # 2.5 K/uL (1.8-7.0); NEUT % 44.3 % (50.0-75.0); NRBC % 0.1 % (0.0-2.0); RBC 5.17 Mil/uL (4.40-5.90); RED CELL DISTRIBUTION WIDTH 15.5 % (11.5-14.5); WHITE BLOOD COUNT 5.6 K/uL (4.8-10.8)
--- NOTE | 2018-04-10 06:42 | C.PDOC ---
History Of Present Illness 37 year old male presents to the ER with abdominal pain, vomiting, and ETOH abuse. Patient claims he did not drink today. He has had many prior evaluations for ETOH abuse. Denies hematemesis or dark stools. <Dmitry Sanon - Last Filed: 04/10/18 07:18> History Per: Patient History/Exam Limitations: no limitations Onset/Duration Of Symptoms: Hrs Current Symptoms Are (Timing): Still Present Radiation Of Pain To:: None Quality Of Discomfort: Unable To Describe Associated Symptoms: Vomiting Exacerbating Factors: None Alleviating Factors: None Recent travel outside of the [place]: No <Dmitry Sanon - Last Filed: 04/10/18 07:18> <oIn Esquivel - Last Filed: 04/10/18 13:25> Time Seen by Provider: 04/10/18 05:49 Chief Complaint (Nursing): Abdominal Pain Past Medical History Reviewed: Historical Data, Nursing Documentation, Vital Signs Vital Signs: Last Vital Signs Temp 98.7 F 04/10/18 05:37 Pulse 120 H 04/10/18 05:37 Resp 20 04/10/18 05:37 BP 131/88 04/10/18 05:37 Pulse Ox 96 04/10/18 05:37 - Medical History PMH: Gastritis, HTN, Seizures Denies: Diabetes, Hepatitis, HIV, Sexually Transmitted Disease - [facility] Procedures CLOSURE SKIN & SUBCUTANEOUS NEC (11/10/14) DETOXIFICATION SERVICES FOR SUBSTANCE ABUSE TREATMENT (11/01/16) GROUP BORING MACHINE SET UP OPERATOR JIG FOR SUBSTANCE ABUSE TREATMENT, PSYCHOEDUCATION (02/16/16) INDIV PSYCHOTHERAPY FOR SUBSTANCE ABUSE TREATMENT, SUPPORT (11/01/16) INDIV PSYCHOTHERAPY FOR SUBSTANCE ABUSE, COGNITIV BEHAVIORAL (11/01/16) INDIV PSYCHOTHERAPY FOR SUBSTANCE ABUSE, PSYCHOEDUCATION (11/01/16) TETANUS TOXOID ADMINIST (11/10/14) Family History: States: Unknown Family Hx - Social History Hx Tobacco Use: No Hx Alcohol Use: Yes Hx Substance Use: No - Immunization History Hx Tetanus Toxoid Vaccination: Yes (2014) Hx Influenza Vaccination: No Hx Pneumococcal Vaccination: No <Dmitry Sanon - Last Filed: 04/10/18 07:18> Vital Signs: Last Vital Signs Temp 98.9 F 04/10/18 10:51 Pulse 96 H 04/10/18 10:51 Resp 17 04/10/18 10:51 BP 131/75 04/10/18 10:51 Pulse Ox 96 04/10/18 10:51 - [facility] Procedures CLOSURE SKIN & SUBCUTANEOUS NEC (11/10/14) DETOXIFICATION SERVICES FOR SUBSTANCE ABUSE TREATMENT (11/01/16) GROUP BORING MACHINE SET UP OPERATOR JIG FOR SUBSTANCE ABUSE TREATMENT, PSYCHOEDUCATION (02/16/16) INDIV PSYCHOTHERAPY FOR SUBSTANCE ABUSE TREATMENT, SUPPORT (11/01/16) INDIV PSYCHOTHERAPY FOR SUBSTANCE ABUSE, COGNITIV BEHAVIORAL (11/01/16) INDIV PSYCHOTHERAPY FOR SUBSTANCE ABUSE, PSYCHOEDUCATION (11/01/16) TETANUS TOXOID ADMINIST (11/10/14) <Ion Esquivel M - Last Filed: 04/10/18 13:25> Review Of Systems Constitutional: Negative for: Fever, Chills Cardiovascular: Negative for: Chest Pain, Palpitations Respiratory: Negative for: Cough, Shortness of Breath Gastrointestinal: Positive for: Vomiting, Abdominal Pain. Negative for: Hematemesis, Other (Dark stools) Neurological: Negative for: Weakness, Numbness <Dmitry Sanon E - Last Filed: 04/10/18 07:18> Physical Exam - Physical Exam Appears: Non-toxic, Other (Obese male, ETOH on breath, intoxicated) Skin: Normal Color, Warm, Dry Head: Atraumatic, Normacephalic Eye(s): bilateral: Normal Inspection Oral Mucosa: Moist Chest: Symmetrical, No Tenderness Cardiovascular: Rhythm Regular Respiratory: Normal Breath Sounds, No Rales, No Rhonchi, No Wheezing Gastrointestinal/Abdominal: Soft, No Tenderness, Other (Obese) Back: No CVA Tenderness Neurological/Psych: Oriented x3, Normal Speech <Dmitry Sanon E - Last Filed: 04/10/18 07:18> ED Course And Treatment - Laboratory Results Result Diagrams: 04/10/18 06:29 04/10/18 06:29 Lab Interpretation: Abnormal (etoh 347 H) O2 Sat by Pulse Oximetry: 96 Pulse Ox Interpretation: Normal - Radiology CXR: Interpreted by Me CXR Interpretation: Yes: No Acute Disease - Other Rad abd x 2 X-Ray: Interpreted by Me (normal stool/gas) <Dmitry Sanon - Last Filed: 04/10/18 07:18> - Laboratory Results Result Diagrams: 04/10/18 06:29 04/10/18 06:29 Lab Results: Total Bilirubin 0.5 mg/dL (0.2-1.3) 04/10/18 06:29 AST 47 U/L (17-59) 04/10/18 06:29 ALT 41 U/L (21-72) 04/10/18 06:29 Alkaline Phosphatase 92 U/L (38-126) 04/10/18 06:29 Total Protein 8.7 g/dL (6.3-8.3) H 04/10/18 06:29 Albumin 4.7 g/dL (3.5-5.0) 04/10/18 06:29 Globulin 4.0 gm/dL (2.2-3.9) H 04/10/18 06:29 Albumin/Globulin Ratio 1.2 (1.0-2.1) 04/10/18 06:29 Lipase 134 U/L (23-300) 04/10/18 06:29 Urine Color Straw (YELLOW) 04/10/18 08:07 Urine Clarity Clear (Clear) 04/10/18 08:07 Urine pH 5.0 (5.0-8.0) 04/10/18 08:07 Ur Specific [place] 1.005 (1.003-1.030) 04/10/18 08:07 Urine Protein Negative mg/dL (NEGATIVE) 04/10/18 08:07 Urine Glucose (UA) Normal mg/dL (Normal) 04/10/18 08:07 Urine Ketones Negative mg/dL (NEGATIVE) 04/10/18 08:07 Urine Blood 1+ (NEGATIVE) H 04/10/18 08:07 Urine Nitrate Negative (NEGATIVE) 04/10/18 08:07 Urine Bilirubin Negative (NEGATIVE) 04/10/18 08:07 Urine Urobilinogen Normal mg/dL (0.2-1.0) 04/10/18 08:07 Ur Leukocyte Esterase Neg Brent/uL (Negative) 04/10/18 08:07 Urine WBC (Auto) < 1 /hpf (0-5) 04/10/18 08:07 Urine RBC (Auto) < 1 /hpf (0-3) 04/10/18 08:07 Ur Squamous Epith Cells 2 /hpf (0-5) 04/10/18 08:07 Urine Bacteria Rare (<OCC) 04/10/18 08:07 <Ion Esquivel M - Last Filed: 04/10/18 13:25> Medical Decision Making Medical Decision Making: typical alcohol abuse etoh 347 H <Dmitry Sanon - Last Filed: 04/10/18 07:18> Medical Decision Making: Received patient in s/o pending reevaluation and sobriety. patient consuming sandwich ambulating with a steady gait patient discharged home to follow up with pmd within 2 days advised to decrease alcohol intake. <Ion Esquivel - Last Filed: 04/10/18 13:25> Disposition - Disposition Disposition Time: 07:00 <Dmitry Sanon - Last Filed: 04/10/18 07:18> Counseled Patient/Family Regarding: Studies Performed, Diagnosis, Need For Followup - Disposition Disposition Time: 13:25 <Ion Esquivel - Last Filed: 04/10/18 13:25> - Disposition Referrals: [facility] [Outside] Disposition: HOME/ ROUTINE Condition: STABLE Additional Instructions: follow up with medical clinic within 2 days call to make an appointment take medications as prescribed return to ER if symptoms worsens or progress Instructions: Alcohol Use - When Is Drinking a Problem?, Alcohol Abuse and Alcoholism (DC) Forms: [facility] (Sammarinese), General Discharge Instructions - Clinical Impression Clinical Impression: Alcohol abuse - Scribe Statement The provider has reviewed the documentation as recorded by the Scribe Lobito Krause All medical record entries made by the Scribe were at my direction and personally dictated by me. I have reviewed the chart and agree that the record accurately reflects my personal performance of the history, physical exam, medical decision making, and the department course for this patient. I have also personally directed, reviewed, and agree with the discharge instructions and disposition. <Dmitry Sanon E - Last Filed: 04/10/18 07:18> Physician Patient Turnover Patient Signed Over To: Ion Esquivel Handoff Comments: re-eval when sober <Dmitry Sanon - Last Filed: 04/10/18 07:18>
[2018-04-10 06:47] LABS: ALB/GLOB RATIO 1.2 (1.0-2.1); ALBUMIN 4.7 g/dL (3.5-5.0); ALT/SGPT 41 U/L (21-72); AST/SGOT 47 U/L (17-59); BLOOD UREA NITROGEN 5 mg/dL (9-20); CALCIUM 8.2 mg/dl (8.6-10.4); GFR NON-AFRICAN AMERICAN > 60; LIPASE 134 U/L (23-300)
[2018-04-10 07:24] VITALS: RESP 17
[2018-04-10 08:13] LABS: SQUAMOUS EPITHIAL 2 /hpf (0-5); URINE BACTERIA RARE (<OCC); URINE BILIRUBIN NEGATIVE (NEGATIVE); URINE BLOOD 1+ (NEGATIVE); URINE CLARITY Clear (Clear); URINE COLOR Straw (YELLOW); URINE GLUCOSE (UA) NORMAL (Normal); URINE LEUKOCYTE ESTERASE NEG Leu/uL (Negative); URINE PROTEIN NEGATIVE (NEGATIVE); URINE UROBILINOGEN NORMAL mg/dL (0.2-1.0)
[2018-04-10 10:56] VITALS: BP 131/75; PULSE 96; TEMP 98.9
--- NOTE | 2018-04-10 12:22 | RAD ---
Date of service: 04/10/2018 PROCEDURE: Radiographs of the chest and abdomen (obstructive series) HISTORY: abd pain COMPARISON: No prior. TECHNIQUE: AP radiograph of the chest, with upright and supine radiographs of the abdomen. FINDINGS: CHEST: Lungs: Clear. Cardiovascular: Normal size heart. No pulmonary vascular congestion. No aortic atherosclerotic calcification present Pleura: No pleural fluid. No pneumothorax. Other findings: None. ABDOMEN AND PELVIS: Bowel: There is moderate amount of stool in the colon. No evidence of mechanical obstruction. Free air: None. Bones: Unremarkable. Other findings: None. IMPRESSION: Constipation. No evidence of mechanical bowel obstruction. Clear lungs.
== END 2018-04-10 13:33 | disposition home or self-care (01) ==
LOC: C.ER 05:27
DX: F10.10 Alcohol abuse, uncomplicated (principal); Y90.8 Blood alcohol level of 240 mg/100 ml or more; I10 Essential (primary) hypertension
CPT/HCPCS: 74022; 80053; 80320; 81001; 82140; 82948; 83690; 85025; 96361; 96374; 96375; 99285; C9113; J2405; J7030

== ENCOUNTER 2018-04-15 04:43 | Emergency (ER) | payer OTHER ==
[2018-04-15 04:43] VITALS: BMI 32.0
[2018-04-15 04:53] VITALS: O2SAT 96
--- NOTE | 2018-04-15 05:10 | C.PDOC ---
History Of Present Illness The patient presents to the ED for evaluation of abdominal pain, nausea and vomiting which began around two days ago. Patient also reports headache. Patient admits to occasionally drinking beer. Otherwise, he denies fever, chills, di arrhea. Time Seen by Provider: 04/15/18 05:10 Chief Complaint (Nursing): Abdominal Pain History Per: Patient History/Exam Limitations: no limitations Onset/Duration Of Symptoms: Days (2) Current Symptoms Are (Timing): Still Present Severity: Mild Pain Scale Rating Of: 2 Location Of Pain/Discomfort: Diffuse Radiation Of Pain To:: None Quality Of Discomfort: "Pain" Associated Symptoms: Nausea, Vomiting. denies: Fever, Chills, Diarrhea Exacerbating Factors: None Alleviating Factors: None Last Bowel Movement: Today Recent travel outside of the [place]: No Additional History Per: Patient Past Medical History Reviewed: Historical Data, Nursing Documentation, Vital Signs Vital Signs: Last Vital Signs Temp 98.4 F 04/15/18 04:46 Pulse 121 H 04/15/18 04:46 Resp 17 04/15/18 04:46 BP 150/102 H 04/15/18 04:46 Pulse Ox 96 04/15/18 04:46 - Medical History PMH: Gastritis, HTN, Seizures Denies: Diabetes, Hepatitis, HIV, Chronic Kidney Disease, Sexually Transmitted Disease Surgical History: No Surg Hx - [facility] Procedures CLOSURE SKIN & SUBCUTANEOUS NEC (11/10/14) DETOXIFICATION SERVICES FOR SUBSTANCE ABUSE TREATMENT (11/01/16) GROUP COMPOUND FINISHER FOR SUBSTANCE ABUSE TREATMENT, PSYCHOEDUCATION (02/16/16) INDIV PSYCHOTHERAPY FOR SUBSTANCE ABUSE TREATMENT, SUPPORT (11/01/16) INDIV PSYCHOTHERAPY FOR SUBSTANCE ABUSE, COGNITIV BEHAVIORAL (11/01/16) INDIV PSYCHOTHERAPY FOR SUBSTANCE ABUSE, PSYCHOEDUCATION (11/01/16) TETANUS TOXOID ADMINIST (11/10/14) Family History: States: Unknown Family Hx - Social History Hx Tobacco Use: No Hx Alcohol Use: Yes Hx Substance Use: No - Immunization History Hx Tetanus Toxoid Vaccination: Yes (2014) Hx Influenza Vaccination: No Hx Pneumococcal Vaccination: No Review Of Systems Constitutional: Negative for: Fever, Chills Eyes: Negative for: Vision Change Cardiovascular: Negative for: Chest Pain, Palpitations Respiratory: Negative for: Cough, Shortness of Breath Gastrointestinal: Positive for: Nausea, Vomiting, Abdominal Pain. Negative for: Diarrhea, Constipation Genitourinary: Negative for: Dysuria, Frequency, Hematuria Skin: Negative for: Rash, Lesions, Jaundice, Bruising Neurological: Positive for: Headache. Negative for: Weakness, Numbness, Dizziness Physical Exam - Physical Exam Appears: Non-toxic, No Acute Distress Skin: Warm, Dry Head: Normacephalic Eye(s): bilateral: Normal Inspection Oral Mucosa: Moist Neck: Supple Chest: Symmetrical, No Deformity, No Tenderness Gastrointestinal/Abdominal: Soft, Tenderness (diffuse ), No Guarding, No R ebound, Other (tympanic to percussion ) Extremity: Normal ROM, Capillary Refill (less than 2 seconds ) Neurological/Psych: Oriented x3 ED Course And Treatment - Laboratory Results Result Diagrams: 04/15/18 06:20 O2 Sat by Pulse Oximetry: 96 (on RA) Pulse Ox Interpretation: Normal Progress Note: Bloodwork, urinalysis, EKG ordered and reviewed. Protonix IVP, Zofran IVP and IV Fluids given. Disposition Counseled Patient/Family Regarding: Studies Performed, Diagnosis - Disposition Disposition Time: 05:10 Condition: FAIR Forms: [facility] [employer] (Dominican) - Clinical Impression Clinical Impression: Nausea, Vomiting, Alcoholic gastritis - Scribe Statement The provider has reviewed the documentation as recorded by the Scribe (Franny Fernando) Provider Attestation: All medical record entries made by the Scribe were at my direction and personally dictated by me. I have reviewed the chart and agree that the record accurately reflects my personal performance of the history, physical exam, medical decision making, and the department course for this patient. I have also personally directed, reviewed, and agree with the discharge instructions and disposition. Physician Patient Turnover Patient Signed Over To: Duyen Jefferson Handoff Comments: pending labs, re-eval and dispositon
[2018-04-15] MEDS ORDERED: Sodium Chloride 0.9% 1,000 ML IV ONE (06:07)
[2018-04-15 06:23] LABS: BASO % 0.7 % (0.0-2.0); EOS % 0.1 % (0.0-4.0); HEMOGLOBIN 13.8 g/dL (12.0-18.0); LYMPH # 2.1 K/uL (1.0-4.3); LYMPH % 57.4 % (20.0-40.0); MEAN CELL VOLUME 87.1 fL (80.0-94.0); MEAN CORPUSCULAR HEMOGLOBIN 29.4 pg (27.0-31.0); MEAN CORPUSCULAR HGB CONC 33.8 g/dL (33.0-37.0); MEAN PLATELET VOLUME 8.3 fL (7.2-11.7); MONO # 0.3 K/uL (0.0-0.8); MONO % 7.1 % (0.0-10.0); NEUT # 1.3 K/uL (1.8-7.0); NEUT % 34.7 % (50.0-75.0); NRBC % 0.2 % (0.0-2.0); RBC 4.68 Mil/uL (4.40-5.90); RED CELL DISTRIBUTION WIDTH 15.3 % (11.5-14.5); WHITE BLOOD COUNT 3.7 K/uL (4.8-10.8)
[2018-04-15 06:44] LABS: ALB/GLOB RATIO 1.2 (1.0-2.1); ALBUMIN 4.3 g/dL (3.5-5.0); ALT/SGPT 47 U/L (21-72); AST/SGOT 71 U/L (17-59); BLOOD UREA NITROGEN 9 mg/dL (9-20); CALCIUM 7.7 mg/dl (8.6-10.4); GFR NON-AFRICAN AMERICAN > 60; LIPASE 220 U/L (23-300)
[2018-04-15 08:59] LABS: URINE BACTERIA RARE (<OCC); URINE BILIRUBIN NEGATIVE (NEGATIVE); URINE BLOOD 1+ (NEGATIVE); URINE CLARITY Clear (Clear); URINE COLOR Straw (YELLOW); URINE GLUCOSE (UA) NORMAL (Normal); URINE LEUKOCYTE ESTERASE NEG Leu/uL (Negative); URINE PROTEIN NEGATIVE (NEGATIVE); URINE UROBILINOGEN NORMAL mg/dL (0.2-1.0)
[2018-04-15 09:05] LABS: SQUAMOUS EPITHIAL < 1 /hpf (0-5)
[2018-04-15 09:41] VITALS: BP 133/82; PULSE 100; RESP 20; TEMP 98.7
[2018-04-15] MEDS ORDERED: Aluminum Hydroxide/Magnesium Hydroxide Susp (30 mL) PO STA (09:50)
[2018-04-15] MEDS ORDERED: Aluminum Hydroxide/Magnesium Hydroxide Susp (30 mL) ONE (09:57)
--- NOTE | 2018-04-17 15:53 | CARD ---
APPROVED REPORT Date of service: 04/15/2018 EKG Measurement Heart [id number] <Conclusion> Normal sinus rhythm Normal ECG
== END 2018-04-15 10:33 | disposition home or self-care (01) ==
LOC: C.ER 04:43
DX: K29.20 Alcoholic gastritis without bleeding (principal); R11.2 Nausea with vomiting, unspecified
CPT/HCPCS: 80053; 81001; 83690; 85025; 93005; 96361; 96374; 96375; 99284; C9113; J2405; J7030

== ENCOUNTER 2018-04-18 11:18 | Inpatient (IN) | payer MEDICAID, OTHER ==
[2018-04-18 11:18] VITALS: BMI 32.0
--- NOTE | 2018-04-18 11:43 | C.PDOC ---
History Of Present Illness 37 y/o male, with history of alcoholism, comes in to ED complaining of abdominal pain that is 6/10, and multiple episodes of vomiting for the past 2 days. States pain is mid-epigastric, radiating across the abdomen. Patient reports feeling nauseous but no fever or chills. States his last drink was 2 days ago. Patient appears tremulous and he states he is trying to stop drinking. Time Seen by Provider: 04/18/18 11:36 Chief Complaint (Nursing): Abdominal Pain History Per: Patient History/Exam Limitations: no limitations Onset/Duration Of Symptoms: Days Current Symptoms Are (Timing): Still Present Past Medical History Reviewed: Historical Data, Nursing Documentation, Vital Signs Vital Signs: Last Vital Signs Temp 99.1 F 04/18/18 11:34 Pulse 101 H 04/18/18 11:34 Resp 20 04/18/18 11:34 BP 148/89 04/18/18 11:34 Pulse Ox 97 04/18/18 11:34 - Medical History PMH: Gastritis, HTN, Seizures Denies: Diabetes, Hepatitis, HIV, Chronic Kidney Disease, Sexually Transmitted Disease - [facility] Procedures CLOSURE SKIN & SUBCUTANEOUS NEC (11/10/14) DETOXIFICATION SERVICES FOR SUBSTANCE ABUSE TREATMENT (11/01/16) GROUP MARKETING STRATEGIST FOR SUBSTANCE ABUSE TREATMENT, PSYCHOEDUCATION (02/16/16) INDIV PSYCHOTHERAPY FOR SUBSTANCE ABUSE TREATMENT, SUPPORT (11/01/16) INDIV PSYCHOTHERAPY FOR SUBSTANCE ABUSE, COGNITIV BEHAVIORAL (11/01/16) INDIV PSYCHOTHERAPY FOR SUBSTANCE ABUSE, PSYCHOEDUCATION (11/01/16) TETANUS TOXOID ADMINIST (11/10/14) Family History: States: No Known Family Hx - Social History Hx Tobacco Use: No Hx Alcohol Use: Yes Hx Substance Use: No - Immunization History Hx Tetanus Toxoid Vaccination: Yes (2014) Hx Influenza Vaccination: No Hx Pneumococcal Vaccination: No Review Of Systems Except As Marked, All Systems Reviewed And Found Negative. Constitutional: Negative for: Fever, Chills Cardiovascular: Negative for: Chest Pain Respiratory: Negative for: Cough, Shortness of Breath Gastrointestinal: Positive for: Nausea, Vomiting, Abdominal Pain (mid-epigastric region) Genitourinary: Negative for: Dysuria Skin: Negative for: Rash Neurological: Positive for: Headache Psych: Positive for: Withdrawal Physical Exam - Physical Exam Appears: Non-toxic, In Acute Distress (mild), Other (Tremulous) Skin: Warm, Dry Head: Atraumatic, Normacephalic Eye(s): bilateral: Normal Inspection Oral Mucosa: Moist Throat: Normal, No Erythema, No Exudate Neck: Supple Cardiovascular: Rhythm Regular, No Murmur Respiratory: Normal Breath Sounds, No Rales, No Rhonchi, No Wheezing Gastrointestinal/Abdominal: Tenderness (mild) Extremity: Bilateral: Atraumatic, Normal Color And Temperature, Normal ROM Neurological/Psych: Oriented x3, Normal Speech ED Course And Treatment - Laboratory Results Result Diagrams: 04/18/18 12:23 04/18/18 12:23 O2 Sat by Pulse Oximetry: 97 (RA) Pulse Ox Interpretation: Normal Medical Decision Making Medical Decision Making: Plan: --Bloodwork --Dextrose 1L IV with: Folic acid 1mg, Thiamine 100 mg, and Multivitamin 10 ml Disposition Discussed With Dr.: Erika Yin Counseled Patient/Family Regarding: Studies Performed, Diagnosis - Disposition Disposition: HOME/ ROUTINE Disposition Time: 13:51 Condition: GUARDED - Clinical Impression Clinical Impression: Alcohol withdrawal - Scribe Statement The provider has reviewed the documentation as recorded by the Favio Howard Provider Attestation: All medical record entries made by the Favio were at my direction and personally dictated by me. I have reviewed the chart and agree that the record accurately reflects my personal performance of the history, physical exam, medical decision making, and the department course for this patient. I have also personally directed, reviewed, and agree with the discharge instructions and disposition. Decision To Admit - Pt Status Changed To: Hospital Disposition Of: Inpatient - Admit Certification Admit to Inpatient:: After my assessment, the patient will require hospitalization for at least two midnights. This is because of the severity of symptoms shown, intensity of services needed, and/or the medical risk in this patient being treated as an outpatient. - InPatient: Physician Admission Certification:: patient with tremors and alcohol withdrawl. - . Bed Request Type: Telemetry Patient Diagnosis: Alcohol withdrawal
[2018-04-18] MEDS ORDERED: Folic Acid 1 MG, Thiamine 100 MG, Multivitamin (MVI) 10 ML in Dextrose 5% In Water 1,00... IV SCH ×2 (11:45→15:30)
[2018-04-18 12:33] LABS: BASO % 0.6 % (0.0-2.0); EOS % 0.1 % (0.0-4.0); HEMOGLOBIN 13.2 g/dL (12.0-18.0); LYMPH # 0.7 K/uL (1.0-4.3); LYMPH % 24.3 % (20.0-40.0); MEAN CORPUSCULAR HEMOGLOBIN 29.3 pg (27.0-31.0); MEAN CORPUSCULAR HGB CONC 33.7 g/dL (33.0-37.0); MEAN PLATELET VOLUME 8.7 fL (7.2-11.7); MONO # 0.2 K/uL (0.0-0.8); MONO % 7.3 % (0.0-10.0); NEUT # 1.9 K/uL (1.8-7.0); NEUT % 67.7 % (50.0-75.0); NRBC % 0.1 % (0.0-2.0); RBC 4.5 Mil/uL (4.40-5.90); RED CELL DISTRIBUTION WIDTH 15.2 % (11.5-14.5); WHITE BLOOD COUNT 2.9 K/uL (4.8-10.8)
[2018-04-18 12:42] LABS: SQUAMOUS EPITHIAL < 1 /hpf (0-5); URINE BILIRUBIN NEGATIVE (NEGATIVE); URINE BLOOD 1+ (NEGATIVE); URINE CLARITY Clear (Clear); URINE COLOR Yellow (YELLOW); URINE GLUCOSE (UA) NORMAL (Normal); URINE LEUKOCYTE ESTERASE NEG Leu/uL (Negative); URINE PROTEIN NEGATIVE (NEGATIVE); URINE UROBILINOGEN NORMAL mg/dL (0.2-1.0)
[2018-04-18 12:44] LABS: ALB/GLOB RATIO 1.2 (1.0-2.1); ALBUMIN 4.1 g/dL (3.5-5.0); ALT/SGPT 60 U/L (21-72); AST/SGOT 155 U/L (17-59); BLOOD UREA NITROGEN 7 mg/dL (9-20); CALCIUM 7.8 mg/dl (8.6-10.4); GFR NON-AFRICAN AMERICAN > 60; LIPASE 187 U/L (23-300)
[2018-04-18] MEDS: Folic Acid 1 MG, Thiamine 100 MG, Multivitamin (MVI) 10 ML in Dextrose 5% In Water 1,00... IV SCH (12:58)
[2018-04-18 13:02] LABS: BARBITURATES, UR NEGATIVE (NEGATIVE); BENZODIAZEPINES, UR NEGATIVE (NEGATIVE); OPIATES, UR NEGATIVE (NEGATIVE); PHENCYCLIDINE, UR NEGATIVE (NEGATIVE)
--- NOTE | 2018-04-18 15:30 | CP.PCM.HP ---
History of Present Illness - History of Present Illness History of Present Illness: CC: Chest Pain HP: 37 year old male PMHX alcohol abuse, dependence, gerd comes for chest pain. Patient reports the chest pain is located in the belly, radiates to the chest and to back, with associated nausea, and vomitting. Patient denies hemotypsis. Patient reports he drinks shots of vodka, last drink about two days ago. Patient also reports leg cramps that started today. Noted per review of EMR: patient has been in and out of the ER at least 2-3 times since 04/10/18. Patient negative for flu, and has an obstructive series on 04/10/18 which was significant for constipation. In the ED, given Ativan 1mg IV X1, and Zofran 8mg IV X1. PMhx: GERD, alcohol abuse, alcohol dependence Meds: Pepcid 20mg Allergies: Denies Surgeries: Denies FamHx: Denies Social: drinks 10-12 beers per day, and reports vodka shots has never had DT's when he withdraws, never had a seizure withdrawing, works multimedia manager, lives in [place] with two roommates. Denies smoking or other illicit drug use. Present on Admission - Present on Admission Any Indicators Present on Admission: No History of DVT/PE: No History of Uncontrolled Diabetes: No Urinary Catheter: No Decubitus Ulcer Present: No Review of Systems - Review of Systems Systems not reviewed;Unavailable: Intoxicated - Constitutional Constitutional: absent: Chills, Weight Loss, Weakness - EENT Eyes: absent: Blurred Vision, Change in Vision Nose/Mouth/Throat: absent: Epistaxis, Mouth Pain, Facial Pain - Cardiovascular Cardiovascular: Chest Pain, Dyspnea. absent: Leg Edema, Palpitations, Pedal Edema, Syncope - Respiratory Respiratory: absent: Cough, Dyspnea - Gastrointestinal Gastrointestinal: Abdominal Pain, Nausea, Vomiting. absent: Constipation, Diarrhea - Genitourinary Genitourinary: absent: Dysuria, Flank Pain, Hematuria - Musculoskeletal Musculoskeletal: absent: Joint Swelling, Numbness, Tingling - Integumentary Integumentary: absent: Sores, Striae - Neurological Neurological: Tremor. absent: Confusion, Convulsions, Headaches, Syncope - Psychiatric Psychiatric: absent: Anxiety, Auditory Hallucinations, Confusion, Hopelessness - Endocrine Endocrine: Palpitations. absent: Heat Intolorance, Polyphagia, Polyuria Past Patient History - Infectious Disease Hx of Infectious Diseases: None - Past Medical History & Family History Past Medical History?: Yes - Past Social History Smoking Status: Former Smoker Alcohol: > 2 Drinks/Day Drugs: Denies - CARDIAC Hx Cardiac Disorders: No - PULMONARY Hx Tuberculosis: No - NEUROLOGICAL Hx Seizures: Yes - HEENT Hx HEENT Problems: No - RENAL Hx Chronic Kidney Disease: No - ENDOCRINE/METABOLIC Hx Endocrine Disorders: No - HEMATOLOGICAL/ONCOLOGICAL Hx Human Immunodeficiency Virus (HIV): No - INTEGUMENTARY Hx Dermatological Problems: No - MUSCULOSKELETAL/RHEUMATOLOGICAL Hx Falls: No - GASTROINTESTINAL Hx Gastritis: Yes - GENITOURINARY/GYNECOLOGICAL Hx Sexually Transmitted Disorders: No - PSYCHIATRIC Hx Substance Use: No - SURGICAL HISTORY Hx Surgeries: No - ANESTHESIA Hx Anesthesia: No Hx Anesthesia Reactions: No Meds Allergies/Adverse Reactions: Allergies Allergy/AdvReac Type Severity Reaction Status Date / Time No Known Allergies Allergy Verified 04/18/18 11:35 Physical Exam - Constitutional Appears: Non-toxic, No Acute Distress Additional comments: unkempt, sweaty, obese - Head Exam Head Exam: NORMAL INSPECTION - Eye Exam Eye Exam: EOMI, PERRL - ENT Exam ENT Exam: Mucous Membranes Dry - Respiratory Exam Respiratory Exam: Clear to Auscultation Bilateral, NORMAL BREATHING PATTERN. absent: Rales, Rhonchi, Wheezes - Cardiovascular Exam Cardiovascular Exam: Tachycardia, +S1, +S2 - GI/Abdominal Exam GI & Abdominal Exam: Guarding, Normal Bowel Sounds, Soft. absent: Diminished Bowel Sounds, Distended, Firm, Rebound, Rigid, Tenderness - Extremities Exam Extremities exam: Positive for: pedal pulses present. Negative for: pedal edema, tenderness - Neurological Exam Neurological exam: Alert, CN II-XII Intact, Oriented x3 Additional comments: mild tremors on exam - Psychiatric Exam Psychiatric exam: Normal Affect, Normal Mood - Skin Skin Exam: Dry, Intact, Warm Results - Vital Signs Recent Vital Signs: Last Vital Signs Temp 98 F 04/18/18 14:09 Pulse 99 H 04/18/18 14:09 Resp 17 04/18/18 14:09 BP 136/87 04/18/18 14:09 Pulse Ox 97 04/18/18 14:35 - Labs Result Diagrams: 04/18/18 12:23 04/18/18 12:23 Labs: Laboratory Results - last 24 hr 04/18/18 04/18/18 04/18/18 12:23 12:23 12:23 WBC 2.9 L RBC 4.50 Hgb 13.2 Hct 39.2 MCV 87.0 MCH 29.3 MCHC 33.7 RDW 15.2 H Plt Count 89 L D MPV 8.7 Neut % (Auto) 67.7 Lymph % (Auto) 24.3 [place] % (Auto) 7.3 Eos % (Auto) 0.1 Baso % (Auto) 0.6 Neut # (Auto) 1.9 Lymph # (Auto) 0.7 L [place] # (Auto) 0.2 Eos # (Auto) 0.0 Baso # (Auto) 0.0 Differential Comment Sodium 135 Potassium 3.7 Chloride 98 Carbon Dioxide 25 Anion Gap 15 BUN 7 L Creatinine 0.6 L Est GFR ( Amer) > 60 Est GFR (Non-Af Amer) > 60 Random Glucose 105 Calcium 7.8 L Total Bilirubin 1.0 AST 155 H D ALT 60 Alkaline Phosphatase 118 Total Protein 7.6 Albumin 4.1 Globulin 3.5 Albumin/Globulin Ratio 1.2 Lipase 187 Urine Color Yellow Urine Clarity Clear Urine pH 7.0 Ur Specific [place] 1.006 Urine Protein Negative Urine Glucose (UA) Normal Urine Ketones Negative Urine Blood 1+ H Urine Nitrate Negative Urine Bilirubin Negative Urine Urobilinogen Normal Ur Leukocyte Esterase Neg Urine RBC (Auto) 4 H Ur Squamous Epith Cells < 1 Urine Opiates Screen Urine Methadone Screen Ur Barbiturates Screen Ur Phencyclidine Scrn Ur Amphetamines Screen U Benzodiazepines Scrn U Oth Cocaine Metabols U Cannabinoids Screen Alcohol, Quantitative 111 H 04/18/18 12:23 WBC RBC Hgb Hct MCV MCH MCHC RDW Plt Count MPV Neut % (Auto) Lymph % (Auto) [place] % (Auto) Eos % (Auto) Baso % (Auto) Neut # (Auto) Lymph # (Auto) [place] # (Auto) Eos # (Auto) Baso # (Auto) Differential Comment Sodium Potassium Chloride Carbon Dioxide Anion Gap BUN Creatinine Est GFR ( Amer) Est GFR (Non-Af Amer) Random Glucose Calcium Total Bilirubin AST ALT Alkaline Phosphatase Total Protein Albumin Globulin Albumin/Globulin Ratio Lipase Urine Color Urine Clarity Urine pH Ur Specific [place] Urine Protein Urine Glucose (UA) Urine Ketones Urine Blood Urine Nitrate Urine Bilirubin Urine Urobilinogen Ur Leukocyte Esterase Urine RBC (Auto) Ur Squamous Epith Cells Urine Opiates Screen Negative Urine Methadone Screen Negative Ur Barbiturates Screen Negative Ur Phencyclidine Scrn Negative Ur Amphetamines Screen Negative U Benzodiazepines Scrn Negative U Oth Cocaine Metabols Negative U Cannabinoids Screen Negative Alcohol, Quantitative Assessment & Plan (1) Chest pain Status: Acute Comment: AGUSTIN X EKG, 6 hours X3. Check cardiac risk factors: [id number], TSH, Lipid panel. Check chest xray (2) Alcohol withdrawal Status: Acute Comment: Patient abuses beer and vodka. will place on telemetry. Patient last drink was about 48-72 hours. Librium taper. Ativan PRN. LR with supplement banana bag (3) Abdominal pain Status: Acute Comment: prior history of gerd. obstructive series on 04/10/[address] abdomen/pelvis given alcohol hx considering gastritis, pancreatitis (4) Thrombocytopenia Status: Acute Comment: suspecting secondary to alcohol. will check HIV. Hold anticoagulation secondary to thrombocytopenia (5) Prophylactic measure Status: Acute Comment: Protonix 40mg IV q daily. hold chemical anticoagulation secondary to thrombocytopenia. check neurochecks. monitor on telemetry for 24 hours. IV fluids
[2018-04-18 16:45] LABS: CK-MB 1.01 ng/mL (0.0-3.38)
--- NOTE | 2018-04-18 16:47 | RAD ---
Date of service: 04/18/2018 HISTORY: chest pain COMPARISON: Comparison chest dated 07/20/2017 FINDINGS: LUNGS: Elevation right hemidiaphragm; rule out eventration. Minor bibasilar atelectasis. PLEURA: No significant pleural effusion identified, no pneumothorax apparent. CARDIOVASCULAR: No aortic atherosclerotic calcification present. Cardiomegaly. No pulmonary vascular congestion. OSSEOUS STRUCTURES: No significant abnormalities. VISUALIZED UPPER ABDOMEN: Normal. OTHER FINDINGS: None. IMPRESSION: Elevation right hemidiaphragm; rule out eventration. Minor bibasilar atelectasis.
[2018-04-18] MEDS ORDERED: Iodixanol 320 MG/ML 100 ML BOTTLE IV ONE (18:26)
[2018-04-18] MEDS: metroNIDAZOLE IV 500 mg/100 ml 500 MG/100 ML BAG IVPB SCH (21:45)
[2018-04-18] MEDS: Ciprofloxacin 400mg/200ml D5W 400 MG/200 ML BAG IVPB SCH (22:43)
[2018-04-19 01:39] LABS: CK-MB 0.58 ng/mL (0.0-3.38)
[2018-04-19] MEDS: metroNIDAZOLE IV 500 mg/100 ml 500 MG/100 ML BAG IVPB SCH ×3 (04:35→21:31)
[2018-04-19 04:47] LABS: CK-MB 0.55 ng/mL (0.0-3.38)
[2018-04-19] MEDS: Ciprofloxacin 400mg/200ml D5W 400 MG/200 ML BAG IVPB SCH ×2 (09:11→21:31)
[2018-04-19 12:09] LABS: BASO % 0.3 % (0.0-2.0); EOS % 0.8 % (0.0-4.0); HEMOGLOBIN 13.5 g/dL (12.0-18.0); LYMPH # 1.4 K/uL (1.0-4.3); LYMPH % 36.2 % (20.0-40.0); MEAN CELL VOLUME 88.4 fL (80.0-94.0); MEAN CORPUSCULAR HEMOGLOBIN 29.1 pg (27.0-31.0); MEAN CORPUSCULAR HGB CONC 32.9 g/dL (33.0-37.0); MEAN PLATELET VOLUME 8.7 fL (7.2-11.7); MONO # 0.4 K/uL (0.0-0.8); MONO % 9.2 % (0.0-10.0); NEUT % 53.5 % (50.0-75.0); NRBC % 0.1 % (0.0-2.0); RBC 4.63 Mil/uL (4.40-5.90); RED CELL DISTRIBUTION WIDTH 15.4 % (11.5-14.5); WHITE BLOOD COUNT 3.8 K/uL (4.8-10.8)
--- NOTE | 2018-04-19 12:11 | PCM.PSYCH ---
Initial Psychiatric Evaluation - Initial Psychiatric Evaluation Type of Admission: Voluntary Legal Status: Capacity Chief Complaint (in patient's own words): I am withdrawing from drinking.' History of Present Illness and Precipitating Events: Patient is a 37 year old male PMHX alcohol abuse, dependence, gerd comes for chest pain. Patient reports the chest pain is located in the belly, radiates to the chest and to back, with associated nausea, and vomitting. Today patient was consulted by psychiatry. Patient reports that he is drinking increasing amount of beers and shots of liquor. Yesterday he was drinking beers, when he developed chest pain and he came to the hospital. He reports withdrawal symptoms from drinking including nausea, anxiety, headaches, shakes. However he denies any feelings of hopelessness or helplessness. He denies any suicidal ideation and homicidal ideation. He denies any auditory or visual hallucination or any paranoia. Current Medications: Active Medications Generic Name Dose Route Start Last Admin Trade Name Freq PRN Reason Stop Dose Admin Chlordiazepoxide 25 mg 04/18/18 18:00 04/19/18 12:06 Librium PO 04/22/18 17:59 25 mg Q6 SOFI Administration Taper Folic Acid 1 mg/ Thiamine HCl 1,011.2 mls @ 250 mls/hr 04/18/18 13:00 04/18/18 12:58 100 mg/ Multivitamins/Vitamin IV 250 mls/hr C 10 ml/ Dextrose Q24H SOFI Administration Ciprofloxacin 400 mg in 200 mls @ 133 mls/hr 04/18/18 20:45 04/19/18 09:11 Cipro 400mg/200ml Dsw IVPB 133 mls/hr Q12H SOFI Administration Protocol Metronidazole 500 mg in 100 mls @ 100 mls/hr 04/18/18 20:45 04/19/18 12:06 Flagyl IVPB 100 mls/hr Q8H SOFI Administration Protocol Lorazepam 2 mg 04/18/18 14:30 Ativan IVP Q6H PRN withdrawal Ondansetron HCl 4 mg 04/18/18 14:22 Zofran Inj IVP Q4 PRN Nausea/Vomiting Pantoprazole Sodium 40 mg 04/18/18 15:30 04/19/18 09:12 Protonix Inj IVP 40 mg DAILY SOFI Administration Pneumococcal Polyvalent Vaccine 0.5 ml 04/21/18 10:00 Pneumovax 23 Vaccine IM 04/21/18 10:01 .ONCE ONE Past Psychiatric History - Past Psychiatric History Previous Treatment History: None Pertinent Medical Hx (Current Medical&Sleep Prob, Allergies): Allergies Allergy/AdvReac Type Severity Reaction Status Date / Time No Known Allergies Allergy Verified 04/18/18 11:35 Famotidine [Pepcid] 20 mg PO Q12 #20 tab 04/15/18 Ondansetron [Zofran] 4 mg PO Q8H #10 tab 04/15/18 Review of Systems - Review of Systems All systems: reviewed and no additional remarkable complaints except - Psychiatric Psychiatric: Anxiety, Irritability. absent: Suicidal Ideation Mental Status Examination - Personal Presentation Personal Presentation: Looks stated age - Affect Affect: Constricted - Motor Activity Motor Activity: Calm - Reliability in Providing Information Reliability in Providing Information: Fair - Speech Speech: Organized - Mood Mood: Anxious - Formal Thought Process Formal Thought Process: No Impairment - Obsessions/Compulsions Obsessions: No Compulsions: No - Cognitive Functions Orientation: Person, Place, Situation, Time Sensorium: Alert Attention/Concentration: Attentive Abstract Thinking: [place] Estimate of Intelligence: Below average Judgement: Imparied, as evidence by: Poor judgement, Intact, as evidence by: Insight regarding need for hospitalization - Risk Risk: Withdrawal, Diminished functioning - Limitations Limitations: Living alone DSM 5 DX - DSM 5 DSM 5 Diagnosis: Alcohol use disorder severe Alcohol withdrawal - Recommended/Plan of Treatment Treatment Recommendations and Plan of Treatment: Alcohol use disorder severe Alcohol withdrawal Supportive therapy, psychoeducation Ativan taper Withdrawal medications Patient psychiatrically stable and clear. - Smoking Cessation Smoking Cessation Initiated: No
[2018-04-19 12:29] LABS: ALB/GLOB RATIO 1.2 (1.0-2.1); ALBUMIN 4.3 g/dL (3.5-5.0); ALT/SGPT 48 U/L (21-72); AST/SGOT 87 U/L (17-59); BLOOD UREA NITROGEN 9 mg/dL (9-20); CALCIUM 8.5 mg/dl (8.6-10.4); GFR NON-AFRICAN AMERICAN > 60
[2018-04-19] MEDS: Multiple Vitamins Tab PO SCH (12:31)
--- NOTE | 2018-04-19 12:41 | CT ---
Date of service: 04/18/2018 PROCEDURE: CT Abdomen and Pelvis with contrast HISTORY: abdominal pain, alcohol hx COMPARISON: CT scan of the abdomen pelvis dated 11/13/2016. TECHNIQUE: Contrast dose: 100 mL Visipaque 320 Radiation dose: Total exam DLP = 1097.48 mGy-cm. This CT exam was performed using one or more of the following dose reduction techniques: Automated exposure control, adjustment of the mA and/or kV according to patient size, and/or use of iterative reconstruction technique. FINDINGS: LOWER THORAX: Unremarkable. LIVER: Diffuse hepatic steatosis. No gross lesion or ductal dilatation. GALLBLADDER AND BILE DUCTS: Unremarkable. PANCREAS: Unremarkable. No gross lesion or ductal dilatation. SPLEEN: Unremarkable. ADRENALS: Unremarkable. No mass. KIDNEYS AND URETERS: Unremarkable. No hydronephrosis. No solid mass. VASCULATURE: Unremarkable. No aortic aneurysm. No aortic atherosclerotic calcification or mural plaque present. BOWEL: Distal descending/proximal sigmoid colon thickening with mild surrounding inflammatory change. Dominantly sigmoid diverticulosis no obstruction. No gross mural thickening. APPENDIX: Normal appendix. PERITONEUM: Unremarkable. No free fluid. No free air. LYMPH NODES: Unremarkable. No enlarged lymph nodes. BLADDER: Unremarkable. REPRODUCTIVE: Unremarkable. BONES: No acute fracture. OTHER FINDINGS: None. IMPRESSION: Distal descending/proximal sigmoid infectious/inflammatory colitis with without early proximal sigmoid diverticulitis. Additional findings as above.
[2018-04-19] MEDS: Folic Acid 1 MG, Thiamine 100 MG, Multivitamin (MVI) 10 ML in Dextrose 5% In Water 1,00... IV SCH (13:39)
--- NOTE | 2018-04-19 18:26 | CP.PCM.PN ---
<YuniorGlo - Last Filed: 04/19/18 18:17> Subjective - Date & Time of Evaluation Date of Evaluation: 04/19/18 Time of Evaluation: 18:17 - Subjective Subjective: PGY-1 Medicine Progress Note for Dr. Yin's service Patient s/e at bedside. Reports mild abdominal pain. Denies fevers, chills, chest pain, sob, n/v, constipation or diarrhea, and dysuria. Objective - Vital Signs/Intake and Output Vital Signs (last 24 hours): Temp Pulse Resp BP Pulse Ox 98.1 F 72 20 125/80 98 04/19/18 15:00 04/19/18 15:00 04/19/18 15:00 04/19/18 15:00 04/19/18 15:00 Intake and Output: 04/19/18 04/19/18 06:59 18:59 Intake Total 100 Balance 100 - Medications Medications: Current Medications Chlordiazepoxide (Librium) 25 mg PO TID SOFI; Taper Stop: 04/22/18 17:59 Last Admin: 04/19/18 17:15 Dose: 25 mg Folic Acid (Folic Acid) 1 mg PO DAILY [facility] Last Admin: 04/19/18 12:31 Dose: 1 mg Folic Acid 1 mg/ Thiamine HCl 100 mg/ Multivitamins/Vitamin C 10 ml/ Dextrose 1,011.2 mls @ 250 mls/hr IV Q24H SOFI Last Admin: 04/19/18 13:39 Dose: 250 mls/hr Ciprofloxacin (Cipro 400mg/200ml Dsw) 400 mg in 200 mls @ 133 mls/hr IVPB Q12H SOFI; Protocol Last Admin: 04/19/18 09:11 Dose: 133 mls/hr Metronidazole (Flagyl) 500 mg in 100 mls @ 100 mls/hr IVPB Q8H SOFI; Protocol Last Admin: 04/19/18 12:06 Dose: 100 mls/hr Influenza Virus Vaccine (Flucelvax Quad [id number] Syr) 60 mcg IM .ONCE ONE Stop: 04/20/18 10:01 Lorazepam (Ativan) 2 mg IVP Q6H PRN PRN Reason: withdrawal Multivitamins (Hexavitamin) 1 tab PO DAILY [facility] Last Admin: 04/19/18 12:31 Dose: 1 tab Ondansetron HCl (Zofran Inj) 4 mg IVP Q4 PRN PRN Reason: Nausea/Vomiting Pantoprazole Sodium (Protonix Inj) 40 mg IVP DAILY [facility] Last Admin: 04/19/18 09:12 Dose: 40 mg Pneumococcal Polyvalent Vaccine (Pneumovax 23 Vaccine) 0.5 ml IM .ONCE ONE Stop: 04/21/18 10:01 Thiamine HCl (Vitamin B1 Tab) 100 mg PO DAILY [facility] Last Admin: 04/19/18 12:31 Dose: 100 mg Trazodone HCl (Desyrel) 50 mg PO HS PRN PRN Reason: Insomnia - Labs Labs: 04/19/18 11:54 04/19/18 11:54 - Constitutional Appears: Non-toxic, No Acute Distress - Head Exam Head Exam: NORMAL INSPECTION, NORMOCEPHALIC - Eye Exam Eye Exam: EOMI, Normal appearance. absent: Nystagmus, Scleral icterus - ENT Exam ENT Exam: Mucous Membranes Moist - Respiratory Exam Respiratory Exam: Clear to Ausculation Bilateral, NORMAL BREATHING PATTERN. absent: Rales, Rhonchi, Wheezes - Cardiovascular Exam Cardiovascular Exam: REGULAR RHYTHM, +S1, +S2. absent: Tachycardia - GI/Abdominal Exam GI & Abdominal Exam: Soft, Tenderness, Normal Bowel Sounds. absent: Distended, Firm, Guarding, Rigid - Extremities Exam Extremities Exam: Normal Inspection. absent: Calf Tenderness, Pedal Edema - Back Exam Back Exam: NORMAL INSPECTION. absent: CVA tenderness (L), CVA tenderness (R) - Neurological Exam Neurological Exam: Alert, Awake, Oriented x3 - Psychiatric Exam Psychiatric exam: Normal Affect, Normal Mood - Skin Skin Exam: Dry, Intact, Normal Color Assessment and Plan - Assessment and Plan (Free Text) Assessment: Patient is a 37 yo male w/ PMH of EtOH abuse and gerd admitted for chest pain.. Chest Pain trops x 3 negative EKG does not show any signs of ischemia Alcohol withdrawal Psych consulted: Dr. Reynoso- recs as below CIWA ATivan PRN Librium taper Zofran PRN MV/Thiamine/Folic acid po Trazodone 50mg po hs Abdominal Pain Lipase normal CT abdomen/pelvis: inflammatory colitis (refer to report for full details) Ciprofloxacin 400mg IVP q12 Flagyl 500mg IVP q8 Thrombocyotpenia/Neutropenia bone marrow suppression for increased etoh use educated patient GI ppx: protonix 40 iv daily DVT ppx: SCDs b/l Disposition: ADAT as tolerated, educate patient on etoh use, possible outpatient oral abx PGY-1 [facility] d/w Dr. Yin <AnnamariaErika V - Last Filed: 04/21/18 16:31> Objective - Vital Signs/Intake and Output Vital Signs (last 24 hours): Temp Pulse Resp BP Pulse Ox 98.4 F 75 20 132/96 H 96 04/21/18 07:00 04/21/18 07:00 04/21/18 07:00 04/21/18 07:00 04/21/18 07:00 Intake and Output: 04/21/18 04/21/18 06:59 18:59 Intake Total 1450 Balance 1450 - Labs Labs: 04/20/18 08:06 04/20/18 08:06 Assessment and Plan (1) Chest pain Status: Acute (2) Alcohol withdrawal Status: Acute (3) Abdominal pain Status: Acute (4) Thrombocytopenia Status: Acute (5) Prophylactic measure Status: Acute Attending/Attestation - Attestation I have personally seen and examined this patient.: Yes I have fully participated in the care of the patient.: Yes I have reviewed all pertinent clinical information, including history, physical exam and plan: Yes Notes (Text): This is late computer entry for 04/19/18. Patient seen, examined, and case discussed with remote medical coder. patient seen this morning. Patient is less tremulous on exam. Patient is sitting upright in the chair. Patient exhibits mild tenderness on exam but would like to try eating. D/C telemetry since patient's troponins are negative X3 and he will be 72 hours out of the window from monitoring for DTs. Patient is on empiric IV abx treatment for early acute diverticulitis noted on the prelim read on the CT scan. Assessment/plan (1) Chest pain (resolved) Status: Acute Comment: * AGUSTIN X3: negative * TSH normal * f/u chest xray * likely secondary to alcohol withdrawal (2) Alcohol withdrawal Status: Acute Comment: * Patient abuses beer and vodka. * D/c telemetry. * Patient last drink was about now 72 hours. * C/w Librium taper. Ativan PRN. * C/w LR with supplement banana bag (3) Abdominal pain Status: Acute Comment: * prior history of gerd. obstructive series on 04/10/18 for constipation. * Please refer to EMR for official report of Check Ct abdomen/pelvis * Lipase is normal (4) Thrombocytopenia Status: Acute Comment: * suspecting secondary bone marrow suppression secondary to alcohol. * will check HIV. Hold anticoagulation secondary to thrombocytopenia (5) Prophylactic measure Status: Acute Comment: * Protonix 40mg IV q daily. hold chemical anticoagulation secondary to thro mbocytopenia * d/c telemetry
[2018-04-20] MEDS: metroNIDAZOLE IV 500 mg/100 ml 500 MG/100 ML BAG IVPB SCH ×3 (04:35→20:32)
[2018-04-20 08:10] LABS: BASO % 0.5 % (0.0-2.0); EOS # 0.1 K/uL (0.0-0.7); HEMOGLOBIN 13.6 g/dL (12.0-18.0); LYMPH # 1.4 K/uL (1.0-4.3); LYMPH % 36.3 % (20.0-40.0); MEAN CELL VOLUME 88.8 fL (80.0-94.0); MEAN CORPUSCULAR HEMOGLOBIN 29.6 pg (27.0-31.0); MEAN CORPUSCULAR HGB CONC 33.3 g/dL (33.0-37.0); MONO # 0.3 K/uL (0.0-0.8); MONO % 8.3 % (0.0-10.0); NEUT # 2.1 K/uL (1.8-7.0); NEUT % 52.9 % (50.0-75.0); NRBC % 0.1 % (0.0-2.0); RBC 4.6 Mil/uL (4.40-5.90)
[2018-04-20 08:26] LABS: ALB/GLOB RATIO 1.1 (1.0-2.1); ALBUMIN 4.2 g/dL (3.5-5.0); ALT/SGPT 50 U/L (21-72); AST/SGOT 88 U/L (17-59); BLOOD UREA NITROGEN 9 mg/dL (9-20); CALCIUM 8.6 mg/dl (8.6-10.4); GFR NON-AFRICAN AMERICAN > 60
[2018-04-20] MEDS: Ciprofloxacin 400mg/200ml D5W 400 MG/200 ML BAG IVPB SCH ×2 (08:42→21:41)
--- NOTE | 2018-04-20 08:56 | CP.PCM.PN ---
Subjective - Date & Time of Evaluation Date of Evaluation: 04/20/18 Time of Evaluation: 08:58 - Subjective Subjective: PGY-[address] Chon Fernando Patient seen and examined at bedside. No acute events overnight. Still experiencing some symptoms of withdrawal - c/o mild abdominal pain/nausea. Remains tremulous on exam. Will continue to treat for withdrawal symptoms. Objective - Vital Signs/Intake and Output Vital Signs (last 24 hours): Temp Pulse Resp BP Pulse Ox 98.5 F 77 20 123/82 98 04/20/18 07:00 04/20/18 07:00 04/20/18 07:00 04/19/18 23:05 04/20/18 07:00 - Medications Medications: Current Medications Chlordiazepoxide (Librium) 25 mg PO TID [facility]; Taper Stop: 04/22/18 17:59 Last Admin: 04/19/18 17:15 Dose: 25 mg Folic Acid (Folic Acid) 1 mg PO DAILY [facility] Last Admin: 04/19/18 12:31 Dose: 1 mg Folic Acid 1 mg/ Thiamine HCl 100 mg/ Multivitamins/Vitamin C 10 ml/ Dextrose 1,011.2 mls @ 250 mls/hr IV Q24H SOFI Last Admin: 04/19/18 13:39 Dose: 250 mls/hr Ciprofloxacin (Cipro 400mg/200ml Dsw) 400 mg in 200 mls @ 133 mls/hr IVPB Q12H SOFI; Protocol Last Admin: 04/20/18 08:42 Dose: 133 mls/hr Metronidazole (Flagyl) 500 mg in 100 mls @ 100 mls/hr IVPB Q8H SOFI; Protocol Last Admin: 04/20/18 04:35 Dose: 100 mls/hr Influenza Virus Vaccine (Flucelvax Quad [id number] Syr) 60 mcg IM .ONCE ONE Stop: 04/20/18 10:01 Lorazepam (Ativan) 2 mg IVP Q6H PRN PRN Reason: withdrawal Multivitamins (Hexavitamin) 1 tab PO DAILY [facility] Last Admin: 04/19/18 12:31 Dose: 1 tab Ondansetron HCl (Zofran Inj) 4 mg IVP Q4 PRN PRN Reason: Nausea/Vomiting Pantoprazole Sodium (Protonix Inj) 40 mg IVP DAILY [facility] Last Admin: 04/19/18 09:12 Dose: 40 mg Pneumococcal Polyvalent Vaccine (Pneumovax 23 Vaccine) 0.5 ml IM .ONCE ONE Stop: 04/21/18 10:01 Thiamine HCl (Vitamin B1 Tab) 100 mg PO DAILY [facility] Last Admin: 04/19/18 12:31 Dose: 100 mg Trazodone HCl (Desyrel) 50 mg PO HS PRN PRN Reason: Insomnia - Labs Labs: 04/20/18 08:06 04/20/18 08:06 - Constitutional Appears: Non-toxic, No Acute Distress - Head Exam Head Exam: ATRAUMATIC, NORMOCEPHALIC - Eye Exam Eye Exam: EOMI, Normal appearance - ENT Exam ENT Exam: Mucous Membranes Moist - Respiratory Exam Respiratory Exam: Clear to Ausculation Bilateral, NORMAL BREATHING PATTERN. absent: Rhonchi, Wheezes - Cardiovascular Exam Cardiovascular Exam: REGULAR RHYTHM, +S1, +S2 - GI/Abdominal Exam GI & Abdominal Exam: Soft, Tenderness (mild LLQ tenderness), Normal Bowel Sounds - Extremities Exam Extremities Exam: absent: Pedal Edema, Tenderness - Neurological Exam Neurological Exam: Alert, Awake, Oriented x3 Additional comments: b/l resting UE tremors - Psychiatric Exam Psychiatric exam: Normal Affect, Normal Mood - Skin Skin Exam: Dry, Intact Assessment and Plan - Assessment and Plan (Free Text) Assessment: Patient is a 37 yo male w/ PMH of EtOH abuse and GERD admitted for chest pain and abdominal discomfort Alcohol withdrawal Psych consulted: Dr. Romero bianchi as below CIWA ATivan PRN Librium taper Zofran PRN MV/Thiamine/Folic acid po Trazodone 50mg po hs Abdominal Pain Lipase normal CT abdomen/pelvis: inflammatory colitis (refer to report for full details) Ciprofloxacin 400mg IVP q12 Flagyl 500mg IVP q8 CT abd/pelvis 04/18: Distal descending/proximal sigmoid infectious/inflammatory colitis with without early proximal sigmoid diverticulitis. Additional findings as above. Chest Pain trops x 3 negative EKG does not show any signs of ischemia Patient currently assymptomatic CXR 04/18: Elevation right hemidiaphragm; rule out eventration. Minor bibasilar atelectasis. Thrombocyotpenia/Neutropenia bone marrow suppression for increased etoh use educated patient GI ppx: protonix 40 iv daily DVT ppx: SCDs b/l Disposition: ADAT as tolerated, educate patient on etoh use, possible outpatient oral abx Medical Management d/w Dr. Chon Uribe, PGY-1
[2018-04-20] MEDS: Multiple Vitamins Tab PO SCH (09:43)
[2018-04-20] MEDS ORDERED: Influenza Vaccine 60 mcg/0.5 mL SYR (4YR UP) IM ONE (10:00)
--- NOTE | 2018-04-20 11:49 | CARD ---
APPROVED REPORT Date of service: 04/18/2018 EKG Measurement Heart [id number] <Conclusion> Normal sinus rhythm with sinus arrhythmia Normal ECG
[2018-04-20] MEDS: Folic Acid 1 MG, Thiamine 100 MG, Multivitamin (MVI) 10 ML in Dextrose 5% In Water 1,00... IV SCH (14:08)
--- NOTE | 2018-04-20 20:50 | CARD ---
APPROVED REPORT Date of service: 04/19/2018 EKG Measurement Heart [id number] <Conclusion> Normal sinus rhythm Normal ECG
[2018-04-21] MEDS: metroNIDAZOLE IV 500 mg/100 ml 500 MG/100 ML BAG IVPB SCH (04:26)
[2018-04-21] MEDS: Ciprofloxacin 400mg/200ml D5W 400 MG/200 ML BAG IVPB SCH (08:24)
[2018-04-21 08:38] VITALS: BP 132/96; PULSE 75; RESP 20; TEMP 98.4; O2SAT 96
[2018-04-21] MEDS ORDERED: Pantoprazole 40 mg EC Tab PO SCH (10:00)
[2018-04-21] MEDS ORDERED: Pneumococcal 23-Valent Vaccine IM ONE (10:00)
[2018-04-21] MEDS: Multiple Vitamins Tab PO SCH (10:00)
--- NOTE | 2018-04-21 11:29 | CP.PCM.PN ---
Subjective - Date & Time of Evaluation Date of Evaluation: 04/21/18 Time of Evaluation: 11:30 - Subjective Subjective: PGY-[address] Chno Fernando Patient seen and examined at bedside. No acute events overnight. Patient would like to try solid food - advanced diet to HH soft. Patient can potentially be discharged on oral Abx once detox meds tapered as GI symptoms have improved. ROS negative for chest pain, shortness of breath, Objective - Vital Signs/Intake and Output Vital Signs (last 24 hours): Temp Pulse Resp BP Pulse Ox 98.4 F 75 20 132/96 H 96 04/21/18 07:00 04/21/18 07:00 04/21/18 07:00 04/21/18 07:00 04/21/18 07:00 Intake and Output: 04/21/18 04/21/18 06:59 18:59 Intake Total 1450 Balance 1450 - Medications Medications: Current Medications Chlordiazepoxide (Librium) 25 mg PO BID [facility]; Taper Stop: 04/22/18 17:59 Last Admin: 04/21/18 10:00 Dose: 25 mg Folic Acid (Folic Acid) 1 mg PO DAILY [facility] Last Admin: 04/21/18 10:00 Dose: 1 mg Folic Acid 1 mg/ Thiamine HCl 100 mg/ Multivitamins/Vitamin C 10 ml/ Dextrose 1,011.2 mls @ 250 mls/hr IV Q24H [facility] Last Admin: 04/20/18 14:08 Dose: 250 mls/hr Ciprofloxacin (Cipro 400mg/200ml Dsw) 400 mg in 200 mls @ 133 mls/hr IVPB Q12H [facility]; Protocol Last Admin: 04/21/18 08:24 Dose: 133 mls/hr Metronidazole (Flagyl) 500 mg in 100 mls @ 100 mls/hr IVPB Q8H [facility]; Protocol Last Admin: 04/21/18 04:26 Dose: 100 mls/hr Lorazepam (Ativan) 2 mg IVP Q6H PRN PRN Reason: withdrawal Multivitamins (Hexavitamin) 1 tab PO DAILY [facility] Last Admin: 04/21/18 10:00 Dose: 1 tab Ondansetron HCl (Zofran Inj) 4 mg IVP Q4 PRN PRN Reason: Nausea/Vomiting Pantoprazole Sodium (Protonix Ec Tab) 40 mg PO DAILY [facility] Last Admin: 04/21/18 10:00 Dose: 40 mg Thiamine HCl (Vitamin B1 Tab) 100 mg PO DAILY [facility] Last Admin: 04/21/18 10:00 Dose: 100 mg Trazodone HCl (Desyrel) 50 mg PO HS PRN PRN Reason: Insomnia - Labs Labs: 04/20/18 08:06 04/20/18 08:06 - Constitutional Appears: Non-toxic, No Acute Distress - Head Exam Head Exam: ATRAUMATIC, NORMOCEPHALIC - Eye Exam Eye Exam: EOMI Pupil Exam: PERRL - ENT Exam ENT Exam: Mucous Membranes Moist - Respiratory Exam Respiratory Exam: Clear to Ausculation Bilateral. absent: Rhonchi, Wheezes - Cardiovascular Exam Cardiovascular Exam: REGULAR RHYTHM, +S1, +S2 - GI/Abdominal Exam GI & Abdominal Exam: Soft, Normal Bowel Sounds. absent: Tenderness (No more t enderness on exam) - Extremities Exam Extremities Exam: absent: Pedal Edema, Tenderness - Neurological Exam Neurological Exam: Alert, Awake, CN II-XII Intact - Psychiatric Exam Psychiatric exam: Normal Affect, Normal Mood - Skin Skin Exam: Dry, Intact Assessment and Plan - Assessment and Plan (Free Text) Assessment: Patient is a 37 yo male w/ PMH of EtOH abuse and GERD admitted for chest pain and abdominal discomfort Alcohol withdrawal Psych consulted: Dr. Romero bianchi as below CIWA ATivan PRN Librium taper Zofran PRN MV/Thiamine/Folic acid po Trazodone 50mg po hs Abdominal Pain, Improving Lipase normal CT abdomen/pelvis: inflammatory colitis (refer to report for full details) Ciprofloxacin 400mg IVP q12 Flagyl 500mg IVP q8 Diet advanced to soft CT abd/pelvis 04/18: Distal descending/proximal sigmoid infectious/inflammatory colitis with without early proximal sigmoid diverticulitis. Additional findings as above. Thrombocyotpenia/Neutropenia bone marrow suppression for increased etoh use educated patient Chest Pain, resolved trops x 3 negative EKG does not show any signs of ischemia Patient currently assymptomatic CXR 04/18: Elevation right hemidiaphragm; rule out eventration. Minor bibasilar atelectasis. PPx: GI ppx: protonix 40 iv daily DVT ppx: SCDs b/l Disposition: ADAT, educate patient on etoh use, possible outpatient oral abx Medical Management d/w Dr. Chon Uribe, PGY-1
--- NOTE | 2018-04-21 13:04 | CP.PCM.DIS ---
Provider - Provider Date of Admission: 04/18/18 13:52 Attending physician: Erika Yin DO Consults: 04/18/18 13:54 Psychiatry Consult Stat Comment: Consulting Provider: Lesly Reynoso Consulting Physician: Lesly Reynoso Reason for Consult: alcohol withdrawl / Detox? Time Spent in preparation of Discharge (in minutes): 45 Hospital Course - Lab Results Lab Results: Most Recent Lab Values WBC 4.0 K/uL (4.8-10.8) L 04/20/18 08:06 RBC 4.60 Mil/uL (4.40-5.90) 04/20/18 08:06 Hgb 13.6 g/dL (12.0-18.0) 04/20/18 08:06 Hct 40.8 % (35.0-51.0) 04/20/18 08:06 MCV 88.8 fL (80.0-94.0) 04/20/18 08:06 MCH 29.6 pg (27.0-31.0) 04/20/18 08:06 MCHC 33.3 g/dL (33.0-37.0) 04/20/18 08:06 RDW 15.0 % (11.5-14.5) H 04/20/18 08:06 Plt Count 80 K/uL (130-400) L 04/20/18 08:06 MPV 9.0 fL (7.2-11.7) 04/20/18 08:06 Neut % (Auto) 52.9 % (50.0-75.0) 04/20/18 08:06 Lymph % (Auto) 36.3 % (20.0-40.0) 04/20/18 08:06 Logan % (Auto) 8.3 % (0.0-10.0) 04/20/18 08:06 Eos % (Auto) 2.0 % (0.0-4.0) 04/20/18 08:06 Baso % (Auto) 0.5 % (0.0-2.0) 04/20/18 08:06 Neut # (Auto) 2.1 K/uL (1.8-7.0) 04/20/18 08:06 Lymph # (Auto) 1.4 K/uL (1.0-4.3) 04/20/18 08:06 Logan # (Auto) 0.3 K/uL (0.0-0.8) 04/20/18 08:06 Eos # (Auto) 0.1 K/uL (0.0-0.7) 04/20/18 08:06 Baso # (Auto) 0.0 K/uL (0.0-0.2) 04/20/18 08:06 Differential Comment 04/18/18 12:23 Sodium 136 mmol/L (132-148) 04/20/18 08:06 Potassium 3.8 mmol/L (3.6-5.2) 04/20/18 08:06 Chloride 102 mmol/L (98-107) 04/20/18 08:06 Carbon Dioxide 28 mmol/L (22-30) 04/20/18 08:06 Anion Gap 10 (10-20) 04/20/18 08:06 BUN 9 mg/dL (9-20) 04/20/18 08:06 Creatinine 0.8 mg/dL (0.8-1.5) 04/20/18 08:06 Est GFR ( Amer) > 60 04/20/18 08:06 Est GFR (Non-Af Amer) > 60 04/20/18 08:06 Random Glucose 85 mg/dL (75-110) 04/20/18 08:06 Calcium 8.6 mg/dl (8.6-10.4) 04/20/18 08:06 Phosphorus 3.1 mg/dL (2.5-4.5) 04/20/18 08:06 Magnesium 2.0 mg/dL (1.6-2.3) 04/20/18 08:06 Total Bilirubin 1.2 mg/dL (0.2-1.3) 04/20/18 08:06 AST 88 U/L (17-59) H 04/20/18 08:06 ALT 50 U/L (21-72) 04/20/18 08:06 Alkaline Phosphatase 96 U/L (38-126) 04/20/18 08:06 Total Creatine Kinase 116 U/L (55-170) 04/19/18 04:17 CK-MB (Mass) 0.55 ng/mL (0.0-3.38) 04/19/18 04:17 Troponin I < 0.0120 ng/mL (0.00-0.120) 04/19/18 04:17 Total Protein 7.9 g/dL (6.3-8.3) 04/20/18 08:06 Albumin 4.2 g/dL (3.5-5.0) 04/20/18 08:06 Globulin 3.7 gm/dL (2.2-3.9) 04/20/18 08:06 Albumin/Globulin Ratio 1.1 (1.0-2.1) 04/20/18 08:06 Lipase 187 U/L (23-300) 04/18/18 12:23 TSH 3rd Generation 1.34 mIU/L (0.46-4.68) 04/18/18 16:15 Urine Color Yellow (YELLOW) 04/18/18 12:23 Urine Clarity Clear (Clear) 04/18/18 12:23 Urine pH 7.0 (5.0-8.0) 04/18/18 12:23 Ur Specific [place] 1.006 (1.003-1.030) 04/18/18 12:23 Urine Protein Negative mg/dL (NEGATIVE) 04/18/18 12:23 Urine Glucose (UA) Normal mg/dL (Normal) 04/18/18 12:23 Urine Ketones Negative mg/dL (NEGATIVE) 04/18/18 12:23 Urine Blood 1+ (NEGATIVE) H 04/18/18 12:23 Urine Nitrate Negative (NEGATIVE) 04/18/18 12:23 Urine Bilirubin Negative (NEGATIVE) 04/18/18 12:23 Urine Urobilinogen Normal mg/dL (0.2-1.0) 04/18/18 12:23 Ur Leukocyte Esterase Neg Brent/uL (Negative) 04/18/18 12:23 Urine RBC (Auto) 4 /hpf (0-3) H 04/18/18 12:23 Ur Squamous Epith Cells < 1 /hpf (0-5) 04/18/18 12:23 Urine Opiates Screen Negative (NEGATIVE) 04/18/18 12:23 Urine Methadone Screen Negative (NEGATIVE) 04/18/18 12:23 Ur Barbiturates Screen Negative (NEGATIVE) 04/18/18 12:23 Ur Phencyclidine Scrn Negative (NEGATIVE) 04/18/18 12:23 Ur Amphetamines Screen Negative (NEGATIVE) 04/18/18 12:23 U Benzodiazepines Scrn Negative (NEGATIVE) 04/18/18 12:23 U Oth Cocaine Metabols Negative (NEGATIVE) 04/18/18 12:23 U Cannabinoids Screen Negative (NEGATIVE) 04/18/18 12:23 Alcohol, Quantitative 111 mg/dl (0-10) H 04/18/18 12:23 C. difficile Ag & Toxin Negative (NEGATIVE) 04/19/18 01:00 HIV 1&2 Antibody Screen Negative (NEGATIVE) 04/18/18 16:15 - Hospital Course Hospital Course: Initial HPI 37 year old male PMHX alcohol abuse, dependence, gerd comes for chest pain. Patient reports the chest pain is located in the belly, radiates to the chest and to back, with associated nausea, and vomitting. Patient denies hemotypsis. Patient reports he drinks shots of vodka, last drink about two days ago. Patient also reports leg cramps that started today. Noted per review of EMR: patient has been in and out of the ER at least 2-3 times since 04/10/18. Patient negative for flu, and has an obstructive series on 04/10/18 which was significant for constipation. In the ED, given Ativan 1mg IV X1, and Zofran 8mg IV X1. Hospital course Patient was admitted to the hospital with chest pain and abdominal symptoms. ROMIs were negative and chest pain resolved spontaneously. However he continued to have abdominal pain and CT findings were consistent with infe ctious/inflammatory colitis of the sigmoid. Patient was advanced from NPO to liquid diet and then to soft diet. Abdominal pain improved and patient was not complaining of any symptoms by hospital day #4 and was discharged. Patient does also have a history of alcohol abuse based on history and so was treated for withdrawal with Librium taper and prn Ativan with trazodone for sleep. He did have thrombocytopenia which was thought to be most likely a result of heavy alcohol use. Patient was without significant withdrawal signs on physical exam on day of discharge and was provided resources for AA and help with drinking cessation. Imaging CT abd/pelvis 04/18: Distal descending/proximal sigmoid infectious/inflammatory colitis with without early proximal sigmoid diverticulitis. Additional findings as above. CXR 04/18: Elevation right hemidiaphragm; rule out eventration. Minor bibasilar atelectasis. Discharge Exam - Head Exam Head Exam: ATRAUMATIC, NORMOCEPHALIC - Eye Exam Eye Exam: EOMI, Normal appearance - ENT Exam ENT Exam: Mucous Membranes Moist - Respiratory Exam Respiratory Exam: NORMAL BREATHING PATTERN - Cardiovascular Exam Cardiovascular Exam: REGULAR RHYTHM, +S1, +S2 - GI/Abdominal Exam GI & Abdominal Exam: Normal Bowel Sounds - Extremities Exam Extremities exam: normal inspection - Neurological Exam Neurological exam: Alert, CN II-XII Intact, Oriented x3 - Psychiatric Exam Psychiatric exam: Normal Affect, Normal Mood - Skin Skin Exam: Dry, Intact, Normal Color Discharge Plan - Discharge Medications Prescriptions: Ciprofloxacin [Cipro] 500 mg PO BID #22 tab Famotidine [Pepcid] 20 mg PO DAILY #30 tab Lactobacillus Acidophilus [Acidophilus Lactobacilli] 1 each PO BID #82 capsule Metronidazole [Flagyl] 500 mg PO TID #33 tablet - Follow Up Plan Condition: GUARDED Disposition: HOME/ ROUTINE Instructions: Ciprofloxacin (Systemic), Colitis, Metronidazole (Systemic), Diverticulitis, Alcohol Abuse and Alcoholism (DC), Famotidine, Lactobacillus, Effects of Alcohol on Your Health Additional Instructions: The following instructions were explained to patient in Yakut and he stated that he understood and a copy will need to be provided to him upon discharge: 1). Schedule follow up with [facility] located at [address] [place] [address] in [place], [place] by calling [phone] for an appointment to take place in the next 7 to 10 days. 2). You must stop drinking alcohol. Please attend Alcohol Anonymous (AA) Meetings for help in quitting drinking alcohol. Call [phone] for help and more information as to when meetings take place at [address] [place] [address] [place] [address]. 3). Please have the following prescriptions filled at your pharmacy on your way home from the hospital and use as directed: Flagyl 500 mg, 1 tablet by mouth 3x/day (8 AM, 2 PM, 8 PM), #33 Ciprofloxacin 500 mg, 1 tablet by mouth 2x/day (8 AM and 8 PM), #22 Pepcid 20 mg, 1 tablet by mouth 1x/day (8 AM), #30 Lactobacillus, 1 tablet by mouth 2x/day (10 AM and 6 PM), #82 4). Once your colitis/diveriticulitis treatment resolves, you will need to have a colonoscopy scheduled through the [facility] to take place roughly 8 weeks from now. 5). Please be good to yourself, go to the AA meetings, follow up at the [facility], and take care of yourself. Robbie Fernando D.O. 1. Porfavor llamar a la [facility] localizada en [address] [facility] en [place], [place]. El yue telefonico es [phone], pida katarina para dentro de 7-10 dugan. 2. Debes de para de ruth alcohol. Porfavor atiendas reuniones de [employer] (AA) para ayuda de parar de ruth. Llame a [phone] para ayuda y informacion, las reuniones son dadas en [address] [facility] en [place], [place]; NO ES [place]. 3. Porfavor llevue las recetas para tu farmacia. Flagyl 500mg, 1 pastilla 3 vecez al brandt (8am, 2pm, 8pm) Ciproflaxin 500mg, 1 pastilla 2 vecez al brandt (8am, 8pm) Pepcid 20mg, 1 pastilla ajay vez al brandt (8am) Lactobacillus, 1 pastilla 2 vecez al brandt (10am, 6pm) 4. Cuando tu tratamiento de colitis/diverticulitis termina, necesitas ajay colonoscopia referrida por la [facility] para dentro graciela 8 semanas. 5. Porfavor cuidate mucho, atiendas las reuniones de AA, y sigas con la clinica en [place].
== END 2018-04-21 14:01 | disposition home or self-care (01) | DRG 249 ==
LOC: C.ER 11:18 → C.9E 13:52 → C.6T 15:42
PROVIDERS: ADMIT Hospitalist; ATTEND Hospitalist
PROC: HZ2ZZZZ Detoxification Services for Substance Abuse Treatment (ICD-10-PCS; principal; 2018-04-18)
PROC: HZ52ZZZ Individual Psychotherapy for Substance Abuse Treatment, Cognitive-Behavioral (ICD-10-PCS; 2018-04-18)
PROC: HZ59ZZZ Individual Psychotherapy for Substance Abuse Treatment, Supportive (ICD-10-PCS; 2018-04-18)
PROC: HZ56ZZZ Individual Psychotherapy for Substance Abuse Treatment, Psychoeducation (ICD-10-PCS; 2018-04-18)
DX: A09 Infectious gastroenteritis and colitis, unspecified (principal); D69.6 Thrombocytopenia, unspecified; K57.92 Diverticulitis of intestine, part unspecified, without perforation or abscess without bleeding; I10 Essential (primary) hypertension; F10.230 Alcohol dependence with withdrawal, uncomplicated; Y90.5 Blood alcohol level of 100-119 mg/100 ml; K21.9 Gastro-esophageal reflux disease without esophagitis; Z87.891 Personal history of nicotine dependence; R07.9 Chest pain, unspecified

== ENCOUNTER 2018-08-09 10:11 | Inpatient (IN) | payer MEDICAID, OTHER ==
[2018-08-09 10:12] VITALS: BMI 32.0
[2018-08-09] MEDS ORDERED: Multivitamin (MVI) 10 ML, Thiamine 100 MG, Folic Acid 1 MG in Sodium Chloride 0.9% 1,00... IV ONE ×2 (11:23→11:45)
--- NOTE | 2018-08-09 11:45 | C.PDOC ---
History Of Present Illness 38 year old male with PMHx of gastritis and alcoholism presents to the ED requesting detoxification and complaining of alcohol withdrawals including tremors, epigastric pain, and vomiting. Reports he drinks 12-15 beers daily and has been binging for the past 5 days. States his last drink was yesterday afternoon and has been unable to drink today because of his symptoms. Denies SI/HI. Time Seen by Provider: 08/09/18 10:49 Chief Complaint (Nursing): Substance Abuse History Per: Patient History/Exam Limitations: no limitations Onset/Duration Of Symptoms: Hrs Current Symptoms Are (Timing): Still Present Suicide/Self Injury Attempted (Context): None Modifying Factor(s): Alcohol Associated Symptoms: denies: Suicidal Thoughts, Suicidal Plan Past Medical History Reviewed: Historical Data, Nursing Documentation, Vital Signs Vital Signs: Last Vital Signs Temp 98.6 F 08/09/18 10:40 Pulse 105 H 08/09/18 10:40 Resp 22 08/09/18 10:40 BP 138/89 08/09/18 10:40 Pulse Ox 95 08/09/18 10:40 Primary Care Provider: FAMILY PROVIDER,NO - Medical History PMH: Gastritis, HTN, Seizures Denies: Diabetes, Hepatitis, HIV, Chronic Kidney Disease, Sexually Transmitted Disease Surgical History: No Surg Hx - [facility] Procedures CLOSURE SKIN & SUBCUTANEOUS NEC (11/10/14) DETOXIFICATION SERVICES FOR SUBSTANCE ABUSE TREATMENT (04/18/18) GROUP URBAN REDEVELOPMENT SPECIALIST FOR SUBSTANCE ABUSE TREATMENT, PSYCHOEDUCATION (02/16/16) INDIV PSYCHOTHERAPY FOR SUBSTANCE ABUSE TREATMENT, SUPPORT (04/18/18) INDIV PSYCHOTHERAPY FOR SUBSTANCE ABUSE, COGNITIV BEHAVIORAL (04/18/18) INDIV PSYCHOTHERAPY FOR SUBSTANCE ABUSE, PSYCHOEDUCATION (04/18/18) TETANUS TOXOID ADMINIST (11/10/14) Family History: States: No Known Family Hx - Social History Hx Tobacco Use: No Hx Alcohol Use: Yes Hx Substance Use: No - Immunization History Hx Tetanus Toxoid Vaccination: Yes (2014) Hx Influenza Vaccination: No Hx Pneumococcal Vaccination: No Review Of Systems Except As Marked, All Systems Reviewed And Found Negative. Constitutional: Negative for: Fever, Chills ENT: Positive for: Nose Discharge (nose bleed) Cardiovascular: Positive for: Light Headedness Gastrointestinal: Positive for: Nausea, Abdominal Pain, Diarrhea Neurological: Positive for: Headache, Dizziness Physical Exam - Physical Exam Appears: Non-toxic, No Acute Distress, Other (unkempt, strong alcohol odor ) Skin: Warm, Dry, No Rash Head: Normacephalic Eye(s): bilateral: Normal Inspection, PERRL, EOMI Nose: Normal Oral Mucosa: Moist Neck: Supple Chest: Symmetrical Cardiovascular: Rhythm Regular Respiratory: Normal Breath Sounds, No Rales, No Rhonchi, No Wheezing Gastrointestinal/Abdominal: Soft, Tenderness (epigastric ), No Distention, No Guarding, No Rebound, Other (obese) Neurological/Psych: Oriented x3, Normal Speech Gait: Steady ED Course And Treatment - Laboratory Results Result Diagrams: 08/09/18 11:43 08/09/18 11:43 O2 Sat by Pulse Oximetry: 95 (RA) Pulse Ox Interpretation: Normal Medical Decision Making Medical Decision Making: Plan - Bloodwork - Ativan 1mg IVP - Multivitamin Inj - UA Pending evaluation for detox. Patient evaluated by Crisis. Post Crisis evaluation, pt was in severe DT's with hallucinations, tremulous, nausea and abdominal pain. Patient also stated he had a seizure 3 days ago. States he has been really sick and he has been unable to drink alcohol. Spoke with Dr. Rod who states patient is too sick for detox unit requiring IV fluids and more significant nursing care than they can provide. Patient is not an ICU candidate at this time because he is hemodynamically stable. Patient will be admitted under Medicine. Disposition Discussed With : Cas Rod - Disposition Disposition: HOSPITALIZED Disposition Time: 16:19 Condition: SERIOUS - POA Present On Arrival: None - Clinical Impression Clinical Impression: DTs (delirium tremens) - Scribe Statement The provider has reviewed the documentation as recorded by the Scribe Netta Max All medical record entries made by the Scribe were at my direction and personally dictated by me. I have reviewed the chart and agree that the record accurately reflects my personal performance of the history, physical exam, medical decision making, and the department course for this patient. I have also personally directed, reviewed, and agree with the discharge instructions and disposition. Decision To Admit - Pt Status Changed To: Hospital Disposition Of: Inpatient - Admit Certification Admit to Inpatient:: After my assessment, the patient will require hospitalization for at least two midnights. This is because of the severity of symptoms shown, intensity of services needed, and/or the medical risk in this patient being treated as an outpatient. - InPatient: Physician Admission Certification: I certify that this patient requires 2 or more midnights of care for the following reason:: severe DTs, seizure, alcohol abuse - . Bed Request Type: Telemetry Admitting Physician: Socrates Lira Patient Diagnosis: DTs (delirium tremens)
[2018-08-09 12:00] LABS: BASO % 0.1 % (0.0-2.0); EOS % 0.1 % (0.0-4.0); HEMOGLOBIN 13.3 g/dL (12.0-18.0); LYMPH # 0.6 K/uL (1.0-4.3); LYMPH % 21.4 % (20.0-40.0); MEAN CORPUSCULAR HEMOGLOBIN 29.1 pg (27.0-31.0); MEAN CORPUSCULAR HGB CONC 33.9 g/dL (33.0-37.0); MEAN PLATELET VOLUME 8.7 fL (7.2-11.7); MONO # 0.3 K/uL (0.0-0.8); MONO % 9.7 % (0.0-10.0); NEUT % 68.7 % (50.0-75.0); RBC 4.56 Mil/uL (4.40-5.90); RED CELL DISTRIBUTION WIDTH 14.4 % (11.5-14.5)
[2018-08-09 12:02] LABS: ALB/GLOB RATIO 1.1 (1.0-2.1); ALBUMIN 4.2 g/dL (3.5-5.0); ALT/SGPT 122 U/L (21-72); AST/SGOT 195 U/L (17-59); BLOOD UREA NITROGEN 8 mg/dL (9-20); GFR NON-AFRICAN AMERICAN > 60
[2018-08-09 12:07] LABS: MEAN CELL VOLUME 85.9 fL (80.0-94.0)
[2018-08-09 13:49] LABS: BARBITURATES, UR NEGATIVE (NEGATIVE); BENZODIAZEPINES, UR NEGATIVE (NEGATIVE); OPIATES, UR NEGATIVE (NEGATIVE); PHENCYCLIDINE, UR NEGATIVE (NEGATIVE)
[2018-08-09 14:19] LABS: SQUAMOUS EPITHIAL 3 /hpf (0-5); URINE BACTERIA RARE (<OCC); URINE BILIRUBIN NEGATIVE (NEGATIVE); URINE BLOOD 1+ (NEGATIVE); URINE CLARITY Hazy (Clear); URINE COLOR Yellow (YELLOW); URINE GLUCOSE (UA) NORMAL (Normal); URINE LEUKOCYTE ESTERASE NEG Leu/uL (Negative); URINE PROTEIN NEGATIVE (NEGATIVE)
[2018-08-09] MEDS ORDERED: Sodium Chloride 0.9% 1,000 ML ONE (16:29)
[2018-08-09] MEDS: Sodium Chloride 0.9% 1,000 ML IV SCH (16:30)
--- NOTE | 2018-08-09 16:59 | CP.PCM.HP ---
<Erika Yin V - Last Filed: 08/09/18 19:09> Meds Allergies/Adverse Reactions: Allergies Allergy/AdvReac Type Severity Reaction Status Date / Time No Known Allergies Allergy Verified 04/18/18 11:35 Results - Vital Signs Recent Vital Signs: Last Vital Signs Temp 98.8 F 08/09/18 17:50 Pulse 89 08/09/18 17:50 Resp 20 08/09/18 17:50 BP 129/70 08/09/18 17:50 Pulse Ox 97 08/09/18 17:50 - Labs Result Diagrams: 08/09/18 11:43 08/09/18 11:43 Labs: Laboratory Results - last 24 hr 08/09/18 08/09/18 08/09/18 11:10 11:43 11:43 WBC 3.0 L RBC 4.56 Hgb 13.3 Hct 39.1 MCV 85.9 D MCH 29.1 MCHC 33.9 RDW 14.4 Plt Count 100 L D MPV 8.7 Neut % (Auto) 68.7 Lymph % (Auto) 21.4 [place] % (Auto) 9.7 Eos % (Auto) 0.1 Baso % (Auto) 0.1 Neut # (Auto) 2.0 Lymph # (Auto) 0.6 L [place] # (Auto) 0.3 Eos # (Auto) 0.0 Baso # (Auto) 0.0 Sodium 138 Potassium 3.8 Chloride 94 L Carbon Dioxide 28 Anion Gap 19 BUN 8 L Creatinine 0.6 L Est GFR ( Amer) > 60 Est GFR (Non-Af Amer) > 60 POC Glucose (mg/dL) 134 H Random Glucose 120 H D Calcium 8.0 L Phosphorus 3.5 Magnesium 2.1 Total Bilirubin 0.6 AST 195 H D ALT 122 H D Alkaline Phosphatase 107 Total Protein 8.0 Albumin 4.2 Globulin 3.8 Albumin/Globulin Ratio 1.1 Urine Color Urine Clarity Urine pH Ur Specific [place] Urine Protein Urine Glucose (UA) Urine Ketones Urine Blood Urine Nitrate Urine Bilirubin Urine Urobilinogen Ur Leukocyte Esterase Urine WBC (Auto) Urine RBC (Auto) Ur Squamous Epith Cells Urine Bacteria Urine Opiates Screen Urine Methadone Screen Ur Barbiturates Screen Ur Phencyclidine Scrn Ur Amphetamines Screen U Benzodiazepines Scrn U Oth Cocaine Metabols U Cannabinoids Screen Alcohol, Quantitative 211 H 08/09/18 08/09/18 13:29 13:29 WBC RBC Hgb Hct MCV MCH MCHC RDW Plt Count MPV Neut % (Auto) Lymph % (Auto) [place] % (Auto) Eos % (Auto) Baso % (Auto) Neut # (Auto) Lymph # (Auto) [place] # (Auto) Eos # (Auto) Baso # (Auto) Sodium Potassium Chloride Carbon Dioxide Anion Gap BUN Creatinine Est GFR ( Amer) Est GFR (Non-Af Amer) POC Glucose (mg/dL) Random Glucose Calcium Phosphorus Magnesium Total Bilirubin AST ALT Alkaline Phosphatase Total Protein Albumin Globulin Albumin/Globulin Ratio Urine Color Yellow Urine Clarity Hazy Urine pH 7.0 Ur Specific [place] 1.013 Urine Protein Negative Urine Glucose (UA) Normal Urine Ketones Negative Urine Blood 1+ H Urine Nitrate Negative Urine Bilirubin Negative Urine Urobilinogen 2.0 Ur Leukocyte Esterase Neg Urine WBC (Auto) < 1 Urine RBC (Auto) 10 H Ur Squamous Epith Cells 3 Urine Bacteria Rare Urine Opiates Screen Negative Urine Methadone Screen Negative Ur Barbiturates Screen Negative Ur Phencyclidine Scrn Negative Ur Amphetamines Screen Negative U Benzodiazepines Scrn Negative U Oth Cocaine Metabols Negative U Cannabinoids Screen Negative Alcohol, Quantitative Attending/Attestation - Attestation I have personally seen and examined this patient.: Yes I have fully participated in the care of the patient.: Yes I have reviewed all pertinent clinical information: Yes Notes (Text): This is a 38-year-old male past medical history of alcoholism, gastritis, diverticulitis comes in following a relapse of alcohol approximately 24 ounces of beer daily reports last drink was yesterday. Patient noted for nausea vomiti ng. Patient reported to the resident that he also fell yesterday on his head. We did do a CT head stat which does not show any acute findings. Patient given a total of Ativan 2 mg in the ED. Given the patient has elevated LFTs which are uptrending compared to his prior admissions we did put in for an Ativan taper as well as Ativan IV push as needed for seizure activity. We did use alcohol wit hdrawal order set to include but not limited to neurochecks, seizure precaution, taper as well as patient is received a banana bag in the ED today. And will continue folate, multivitamin, thiamine. Patient noted to have thrombocytopenia and neutropenia suspect secondary to bone marrow suppression given patient's alcohol use. Patient does not show any signs of bleeding noted abrasions over the upper extremity. Patient appears dehydrated and flushed. We will hold off antiemetics given prolonged QT of 416 EKG and will repeat EKG in the morning. Also noted patient has in the UA quite appears to be clean-catch however there are RBCs present. Unclear of its related to mild rhabdo or if it is related to cystitis. Will place on prophylactic antibiotic and follow-up with urine culture. Patient is placed on fall precautions and is advised to stay in bed. Also to note patient has had a recent CT scan of the abdomen as of March this year no signs of noted of cirrhosis known nodule contour of the liver. Patient had abdominal ultrasound in 2018 we will repeat ultrasound in light of her increased LFTs in light alcohol to see if there is any signs of cirrhosis. Psychiatrist was already contacted by the ED noted that given patient is high risk for DTs would be more suitable for the floor. Assessment/Plan 1. Alcohol withdrawal, acute History of alcohol abuse, chronic Assessment/Plan * Patient received Ativan 2mg IV total in ED * Ativan 2mg Q4 SOFI (taper by mouth) * Ativan 1mg Q2 PRN seizure activity * Fall precautions * Seizure precaution * Alcohol 211 * Urine tox negative * Folic acid 1mg PO daily * MV 1 tab PO daily * Thiamine 100mg PO daily * Protonix 40mg IV daily * NS @100cc/hr IV * Patient vomited once, hold Zofran given prolonged QTc 2. Prolonged QTc on EKG Assessment/Plan * EKG SR at 89, prolonged QTc * Avoid Zofran, Reglan * Replete K 40mEq * Repeat EKG in AM. 3. Status post Fall Assessment/Plan * No obvious lacerations seen on patient * CT head negative for acute bleed 4. Microscopic Hematuria, acute Assessment/Plan * Rocephin 1g IV daily to cover for empiric tc * Follow up UA, urine culture 5. Thrombocytopenia Assessment/Plan * Platelets 100 * Hold DVT prophylaxis * suspect secondary to bone marrow suppression 6. Transaminitis Assessment/Plan * AST 195 ALT 122 ALP 107 * follow up Hep panel * Follow up ammonia level * Follow up abdomen US * likely secondary to alcohol * patient is on ativan taper 7. History of Gastritis Assessment/Plan * Protonix 40mg IV q daily 8. Prophylaxis Assessment/Plan * contraindcations VTE ppx secondary to thrombocytopenia * Protonix 40mg IV daily * fall precautions * aspiration precautions * seizure precautions <Linda Retana - Last Filed: 08/09/18 19:34> History of Present Illness - History of Present Illness History of Present Illness: H&P Dr. Yin's service CC " shaking" HPI: Patient is a 38 year old male with history of gastritis and high blood pressure who presents after drinking about 24 ounces of alcohol daily for the past 7 days. He states he walked in for detox himself because he was shaking. He denies prior history of seizures from alcohol withdrawal. He states he fell last night and hit the back of his head. Now complains of pain on the left sided of his head. He states he has been vomiting every hour for the past 2 days. He states that he normally does not drink this much, but states that something happened with family that made him drink. He last worked 7 days ago last Friday, and has not worked since. He denies fevers, chills, dizziness, chest pain, shortness of breath, palpitations, abdominal pain, diarrhea, constipation, urinary frequency, dysuria, leg pain. Limited history obtained from patient. No other family or friends present at bedside. PMH: gastritis, high blood pressure, alcohol abuse PSH: none Home meds: None Allergies: NKDA Social history: denies tobacco or illicit drug abuse. Drinks about 24 ounces of alcohol daily, has been to detox twice before, longest period of sobriety 4 months. Has in [place], lives with friends in [place]. Works at a kitchen. Family history: Father alcoholism Present on Admission - Present on Admission Any Indicators Present on Admission: No Review of Systems - Constitutional Constitutional: absent: Chills, Fever - EENT Eyes: absent: Change in Vision Ears: absent: Decreased Hearing - Cardiovascular Cardiovascular: absent: Chest Pain, Dyspnea - Respiratory Respiratory: absent: Cough, Dyspnea - Gastrointestinal Gastrointestinal: Vomiting. absent: Abdominal Pain, Diarrhea - Genitourinary Genitourinary: absent: Change in Urinary Stream, Difficulty Urinating, Dysuria - Musculoskeletal Musculoskeletal: absent: Back Pain, Neck Pain - Neurological Neurological: Tremor. absent: Dizziness, Syncope - Psychiatric Psychiatric: absent: Auditory Hallucinations, Hallucinations, Visual Hallucinations Past Patient History - Infectious Disease Hx of Infectious Diseases: None - Past Medical History & Family History Past Medical History?: Yes - Past Social History Smoking Status: Current Some Days Smoker - CARDIAC Hx Hypertension: Yes - PULMONARY Hx Tuberculosis: No - NEUROLOGICAL Hx Seizures: Yes - HEENT Hx HEENT Problems: No - RENAL Hx Chronic Kidney Disease: No - ENDOCRINE/METABOLIC Hx Endocrine Disorders: No - HEMATOLOGICAL/ONCOLOGICAL Hx Human Immunodeficiency Virus (HIV): No - INTEGUMENTARY Hx Dermatological Problems: No - MUSCULOSKELETAL/RHEUMATOLOGICAL Hx Falls: No - GASTROINTESTINAL Hx Gastritis: Yes - GENITOURINARY/GYNECOLOGICAL Hx Sexually Transmitted Disorders: No - PSYCHIATRIC Hx Substance Use: No - SURGICAL HISTORY Hx Surgeries: No - ANESTHESIA Hx Anesthesia: No Hx Anesthesia Reactions: No Physical Exam - Constitutional Additional comments: Tremulous, slightly agitated, appears uncomfortable, flushed - Head Exam Head Exam: ATRAUMATIC, NORMOCEPHALIC - Eye Exam Eye Exam: EOMI Additional comments: Pupils dilated - ENT Exam ENT Exam: Mucous Membranes Dry Additional comments: Dry tongue with brown discoloration No evidence of laceration - Neck Exam Neck exam: Positive for: Full Rom. Negative for: Tenderness - Respiratory Exam Respiratory Exam: Clear to Auscultation Bilateral, NORMAL BREATHING PATTERN. absent: Rales, Rhonchi, Wheezes, Respiratory Distress, Stridor - Cardiovascular Exam Cardiovascular Exam: REGULAR RHYTHM, +S1, +S2. absent: Gallop, Rubs, Systolic Murmur - GI/Abdominal Exam GI & Abdominal Exam: Normal Bowel Sounds, Soft. absent: Distended, Firm, Guarding, Hernia, Rigid, Tenderness - Extremities Exam Extremities exam: Positive for: pedal pulses present. Negative for: calf tenderness, pedal edema - Back Exam Back exam: absent: CVA tenderness (L), CVA tenderness (R) - Neurological Exam Neurological exam: Alert, Oriented x3 Additional comments: Tremulous, flushed but able to answer questions - Psychiatric Exam Additional comments: Tremulous, flushed, not acutely agitated, but appears uncomfortable - Skin Skin Exam: Abrasion, Dry, Warm Additional comments: Superficial abrasions on left upper arm Results - Vital Signs Recent Vital Signs: Last Vital Signs Temp 98.6 F 08/09/18 10:40 Pulse 97 H 08/09/18 16:17 Resp 19 08/09/18 16:17 BP 126/75 08/09/18 16:17 Pulse Ox 95 08/09/18 16:54 - Labs Result Diagrams: 08/09/18 11:43 08/09/18 11:43 Labs: Laboratory Results - last 24 hr 08/09/18 08/09/18 08/09/18 11:43 11:43 13:29 WBC 3.0 L RBC 4.56 Hgb 13.3 Hct 39.1 MCV 85.9 D MCH 29.1 MCHC 33.9 RDW 14.4 Plt Count 100 L D MPV 8.7 Neut % (Auto) 68.7 Lymph % (Auto) 21.4 [place] % (Auto) 9.7 Eos % (Auto) 0.1 Baso % (Auto) 0.1 Neut # (Auto) 2.0 Lymph # (Auto) 0.6 L [place] # (Auto) 0.3 Eos # (Auto) 0.0 Baso # (Auto) 0.0 Sodium 138 Potassium 3.8 Chloride 94 L Carbon Dioxide 28 Anion Gap 19 BUN 8 L Creatinine 0.6 L Est GFR ( Amer) > 60 Est GFR (Non-Af Amer) > 60 Random Glucose 120 H D Calcium 8.0 L Phosphorus 3.5 Magnesium 2.1 Total Bilirubin 0.6 AST 195 H D ALT 122 H D Alkaline Phosphatase 107 Total Protein 8.0 Albumin 4.2 Globulin 3.8 Albumin/Globulin Ratio 1.1 Urine Color Yellow Urine Clarity Hazy Urine pH 7.0 Ur Specific [place] 1.013 Urine Protein Negative Urine Glucose (UA) Normal Urine Ketones Negative Urine Blood 1+ H Urine Nitrate Negative Urine Bilirubin Negative Urine Urobilinogen 2.0 Ur Leukocyte Esterase Neg Urine WBC (Auto) < 1 Urine RBC (Auto) 10 H Ur Squamous Epith Cells 3 Urine Bacteria Rare Urine Opiates Screen Urine Methadone Screen Ur Barbiturates Screen Ur Phencyclidine Scrn Ur Amphetamines Screen U Benzodiazepines Scrn U Oth Cocaine Metabols U Cannabinoids Screen Alcohol, Quantitative 211 H 08/09/18 13:29 WBC RBC Hgb Hct MCV MCH MCHC RDW Plt Count MPV Neut % (Auto) Lymph % (Auto) [place] % (Auto) Eos % (Auto) Baso % (Auto) Neut # (Auto) Lymph # (Auto) [place] # (Auto) Eos # (Auto) Baso # (Auto) Sodium Potassium Chloride Carbon Dioxide Anion Gap BUN Creatinine Est GFR ( Amer) Est GFR (Non-Af Amer) Random Glucose Calcium Phosphorus Magnesium Total Bilirubin AST ALT Alkaline Phosphatase Total Protein Albumin Globulin Albumin/Globulin Ratio Urine Color Urine Clarity Urine pH Ur Specific [place] Urine Protein Urine Glucose (UA) Urine Ketones Urine Blood Urine Nitrate Urine Bilirubin Urine Urobilinogen Ur Leukocyte Esterase Urine WBC (Auto) Urine RBC (Auto) Ur Squamous Epith Cells Urine Bacteria Urine Opiates Screen Negative Urine Methadone Screen Negative Ur Barbiturates Screen Negative Ur Phencyclidine Scrn Negative Ur Amphetamines Screen Negative U Benzodiazepines Scrn Negative U Oth Cocaine Metabols Negative U Cannabinoids Screen Negative Alcohol, Quantitative Assessment & Plan - Assessment and Plan (Free Text) Assessment: 38 year old male with history of gastritis, high blood pressure and alcohol abuse admitted for alcohol withdrawal. Plan: Alcohol withdrawal, acute History of alcohol abuse, chronic Patient received Ativan 2mg IV total in ED Ativan 2mg Q4 SOFI Ativan 1mg Q2 PRN Zofran 4mg Q6 PRN Fall precautions Seizure precaution Alcohol 211 Urine tox negative Folic acid 1mg PO daily MV 1 tab PO daily Thiamine 100mg PO daily Protonix 40mg IV daily NS @100cc/hr IV Patient vomited once, hold Zofran given prolonged QTc Prolonged QTc on EKG EKG SR at 89, prolonged QTc Avoid Zofran, Reglan Replete K 40mEq Repeat EKG in AM. Status post Fall, acute No obvious lacerations seen on patient CT head negative for acute bleed Microscopic Hematuria, acute Rocephin 1g IV daily Follow up UA, urine culture Thrombocytopenia Platelets 100 Hold DVT prophylaxis Transaminitis AST 195 ALT 122 ALP 107 follow up Hep panel Follow up ammonia level Follow up abdomen US Prophylaxis SCDs Protonix 40mg IV daily Case discussed with Dr. Annamaria Retana, PGY1
[2018-08-09 18:15] VITALS: RESP 20
--- NOTE | 2018-08-09 18:24 | CT ---
Date of service: 08/09/2018 PROCEDURE: CT HEAD WITHOUT CONTRAST. HISTORY: Status post fall yesterday COMPARISON: Comparison made with CT scan brain 05/12/2017. TECHNIQUE: Axial computed tomography images were obtained through the head/brain without intravenous contrast. Radiation dose: Total exam DLP = 1070.17 mGy-cm. This CT exam was performed using one or more of the following dose reduction techniques: Automated exposure control, adjustment of the mA and/or kV according to patient size, and/or use of iterative reconstruction technique. FINDINGS: HEMORRHAGE: No acute parenchymal, subarachnoid or extra-axial hemorrhage. BRAIN: There is no evidence of large acute infarct. No obvious parenchymal nor extra-axial masses or collections seen on this noncontrast exam. No edema or mass effect. Mild generalized volume loss VENTRICLES: No obstructive hydrocephalus. CALVARIUM: Calvarium intact PARANASAL SINUSES: The paranasal sinuses are somewhat diminutive. There appears to be some minimal mucosal thickening superior margins both maxillary antra as well as a few ethmoid air cells. Mild generalized volume loss. MASTOID AIR CELLS: Mastoid air complexes well-developed and currently well-aerated. OTHER FINDINGS: None. IMPRESSION: No acute intracranial hemorrhage. Minor generalized volume loss.
[2018-08-09 20:27] LABS: INR 1.2; PARTIAL THROMBOPLASTIN TIME 29.6 SECONDS (21-34); PROTHROMBIN TIME 13.3 SECONDS (9.7-12.2)
[2018-08-10 07:14] LABS: BASO % 0.2 % (0.0-2.0); EOS % 0.4 % (0.0-4.0); HEMOGLOBIN 12.4 g/dL (12.0-18.0); LYMPH % 27.3 % (20.0-40.0); MONO # 0.3 K/uL (0.0-0.8); NEUT # 2.4 K/uL (1.8-7.0)
[2018-08-10 07:24] LABS: MEAN CELL VOLUME 87.1 fL (80.0-94.0); MEAN CORPUSCULAR HEMOGLOBIN 29.8 pg (27.0-31.0); MEAN CORPUSCULAR HGB CONC 34.3 g/dL (33.0-37.0); MEAN PLATELET VOLUME 8.8 fL (7.2-11.7); MONO % 8.3 % (0.0-10.0); NEUT % 63.8 % (50.0-75.0); NRBC % 0.4 % (0.0-2.0); RBC 4.16 Mil/uL (4.40-5.90); WHITE BLOOD COUNT 3.8 K/uL (4.8-10.8)
[2018-08-10 07:40] LABS: LDL CHOLESTEROL 58 mg/dL (0-129)
[2018-08-10 07:41] LABS: ALB/GLOB RATIO 1.1 (1.0-2.1); ALBUMIN 3.5 g/dL (3.5-5.0); ALT/SGPT 108 U/L (21-72); AST/SGOT 155 U/L (17-59); BLOOD UREA NITROGEN 10 mg/dL (9-20); GFR NON-AFRICAN AMERICAN > 60; HDL CHOLESTEROL 103 mg/dL (30-70)
--- NOTE | 2018-08-10 07:45 | CP.PCM.PN ---
<Linda Retana - Last Filed: 08/10/18 15:55> Subjective - Date & Time of Evaluation Date of Evaluation: 08/10/18 Time of Evaluation: 07:44 - Subjective Subjective: Progress Note for Hospitalist service Patient seen and examined at bedside. He states that he is still tremulous, but feels better than yesterday. He states that he had 2 episodes of vomiting yesterday, none today. He states that he has not eaten anything in 7 days, but is currently eating breakfast. He has not had a bowel movement, but he states that it is likely because he has not eaten anything in a while. Objective - Vital Signs/Intake and Output Vital Signs (last 24 hours): Temp Pulse Resp BP Pulse Ox 98 F 84 20 115/69 99 08/09/18 23:20 08/09/18 23:20 08/09/18 23:20 08/09/18 23:20 08/09/18 23:20 Intake and Output: 08/10/18 08/10/18 06:59 18:59 Intake Total 1800 Balance 1800 - Medications Medications: Current Medications Folic Acid (Folic Acid) 1 mg PO DAILY SOFI Sodium Chloride (Sodium Chloride 0.9%) 1,000 mls @ 100 mls/hr IV .Q10H SOFI Last Admin: 08/09/18 16:30 Dose: 100 mls/hr Ceftriaxone Sodium 1 gm/ (Sodium Chloride) 100 mls @ 100 mls/hr IVPB DAILY SOFI; Protocol Last Admin: 08/09/18 17:16 Dose: 100 mls/hr Lorazepam (Ativan) 2 mg PO Q4 SOFI; Taper Stop: 08/14/18 16:59 Last Admin: 08/10/18 04:36 Dose: 2 mg Lorazepam (Ativan) 1 mg IVP Q2H PRN PRN Reason: Seizure activity Multivitamins (Hexavitamin) 1 tab PO DAILY SOFI Pantoprazole Sodium (Protonix Inj) 40 mg IVP DAILY SOFI Last Admin: 08/09/18 17:16 Dose: 40 mg Thiamine HCl (Vitamin B1 Tab) 100 mg PO DAILY SOFI - Labs Labs: 08/10/18 07:00 08/10/18 07:00 PT 13.3 SECONDS (9.7-12.2) H 05/12/19 19:47 INR 1.2 08/09/18 19:47 APTT 29.6 SECONDS (21-34) 08/09/18 19:47 - Constitutional Appears: No Acute Distress - Head Exam Head Exam: ATRAUMATIC, NORMOCEPHALIC - Eye Exam Eye Exam: EOMI, PERRL - ENT Exam ENT Exam: Mucous Membranes Dry Additional comments: Tongue dry with discoloration - Neck Exam Neck Exam: Full ROM. absent: Tenderness - Respiratory Exam Respiratory Exam: Clear to Ausculation Bilateral, NORMAL BREATHING PATTERN. absent: Rales, Rhonchi, Wheezes, Respiratory Distress, Stridor - Cardiovascular Exam Cardiovascular Exam: REGULAR RHYTHM, +S1, +S2. absent: Gallop, Rubs, Murmur - GI/Abdominal Exam GI & Abdominal Exam: Soft, Normal Bowel Sounds. absent: Guarding, Rigid, Tenderness - Extremities Exam Extremities Exam: absent: Calf Tenderness, Pedal Edema - Neurological Exam Neurological Exam: Alert, Awake, Oriented x3 Additional comments: Mildly tremulous - Psychiatric Exam Psychiatric exam: Normal Affect, Normal Mood - Skin Skin Exam: Dry, Intact, Warm Assessment and Plan - Assessment and Plan (Free Text) Assessment: 38 year old male with history of gastritis, high blood pressure and alcohol abuse admitted for alcohol withdrawal. Plan: Alcohol withdrawal, acute History of alcohol abuse, chronic Patient received Ativan 2mg IV total in ED Ativan 2mg Q4 SOFI decreased to Ativan 1mg Q4 SOFI Ativan 1mg Q2 PRN Fall precautions Seizure precaution Alcohol 211 Urine tox negative Folic acid 1mg PO daily MV 1 tab PO daily Thiamine 100mg PO daily Protonix 40mg IV daily NS @100cc/hr IV Patient vomited once, hold Zofran given prolonged QTc Prolonged QTc on EKG EKG SR at 89, prolonged QTc 489 Avoid Zofran, Reglan Repeat EKG prolonged QTc 438 Status post Fall, acute No obvious lacerations seen on patient CT head negative for acute bleed Microscopic Hematuria, acute Rocephin 1g IV daily UA 1+ blood, 10 RBC Follow up urine culture Thrombocytopenia Platelets 100 --> 70 Hold DVT prophylaxis Transaminitis AST 195 ALT 122 ALP 107 Hep panel negative ammonia level 21 Abdomen US increased echogenicity of hepatic parenchymal cortex, suggestive for fatty infiltration vs. hepatic parenchymal disease. limited visualization of pancreas. Prophylaxis SCDs Protonix 40mg IV daily Case discussed with Dr. Soraya Retana, PGY1 <Socrates Lira H - Last Filed: 08/10/18 16:19> Objective - Vital Signs/Intake and Output Vital Signs (last 24 hours): Temp Pulse Resp BP Pulse Ox 98.2 F 98 H 20 113/69 99 08/10/18 08:00 08/10/18 10:00 08/10/18 08:00 08/10/18 08:00 08/10/18 08:00 Intake and Output: 08/10/18 08/10/18 06:59 18:59 Intake Total 1800 1200 Balance 1800 1200 - Medications Medications: Current Medications Folic Acid (Folic Acid) 1 mg PO DAILY [facility] Last Admin: 08/10/18 09:54 Dose: 1 mg Sodium Chloride (Sodium Chloride 0.9%) 1,000 mls @ 100 mls/hr IV .Q10H SOFI Last Admin: 08/10/18 15:13 Dose: Not Given Ceftriaxone Sodium 1 gm/ (Sodium Chloride) 100 mls @ 100 mls/hr IVPB DAILY [facility]; Protocol Last Admin: 08/10/18 09:53 Dose: 100 mls/hr Lorazepam (Ativan) 1 mg IVP Q2H PRN PRN Reason: Seizure activity Lorazepam (Ativan) 1 mg IVP Q4H [facility] Last Admin: 08/10/18 15:00 Dose: 1 mg Multivitamins (Hexavitamin) 1 tab PO DAILY [facility] Last Admin: 08/10/18 09:54 Dose: 1 tab Pantoprazole Sodium (Protonix Inj) 40 mg IVP DAILY SOFI Last Admin: 08/10/18 09:54 Dose: 40 mg Thiamine HCl (Vitamin B1 Tab) 100 mg PO DAILY SOFI Last Admin: 08/10/18 09:54 Dose: 100 mg - Labs Labs: 08/10/18 07:00 08/10/18 07:00 PT 13.3 SECONDS (9.7-12.2) H 08/09/18 19:47 INR 1.2 08/09/18 19:47 APTT 29.6 SECONDS (21-34) 08/09/18 19:47 Attending/Attestation - Attestation I have personally seen and examined this patient.: Yes I have fully participated in the care of the patient.: Yes I have reviewed all pertinent clinical information, including history, physical exam and plan: Yes Notes (Text): 08/10/18 16:16 Medical attending: Patient was seen and examined by me. Agree with the above note by the resident The patient was not in any acute distress at this time. We will continue to monitor for DTs, on exam he was awake and asnwering questions in Wolof. He appeared drowys however and so will decrease the ativan today to 1 Q4 and continue to monitor. Socrates Lira
[2018-08-10 08:03] LABS: HEPATITIS B SURFACE AG Negative (NEGATIVE)
[2018-08-10 08:08] LABS: HEPATITIS A IGM NEGATIVE (NEGATIVE); HEPATITIS B CORE AB NEGATIVE (NEGATIVE)
[2018-08-10 08:19] LABS: HEPATITIS C ANTIBODY NEGATIVE (NEGATIVE)
--- NOTE | 2018-08-10 09:03 | US ---
Abdominal ultrasound HISTORY: Transaminitis. Alcoholic liver disease. COMPARISON: CT scan dated 04/18/2018 TECHNIQUE: Real-time sonography was performed through the abdomen. FINDINGS: Liver: 15.75 centimeters in length. Increased echogenicity of the hepatic parenchymal cortex suggestive for fatty infiltration versus hepatic parenchymal disease. Clinical correlation. Gallbladder: No calculi or sludge. Normal wall thickness of 1.6 millimeters. No gross wall edema. Negative sonographic Ocampo's sign. Common bile duct measures 3.9 millimeters, within normal limits. Limited visualization of the pancreas. Spleen measures 9.69 centimeters in length, within normal limits. Visualized aorta and IVC are preserved. Right kidney: 11.7 x 4.2 x 5.1 centimeters. No calculi or hydronephrosis. Left Kidney: 11.9 x 5.8 x 5.9 centimeters. No calculi or hydronephrosis. Impression: 1. Increased echogenicity of the hepatic parenchymal cortex suggestive for fatty infiltration versus hepatic parenchymal disease. Clinical correlation. 2. Limited visualization of the pancreas.
[2018-08-10] MEDS: Multiple Vitamins Tab PO SCH (09:54)
--- NOTE | 2018-08-10 12:43 | PCM.PSYCH ---
Initial Psychiatric Evaluation - Initial Psychiatric Evaluation Type of Admission: Voluntary Legal Status: Capacity Chief Complaint (in patient's own words): "OK" History of Present Illness and Precipitating Events: Patient is seen, chart reviewed and case discussed. He is known from previous admissions. Patient is a 38 y.o. Slovak-speaking male, who works as a cook, and is single and lives with a friend. No children. The patient wants to detox from alcohol again. He is known to come frequently and he almost always gets into DTs. He has been drinking ten 12oz cans of beer/day, and he had been drinking heavily for 13 years. Patient denies drug or tobacco use. The patient has been to Detox several times before, but has never been to rehab. Patient always says yes to rehab but then never goes, stating he needs to work. Past Psych Hx: DINORAH, some depression, no SI but had one admission here with alcohol-induced depression Medical Hx: Gastritis, HTN Family Psych Hx: Denied Family Medical Hx: Father had alcohol use disorder Current Medications: Active Medications Generic Name Dose Route Start Last Admin Trade Name Drake PRN Reason Stop Dose Admin Folic Acid 1 mg 08/10/18 10:00 08/10/18 09:54 Folic Acid PO 1 mg DAILY SOFI Administration Sodium Chloride 1,000 mls @ 100 mls/hr 08/09/18 16:30 08/09/18 16:30 Sodium Chloride 0.9% IV 100 mls/hr .Q10H SOFI Administration Ceftriaxone Sodium 1 gm/ 100 mls @ 100 mls/hr 08/09/18 17:00 08/10/18 09:53 Sodium Chloride IVPB 100 mls/hr DAILY SOFI Administration Protocol Lorazepam 1 mg 08/09/18 16:52 Ativan IVP Q2H PRN Seizure activity Lorazepam 1 mg 08/10/18 10:45 08/10/18 11:43 Ativan IVP 1 mg Q4H SOFI Administration Multivitamins 1 tab 08/10/18 10:00 08/10/18 09:54 Hexavitamin PO 1 tab DAILY SOFI Administration Pantoprazole Sodium 40 mg 08/09/18 17:00 08/10/18 09:54 Protonix Inj IVP 40 mg DAILY SOFI Administration Thiamine HCl 100 mg 08/10/18 10:00 08/10/18 09:54 Vitamin B1 Tab PO 100 mg DAILY SOFI Administration Past Psychiatric History - Past Psychiatric History Previous Treatment History: Inpatient Pertinent Medical Hx (Current Medical&Sleep Prob, Allergies): Allergies Allergy/AdvReac Type Severity Reaction Status Date / Time No Known Allergies Allergy Verified 04/18/18 11:35 No Known Home Med 08/09/18 Review of Systems - Psychiatric Psychiatric: Abnormal Sleep Pattern, Anxiety, Depression, Difficulty Concentrating, Hallucinations, Mood Swings. absent: Homicidal Ideation, Irritability, Suicidal Ideation Mental Status Examination - Personal Presentation Personal Presentation: Looks older than stated age (odd, unkempt, mumbling to self) - Affect Affect: Blunted - Motor Activity Motor Activity: Other (restless) - Reliability in Providing Information Reliability in Providing Information: Poor, due to cognitve impairment - Speech Speech: Disorganized - Mood Mood: Depressed, Anxious - Formal Thought Process Formal Thought Process: Hallucinations - Cognitive Functions Orientation: Person, Place Sensorium: Alert Attention/Concentration: Easily distracted Abstract Thinking: [place] Estimate of Intelligence: Below average Judgement: Imparied, as evidence by: Poor judgement Memory: Recent impaired, as evidence by: Inability to recall events of the day, Remote impaired as evidenced by: Inability to recall sig life events - Risk Risk: Seizure, Withdrawal, Diminished functioning - Strength & Assets Inventory Strength & Assets Inventory: Cooperative - Limitations Limitations: Living alone DSM 5 DX - DSM 5 DSM 5 Diagnosis: Alcohol withdrawal with Delirium Tremens Alcohol Use Disorder DINORAH - Recommended/Plan of Treatment Treatment Recommendations and Plan of Treatment: Ativan Taper Watch for already-developing DT or alcoholic hallucinosis Increase hydration, vitamins 1:1 if needed Address chronic non-compliance As needed medications All risks, benefits and alternatives of the meds discussed, and the pt agreed and understood. Supportive therapy and psychoeducation Refer to rehab, or IOP, and self-help groups 34 min
[2018-08-10] MEDS: Sodium Chloride 0.9% 1,000 ML IV SCH (15:13)
--- NOTE | 2018-08-10 17:48 | CARD ---
APPROVED REPORT Date of service: 08/09/2018 EKG Measurement Heart [id number] <Conclusion> Normal sinus rhythm with sinus arrhythmia Nonspecific T wave abnormality Abnormal ECG
[2018-08-10 23:42] VITALS: O2SAT 97
[2018-08-11 06:48] LABS: BASO % 0.3 % (0.0-2.0); EOS # 0.1 K/uL (0.0-0.7); EOS % 1.8 % (0.0-4.0); HEMOGLOBIN 12.7 g/dL (12.0-18.0); LYMPH # 1.1 K/uL (1.0-4.3); LYMPH % 25.5 % (20.0-40.0); MEAN CELL VOLUME 87.9 fL (80.0-94.0); MEAN CORPUSCULAR HEMOGLOBIN 29.3 pg (27.0-31.0); MEAN CORPUSCULAR HGB CONC 33.3 g/dL (33.0-37.0); MEAN PLATELET VOLUME 9.2 fL (7.2-11.7); MONO # 0.3 K/uL (0.0-0.8); MONO % 7.7 % (0.0-10.0); NEUT # 2.9 K/uL (1.8-7.0); NEUT % 64.7 % (50.0-75.0); NRBC % 0.1 % (0.0-2.0); RBC 4.34 Mil/uL (4.40-5.90); RED CELL DISTRIBUTION WIDTH 14.5 % (11.5-14.5); WHITE BLOOD COUNT 4.5 K/uL (4.8-10.8)
--- NOTE | 2018-08-11 07:11 | CP.PCM.PN ---
Subjective - Date & Time of Evaluation Date of Evaluation: 08/11/18 Time of Evaluation: 07:11 Objective - Vital Signs/Intake and Output Vital Signs (last 24 hours): Temp Pulse Resp BP Pulse Ox 98.2 F 82 20 125/76 97 08/10/18 23:30 08/10/18 23:30 08/10/18 23:30 08/10/18 23:30 08/10/18 23:30 Intake and Output: 08/11/18 08/11/18 06:59 18:59 Intake Total 1250 Output Total 500 Balance 750 - Medications Medications: Current Medications Folic Acid (Folic Acid) 1 mg PO DAILY [facility] Last Admin: 08/10/18 09:54 Dose: 1 mg Sodium Chloride (Sodium Chloride 0.9%) 1,000 mls @ 100 mls/hr IV .Q10H [facility] Last Admin: 08/10/18 15:13 Dose: Not Given Ceftriaxone Sodium 1 gm/ (Sodium Chloride) 100 mls @ 100 mls/hr IVPB DAILY [facility]; Protocol Last Admin: 08/10/18 09:53 Dose: 100 mls/hr Lorazepam (Ativan) 1 mg IVP Q2H PRN PRN Reason: Seizure activity Lorazepam (Ativan) 1 mg IVP Q4H [facility] Last Admin: 08/11/18 07:01 Dose: 1 mg Multivitamins (Hexavitamin) 1 tab PO DAILY [facility] Last Admin: 08/10/18 09:54 Dose: 1 tab Pantoprazole Sodium (Protonix Ec Tab) 40 mg PO DAILY [facility] Thiamine HCl (Vitamin B1 Tab) 100 mg PO DAILY [facility] Last Admin: 08/10/18 09:54 Dose: 100 mg - Labs Labs: 08/11/18 06:38 08/10/18 07:00 PT 13.3 SECONDS (9.7-12.2) H 08/09/18 19:47 INR 1.2 08/09/18 19:47 APTT 29.6 SECONDS (21-34) 08/09/18 19:47
[2018-08-11 07:40] LABS: ALB/GLOB RATIO 1.1 (1.0-2.1); ALBUMIN 3.9 g/dL (3.5-5.0); ALT/SGPT 110 U/L (21-72); AST/SGOT 164 U/L (17-59); BLOOD UREA NITROGEN 10 mg/dL (9-20); CALCIUM 8.2 mg/dl (8.6-10.4); GFR NON-AFRICAN AMERICAN > 60
[2018-08-11 08:12] VITALS: BP 129/66; TEMP 99.2
[2018-08-11 08:25] VITALS: PULSE 75
[2018-08-11] MEDS ORDERED: Pantoprazole 40 mg EC Tab PO SCH (10:00)
[2018-08-11] MEDS: Multiple Vitamins Tab PO SCH (10:07)
--- NOTE | 2018-08-11 14:38 | CP.PCM.DIS ---
<Adolfo Whalen - Last Filed: 08/11/18 14:38> Provider - Provider Date of Admission: 08/09/18 16:22 Attending physician: Socrates Lira DO Consults: 08/09/18 16:22 Psychiatry Consult Stat Comment: Consulting Provider: Cas Rod Consulting Physician: Cas Rod Reason for Consult: severe DTs 08/09/18 16:52 Pastoral Care Referral Routine Comment: Physician Instructions: Reason For Exam: alcoholism Time Spent in preparation of Discharge (in minutes): 45 Diagnosis - Discharge Diagnosis (1) Alcohol abuse with intoxication Status: Resolved (2) Alcohol dependence with withdrawal Status: Resolved (3) Elevated LFTs Status: Chronic (4) Microscopic hematuria Status: Resolved Hospital Course - Lab Results Lab Results: Micro Results 08/10/18 16:25 Urine,Catheterized Urine Culture - Final No Growth (<1,000 CFU/ML) Most Recent Lab Values WBC 4.5 K/uL (4.8-10.8) L 08/11/18 06:38 RBC 4.34 Mil/uL (4.40-5.90) L 08/11/18 06:38 Hgb 12.7 g/dL (12.0-18.0) 08/11/18 06:38 Hct 38.2 % (35.0-51.0) 08/11/18 06:38 MCV 87.9 fL (80.0-94.0) 08/11/18 06:38 MCH 29.3 pg (27.0-31.0) 08/11/18 06:38 MCHC 33.3 g/dL (33.0-37.0) 08/11/18 06:38 RDW 14.5 % (11.5-14.5) 08/11/18 06:38 Plt Count 80 K/uL (130-400) L 08/11/18 06:38 MPV 9.2 fL (7.2-11.7) 08/11/18 06:38 Neut % (Auto) 64.7 % (50.0-75.0) 08/11/18 06:38 Lymph % (Auto) 25.5 % (20.0-40.0) 08/11/18 06:38 Love % (Auto) 7.7 % (0.0-10.0) 08/11/18 06:38 Eos % (Auto) 1.8 % (0.0-4.0) 08/11/18 06:38 Baso % (Auto) 0.3 % (0.0-2.0) 08/11/18 06:38 Neut # (Auto) 2.9 K/uL (1.8-7.0) 08/11/18 06:38 Lymph # (Auto) 1.1 K/uL (1.0-4.3) 08/11/18 06:38 Love # (Auto) 0.3 K/uL (0.0-0.8) 08/11/18 06:38 Eos # (Auto) 0.1 K/uL (0.0-0.7) 08/11/18 06:38 Baso # (Auto) 0.0 K/uL (0.0-0.2) 08/11/18 06:38 Differential Comment 08/10/18 07:00 PT 13.3 SECONDS (9.7-12.2) H 08/09/18 19:47 INR 1.2 08/09/18 19:47 APTT 29.6 SECONDS (21-34) 08/09/18 19:47 Sodium 137 mmol/L (132-148) 08/11/18 06:38 Potassium 3.7 mmol/L (3.6-5.2) 08/11/18 06:38 Chloride 105 mmol/L (98-107) 08/11/18 06:38 Carbon Dioxide 22 mmol/L (22-30) 08/11/18 06:38 Anion Gap 14 (10-20) 08/11/18 06:38 BUN 10 mg/dL (9-20) 08/11/18 06:38 Creatinine 0.6 mg/dL (0.8-1.5) L 08/11/18 06:38 Est GFR ( Amer) > 60 08/11/18 06:38 Est GFR (Non-Af Amer) > 60 08/11/18 06:38 POC Glucose (mg/dL) 134 mg/dL (65-110) H 08/09/18 11:10 Random Glucose 95 mg/dL (75-110) 08/11/18 06:38 Calcium 8.2 mg/dl (8.6-10.4) L 08/11/18 06:38 Phosphorus 3.0 mg/dL (2.5-4.5) 08/11/18 06:38 Magnesium 1.9 mg/dL (1.6-2.3) 08/11/18 06:38 Total Bilirubin 1.0 mg/dL (0.2-1.3) 08/11/18 06:38 AST 164 U/L (17-59) H 08/11/18 06:38 ALT 110 U/L (21-72) H 08/11/18 06:38 Alkaline Phosphatase 132 U/L (38-126) H D 08/11/18 06:38 Ammonia 21 umol/L (9-33) 08/09/18 19:48 Total Protein 7.5 g/dL (6.3-8.3) 08/11/18 06:38 Albumin 3.9 g/dL (3.5-5.0) 08/11/18 06:38 Globulin 3.6 gm/dL (2.2-3.9) 08/11/18 06:38 Albumin/Globulin Ratio 1.1 (1.0-2.1) 08/11/18 06:38 Triglycerides 123 mg/dL (0-149) D 08/10/18 07:00 Cholesterol 157 mg/dL (0-199) 08/10/18 07:00 LDL Cholesterol Direct 58 mg/dL (0-129) 08/10/18 07:00 HDL Cholesterol 103 mg/dL (30-70) H 08/10/18 07:00 Urine Color Yellow (YELLOW) 08/09/18 13:29 Urine Clarity Hazy (Clear) 08/09/18 13:29 Urine pH 7.0 (5.0-8.0) 08/09/18 13:29 Ur Specific Roxana 1.013 (1.003-1.030) 08/09/18 13:29 Urine Protein Negative mg/dL (NEGATIVE) 08/09/18 13:29 Urine Glucose (UA) Normal mg/dL (Normal) 08/09/18 13:29 Urine Ketones Negative mg/dL (NEGATIVE) 08/09/18 13:29 Urine Blood 1+ (NEGATIVE) H 08/09/18 13:29 Urine Nitrate Negative (NEGATIVE) 08/09/18 13:29 Urine Bilirubin Negative (NEGATIVE) 08/09/18 13:29 Urine Urobilinogen 2.0 mg/dL (0.2-1.0) 08/09/18 13:29 Ur Leukocyte Esterase Neg Brent/uL (Negative) 08/09/18 13:29 Urine WBC (Auto) < 1 /hpf (0-5) 08/09/18 13:29 Urine RBC (Auto) 10 /hpf (0-3) H 08/09/18 13:29 Ur Squamous Epith Cells 3 /hpf (0-5) 08/09/18 13:29 Urine Bacteria Rare (<OCC) 08/09/18 13:29 Urine Opiates Screen Negative (NEGATIVE) 08/09/18 13:29 Urine Methadone Screen Negative (NEGATIVE) 08/09/18 13:29 Ur Barbiturates Screen Negative (NEGATIVE) 08/09/18 13:29 Ur Phencyclidine Scrn Negative (NEGATIVE) 08/09/18 13:29 Ur Amphetamines Screen Negative (NEGATIVE) 08/09/18 13:29 U Benzodiazepines Scrn Negative (NEGATIVE) 08/09/18 13:29 U Oth Cocaine Metabols Negative (NEGATIVE) 08/09/18 13:29 U Cannabinoids Screen Negative (NEGATIVE) 08/09/18 13:29 Alcohol, Quantitative 211 mg/dl (0-10) H 08/09/18 11:43 Hepatitis A IgM Ab Negative (NEGATIVE) 08/09/18 19:47 Hep Bs Antigen Negative (NEGATIVE) 08/09/18 19:47 Hep B Core IgM Ab Negative (NEGATIVE) 08/09/18 19:47 Hepatitis C Antibody Negative (NEGATIVE) 08/09/18 19:47 - Hospital Course Hospital Course: Patient is a 38 year old male with history of gastritis and high blood pressure who presents after drinking about 24 ounces of alcohol daily for the past 7 days. Patient was admitted for alcohol abuse with withdrawal symptoms. During the course of his hospital stay, patient had a CT scan of the head that showed no acute findings. He had an abdominal ultrasounds that showed hepatic steatosis. Patient was treated with Ativan, IV fluids, zofran, rocephin, multivitamins, thiamine, and folate. Patient was without significant withdrawal signs on physical exam on day of discharge and CIWA score was found to be 0. He was able to ambulate without any issues. Patient was provided resources for AA for help with drinking cessation. Patient was instructed to take over the counter thiamine, folate, and multivitamins. Patient was instructed to follow up with a PMD in the clinic. He was counselled multiple times for alcohol cessation. Patient is medically stable for discharge. Discharge Exam - Respiratory Exam Additional comments: - Constitutional Appears: No Acute Distress - Head Exam Head Exam: ATRAUMATIC, NORMOCEPHALIC - Eye Exam Eye Exam: EOMI, PERRL - ENT Exam ENT Exam: Mucous Membranes moist - Neck Exam Neck Exam: Full ROM. absent: Tenderness - Respiratory Exam Respiratory Exam: Clear to Ausculation Bilateral, NORMAL BREATHING PATTERN. absent: Rales, Rhonchi, Wheezes, Respiratory Distress, Stridor - Cardiovascular Exam Cardiovascular Exam: REGULAR RHYTHM, +S1, +S2. absent: Gallop, Rubs, Murmur - GI/Abdominal Exam GI & Abdominal Exam: Soft, Normal Bowel Sounds. absent: Guarding, Rigid, Tenderness - Extremities Exam Extremities Exam: absent: Calf Tenderness, Pedal Edema - Neurological Exam Neurological Exam: Alert, Awake, Oriented x3 Additional comments: No tremors noted - Psychiatric Exam Psychiatric exam: Normal Affect, Normal Mood - Skin Skin Exam: Dry, Intact, Warm Discharge Plan - Follow Up Plan Condition: SERIOUS Disposition: HOME/ ROUTINE Instructions: Alcohol Use - When Is Drinking a Problem?, Alcohol Withdrawal (DC), Folic Acid, Thiamine Additional Instructions: 08/12/2018 8 AM [facility]3] [facility] Jaylen Rascon [phone] - Schedule follow up with [facility] within the next 7 to 10 days. - You must stop drinking alcohol. Please attend Alcohol Anonymous (AA) Meetings for help in quitting drinking alcohol. Call [phone] for help and more information as to when meetings take place at [address] [place] [address] [place] [address]. - Please get the following over the counter medications at your pharmacy on your way home from the hospital and use as directed: - Multivitamin daily - Thiamine daily - Folic acid daily - Please go to the AA meetings, follow up at the [facility] and take care of yourself. - Return to the emergency room for worsening or newly concerning symptoms. - Programe el seguimiento con [facility] dentro de los prximos 7 a 10 dubose. - Debes dejar de beber alcohol. Por favor, asista a las reuniones de Alcohol Anonymous (AA) para obtener ayuda para dejar de beber alcohol. Llame al [phone] para obtener ayuda y ms informacin sobre cundo se realizarn las reuniones en [facility] [place] [address]. - Por favor, obtenga los siguientes medicamentos de venta sin receta en dillon farmacia en dillon bimal a casa desde el hospital y selos segn las indicaciones: - Multivitamnico diario. - Tiamina al da. - cido flico diario. - Por favor, vaya a las reuniones de AA, alex un [facility]imiento [facility] vecindario y cudese. - Regrese a la raymond de emergencias por empeoramiento o sntomas nuevos. Referrals: Alcoholics Anonymous [Outside] [facility] [Outside] [facility] [Outside] <Socrates Lira - Last Filed: 08/12/18 07:09> Provider - Provider Date of Admission: 08/09/18 16:22 Attending physician: Socrates Lira DO Consults: 08/09/18 16:22 Psychiatry Consult Stat Comment: Consulting Provider: Cas Rod Consulting Physician: Cas Rod Reason for Consult: severe DTs 08/09/18 16:52 Pastoral Care Referral Routine Comment: Physician Instructions: Reason For Exam: alcoholism Hospital Course - Lab Results Lab Results: Micro Results 08/10/18 16:25 Urine,Catheterized Urine Culture - Final No Growth (<1,000 CFU/ML) Most Recent Lab Values WBC 4.5 K/uL (4.8-10.8) L 08/11/18 06:38 RBC 4.34 Mil/uL (4.40-5.90) L 08/11/18 06:38 Hgb 12.7 g/dL (12.0-18.0) 08/11/18 06:38 Hct 38.2 % (35.0-51.0) 08/11/18 06:38 MCV 87.9 fL (80.0-94.0) 08/11/18 06:38 MCH 29.3 pg (27.0-31.0) 08/11/18 06:38 MCHC 33.3 g/dL (33.0-37.0) 08/11/18 06:38 RDW 14.5 % (11.5-14.5) 08/11/18 06:38 Plt Count 80 K/uL (130-400) L 08/11/18 06:38 MPV 9.2 fL (7.2-11.7) 08/11/18 06:38 Neut % (Auto) 64.7 % (50.0-75.0) 08/11/18 06:38 Lymph % (Auto) 25.5 % (20.0-40.0) 08/11/18 06:38 Love % (Auto) 7.7 % (0.0-10.0) 08/11/18 06:38 Eos % (Auto) 1.8 % (0.0-4.0) 08/11/18 06:38 Baso % (Auto) 0.3 % (0.0-2.0) 08/11/18 06:38 Neut # (Auto) 2.9 K/uL (1.8-7.0) 08/11/18 06:38 Lymph # (Auto) 1.1 K/uL (1.0-4.3) 08/11/18 06:38 Love # (Auto) 0.3 K/uL (0.0-0.8) 08/11/18 06:38 Eos # (Auto) 0.1 K/uL (0.0-0.7) 08/11/18 06:38 Baso # (Auto) 0.0 K/uL (0.0-0.2) 08/11/18 06:38 Differential Comment 08/10/18 07:00 PT 13.3 SECONDS (9.7-12.2) H 08/09/18 19:47 INR 1.2 08/09/18 19:47 APTT 29.6 SECONDS (21-34) 08/09/18 19:47 Sodium 137 mmol/L (132-148) 08/11/18 06:38 Potassium 3.7 mmol/L (3.6-5.2) 08/11/18 06:38 Chloride 105 mmol/L (98-107) 08/11/18 06:38 Carbon Dioxide 22 mmol/L (22-30) 08/11/18 06:38 Anion Gap 14 (10-20) 08/11/18 06:38 BUN 10 mg/dL (9-20) 08/11/18 06:38 Creatinine 0.6 mg/dL (0.8-1.5) L 08/11/18 06:38 Est GFR ( Amer) > 60 08/11/18 06:38 Est GFR (Non-Af Amer) > 60 08/11/18 06:38 POC Glucose (mg/dL) 134 mg/dL (65-110) H 08/09/18 11:10 Random Glucose 95 mg/dL (75-110) 08/11/18 06:38 Calcium 8.2 mg/dl (8.6-10.4) L 08/11/18 06:38 Phosphorus 3.0 mg/dL (2.5-4.5) 08/11/18 06:38 Magnesium 1.9 mg/dL (1.6-2.3) 08/11/18 06:38 Total Bilirubin 1.0 mg/dL (0.2-1.3) 08/11/18 06:38 AST 164 U/L (17-59) H 08/11/18 06:38 ALT 110 U/L (21-72) H 08/11/18 06:38 Alkaline Phosphatase 132 U/L (38-126) H D 08/11/18 06:38 Ammonia 21 umol/L (9-33) 08/09/18 19:48 Total Protein 7.5 g/dL (6.3-8.3) 08/11/18 06:38 Albumin 3.9 g/dL (3.5-5.0) 08/11/18 06:38 Globulin 3.6 gm/dL (2.2-3.9) 08/11/18 06:38 Albumin/Globulin Ratio 1.1 (1.0-2.1) 08/11/18 06:38 Triglycerides 123 mg/dL (0-149) D 08/10/18 07:00 Cholesterol 157 mg/dL (0-199) 08/10/18 07:00 LDL Cholesterol Direct 58 mg/dL (0-129) 08/10/18 07:00 HDL Cholesterol 103 mg/dL (30-70) H 08/10/18 07:00 Urine Color Yellow (YELLOW) 08/09/18 13:29 Urine Clarity Hazy (Clear) 08/09/18 13:29 Urine pH 7.0 (5.0-8.0) 08/09/18 13:29 Ur Specific Roxana 1.013 (1.003-1.030) 08/09/18 13:29 Urine Protein Negative mg/dL (NEGATIVE) 08/09/18 13:29 Urine Glucose (UA) Normal mg/dL (Normal) 08/09/18 13:29 Urine Ketones Negative mg/dL (NEGATIVE) 08/09/18 13:29 Urine Blood 1+ (NEGATIVE) H 08/09/18 13:29 Urine Nitrate Negative (NEGATIVE) 08/09/18 13:29 Urine Bilirubin Negative (NEGATIVE) 08/09/18 13:29 Urine Urobilinogen 2.0 mg/dL (0.2-1.0) 08/09/18 13:29 Ur Leukocyte Esterase Neg Brent/uL (Negative) 08/09/18 13:29 Urine WBC (Auto) < 1 /hpf (0-5) 08/09/18 13:29 Urine RBC (Auto) 10 /hpf (0-3) H 08/09/18 13:29 Ur Squamous Epith Cells 3 /hpf (0-5) 08/09/18 13:29 Urine Bacteria Rare (<OCC) 08/09/18 13:29 Urine Opiates Screen Negative (NEGATIVE) 08/09/18 13:29 Urine Methadone Screen Negative (NEGATIVE) 08/09/18 13:29 Ur Barbiturates Screen Negative (NEGATIVE) 08/09/18 13:29 Ur Phencyclidine Scrn Negative (NEGATIVE) 08/09/18 13:29 Ur Amphetamines Screen Negative (NEGATIVE) 08/09/18 13:29 U Benzodiazepines Scrn Negative (NEGATIVE) 08/09/18 13:29 U Oth Cocaine Metabols Negative (NEGATIVE) 08/09/18 13:29 U Cannabinoids Screen Negative (NEGATIVE) 08/09/18 13:29 Alcohol, Quantitative 211 mg/dl (0-10) H 08/09/18 11:43 Hepatitis A IgM Ab Negative (NEGATIVE) 08/09/18 19:47 Hep Bs Antigen Negative (NEGATIVE) 08/09/18 19:47 Hep B Core IgM Ab Negative (NEGATIVE) 08/09/18 19:47 Hepatitis C Antibody Negative (NEGATIVE) 08/09/18 19:47 Attending/Attestation - Attestation I have personally seen and examined this patient.: Yes I have fully participated in the care of the patient.: Yes I have reviewed all pertinent clinical information, including history, physical exam and plan: Yes Notes (Text): 08/12/18 07:08 Medical attending: Patient was seen and examined by me. Agree with the above note by the resident Hopefully the patient will make the necessary life changes he needs. Socrates Lira
--- NOTE | 2018-08-12 11:47 | CARD ---
APPROVED REPORT Date of service: 08/11/2018 EKG Measurement Heart [id number] 132P3 [id number] <Conclusion> Normal sinus rhythm with sinus arrhythmia Normal ECG
--- NOTE | 2018-08-12 13:29 | CARD ---
APPROVED REPORT Date of service: 08/10/2018 EKG Measurement Heart [id number] <Conclusion> Normal sinus rhythm Nonspecific T wave abnormality Borderline
== END 2018-08-11 15:01 | disposition home or self-care (01) | DRG 772 ==
LOC: C.ER 10:11 → C.9E 16:22 → C.5S 17:02
PROVIDERS: ADMIT Hospitalist; ATTEND Hospitalist
PROC: HZ2ZZZZ Detoxification Services for Substance Abuse Treatment (ICD-10-PCS; principal; 2018-08-09)
PROC: HZ42ZZZ Group Counseling for Substance Abuse Treatment, Cognitive-Behavioral (ICD-10-PCS; 2018-08-09)
PROC: HZ52ZZZ Individual Psychotherapy for Substance Abuse Treatment, Cognitive-Behavioral (ICD-10-PCS; 2018-08-09)
PROC: HZ59ZZZ Individual Psychotherapy for Substance Abuse Treatment, Supportive (ICD-10-PCS; 2018-08-09)
PROC: HZ56ZZZ Individual Psychotherapy for Substance Abuse Treatment, Psychoeducation (ICD-10-PCS; 2018-08-09)
PROC: HZ46ZZZ Group Counseling for Substance Abuse Treatment, Psychoeducation (ICD-10-PCS; 2018-08-09)
PROC: GZHZZZZ Group Psychotherapy (ICD-10-PCS; 2018-08-09)
PROC: GZ58ZZZ Individual Psychotherapy, Cognitive-Behavioral (ICD-10-PCS; 2018-08-09)
PROC: GZ56ZZZ Individual Psychotherapy, Supportive (ICD-10-PCS; 2018-08-09)
DX: F10.231 Alcohol dependence with withdrawal delirium (principal); M62.82 Rhabdomyolysis; D69.6 Thrombocytopenia, unspecified; D70.9 Neutropenia, unspecified; R56.9 Unspecified convulsions; S09.90XA Unspecified injury of head, initial encounter; I10 Essential (primary) hypertension; I45.81 Long QT syndrome; Y90.7 Blood alcohol level of 200-239 mg/100 ml; K76.0 Fatty (change of) liver, not elsewhere classified; W19.XXXA Unspecified fall, initial encounter; E86.0 Dehydration; N30.91 Cystitis, unspecified with hematuria

== ENCOUNTER 2018-08-12 10:31 | Observation (INO) | payer MEDICAID, OTHER ==
[2018-08-12 10:34] VITALS: BMI 33.8
[2018-08-12] MEDS ORDERED: Sodium Chloride 0.9% 1,000 ML IV ONE (11:50)
--- NOTE | 2018-08-12 11:51 | C.PDOC ---
Time Seen by Provider: 08/12/18 10:46 Chief Complaint (Nursing): Abdominal Pain Past Medical History Vital Signs: Last Vital Signs Temp 99.1 F 08/12/18 10:34 Pulse 96 H 08/12/18 10:34 Resp 16 08/12/18 10:34 BP 131/87 08/12/18 10:34 Pulse Ox 99 08/12/18 10:34 - Medical History PMH: Gastritis, HTN, Seizures Denies: Diabetes, Hepatitis, HIV, Chronic Kidney Disease, Sexually Transmitted Disease - [facility] Procedures CLOSURE SKIN & SUBCUTANEOUS NEC (11/10/14) DETOXIFICATION SERVICES FOR SUBSTANCE ABUSE TREATMENT (08/09/18) GROUP SLASHER TENDER FOR SUBSTANCE ABUSE TREATMENT, PSYCHOEDUCATION (08/09/18) GROUP SLASHER TENDER FOR SUBSTANCE ABUSE, COGNITIVE BEHAVIORAL (08/09/18) GROUP PSYCHOTHERAPY (08/09/18) INDIV PSYCHOTHERAPY FOR SUBSTANCE ABUSE TREATMENT, SUPPORT (08/09/18) INDIV PSYCHOTHERAPY FOR SUBSTANCE ABUSE, COGNITIV BEHAVIORAL (08/09/18) INDIV PSYCHOTHERAPY FOR SUBSTANCE ABUSE, PSYCHOEDUCATION (08/09/18) INDIVIDUAL PSYCHOTHERAPY, COGNITIVE-BEHAVIORAL (08/09/18) INDIVIDUAL PSYCHOTHERAPY, SUPPORTIVE (08/09/18) TETANUS TOXOID ADMINIST (11/10/14) Family History: States: Unknown Family Hx - Social History Hx Tobacco Use: No Hx Alcohol Use: Yes Hx Substance Use: No - Immunization History Hx Tetanus Toxoid Vaccination: Yes (2014) Hx Influenza Vaccination: No Hx Pneumococcal Vaccination: No ED Course And Treatment O2 Sat by Pulse Oximetry: 99 Disposition - Disposition
[2018-08-12] MEDS ORDERED: Sodium Chloride 0.9% 1,000 ML ONE (11:56)
[2018-08-12 12:18] LABS: BASO % 0.3 % (0.0-2.0); EOS # 0.1 K/uL (0.0-0.7); LYMPH # 1.1 K/uL (1.0-4.3); MEAN CELL VOLUME 87.6 fL (80.0-94.0); MONO # 0.5 K/uL (0.0-0.8); WHITE BLOOD COUNT 4.8 K/uL (4.8-10.8)
[2018-08-12 12:24] LABS: EOS % 1.4 % (0.0-4.0); HEMOGLOBIN 12.9 g/dL (12.0-18.0); LYMPH % 23.2 % (20.0-40.0); MEAN CORPUSCULAR HEMOGLOBIN 29.2 pg (27.0-31.0); MEAN CORPUSCULAR HGB CONC 33.4 g/dL (33.0-37.0); MEAN PLATELET VOLUME 8.9 fL (7.2-11.7); MONO % 10.2 % (0.0-10.0); NEUT # 3.1 K/uL (1.8-7.0); NEUT % 64.9 % (50.0-75.0); RBC 4.41 Mil/uL (4.40-5.90); RED CELL DISTRIBUTION WIDTH 14.3 % (11.5-14.5)
[2018-08-12 12:40] LABS: ALB/GLOB RATIO 1.1 (1.0-2.1); ALT/SGPT 109 U/L (21-72); AST/SGOT 143 U/L (17-59); BLOOD UREA NITROGEN 7 mg/dL (9-20); CALCIUM 8.4 mg/dl (8.6-10.4); GFR NON-AFRICAN AMERICAN > 60
--- NOTE | 2018-08-12 13:22 | C.PDOC ---
History Of Present Illness 38-year-old male presents to the ED for evaluation of nausea, vomiting and tremors. Patient reports being unable to tolerate PO intake. Patient was recently admitted in the hospital from 08/09-08/11 for alcohol related delirium tremors. Patient states he drank a small amount of alcohol yesterday, and has been unable to drink alcohol today due to poor PO tolerance. Patient has had multiple previous admissions for alcohol withdrawals and detox, with multiple failed detoxes. Patient denies suicidal/homicidal ideation at this time. Time Seen by Provider: 08/12/18 10:46 Chief Complaint (Nursing): Abdominal Pain History Per: Patient History/Exam Limitations: no limitations Onset/Duration Of Symptoms: Hrs Current Symptoms Are (Timing): Still Present Modifying Factor(s): Alcohol Associated Symptoms: denies: Suicidal Thoughts, Suicidal Plan Involuntary Hold By: None Recent travel outside of the [place]: No Additional History Per: Patient Past Medical History Reviewed: Historical Data, Nursing Documentation, Vital Signs Vital Signs: Last Vital Signs Temp 99.1 F 08/12/18 10:34 Pulse 96 H 08/12/18 10:34 Resp 16 08/12/18 10:34 BP 131/87 08/12/18 10:34 Pulse Ox 99 08/12/18 11:51 - Medical History PMH: Gastritis, HTN, Seizures Denies: Diabetes, Hepatitis, HIV, Chronic Kidney Disease, Sexually Transmitted Disease Surgical History: No Surg Hx - [facility] Procedures CLOSURE SKIN & SUBCUTANEOUS NEC (11/10/14) DETOXIFICATION SERVICES FOR SUBSTANCE ABUSE TREATMENT (08/09/18) GROUP MANAGER TRAFFIC FOR SUBSTANCE ABUSE TREATMENT, PSYCHOEDUCATION (08/09/18) GROUP MANAGER TRAFFIC FOR SUBSTANCE ABUSE, COGNITIVE BEHAVIORAL (08/09/18) GROUP PSYCHOTHERAPY (08/09/18) INDIV PSYCHOTHERAPY FOR SUBSTANCE ABUSE TREATMENT, SUPPORT (08/09/18) INDIV PSYCHOTHERAPY FOR SUBSTANCE ABUSE, COGNITIV BEHAVIORAL (08/09/18) INDIV PSYCHOTHERAPY FOR SUBSTANCE ABUSE, PSYCHOEDUCATION (08/09/18) INDIVIDUAL PSYCHOTHERAPY, COGNITIVE-BEHAVIORAL (08/09/18) INDIVIDUAL PSYCHOTHERAPY, SUPPORTIVE (08/09/18) TETANUS TOXOID ADMINIST (11/10/14) Family History: States: Unknown Family Hx - Social History Hx Tobacco Use: No Hx Alcohol Use: Yes Hx Substance Use: No - Immunization History Hx Tetanus Toxoid Vaccination: Yes (2014) Hx Influenza Vaccination: No Hx Pneumococcal Vaccination: No Review Of Systems Musculoskeletal: Positive for: Other (generalized body aches ) Psych: Positive for: Withdrawal, Other (alcohol detox). Negative for: Suicidal ideation Physical Exam - Physical Exam Appears: Non-toxic, Other (obese male, in mild distress, vomiting ) Skin: Normal Color, Warm, Dry Head: Atraumatic, Normacephalic Eye(s): bilateral: Normal Inspection Oral Mucosa: Moist Neck: Supple Chest: Symmetrical, No Deformity, No Tenderness Cardiovascular: Rhythm Regular, No Murmur, Other (tachycardia ) Respiratory: Normal Breath Sounds, No Rales, No Rhonchi, No Wheezing Extremity: Normal ROM, Capillary Refill (less than 2 seconds ) Neurological/Psych: Oriented x3, Normal Speech, Normal Cognition ED Course And Treatment - Laboratory Results Result Diagrams: 08/13/18 08:04 08/13/18 08:04 Lab Results: Total Bilirubin 0.6 mg/dL (0.2-1.3) 08/12/18 12:14 AST 143 U/L (17-59) H 08/12/18 12:14 ALT 109 U/L (21-72) H 08/12/18 12:14 Alkaline Phosphatase 112 U/L (38-126) 08/12/18 12:14 Total Protein 7.7 g/dL (6.3-8.3) 08/12/18 12:14 Albumin 4.0 g/dL (3.5-5.0) 08/12/18 12:14 Globulin 3.6 gm/dL (2.2-3.9) 08/12/18 12:14 Albumin/Globulin Ratio 1.1 (1.0-2.1) 08/12/18 12:14 Lab Interpretation: Abnormal (ETOH 13 (very low)) O2 Sat by Pulse Oximetry: 99 (on RA) Pulse Ox Interpretation: Normal Progress Note: Bloodwork and urinalysis ordered and reviewed. Ativan IVP, Librium PO, Pepcid PO, Protonix IVP, Zofran PO, and IV Fluids given. Reevaluation Time: 13:19 Reassessment Condition: Improved - Physician Consult Information Outcome Of Conversation: 1315: d/w Dr. Oly Fernando- covering [facility] pt's and their service d/c'd home yesterday, ok to med/Surg Obs Medical Decision Making Medical Decision Making: persistent alcohol w/d, unable to tolerate PO d/c yesterday after 2 days Obs for alcohol abuse/DT's s/s resolved with ED tx/Ativan/IVF's Detox defers pt for now- recent eval in < past 30 days Consider longer alcohol Detox program/ Rehab Disposition Doctor Will See Patient In The: Hospital Counseled Patient/Family Regarding: Studies Performed, Diagnosis - Disposition Disposition: HOSPITALIZED Disposition Time: 13:00 Condition: FAIR - Clinical Impression Clinical Impression: DTs (delirium tremens) - Scribe Statement The provider has reviewed the documentation as recorded by the Scribe (Franny Fernando) Provider Attestation: All medical record entries made by the Scribe were at my direction and personally dictated by me. I have reviewed the chart and agree that the record accurately reflects my personal performance of the history, physical exam, medical decision making, and the department course for this patient. I have also personally directed, reviewed, and agree with the discharge instructions and disposition.
[2018-08-12] MEDS ORDERED: Multivitamin (MVI) 10 ML, Thiamine 100 MG, Folic Acid 1 MG in Sodium Chloride 0.9% 1,00... IV ONE (13:28)
--- NOTE | 2018-08-12 14:16 | CP.PCM.HP ---
<Adolfo Whalen - Last Filed: 08/12/18 14:29> History of Present Illness - History of Present Illness History of Present Illness: PGY-1 Medicine H&P for Dr. Oly Fernando CC: Nausea, abdominal pain, and tremors HPI: Patient is a 38 year old male with a past medical history of gastritis, HTN, and alcohol abuse, presenting with nausea and tremors. He states that his last drink was yesterday after getting discharged from the hospital. He states that he drank a few cans of beer yesterday. He decided to come to the ED today because he is unable to eat or drink anything. He states that he could not drink alcohol today due to nausea. Patient was recently admitted in the hospital from 08/09-08/11 for alcohol related delirium tremors. Patient has had multiple previous admissions for alcohol withdrawals and detox, with multiple failed detoxes. Patient denies suicidal/homicidal ideation at this time. He denies vomiting, hematochezia, or hematemesis. He further denies fevers, chills, dizziness, chest pain, shortness of breath, palpitations, abdominal pain, diarrhea, constipation, urinary frequency, dysuria, or leg pain. 12-point ROS reviewed and negative except mentioned in HPI. PMH: gastritis, HTN, and alcohol abuse PSH: denies Allergies: NKDA Social history: denies tobacco or illicit drug abuse. Drinks about 24 ounces of alcohol daily, has been to detox twice before, longest period of sobriety was 4 months. Has in [place], lives with friends in [place]. Works at a [employer]. Family history: Father with alcoholism Home meds: None PMD: none Present on Admission - Present on Admission Any Indicators Present on Admission: No History of DVT/PE: No History of Uncontrolled Diabetes: No Urinary Catheter: No Decubitus Ulcer Present: No Past Patient History - Infectious Disease Hx of Infectious Diseases: None - Past Medical History & Family History Past Medical History?: Yes - Past Social History Smoking Status: Current Some Days Smoker - CARDIAC Hx Hypertension: Yes - PULMONARY Hx Tuberculosis: No - NEUROLOGICAL Hx Seizures: Yes - HEENT Hx HEENT Problems: No - RENAL Hx Chronic Kidney Disease: No - ENDOCRINE/METABOLIC Hx Endocrine Disorders: No - HEMATOLOGICAL/ONCOLOGICAL Hx Human Immunodeficiency Virus (HIV): No - INTEGUMENTARY Hx Dermatological Problems: No - MUSCULOSKELETAL/RHEUMATOLOGICAL Hx Falls: No - GASTROINTESTINAL Hx Gastritis: Yes - GENITOURINARY/GYNECOLOGICAL Hx Sexually Transmitted Disorders: No - PSYCHIATRIC Hx Substance Use: No - SURGICAL HISTORY Hx Surgeries: No - ANESTHESIA Hx Anesthesia: No Hx Anesthesia Reactions: No Meds Allergies/Adverse Reactions: Allergies Allergy/AdvReac Type Severity Reaction Status Date / Time No Known Allergies Allergy Verified 08/12/18 10:34 Physical Exam - Constitutional Appears: Non-toxic, No Acute Distress, Unkempt - Head Exam Head Exam: ATRAUMATIC, NORMAL INSPECTION, NORMOCEPHALIC Additional comments: No abrasions or hematoma noted on scalp or neck - Eye Exam Eye Exam: EOMI, Normal appearance, PERRL Pupil Exam: NORMAL ACCOMODATION - ENT Exam ENT Exam: Mucous Membranes Dry - Neck Exam Neck exam: Positive for: Normal Inspection. Negative for: Tenderness - Respiratory Exam Respiratory Exam: Clear to Auscultation Bilateral. absent: Rales, Rhonchi, Whee zes, Respiratory Distress - Cardiovascular Exam Cardiovascular Exam: REGULAR RHYTHM, +S1, +S2. absent: Bradycardia, Tachycardia, Gallop, Rubs, Systolic Murmur - GI/Abdominal Exam GI & Abdominal Exam: Normal Bowel Sounds, Soft. absent: Distended, Firm, Guarding, Tenderness - Extremities Exam Extremities exam: Positive for: normal inspection. Negative for: calf tenderness, pedal edema Additional comments: No bruises or abrasions noted on all extremities - Back Exam Back exam: NORMAL INSPECTION. absent: CVA tenderness (L), CVA tenderness (R), paraspinal tenderness, vertebral tenderness - Neurological Exam Neurological exam: Alert, CN II-XII Intact, Oriented x3 - Psychiatric Exam Psychiatric exam: Normal Affect, Normal Mood - Skin Skin Exam: Dry, Intact, Normal Color, Warm Additional comments: No abrasions noted on all extremities, chest, or abdomen Results - Vital Signs Recent Vital Signs: Last Vital Signs Temp 99.1 F 08/12/18 10:34 Pulse 96 H 08/12/18 10:34 Resp 16 08/12/18 10:34 BP 131/87 08/12/18 10:34 Pulse Ox 99 08/12/18 13:29 - Labs Result Diagrams: 08/12/18 12:14 08/12/18 12:14 Labs: Laboratory Results - last 24 hr 08/12/18 08/12/18 12:14 12:14 WBC 4.8 RBC 4.41 Hgb 12.9 Hct 38.6 MCV 87.6 MCH 29.2 MCHC 33.4 RDW 14.3 Plt Count 70 L MPV 8.9 Neut % (Auto) 64.9 Lymph % (Auto) 23.2 Lucas % (Auto) 10.2 H Eos % (Auto) 1.4 Baso % (Auto) 0.3 Neut # (Auto) 3.1 Lymph # (Auto) 1.1 Lucas # (Auto) 0.5 Eos # (Auto) 0.1 Baso # (Auto) 0.0 Differential Comment Sodium 136 Potassium 3.5 L Chloride 103 Carbon Dioxide 22 Anion Gap 14 BUN 7 L Creatinine 0.6 L Est GFR ( Amer) > 60 Est GFR (Non-Af Amer) > 60 Random Glucose 93 Calcium 8.4 L Phosphorus 3.6 Magnesium 1.7 Total Bilirubin 0.6 AST 143 H ALT 109 H Alkaline Phosphatase 112 Total Protein 7.7 Albumin 4.0 Globulin 3.6 Albumin/Globulin Ratio 1.1 Alcohol, Quantitative 13 H Assessment & Plan - Assessment and Plan (Free Text) Assessment: Patient is a 38 year old male with history of gastritis, hypertension, and alcohol abuse admitted for alcohol withdrawal symptoms. Plan: Alcohol withdrawal symptoms, acute - Ativan PO taper: - 2mg Q4H X 2 days - 1mg Q4H X 1 day - 1mg Q8H X 1 day - 1mg Q24H X 1 day - Ativan 1mg IV Q4H PRN for seizures - Serum alcohol: 13 - Seizure, fall, aspiration protocols - Banana bag X 1 - Daily MV, thiamine, Folate - CIWA protocol - Neurochecks Q4H Transaminitis, chronic - 2/2 alcohol abuse - Avoid hepatotoxic agents - Lipid panel: WNL - Hepatitis panel: negative - Continue to monitor History of prolonged QTc, chronic - Follow up repeat EKG - Avoid Zofran or Reglan - Avoid other medications that prolong QTc Hypokalemia, acute - Replete as needed - Continue to monitor History of microscopic hematuria, resolved - Urine culture on 08/10: no growth - Follow up UA - Monitor and work up as outpatient History of thrombocytopenia, chronic - Likely 2/2 bone marrow suppression from alcohol abuse - Stable - Continue to monitor History of hypertension, chronic - Stable - Patient not on medications - Continue to monitor Alcohol abuse, chronic - Follow up UDS - Serum alcohol: 13 - Counselled patient on alcohol cessation Prophylaxis: - DVT: SCD's, VTE contraindicated due to thrombocytopenia - GI: not indicated Patient seen and case discussed with attending, Dr. Oly Fernando. Adolfo Whalen, PGY-1 <Robbie Fernando - Last Filed: 08/13/18 08:27> Results - Vital Signs Recent Vital Signs: Last Vital Signs Temp 98.2 F 08/13/18 07:59 Pulse 71 08/13/18 07:59 Resp 20 08/13/18 07:59 BP 124/87 08/13/18 07:59 Pulse Ox 96 08/13/18 07:59 - Labs Result Diagrams: 08/13/18 08:04 08/12/18 12:14 Labs: Laboratory Results - last 24 hr 08/12/18 08/12/18 08/13/18 12:14 12:14 08:04 WBC 4.8 5.3 RBC 4.41 4.40 Hgb 12.9 12.9 Hct 38.6 38.4 MCV 87.6 87.3 MCH 29.2 29.4 MCHC 33.4 33.7 RDW 14.3 15.0 H Plt Count 70 L 84 L MPV 8.9 8.6 Neut % (Auto) 64.9 48.3 L Lymph % (Auto) 23.2 37.5 Lucas % (Auto) 10.2 H 10.5 H Eos % (Auto) 1.4 3.4 Baso % (Auto) 0.3 0.3 Neut # (Auto) 3.1 2.5 Lymph # (Auto) 1.1 2.0 Lucas # (Auto) 0.5 0.6 Eos # (Auto) 0.1 0.2 Baso # (Auto) 0.0 0.0 Differential Comment Sodium 136 Potassium 3.5 L Chloride 103 Carbon Dioxide 22 Anion Gap 14 BUN 7 L Creatinine 0.6 L Est GFR ( Amer) > 60 Est GFR (Non-Af Amer) > 60 Random Glucose 93 Calcium 8.4 L Phosphorus 3.6 Magnesium 1.7 Total Bilirubin 0.6 AST 143 H ALT 109 H Alkaline Phosphatase 112 Total Protein 7.7 Albumin 4.0 Globulin 3.6 Albumin/Globulin Ratio 1.1 Alcohol, Quantitative 13 H Attending/Attestation - Attestation I have personally seen and examined this patient.: Yes I have fully participated in the care of the patient.: Yes I have reviewed all pertinent clinical information: Yes Notes (Text): 08/13/18 08:25 This is a late entry. Patient was seen with resident in ER Bed #3 on 08/12/18 History, Physical, Assessment and Plan, and All Orders were gone over with the resident. I remember this patient from a prior admission. Extensive conversation with patient on 08/12/18 and 08/13/18 concerning the dangers of his alcohol abuse. Robbie Fernando D.O.
[2018-08-12 14:52] VITALS: RESP 20
--- NOTE | 2018-08-13 07:04 | CP.PCM.PN ---
<Adolfo Whalen - Last Filed: 08/13/18 07:03> Subjective - Date & Time of Evaluation Date of Evaluation: 08/13/18 Time of Evaluation: 07:03 - Subjective Subjective: PGY-1 Medicine progress note for Dr. Oly Fernando Objective - Vital Signs/Intake and Output Vital Signs (last 24 hours): Temp Pulse Resp BP Pulse Ox 97.9 F 69 20 123/80 96 08/13/18 00:00 08/13/18 00:00 08/13/18 00:00 08/13/18 00:00 08/13/18 04:30 Intake and Output: 08/13/18 08/13/18 06:59 18:59 Intake Total 1080 Balance 1080 - Medications Medications: Current Medications Folic Acid (Folic Acid) 1 mg PO DAILY SOFI Lorazepam (Ativan) 2 mg PO Q4 SOFI; Taper Stop: 08/17/18 13:29 Last Admin: 08/13/18 05:17 Dose: 2 mg Lorazepam (Ativan) 1 mg IVP Q4H PRN PRN Reason: Seizure activity Multivitamins (Hexavitamin) 1 tab PO DAILY SOFI Thiamine HCl (Vitamin B1 Tab) 100 mg PO DAILY SOFI - Labs Labs: 08/12/18 12:14 08/12/18 12:14 Assessment and Plan - Assessment and Plan (Free Text) Assessment: Patient is a 38 year old male with history of gastritis, hypertension, and alcohol abuse admitted for alcohol withdrawal symptoms. Plan: Alcohol withdrawal symptoms, acute - Ativan PO taper: - 2mg Q4H X 2 days - 1mg Q4H X 1 day - 1mg Q8H X 1 day - 1mg Q24H X 1 day - Ativan 1mg IV Q4H PRN for seizures - Serum alcohol: 13 - Seizure, fall, aspiration protocols - Daily MV, thiamine, Folate - [facility] protocol - Neurochecks Q4H Transaminitis, chronic - 2/2 alcohol abuse - Avoid hepatotoxic agents - Lipid panel: WNL - Hepatitis panel: negative - Continue to monitor History of prolonged QTc, chronic - Follow up repeat EKG - Avoid Zofran or Reglan - Avoid other medications that prolong QTc Hypokalemia, acute - Replete as needed - Continue to monitor History of microscopic hematuria, resolved - Urine culture on 08/10: no growth - Follow up UA - Monitor and work up as outpatient History of thrombocytopenia, chronic - Likely 2/2 bone marrow suppression from alcohol abuse - Stable - Continue to monitor History of hypertension, chronic - Stable - Patient not on medications - Continue to monitor Alcohol abuse, chronic - Follow up UDS - Serum alcohol: 13 - Counselled patient on alcohol cessation Prophylaxis: - DVT: SCD's, VTE contraindicated due to thrombocytopenia - GI: not indicated Patient seen and case discussed with attending, Dr. Oly Fernando. Adolfo Whalen, PGY-1 <Robbie Fernando - Last Filed: 08/13/18 08:24> Objective - Vital Signs/Intake and Output Vital Signs (last 24 hours): Temp Pulse Resp BP Pulse Ox 98.2 F 71 20 124/87 96 08/13/18 07:59 08/13/18 07:59 08/13/18 07:59 08/13/18 07:59 08/13/18 07:59 Intake and Output: 08/13/18 08/13/18 06:59 18:59 Intake Total 1080 Balance 1080 - Medications Medications: Current Medications Folic Acid (Folic Acid) 1 mg PO DAILY SOFI Lorazepam (Ativan) 2 mg PO Q4 SOFI; Taper Stop: 08/17/18 13:29 Last Admin: 08/13/18 05:17 Dose: 2 mg Lorazepam (Ativan) 1 mg IVP Q4H PRN PRN Reason: Seizure activity Multivitamins (Hexavitamin) 1 tab PO DAILY SOFI Thiamine HCl (Vitamin B1 Tab) 100 mg PO DAILY SOFI - Labs Labs: 08/13/18 08:04 08/12/18 12:14 Attending/Attestation - Attestation I have personally seen and examined this patient.: Yes I have fully participated in the care of the patient.: Yes I have reviewed all pertinent clinical information, including history, physical exam and plan: Yes Notes (Text): 08/13/18 08:21 Patient was seen and examined at 8:00 AM Bed 360 A 08/13/18 Upon FULL ROS: NO SOB/Cough/Wheezing Soreness in his chest area and points to the lower substernal area not currently present NO abdominal pain NO dysphagia/odynophagia/soreness in the throat NO n/v/d/c NO burning/pain with urination NO lightheadedness/dizziness NO new changes in the eyes NO new changes in hearing NO paresthesias NO edema HEENT, Cardio, Respiratory, GI, Ext, CN II through XII are unremarkable except where noted: GI: Central obesity, soft, NT, NO guarding/rebound tenderness Neuro: NO tremors noted, walked with patient and his gait was normal /umremarkable The following are the discharge instructions from his recent discharge on 08/11/18 and these instructions are unchanged: - Schedule follow up with [facility] within the next 7 to 10 days. - You must stop drinking alcohol. Please attend Alcohol Anonymous (AA) Meetings for help in quitting drinking alcohol. Call [phone] for help and more information as to when meetings take place at [address] [place] [address] [place] [address]. - Please get the following over the counter medications at your pharmacy on your way home from the hospital and use as directed: - Multivitamin daily - Thiamine daily - Folic acid daily - Please go to the AA meetings, follow up at the [facility], and take care of yourself. - Return to the emergency room for worsening or newly concerning symptoms. - Programe el seguimiento con [facility] dentro de los prximos 7 a 10 dubose. - Debes dejar de beber alcohol. Por favor, asista a las reuniones de Alcohol Anonymous (AA) para obtener ayuda para dejar de beber alcohol. Llame al [phone] para obtener ayuda y ms informacin sobre cundo se realizarn las reuniones en [address] [place] [address] [place] [address]. - Por favor, obtenga los siguientes medicamentos de venta sin receta en [place] farm[place] en [place] bimal a casa desde el hospital y selos segn las indicaciones: - Multivitamnico diario. - Tiamina al da. - cido flico diario. - Por favor, vaya a las reuniones de AA, alex un seguimiento en la [facility] y cudese. - Regrese a la raymond de emergencias por empeoramiento o sntomas nuevos.
[2018-08-13 08:00] VITALS: BP 124/87; PULSE 71; TEMP 98.2
[2018-08-13 08:14] LABS: BASO % 0.3 % (0.0-2.0); EOS # 0.2 K/uL (0.0-0.7); EOS % 3.4 % (0.0-4.0); HEMOGLOBIN 12.9 g/dL (12.0-18.0); LYMPH % 37.5 % (20.0-40.0); MEAN CELL VOLUME 87.3 fL (80.0-94.0); MEAN CORPUSCULAR HEMOGLOBIN 29.4 pg (27.0-31.0); MEAN CORPUSCULAR HGB CONC 33.7 g/dL (33.0-37.0); MEAN PLATELET VOLUME 8.6 fL (7.2-11.7); MONO # 0.6 K/uL (0.0-0.8); MONO % 10.5 % (0.0-10.0); NEUT # 2.5 K/uL (1.8-7.0); NEUT % 48.3 % (50.0-75.0); NRBC % 0.1 % (0.0-2.0); RBC 4.4 Mil/uL (4.40-5.90); WHITE BLOOD COUNT 5.3 K/uL (4.8-10.8)
[2018-08-13 08:31] LABS: ALBUMIN 3.6 g/dL (3.5-5.0); ALT/SGPT 93 U/L (21-72); AST/SGOT 98 U/L (17-59); BLOOD UREA NITROGEN 8 mg/dL (9-20); CALCIUM 8.7 mg/dl (8.6-10.4); GFR NON-AFRICAN AMERICAN > 60
--- NOTE | 2018-08-13 09:15 | CP.PCM.DIS ---
Provider - Provider Date of Admission: 08/12/18 13:18 Attending physician: Robbie Fernando MD Time Spent in preparation of Discharge (in minutes): 45 Diagnosis - Discharge Diagnosis (1) Alcohol abuse Status: Chronic (2) Alcohol withdrawal Status: Resolved (3) Nausea Status: Resolved (4) Thrombocythemia Status: Chronic (5) Alcoholic gastritis Status: Chronic (6) Elevated LFTs Status: Chronic (7) Abdominal pain Status: Resolved Hospital Course - Lab Results Lab Results: Most Recent Lab Values WBC 5.3 K/uL (4.8-10.8) 08/13/18 08:04 RBC 4.40 Mil/uL (4.40-5.90) 08/13/18 08:04 Hgb 12.9 g/dL (12.0-18.0) 08/13/18 08:04 Hct 38.4 % (35.0-51.0) 08/13/18 08:04 MCV 87.3 fL (80.0-94.0) 08/13/18 08:04 MCH 29.4 pg (27.0-31.0) 08/13/18 08:04 MCHC 33.7 g/dL (33.0-37.0) 08/13/18 08:04 RDW 15.0 % (11.5-14.5) H 08/13/18 08:04 Plt Count 84 K/uL (130-400) L 08/13/18 08:04 MPV 8.6 fL (7.2-11.7) 08/13/18 08:04 Neut % (Auto) 48.3 % (50.0-75.0) L 08/13/18 08:04 Lymph % (Auto) 37.5 % (20.0-40.0) 08/13/18 08:04 Sevier % (Auto) 10.5 % (0.0-10.0) H 08/13/18 08:04 Eos % (Auto) 3.4 % (0.0-4.0) 08/13/18 08:04 Baso % (Auto) 0.3 % (0.0-2.0) 08/13/18 08:04 Neut # (Auto) 2.5 K/uL (1.8-7.0) 08/13/18 08:04 Lymph # (Auto) 2.0 K/uL (1.0-4.3) 08/13/18 08:04 Sevier # (Auto) 0.6 K/uL (0.0-0.8) 08/13/18 08:04 Eos # (Auto) 0.2 K/uL (0.0-0.7) 08/13/18 08:04 Baso # (Auto) 0.0 K/uL (0.0-0.2) 08/13/18 08:04 Differential Comment 08/12/18 12:14 Sodium 137 mmol/L (132-148) 08/13/18 08:04 Potassium 3.9 mmol/L (3.6-5.2) 08/13/18 08:04 Chloride 105 mmol/L (98-107) 08/13/18 08:04 Carbon Dioxide 23 mmol/L (22-30) 08/13/18 08:04 Anion Gap 13 (10-20) 08/13/18 08:04 BUN 8 mg/dL (9-20) L 08/13/18 08:04 Creatinine 0.6 mg/dL (0.8-1.5) L 08/13/18 08:04 Est GFR ( Amer) > 60 08/13/18 08:04 Est GFR (Non-Af Amer) > 60 08/13/18 08:04 Random Glucose 87 mg/dL (75-110) 08/13/18 08:04 Calcium 8.7 mg/dl (8.6-10.4) 08/13/18 08:04 Phosphorus 3.6 mg/dL (2.5-4.5) 08/12/18 12:14 Magnesium 1.7 mg/dL (1.6-2.3) 08/12/18 12:14 Total Bilirubin 0.9 mg/dL (0.2-1.3) 08/13/18 08:04 AST 98 U/L (17-59) H D 08/13/18 08:04 ALT 93 U/L (21-72) H 08/13/18 08:04 Alkaline Phosphatase 88 U/L (38-126) 08/13/18 08:04 Total Protein 7.1 g/dL (6.3-8.3) 08/13/18 08:04 Albumin 3.6 g/dL (3.5-5.0) 08/13/18 08:04 Globulin 3.5 gm/dL (2.2-3.9) 08/13/18 08:04 Albumin/Globulin Ratio 1.0 (1.0-2.1) 08/13/18 08:04 Alcohol, Quantitative 13 mg/dl (0-10) H 08/12/18 12:14 - Hospital Course Hospital Course: Patient is a 38 year old male with a past medical history of gastritis, HTN, and alcohol abuse, presenting with nausea and tremors. Patient was admitted for alcohol abuse with withdrawal symptoms. Patient was recently admitted in the hospital from 08/09-08/11 for alcohol related delirium tremors. Patient has had multiple previous admissions for alcohol withdrawals and detox, with multiple failed detoxes. During the course of his hospital stay, patient was treated with Ativan, IV fluids, multivitamins, thiamine, and folate. Patient was without significant withdrawal signs on physical exam on day of discharge and CIWA score was found to be 1. He was able to ambulate without any issues. Patient was provided resources for AA for help with drinking cessation. Patient was instructed to take over the counter thiamine, folate, and multivitamins. Patient was instructed to follow up with a PMD in the clinic. He was counselled multiple times for alcohol cessation. Patient is medically stable for discharge. Discharge Exam - Additional Findings Additional findings: - Constitutional Appears: Non-toxic, No Acute Distress, Unkempt - Head Exam Head Exam: ATRAUMATIC, NORMAL INSPECTION, NORMOCEPHALIC - Eye Exam Eye Exam: EOMI, Normal appearance, PERRL Pupil Exam: NORMAL ACCOMODATION - ENT Exam ENT Exam: Mucous Membranes Dry - Neck Exam Neck exam: Positive for: Normal Inspection. Negative for: Tenderness - Respiratory Exam Respiratory Exam: Clear to Auscultation Bilateral. absent: Rales, Rhonchi, Wheezes, Respiratory Distress - Cardiovascular Exam Cardiovascular Exam: REGULAR RHYTHM, +S1, +S2. absent: Bradycardia, Tachycardia, Gallop, Rubs, Systolic Murmur - GI/Abdominal Exam GI & Abdominal Exam: Normal Bowel Sounds, Soft. absent: Distended, Firm, Gua rding, Tenderness - Extremities Exam Extremities exam: Positive for: normal inspection. Negative for: calf tenderness, pedal edema - Back Exam Back exam: NORMAL INSPECTION. absent: CVA tenderness (L), CVA tenderness (R), paraspinal tenderness, vertebral tenderness - Neurological Exam Neurological exam: Alert, CN II-XII Intact, Oriented x3 No tremors noted. Normal gait. - Psychiatric Exam Psychiatric exam: Normal Affect, Normal Mood - Skin Skin Exam: Dry, Intact, Normal Color, Warm Additional comments: No abrasions noted on all extremities, chest, or abdomen Discharge Plan - Follow Up Plan Condition: GOOD Disposition: HOME/ ROUTINE Additional Instructions: - Programe el seguimiento con [facility] dentro de los prximos 7 a 10 dubose. - Debes dejar de beber alcohol. Por favor, asista a las reuniones de Alcohol Anonymous (AA) para obtener ayuda para dejar de beber alcohol. Llame al [phone] para obtener ayuda y ms sharyn sobre cundo se realizarn las reuniones en [address] [place] [address] [place] [address]. - Por favor, obtenga los siguientes medicamentos de venta sin receta en [place] en [place] [facility] a casa desde el hospital y selos segn las indicaciones: - Multivitamnico diario. - Tiamina al da. - cido flico diario. - Por favor, vaya a las reuniones de AA, alex un seguimiento en la [facility] vecindario y cudese. - Regrese a la raymond de emergencias por empeoramiento o sntomas nuevos.
[2018-08-13] MEDS ORDERED: Multiple Vitamins Tab PO SCH (10:00)
[2018-08-14 00:33] VITALS: O2SAT 99
[2018-08-14] MEDS ORDERED: Pneumococcal 23-Valent Vaccine IM ONE (10:00)
== END 2018-08-13 13:50 | disposition home or self-care (01) ==
LOC: C.ER 10:31 → C.3T 13:18
PROVIDERS: ADMIT Family Medicine; ATTEND Family Medicine
DX: F10.231 Alcohol dependence with withdrawal delirium (principal); K29.20 Alcoholic gastritis without bleeding; K92.0 Hematemesis; F17.219 Nicotine dependence, cigarettes, with unspecified nicotine-induced disorders; I10 Essential (primary) hypertension; E66.9 Obesity, unspecified; Y90.0 Blood alcohol level of less than 20 mg/100 ml
CPT/HCPCS: 36415; 80053; 80320; 83735; 84100; 85025; 96374; 99285; C9113; G0378; J2060; J2405; J3411; J3480; J7030